=== PATIENT | female | born 1985 | race Caucasian/White ===

== ENCOUNTER → 2021-09-17 10:17 | Outpatient (REF) | payer MEDICAID, SELFPAY | LOC: HO.SL 10:17 | PROVIDERS: Absent Provider Internal Medicine; PCP Internal Medicine; Visit Provider Emergency Medicine | DX: G47.9 Sleep disorder, unspecified (principal) | CPT/HCPCS: 95806 ==

== ENCOUNTER 2021-10-12 13:31 | Outpatient (REF) | payer MEDICAID, SELFPAY ==
[2021-10-14 11:40] LABS: H Pylori Breath Test Negative (Negative)
== END 2021-10-12 13:32 | disposition home or self-care (01) ==
LOC: HO.LNP 13:31
PROVIDERS: PCP Internal Medicine; Referring Provider Internal Medicine; Visit Provider Physician Assistant
DX: Z01.818 Encounter for other preprocedural examination (principal); E66.01 Morbid (severe) obesity due to excess calories; I10 Essential (primary) hypertension; G47.33 Obstructive sleep apnea (adult) (pediatric); E11.9 Type 2 diabetes mellitus without complications; E78.00 Pure hypercholesterolemia, unspecified; M62.08 Separation of muscle (nontraumatic), other site; Z99.89 Dependence on other enabling machines and devices
CPT/HCPCS: 83013; 99202; 99211

== ENCOUNTER → 2021-10-23 10:00 | Outpatient (BNVA) | payer OTHER, SELFPAY | PROVIDERS: PCP Internal Medicine; Referring Provider Physician Assistant; Visit Provider Counselor Mental Health | DX: F33.1 Major depressive disorder, recurrent, moderate (principal); E66.01 Morbid (severe) obesity due to excess calories; G47.33 Obstructive sleep apnea (adult) (pediatric); Z99.89 Dependence on other enabling machines and devices | CPT/HCPCS: 90791 ==

== ENCOUNTER → 2021-10-28 22:00 | Outpatient (REF) | payer MEDICAID, SELFPAY | LOC: HO.SL 22:00 | PROVIDERS: Visit Provider Internal Medicine | DX: G47.33 Obstructive sleep apnea (adult) (pediatric) (principal) | CPT/HCPCS: 95811 ==

== ENCOUNTER → 2021-11-02 08:04 | Outpatient (BNVA) | payer MEDICAID, SELFPAY | PROVIDERS: PCP Internal Medicine; Referring Provider Physician Assistant; Visit Provider Dietitian, Registered | DX: E66.01 Morbid (severe) obesity due to excess calories (principal); E11.9 Type 2 diabetes mellitus without complications; Z68.43 Body mass index [BMI] 50.0-59.9, adult | CPT/HCPCS: 97802 ==

== ENCOUNTER 2021-11-08 08:09 | Outpatient (REF) | payer MEDICAID, SELFPAY ==
--- NOTE | ~2021-11-08 | XR_ITS ---
EXAMINATION: XR CHEST CLINICAL INFORMATION: G47.33 - Obstructive sleep apnea . Shortness of breath. COMPARISON: CT abdomen 04/13/2020 TECHNIQUE: 2 views of the chest were obtained. FINDINGS: The lungs are clear. There is no hyperinflation, airspace consolidation, or groundglass opacity. The costophrenic sulci are clear. The heart is normal in size. The vascularity is normal. The hilar and mediastinal contours and bony structures are unremarkable. XR/XR chest 2V IMPRESSION: Normal study.
--- NOTE | 2021-11-08 08:20 | ECG_ITS ---
Test Reason : 647.33 Blood Pressure : / mmHG Vent. Rate : 075 BPM Atrial Rate : 075 BPM P-R Int : 118 ms QRS Dur : 082 ms QT Int : 404 ms P-R-T Axes : -03 012 017 degrees QTc Int : 451 ms Normal sinus rhythm Normal ECG No previous ECGs available Referred By: Latosha Nair Electronically Signed By:JANEL JUAREZ MD
[2021-11-08 08:50] LABS: MANUAL DIFF FLAG NO
[2021-11-08 09:00] LABS: Basophils Percent Auto 0.2 % (0-2); Eosinophils Absolute Auto 0.2 X10*3/uL (0.0-0.4); Eosinophils Percent Auto 2.3 % (0-4); Hematocrit 40.6 % (37.0-47.0); Hemoglobin 12.9 g/dl (12.0-16.0); Imm Gran Abs Auto 0.03 X10*3/uL (0.00-0.03); Imm Gran Pct Auto 0.3 % (0.0-0.4); Lymphocytes Absolute Auto 2.4 X10*3/uL (1.2-4.9); Lymphocytes Percent Auto 27.4 % (20-40); Mean Corpuscular HGB Conc 31.8 g/dl (31.0-35.0); Mean Corpuscular Hemoglobin 27.1 pg (27.0-33.0); Mean Corpuscular Volume 85.3 fL (80.0-98.0); Mean Platelet Volume 9.2 fL (9.4-12.3); Monocytes Absolute Auto 0.6 X10*3/uL (0.1-1.2); Monocytes Percent Auto 6.5 % (2-11); Neutrophils Absolute Auto 5.6 x10*3/uL (2.0-8.3); Neutrophils Percent Auto 63.3 % (45-73); Platelet Count 418 X10*3/uL (160-400); Red Blood Count 4.76 X10*6/uL (4.20-5.50); Red Cell Distribution Width 13.4 % (11.0-16.0); White Blood Count 8.8 X10*3/uL (4.8-10.8)
[2021-11-08 09:27] LABS: Alanine Aminotransferase 25 U/L (0-31); Albumin Level 3.9 g/dL (3.5-5.0); Alkaline Phosphatase 78 U/L (39-117); Anion Gap 13 (12-20); Aspartate Amino Transferase 14 U/L (5-31); Bilirubin Total 0.3 mg/dL (0.0-1.0); Blood Urea Nitrogen 12 mg/dL (9-16); C Reactive Protein 2.29 mg/dL (< or = 0.50); Calcium 9.9 mg/dL (8.4-10.2); Carbon Dioxide 31 mmol/L (22-29); Chloride 97 mmol/L (96-108); Cholesterol 150 mg/dL; Estimated Glomerular Filt Rate > 60; Glucose Random 112 mg/dL (60-115); HDL Cholesterol 34 mg/dL; Iron 48 mcg/dL (30-160); LDL Cholesterol Calculated 101 mg/dl; Percent Iron Saturation 14 % (15-50); Potassium 3.9 mmol/L (3.3-5.1); Sodium 137 mmol/L (135-145); Total Iron Binding Capacity 340 mcg/dL (228-428); Total Protein 7.4 g/dL (6.5-8.0); Triglycerides 76 mg/dL; Unsaturated Iron Binding 292 ug/dL
[2021-11-08 09:30] LABS: Estimated Average Glucose 120 mg/dL; Hemoglobin A1c % 5.8 %
[2021-11-08 09:49] LABS: Ferritin 51 ng/mL (10-122); Insulin 31 uU/mL (2-29); TSH reflex Free T4 2.16 uIU/mL (0.32-4.0); Vitamin D 25-OH Total 14.6 ng/mL (>30)
[2021-11-08 10:09] LABS: Folate 6.4 ng/mL (> or = 4.0); Vitamin B12 267 pg/mL (200-900)
[2021-11-09 12:26] LABS: Calcium (PTHI) 9.4 mg/dL (8.6-10.2); PTHI 64 pg/mL (16-77)
[2021-11-13 17:01] LABS: Zinc 75 mcg/dL (60-130)
[2021-11-14 14:06] LABS: Vitamin B1 9 nmol/L (8-30)
[2021-11-14 23:36] LABS: Vitamin A 27 mcg/dL (38-98)
== END 2021-11-08 08:10 | disposition home or self-care (01) ==
LOC: HO.LAB 08:09
PROVIDERS: PCP Internal Medicine; Visit Provider Physician Assistant
DX: Z01.818 Encounter for other preprocedural examination (principal); M62.08 Separation of muscle (nontraumatic), other site; E78.00 Pure hypercholesterolemia, unspecified; Z99.89 Dependence on other enabling machines and devices; G47.33 Obstructive sleep apnea (adult) (pediatric)
CPT/HCPCS: 36415; 71046; 80053; 80061; 82306; 82607; 82728; 82746; 83036; 83525; 83540; 83970; 84425; 84443; 84590; 84630; 85025; 86140; 93005

== ENCOUNTER → 2021-11-09 08:07 | Outpatient (BNVA) | payer MEDICAID, SELFPAY | PROVIDERS: PCP Internal Medicine; Visit Provider Physician Assistant | DX: E66.01 Morbid (severe) obesity due to excess calories (principal); I10 Essential (primary) hypertension; G47.33 Obstructive sleep apnea (adult) (pediatric); E11.9 Type 2 diabetes mellitus without complications; Z99.89 Dependence on other enabling machines and devices; Z68.43 Body mass index [BMI] 50.0-59.9, adult; Z79.84 Long term (current) use of oral hypoglycemic drugs | CPT/HCPCS: 99212; Q3014 ==

== ENCOUNTER → 2021-11-13 09:45 | Outpatient (BNVA) | payer MEDICAID, SELFPAY | PROVIDERS: PCP Internal Medicine; Visit Provider Counselor Mental Health | DX: F33.1 Major depressive disorder, recurrent, moderate (principal); E66.01 Morbid (severe) obesity due to excess calories | CPT/HCPCS: 90834 ==

== ENCOUNTER → 2021-11-22 08:11 | Outpatient (BNVA) | payer MEDICAID, SELFPAY | PROVIDERS: PCP Internal Medicine; Referring Provider Physician Assistant; Visit Provider Dietitian, Registered | DX: E66.01 Morbid (severe) obesity due to excess calories (principal); Z68.43 Body mass index [BMI] 50.0-59.9, adult | CPT/HCPCS: 97803 ==

== ENCOUNTER → 2021-11-27 13:00 | Outpatient (BNVA) | payer OTHER, SELFPAY | PROVIDERS: PCP Internal Medicine; Visit Provider Counselor Mental Health | DX: F33.1 Major depressive disorder, recurrent, moderate (principal); E66.01 Morbid (severe) obesity due to excess calories | CPT/HCPCS: 90834 ==

== ENCOUNTER 2021-11-28 07:35 | Outpatient (REF) | payer MEDICAID, SELFPAY ==
--- NOTE | ~2021-11-28 | FL_ITS ---
PROCEDURE: XR GI SERIES CLINICAL INFORMATION: Morbid obesity. Obstructive sleep apnea. COMPARISON: None TECHNIQUE: Air-contrast upper GI examination. FINDINGS: Patient swallowed thin and thick barium and half-inch diameter barium tablet without difficulty. There is normal apposition of the vocal cords while saying E . There is normal elevation of the soft palate while saying candy . No nasopharyngeal reflux or tracheal aspiration was identified. There is normal esophageal motility without persistent stricture or mucosal abnormality. No hiatal hernia. There was some mild spontaneous gastroesophageal reflux within the distal third of the esophagus which cleared rapidly. Patient swallowed half-inch diameter barium tablet without difficulty. The stomach demonstrates normal distensibility without abnormal mass or ulceration. There was no delay in gastric emptying. The duodenal bulb and sweep appeared unremarkable. FLUOROSCOPY TIME: 2.1 minutes DOSE AREA PRODUCT: 25.690 Gy-cm2 (harrison-centimeter squared) FL/FL upper GI series IMPRESSION: Mild gastroesophageal reflux within the distal third of the esophagus which clears rapidly. Otherwise unremarkable air-contrast upper GI examination.
--- NOTE | ~2021-11-28 | US_ITS ---
EXAMINATION: US COMPLETE ABDOMEN WITH LIVER ELASTOGRAPHY CLINICAL INFORMATION: Morbid obesity. COMPARISON: None. TECHNIQUE: Real-time imaging of the abdominal viscera. Noninvasive ultrasound liver fibrosis assessment is performed using Lucho ElastPQ point quantification shear wave elastography (2D-SWE) with a C5-2 MHz transducer. Multiple elastography samples are obtained. FINDINGS: PANCREAS: Normal. The visualized pancreatic head and body are normal in appearance. The remainder of the pancreas is obscured from visualization by the overlying bowel gas. ABDOMINAL AORTA: The proximal, middle, and distal aortic segments are normal in caliber. INFERIOR VENA CAVA: Visualized portions are normal. LIVER: The liver demonstrates normal size, contour and increased echogenicity. No focal lesion or intrahepatic biliary duct dilatation. The right lobe measures 22.0 cm in length. The left lobe measures 14.6 cm in length. Portal flow is hepatopetal. Shear wave liver elastography median stiffness is 1.27 m/s (reference: normal median stiffness is 1.3 m/s or less). IQR/median stiffness to assess sampling precision is 0.22 (reference: good quality data set is IQR/median stiffness of 0.15 or less). GALLBLADDER: The gallbladder has been surgically removed. COMMON BILE DUCT: Normal in caliber measuring 0.7 cm in diameter. RIGHT KIDNEY: Normal. No hydronephrosis. No renal calculi or focal parenchymal lesions. The kidney measures 11.4 cm in maximum dimension. LEFT KIDNEY: Normal. No hydronephrosis. No renal calculi or focal parenchymal lesions. The kidney measures 11.6 cm in maximum dimension. SPLEEN: Normal. The spleen measures 10.3 cm in maximum dimension. FREE FLUID: None. US/US abdomen comp w elastography IMPRESSION: 1. Mild hepatic steatosis without focal lesion. 2. The rest of the abdominal ultrasound is unremarkable. 3. Liver elastography: Median liver stiffness 1.27 m/s suggestive of high probability normal. REFERENCE: Society of Radiologists in Ultrasound Liver Stiffness Thresholds (2020): LIVER STIFFNESS THRESHOLDS: *Liver Stiffness equal or less than 1.3 m/s: High probability of being normal. *Liver Stiffness less than 1.7 m/s: In the absence of other known clinical signs, rules out compensated advanced chronic liver disease. *Liver Stiffness 1.7-2.1 m/s: Suggestive of compensated advanced chronic liver disease but need further test for confirmation. *Liver Stiffness over 2.1 m/s: Rules in compensated advanced chronic liver disease. *Liver Stiffness over 2.4 m/s: Suggestive of clinically significant portal hypertension. QUALITY OF DATA SET: *IQR/Median value equal or less than 0.15 implies a quality data set. *IQR/Median value over 0.15 implies a poor quality data set. SIGNIFICANT CHANGE FROM PRIOR EXAM: Significant change if liver stiffness measurement is 10% or greater from prior exam. OTHER CONSIDERATIONS: The stage of liver fibrosis may be overestimated in the setting of acute hepatitis, liver inflammation, elevated liver function tests, hepatic vascular congestion, obstructive cholestasis, non-fasting state, and infiltrative diseases such as amyloidosis and lymphoma. In some patients with NAFLD, the liver stiffness thresholds for compensated advanced chronic liver disease may be lower. In causes other than viral hepatitis and NAFLD, liver stiffness thresholds are not well established.
== END 2021-11-28 07:36 | disposition home or self-care (01) ==
LOC: HO.US 07:35
PROVIDERS: PCP Internal Medicine; Visit Provider Physician Assistant
DX: Z01.818 Encounter for other preprocedural examination (principal); G47.33 Obstructive sleep apnea (adult) (pediatric); E78.00 Pure hypercholesterolemia, unspecified; M62.08 Separation of muscle (nontraumatic), other site; Z99.89 Dependence on other enabling machines and devices
CPT/HCPCS: 74240; 76705; 76981

== ENCOUNTER → 2021-11-29 08:10 | Outpatient (BNVA) | payer OTHER, MEDICAID, SELFPAY | PROVIDERS: PCP Internal Medicine; Visit Provider Physician Assistant | DX: E66.01 Morbid (severe) obesity due to excess calories (principal) ==

== ENCOUNTER → 2021-12-11 10:00 | Outpatient (BNVA) | payer OTHER, SELFPAY | PROVIDERS: PCP Internal Medicine; Visit Provider Counselor Mental Health | DX: F33.1 Major depressive disorder, recurrent, moderate (principal); E66.01 Morbid (severe) obesity due to excess calories | CPT/HCPCS: 90834 ==

== ENCOUNTER → 2021-12-19 10:28 | Outpatient (BNVA) | payer MEDICAID, SELFPAY | PROVIDERS: PCP Internal Medicine; Visit Provider Dietitian, Registered | DX: E66.9 Obesity, unspecified (principal) | CPT/HCPCS: 97803 ==

== ENCOUNTER → 2022-01-01 10:33 | Outpatient (BNVA) | payer OTHER, MEDICAID, SELFPAY | PROVIDERS: PCP Internal Medicine; Visit Provider Counselor Mental Health | DX: F33.1 Major depressive disorder, recurrent, moderate (principal); E66.01 Morbid (severe) obesity due to excess calories | CPT/HCPCS: 90834 ==

== ENCOUNTER → 2022-01-09 10:00 | Outpatient (BNVA) | payer OTHER, SELFPAY | PROVIDERS: PCP Internal Medicine; Visit Provider Counselor Mental Health | DX: F33.1 Major depressive disorder, recurrent, moderate (principal); E66.01 Morbid (severe) obesity due to excess calories | CPT/HCPCS: 90834 ==

== ENCOUNTER → 2022-01-30 09:40 | Outpatient (BNVA) | payer MEDICAID, SELFPAY | PROVIDERS: PCP Internal Medicine; Referring Provider Physician Assistant; Visit Provider Dietitian, Registered | DX: E66.01 Morbid (severe) obesity due to excess calories (principal); Z68.43 Body mass index [BMI] 50.0-59.9, adult | CPT/HCPCS: 97803 ==

== ENCOUNTER → 2022-02-08 13:30 | Outpatient (BNVA) | payer OTHER, SELFPAY | PROVIDERS: PCP Internal Medicine; Visit Provider Counselor Mental Health | DX: F33.1 Major depressive disorder, recurrent, moderate (principal); E66.01 Morbid (severe) obesity due to excess calories | CPT/HCPCS: 90834 ==

== ENCOUNTER 2022-11-13 13:09 | Outpatient (REF) | payer MEDICAID, SELFPAY ==
--- NOTE | 2022-11-13 10:15 | EMG_ITS ---
Please see scanned EMG / Nerve Conduction Report. MTDD
== END 2022-11-13 13:10 | disposition home or self-care (01) ==
LOC: HO.NEURO 13:09
PROVIDERS: PCP Registered Nurse; Visit Provider Registered Nurse
DX: R20.0 Anesthesia of skin (principal)
CPT/HCPCS: 95885; 95913

== ENCOUNTER 2023-02-18 15:44 | Outpatient (REF) | payer OTHER, SELFPAY ==
[2023-02-19 04:15] LABS: Syphilis Screen Nonreactive (Nonreactive)
[2023-02-19 04:30] LABS: HBS Num1 71.94 mIU/mL (0-7.99); HBc Num1 0.11 S/CO (0.00-0.79); HBsAGNum1 0.41 S/CO (0.00-0.99); HIV AB/AG Nonreactive (Nonreactive); HIV Num 1 0.07 S/CO (0.00-0.99); Hepatitis A Antibody IgM 0.19 Index (0-0.79); Hepatitis B Core Antibody Nonreactive (Nonreactive); Hepatitis B Surface Antigen Negative (Negative); ~HepC Num1 0.07 S/CO (0.00-0.79); ~Hepatitis A Antibody IgM Nonreactive (Nonreactive); ~Hepatitis B Surface Antibody REACTIVE (Nonreactive); ~Hepatitis C Antibody Nonreactive (Nonreactive)
== END 2023-02-18 15:45 | disposition home or self-care (01) ==
LOC: HO.HHCL 15:44
PROVIDERS: Visit Provider Registered Nurse
DX: Z00.00 Encounter for general adult medical examination without abnormal findings (principal); Z11.4 Encounter for screening for human immunodeficiency virus [HIV]
CPT/HCPCS: 36415; 86704; 86706; 86709; 86780; 86803; 87340; 87389

== ENCOUNTER 2023-04-30 12:17 | Outpatient (REF) | payer OTHER, SELFPAY | END 2023-04-30 12:18 | disposition home or self-care (01) | LOC: HO.HHCL 12:17 | PROVIDERS: Visit Provider Family Medicine | DX: D50.9 Iron deficiency anemia, unspecified (principal); I10 Essential (primary) hypertension | CPT/HCPCS: 36415; 80048; 83540; 85025 ==

== ENCOUNTER 2023-05-23 | Outpatient (REF) | payer OTHER, SELFPAY ==
[2023-05-29 05:48] LABS: HPV mRNA E6/E7 rflx Not Detected (Not Detected)
[2023-05-29 13:33] LABS: C. trachomatis RNA TMA NOT DETECTED (NOT DETECTED); N. gonorrhoeae RNA TMA NOT DETECTED (NOT DETECTED); Trichomonas (NAAT) DETECTED (NOT DETECTED)
== END 2023-05-23 00:01 | disposition home or self-care (01) ==
LOC: HO.LNP
PROVIDERS: Visit Provider Emergency Medicine
DX: Z12.4 Encounter for screening for malignant neoplasm of cervix (principal)
CPT/HCPCS: 87491; 87591; 87624; 87661; 88142

== ENCOUNTER 2023-10-08 10:57 | Outpatient (REF) | payer SELFPAY ==
[2023-10-08 14:09] LABS: TSH reflex Free T4 2.83 uIU/mL (0.32-4.0)
== END 2023-10-08 10:58 | disposition home or self-care (01) ==
LOC: HO.HHCL 10:57
PROVIDERS: Visit Provider Nurse Practitioner
DX: E66.01 Morbid (severe) obesity due to excess calories (principal)
CPT/HCPCS: 36415; 84443

== ENCOUNTER 2023-11-12 10:50 | Outpatient (REF) | payer SELFPAY ==
[2023-11-12 12:06] LABS: Estimated Average Glucose 120 mg/dL; Hemoglobin A1c % 5.8 % (<6.0)
[2023-11-12 12:17] LABS: Creatinine Urine 146.57 mg/dL; Microalbum/Creatinine Ratio Ur 9.5 ug/mg cr (<30)
[2023-11-12 12:25] LABS: Alanine Aminotransferase 16 U/L (0-31); Albumin Level 3.8 g/dL (3.5-5.0); Alkaline Phosphatase 78 U/L (39-117); Anion Gap 11 (12-20); Aspartate Amino Transferase 15 U/L (5-31); Bilirubin Total 0.4 mg/dL (0.0-1.0); Blood Urea Nitrogen 11 mg/dL (9-16); Calcium 9.2 mg/dL (8.4-10.2); Carbon Dioxide 28 mmol/L (22-29); Chloride 103 mmol/L (96-108); Estimated Glomerular Filt Rate > 60; Glucose Random 73 mg/dL (60-115); Potassium 4.3 mmol/L (3.3-5.1); Sodium 138 mmol/L (135-145); Total Protein 7.7 g/dL (6.5-8.0)
[2023-11-13 15:46] LABS: Cholesterol 157 mg/dL (<200); HDL Cholesterol 37 mg/dL (>40); LDL Cholesterol Calculated 100 mg/dL (<100); Triglycerides 104 mg/dL (<150)
== END 2023-11-12 10:51 | disposition home or self-care (01) ==
LOC: HO.HHCL 10:50
PROVIDERS: Visit Provider Nurse Practitioner
DX: I10 Essential (primary) hypertension (principal)
CPT/HCPCS: 36415; 80053; 80061; 82043; 82570; 83036

== ENCOUNTER 2024-05-16 20:27 | Emergency (ER) | payer OTHER, SELFPAY ==
--- NOTE | ~2024-05-16 | XR_ITS ---
EXAMINATION: XR CHEST CLINICAL INFORMATION: Cough and congestion. COMPARISON: Chest radiograph dated November 08, 2021. TECHNIQUE: 2 views of the chest were obtained. FINDINGS: The heart is normal in size. The right lung is clear. There are hazy opacities at the left lung base for which infection cannot be excluded. There is no pleural effusion. No pneumothorax. No acute osseous abnormality. XR/XR chest 2V IMPRESSION: Hazy opacities at the left lung base for which infection is not excluded. Electronically signed by: Ulices Burns DO 05/16/2024 10:26 PM EDT
--- NOTE | 2024-05-16 20:35 | ED_ITS ---
HPI - URI/Sore Throat General Chief Complaint: Upper Respiratory Symptoms Stated Complaint: fever/body hurts/body rash Time Seen by Provider: 05/16/24 20:57 Source: patient Mode of arrival: ambulatory Limitations: no limitations History of Present Illness ED Provider: CRISTIANO LOPEZ Narrative: 38 yo female with PMH of DM and HTN here with c/o 2 weeks of cough, congestion and chills. She notes her throat hurts, her ears hurt she has a rash now and her ears have become so bad she can't really hear out of them. She went to urgent care this week and they dx her with a virus. Her 13 yo son has a cold but otherwise no travel, sick contacts or new exposures. She has not felt sick like this before. MD elicited complaint: fever, cough, sore throat and rhinorrhea Onset (ago): week(s) (2) Consistency: progressively worsening Severity: moderate Description of mucous: yellow Able to tolerate fluids by mouth: Yes Exacerbating factors: swallowing and exertion Relieving factors: nothing Context: sick contacts Associated symptoms: fever, chills, headache, cough and rash Treatments prior to arrival: none Related Data Home Medications ?Medication ?Instructions ?Recorded ?Confirmed hydrochlorothiazide 25 mg tablet 25 mg PO DAILY 10/12/21 02/12/22 metformin 500 mg tablet,extended 500 mg PO QPM 10/12/21 02/12/22 release 24 hr sumatriptan succinate 50 mg tablet 0 mg PO 10/12/21 02/12/22 Previous Rx's ?Medication ?Instructions ?Recorded cholecalciferol (vitamin D3) 50 50 mcg PO DAILY #30 caps 11/08/21 mcg (2,000 unit) capsule cyanocobalamin (vitamin B-12) 500 500 mcg PO DAILY #30 tabs 11/08/21 mcg tablet vitamin A palmitate 3,000 mcg 20,000 unit PO DAILY 2 weeks #28 11/15/21 (10,000 unit) tablet tabs Magic Mouthwash 5 ml PO TID PRN mouth pain #240 mL 05/16/24 Diphen/Lido/Antacid 1:1:1 240 mL suspension azithromycin 250 mg tablet 250 mg PO DAILY 4 days #4 tabs 05/16/24 cefuroxime axetil 500 mg tablet 500 mg PO BID 7 days #14 tabs 05/16/24 Allergies Allergy/AdvReac Type Severity Reaction Status Date / Time furosemide [From Lasix] Allergy Rash Verified 05/16/24 20:39 Review of Systems Review of Systems: Constitutional : pos Fever, pos Chills ENT/Mouth : No Hoarseness, pos sore throat, No Rhinorrhea, pos ear pain Eyes: No Redness, No Discharge, No Vision Changes Cardiovascular : No Chest Pain, no SOB, noDyspnea on Exertion, No Edema Respiratory : positive Cough, pos Sputum, no Wheezing, Gastrointestinal : No Nausea, No Vomiting, No Diarrhea, No abdominal Pain Genitourinary : No Dysuria, No Hematuria Musculoskeletal : No joint pain, No Myalgias Skin : No rash Neuro : No Weakness, No Numbness, No Headache Psych : No anxiety, depression All other systems reviewed and are negative PMFSH Past Medical History Attestation statement: The following information was validated with the patient. Source: old records reviewed Medical History Hx of migraines Hx of Surgical History Hx of cholecystectomy Family History Family History (Updated 10/12/21 @ 13:38 by Jalyn Barclay CMA) Mother Diabetes Asthma COPD (chronic obstructive pulmonary disease) Arthritis Back problem Sleep apnea Father Hypertension Diabetes Brother No problems noted. Brother Sleep apnea Brother No problems noted. Sister No problems noted. Sister No problems noted. Son No problems noted. Social History Social History Alcohol intake: current Alcohol intake frequency: holidays/special occasions only Alcohol type: wine Patient Tobacco Use Status: Current everyday Tobacco user Tobacco use type: Cigarette Cigarettes Per Day: 3 Smoked in Last 30 Days: Yes Use of substances other than those prescribed or required for medical reasons: No Advance Directives: No Advance Directives Information Provided: No Patient : No Physical Exam Vital Signs: Vital Signs: Last Vital Signs Temp 98.2 F 05/16/24 22:19 Pulse 78 05/16/24 22:19 Resp 18 05/16/24 22:19 BP 117/58 L 05/16/24 22:19 Pulse Ox 95 05/16/24 22:19 O2 Del Method Room Air 05/16/24 22:19 BMI result Body Mass Index 58.9 Appearance: Alert. Oriented X3. No acute distress. Eyes: Pupils equal, round and reactive to light. bilateral TMs inflammed with erythema and bullous area on R and L TM ? small perf on R TM ENT: Pharynx vesicles on lower chin and lip, inflammed tongue and mucosa of mouth Neck: Normal inspection. Neck supple. CVS: Normal heart rate and rhythm. Pulses normal. Respiratory: No respiratory distress. Breath sounds diminished L lung Abdomen: Soft and nontender. Skin: Skin warm and dry. Normal skin color. mucositis inflammation and vesicular lesions on chin and lower lips, target like lesions on upper ext and abdomen Extremities: No lower extremity edema. No calf ttp Neuro: Oriented X 3. No motor deficit. No sensory deficit. Course Course Course Narrative: This is a rapid medical exam. Deferred additional HPI, ROS, PE to primary provider. 38 yo female with with history of depression, DM, HTN here with complaints fever, body aches, chest discomfort with coughing. Will send viral testing, strep testing, obtain CXR VSS -A. Wanda Gamez Medications Administered Discontinued Medications Generic Name Dose Route Start Last Admin Trade Name Freq PRN Reason Stop Dose Admin Azithromycin 500 mg 05/16/24 21:13 05/16/24 21:52 Azithromycin 500 Mg Tablet PO 05/16/24 21:14 500 mg ONCE ONE Administration Dexamethasone Sodium Phosphate 8 mg 05/16/24 21:13 05/16/24 21:54 Dexamethasone Sod Phosphate 4 Mg/Ml Vial PO 05/16/24 21:14 8 mg ONCE ONE Administration Ibuprofen 400 mg 05/16/24 21:13 05/16/24 21:52 Ibuprofen Oral Susp 200 Mg/10 Ml Oral.Susp PO 05/16/24 21:14 400 mg ONCE ONE Administration Medical Decision Making Medical Decision Making MDM Narrative: 38 yo female with PMH of DM and HTN here with c/o URI symptoms but her constellation of symptoms, ear complaints and lung findings concern for mycoplasma infection at this time will obtain viral panel, CXR start on steroids/motrin for throat symptoms and azithromycin. No signs of any other secondary involvement of mycoplasma Differential Diagnosis Differential Diagnoses: The differential diagnosis associated with the presentation includes suspect mycoplasma infection with AOM and derm manifestations no signs of [employer]NAGER involvement or encephalitis Admission/Observation Consideration of admission/observation: Escalation of care including admission/observation considered VS stable, tolerating PO stable for DC no hypoxia Lab Data [facility] Lab Attestation statement: I reviewed the patient's lab results. Labs: Lab Results 05/16/24 Range/Units 20:44 Influenza Type A (PCR) NEGATIVE (Negative) Influenza Type B (PCR) NEGATIVE (Negative) RSV RNA Qual (PCR) NEGATIVE (Negative) SARS-CoV-2 RNA (RT-PCR) NEGATIVE (Negative) S. pyogenes GrpA BEAR Negative (Negative) Independent Interpretation I performed an independent interpretation of an: Plain X-Ray (LL PNA) Radiology Impression Discussion of test interpretation with radiology: I have reviewed the radiologist's reading. External Record Review External record reviewed: Office record Prescription Management I considered prescription management with: Antibiotic and Other Discharge Plan Discharge Clinical Impression: Bullous myringitis of both ears, Acute mucositis Left lower lobe pneumonia Qualifiers: Pneumonia type: due to Mycoplasma pneumoniae Qualified Code(s): J15.7 - Pneumonia due to Mycoplasma pneumoniae Patient Disposition: Home, Self-Care Instructions: Oral Mucositis (ED), Pneumonia (ED) Additional Instructions: I suspect your symptoms are due to mycoplasma pneumonia. continue motrin and tylenol for pain, you were given first dose of antibiotics while in the ED. please follow up with your doctor by friday to make sure you are improving return for any worsening symptoms such as high fevers, confusion, difficulty breathing, chest pain, worsening rash or any other concerns no water in right ear for 1 week - cotton ball with vaseline or ear plug recheck with doctor in 1 week Prescriptions: New azithromycin 250 mg tablet 250 mg PO DAILY 4 Days Qty: 4 0RF Rx Instructions: start on day 2 of therapy cefuroxime axetil 500 mg tablet 500 mg PO BID 7 Days Qty: 14 0RF Magic Mouthwash Diphen/Lido/Antacid 1:1:1 240 mL suspension 5 ml PO TID PRN (Reason: mouth pain) Qty: 240 0RF Rx Instructions: Lidocaine Viscous 2 % 80mL; diphenhydramine 12.5 mg/5 mL 80mL; aluminum-mag hydrox-simeth [id number]/5mL 80mL swish and spit No Action cholecalciferol (vitamin D3) 50 mcg (2,000 unit) capsule 50 mcg PO DAILY Qty: 30 6RF cyanocobalamin (vitamin B-12) 500 mcg tablet 500 mcg PO DAILY Qty: 30 6RF vitamin A palmitate 10,000 unit tablet 20,000 unit PO DAILY 14 Days Qty: 28 0RF hydrochlorothiazide 25 mg tablet 25 mg PO DAILY metformin 500 mg tablet extended release 24 hr 500 mg PO QPM sumatriptan succinate 50 mg tablet 0 mg PO Stand Alone Forms: Work/School Release Interventions: ED Discharge Assessment Last Done: 05/16/24 22:19 Discharge Date/Time: 05/16/24 22:21 Print Language: German
[2024-05-16 20:36] VITALS: BP 114/84; PULSE 92; RESP 18; TEMP 36.9; O2SAT 99; BMI 58.9
[2024-05-16 20:58] LABS: IDNOW Serial# 08D9AD1C; Strep A Nucleic Acid Negative (Negative)
[2024-05-16 21:27] LABS: Influenza A PCR NEGATIVE (Negative); Influenza B PCR NEGATIVE (Negative); Resp Syncy Virus RNA Qual PCR NEGATIVE (Negative); SARS COV2 PCR INHOUSE NEGATIVE (Negative)
[2024-05-16] MEDS: Ibuprofen Oral Susp 200 MG/10 ML ORAL.SUSP 400 MG PO (21:52)
[2024-05-16] MEDS: Azithromycin 500 MG TABLET PO (21:52)
[2024-05-16] MEDS: dexAMETHasone sod phosphate 4 MG/ML VIAL 8 MG PO (21:54)
--- NOTE | 2024-05-16 22:04 | PC.NURSE ---
pt ambulated from waiting room with steady gait. pt a&ox4, respirations even and unlabored, vss. pt reports coughing x2 weeks, sore throat, body aches, ear ache and upper respiratory congestion. pt reports 10/10 pain for sore throat and body aches. pt medicated per mar, tolerated well with water.
[2024-05-16 22:19] VITALS: BP 117/58; PULSE 78; RESP 18; TEMP 36.8; O2SAT 95
== END 2024-05-16 22:21 | disposition home or self-care (01) ==
PROVIDERS: Nurse Practitioner Family; Emergency Provider Emergency Medicine; PCP Registered Nurse
DX: J15.7 Pneumonia due to Mycoplasma pneumoniae (principal); H73.013 Bullous myringitis, bilateral; K12.30 Oral mucositis (ulcerative), unspecified; R50.9 Fever, unspecified; M79.10 Myalgia, unspecified site; R21 Rash and other nonspecific skin eruption; R05.9 Cough, unspecified; I10 Essential (primary) hypertension; Z79.899 Other long term (current) drug therapy; Z03.818 Encounter for observation for suspected exposure to other biological agents ruled out
CPT/HCPCS: 0241U; 71046; 87651; 99284; J1100

== ENCOUNTER 2024-08-08 13:41 | Outpatient (REF) | payer OTHER, SELFPAY | END 2024-08-08 13:42 | disposition home or self-care (01) | LOC: HO.MRI 13:41 | PROVIDERS: Visit Provider Registered Nurse | DX: Z13.89 Encounter for screening for other disorder (principal) ==

== ENCOUNTER 2024-08-13 08:32 | Outpatient (REF) | payer OTHER, SELFPAY ==
[2024-08-13 11:45] LABS: MANUAL DIFF FLAG NO
[2024-08-13 12:03] LABS: Basophils Percent Auto 0.2 % (0-2); Eosinophils Absolute Auto 0.2 X10*3/uL (0.0-0.4); Eosinophils Percent Auto 1.5 % (0-4); Hematocrit 40.4 % (37.0-47.0); Imm Gran Abs Auto 0.03 X10*3/uL (0.00-0.03); Imm Gran Pct Auto 0.3 % (0.0-0.4); Lymphocytes Absolute Auto 2.4 X10*3/uL (1.2-4.9); Lymphocytes Percent Auto 22.4 % (20-40); Mean Corpuscular HGB Conc 32.2 g/dl (31.0-35.0); Mean Corpuscular Hemoglobin 28.1 pg (27.0-33.0); Mean Corpuscular Volume 87.3 fL (80.0-98.0); Mean Platelet Volume 9.2 fL (9.4-12.3); Monocytes Absolute Auto 0.6 X10*3/uL (0.1-1.2); Monocytes Percent Auto 5.7 % (2-11); Neutrophils Absolute Auto 7.3 x10*3/uL (2.0-8.3); Neutrophils Percent Auto 69.9 % (45-73); Platelet Count 454 X10*3/uL (160-400); Red Blood Count 4.63 X10*6/uL (4.20-5.50); White Blood Count 10.5 X10*3/uL (4.8-10.8)
[2024-08-13 12:34] LABS: Anion Gap 10 (12-20); Blood Urea Nitrogen 13 mg/dL (9-16); Carbon Dioxide 29 mmol/L (22-29); Chloride 102 mmol/L (96-108); Estimated Glomerular Filt Rate > 60; Glucose Random 105 mg/dL (60-115); Potassium 3.6 mmol/L (3.3-5.1); Sodium 137 mmol/L (135-145)
== END 2024-08-13 08:33 | disposition home or self-care (01) ==
LOC: HO.HHCL 08:32
PROVIDERS: Registered Nurse; Visit Provider Nurse Practitioner
DX: H91.23 Sudden idiopathic hearing loss, bilateral (principal); R42 Dizziness and giddiness
CPT/HCPCS: 36415; 80048; 85025

== ENCOUNTER 2024-08-30 11:02 | Outpatient (AMB) | payer OTHER, SELFPAY ==
[2024-08-30 11:04] VITALS: BP 118/70; PULSE 73; BMI 56.7
--- NOTE | 2024-08-30 11:04 | MHC.OFFVIS ---
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 Patient has multiple cardiovascular risk factors including morbid obesity, prediabetes, hypertension, dyslipidemia. On appropriate medications for the same. She does not have any known cardiovascular issues including coronary disease or myocardial infarction or cardiomyopathy. Chronic smoker as well. She states that attempts, she has had substernal chest discomfort that happens somewhat randomly. Can happen at rest but also with exertion. She has also gotten short of breath at different times. No specific patterns for that. She is here for further evaluation. [facility] Medical History Hx of migraines Hx of Surgical History Hx of cholecystectomy Family History Mother Diabetes Asthma COPD (chronic obstructive pulmonary disease) Arthritis Back problem Sleep apnea Father Hypertension Diabetes Brother No problems noted. Brother Sleep apnea Brother No problems noted. Sister No problems noted. Sister No problems noted. Son No problems noted. Social History Alcohol intake: current Alcohol intake frequency: holidays/special occasions only Alcohol type: wine Patient Tobacco Use Status: Current everyday Tobacco user Tobacco use type: Cigarette Cigarettes Per Day: 3 Review of Systems Const Denies chills, Denies daytime sleepiness, Denies fatigue, Denies fever(s), Denies poor appetite, Denies snoring, Denies stops breathing during sleep, Denies weakness, Denies weight gain and Denies weight loss Eyes Denies loss of vision ENT Denies dizziness and Denies hearing loss Card Reports chest pain, Denies irregular heart rhythm, Denies claudication, Reports leg edema, Denies lightheadedness, Denies palpitations, Denies dyspnea on exertion and Denies orthopnea Resp Denies cough, Denies excessive phlegm production, Denies dyspnea on exertion, Denies snoring and Denies wheezing GI Denies abdominal pain, Denies hematochezia, Denies change in bowel habits, Denies nausea and Denies vomiting Denies urinary frequency and Denies dysuria Musc Denies arthralgias, Denies muscle weakness, Denies numbness and Denies other Skin/Breast Denies nail changes and Denies rash Neuro Denies Abnormal speech present, Denies dizziness, Denies loss of vision, Denies memory loss, Denies numbness and Denies weakness Psych Denies depression and Denies memory loss Endo Denies fatigue and Denies palpitations Tavon/Lymph Denies easy bruising Aller/Immun Denies wheezing Physical Exam Vital Signs: Last Vital Signs Pulse 73 08/30/24 11:04 BP 118/70 08/30/24 11:04 BMI result Body Mass Index 56.7 Const General: comfortable and no acute distress Orientation/consciousness: patient oriented x3 HEENT Other: Unremarkable Head: Yes normal to inspection Neck Neck: Yes normal visual inspection Chest Chest palpation & inspection: normal inspection of the chest Resp Auscultation: clear to auscultation bilaterally Cardio Palpation: normal PMI Heart sounds: S1 normal heart sound present, S2 normal heart sound present, no gallops, no murmurs and no rubs GI Palpation (GI): Soft to palpation Back/Spine/Pelvis Other: unremarkable Skin General skin exam: no rashes or lesions noted Neuro General: patient oriented x3 Speech: No Abnormal speech present Extrem General: Yes normal to inspection Psych Mental Status: mental status grossly normal Assessment & Plan Assessment & Plan (1) Precordial chest pain: Code(s): R07.2 - Precordial pain Category: Medical (2) Morbid obesity: Code(s): E66.01 - Morbid (severe) obesity due to excess calories Category: Medical (3) HTN (hypertension), benign: Code(s): I10 - Essential (primary) hypertension Category: Medical (4) Elevated cholesterol: Code(s): E78.00 - Pure hypercholesterolemia, unspecified Category: Medical (5) Prediabetes: Code(s): R73.03 - Prediabetes Category: Medical Plan EKG with underlying sinus rhythm at 73/Min; no significant ST-T changes and otherwise unremarkable; normal CO and corrected QT. In prior EKG from October last year, again normal sinus rhythm without any ischemic findings. Due to her extensive risk factor profile including obesity, smoking, prediabetes, hypertension, dyslipidemia, we will proceed with further workup coronary CTA/echocardiogram. Based on findings, will plan further care. Otherwise, mainly risk factor modification. Follow-up after the testing is completed. Orders: Orders CT Cardiac Coronary Angio Today R07.2 - Precordial pain CA echo transthoracic complete Today R07.2 - Precordial pain Basic Metabolic Panel Today R07.2 - Precordial pain Coding Level of Care Code New Pt Level 4 (44899) Diagnoses Precordial chest pain R07.2 Morbid obesity E66.01 HTN (hypertension), benign I10 Elevated cholesterol E78.00 Prediabetes R73.03
== END 2024-08-30 11:32 | disposition home or self-care (01) ==
PROVIDERS: PCP Registered Nurse; Visit Provider Internal Medicine
DX: R07.2 Precordial pain (principal); E66.01 Morbid (severe) obesity due to excess calories; I10 Essential (primary) hypertension; E78.00 Pure hypercholesterolemia, unspecified; R73.03 Prediabetes
CPT/HCPCS: 99204

== ENCOUNTER → 2024-08-30 11:02 | Outpatient (BNVA) | payer OTHER, SELFPAY | PROVIDERS: PCP Registered Nurse; Visit Provider Internal Medicine | DX: R07.2 Precordial pain (principal); R73.03 Prediabetes; I10 Essential (primary) hypertension; E66.01 Morbid (severe) obesity due to excess calories; E78.00 Pure hypercholesterolemia, unspecified; Z68.43 Body mass index [BMI] 50.0-59.9, adult | CPT/HCPCS: 99202 ==

== ENCOUNTER → 2024-09-09 08:02 | Outpatient (REF) | payer OTHER, SELFPAY ==
--- NOTE | 2024-09-09 08:05 | CA_ITS ---
Transthoracic Echocardiogram Patient (Last, First, Middle): Beatrice Olivia, Gender: Female Date of : 1985 Age: 39 Procedure Date: 09/09/2024 Procedure Type: Transthoracic Echocardiogram Location: OP Height: 154.94 cm Weight: 136.08 kg BSA: 2.24 m2 Heart Rate: bpm BP: 118 / 70 mmHg Correctional Cook: NABILA Referring MD: Froylan Ivory MD Symptoms: R07.2 - Precordial pain Study Quality: Adequate ECG Rhythm: Sinus Conclusions: - The left ventricular systolic function is normal. The calculated ejection fraction is 64% by biplane method. - No obvious valvular pathology seen on this study. Findings Left Ventricle Normal left ventricular cavity size. There is normal left ventricular wall thickness. The left ventricular systolic function is normal. The calculated ejection fraction is 64% by biplane method. There is no evidence of regional wall motion abnormalities. Diastolic function is normal for age. Right Ventricle Normal right ventricular cavity size and systolic function. Atria Both atria are normal in size. Aortic Valve The aortic valve was not well visualized. There is no aortic valve stenosis. There is no aortic valve regurgitation. Mitral Valve The mitral valve appears normal. There is no mitral valve regurgitation. There is no mitral valve stenosis. Pulmonic Valve The pulmonic valve is likely normal. Tricuspid Valve There is no tricuspid valve regurgitation. There is no evidence of pulmonary hypertension. Great Vessels The asc aorta and aortic arch are normal in size. Venous The inferior vena cava is normal in size and collapses less than 50% with inspiration. Pericardium/Pleural There is no evidence of pericardial effusion. Prior Study Comparison No prior study available for comparison. Recommendations, Care & Conclusions No obvious valvular pathology seen on this study. Measurements 2D Linear Measurements IVSd: 0.72 0.6-0.9/0.6-1.0 cm LVIDd: 5.14 3.9-5.3/4.2-5.9 cm LVIDd Index: 2.29 2.4-3.2/2.2-3.1 cm/m2 LVIDs: 3.11 2.0-3.6 cm LVPWd: 0.82 0.7-1.1 cm LA Diam: 3.40 2.7-3.8/3.0-4.0 cm LAIDs Index: 1.52 1.5-2.3 cm/m2 LV Mass: 169.33 67-162/88-224 g LV Mass Index: 75.59 43-95/49-115 g/m2 LVOT Diam: 1.90 3.0+(-)1.3 cm 2D Systolic Function EF 4C: 61.30 >55% EF 2C: 64.20 >55% EF BiP: 63.60 >55% Mitral Valve MV Pk E: 1.12 MV PK A: 0.93 MV Decel Time: 178.00 E/A: 1.20 E'Lateral: 11.10 E'Medial: 8.70 E/E' Med: 12.90 E/E' Lat: 10.10 PHT: 52.00 MVA PHT: 4.23 Decel Hamilton: 6.31 Aortic Valve AoV Pk Alexis: 1.60 AoV Mn Alexis: 1.11 AoV VTI: 0.34 AoV Pk Grad: 10.00 Aov Mn Grad: 6.00 FLACA Cont.VTI: 2.29 LVOT LVOT Pk Alexis: 1.35 LVOT Mn Alexis: 0.86 LVOT VTI: 0.27 LVOT Pk Grad: 7.00 LVOT Mn Grad: 3.00 LVOT Diam: 1.90 LVOT Area: 2.84 Diastolic Function MV Pk E: 1.12 MV Pk A: 0.93 E/A: 1.20 E'Medial: 8.70 E/E' Med: 12.90 E' Laterial: 11.10 E/E' Lat: 10.10 Right Ventricle TAPSE (mm): 20.80 TVS' Alexis: 11.10 Tricuspid Valve RA Press: 8.00 Great Vessels Aorta Sinus of Valsalva: 2.91 2.0-3.[address] Ridge: 1.89 1.7-3.4 cm Ao Asc: 3.10 2.1-3.4 cm Ao Arch: 2.60 Updated in Other Vendor System with Status of Final Froylan Ivory MD electronically signed on 09/10/2024 5:13:07 PM with status of Final
--- OUTSIDE RECORDS SUMMARY | 2024-09-09 08:06 | XMS_ITS | Clinical Summary ---
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 100 g 3 01/09/20 23 Active ferrous gluconate (Fergon) 324 (38 Fe) MG tabletIndicatio ns:Low iron Take 1 tablet (324 mg) by mouth every other day. 45 tablet 1 02/06/20 23 Active semaglutide (Ozempic) 2 MG/1.5ML solution pen-injectorInd ications:Morbid obesity (CMS/HCC) Inject 1 mg under the skin 1 (one) time per week. 2 each 1 02/18/20 24 Active fluticasone (Flonase) 50 MCG/ACT nasal sprayIndication s:Viral URI Use 1 spray each nostril daily. Shake gently. Before first use, prime pump. After use, clean tip and replace cap. 16 g 03/18/20 24 Active metFORMIN XR (Glucophage-XR) 500 MG 24 hr tabletIndicatio ns:Prediabetes TAKE 1 TABLET BY MOUTH EVERY DAY EVENING MEAL 90 tablet 1 06/07/20 24 Active nicotine polacrilex (Commit) 2 MG lozengeIndicati ons:Tobacco dependence Dissolve 1 lozenge (2 mg) in the mouth every 2 (two) hours if needed for smoking cessation. 100 lozenge 2 06/07/20 24 Active chlorthalidone (Hygroton) 25 MG tabletIndicatio ns:Essential hypertension Take 1 tablet (25 mg) by mouth Once per day. 90 tablet 06/07/20 24 Active lisinopril 20 MG tabletIndicatio ns:Essential hypertension Take 1 tablet (20 mg) by mouth Once per day. 90 tablet 06/07/20 24 Active Nirmatrelvir&Ri tonavir 300/100 (Paxlovid, 300/100,) 20 x 150 MG & 10 x 100MG tablet therapy packIndications :COVID-19 Take 300 mg by mouth 2 times daily. Take 3 tablets 2x/day for 5 days 30 each 08/20/19 25 Active cetirizine (ZyrTEC) 10 MG tablet Take 1 tablet (10 mg) by mouth Once per day. Prn. 30 tablet 08/20/19 25 025 Active loratadine (Claritin) 10 MG tabletIndicatio ns:Viral URI Take 1 tablet (10 mg) by mouth Once per day for 10 days. 10 tablet 03/18/20 24 025 Discontinued(Me d list cleanup (will not trigger notification to Pharmacy)) SUMAtriptan (Imitrex) 25 MG tabletIndicatio ns:Nonintractab le headache, unspecified chronicity pattern, unspecified headache type TAKE 1 TABLET BY MOUTH ONCE IF NEEDED FOR MIGRAINE REPEAT IN 2 HOURS IF NO RELIEF. MAX 2 DOSES/24HRS 9 tablet 03/23/20 24 025 Discontinued(Me d list cleanup (will not trigger notification to Pharmacy)) predniSONE (Deltasone) 20 MG tabletIndicatio ns:Sudden hearing loss of both ears Take 3 tablets (60 mg) by mouth Once per day for 10 days. 30 tablet 07/28/19 25 025 Discontinued(Me d list cleanup (will not trigger notification to Pharmacy)) predniSONE (Deltasone) 20 MG tabletIndicatio ns:Sudden hearing loss of both ears Take 3 tablets (60 mg) by mouth Once per day for 10 days. 30 tablet 08/12/19 25 025 Active Problems Problem Noted Date Diagnosed Date Dizzinesses 08/12/2024 Assessment & Plan (08/12/2024 12:08 PM EST): -probable vertigo given complains of tinnitus & hearing loss, however orthostatic hypotension and is also likely -unable to complete [place] hallpike maneuver safely in clinic today. Exam was described to patient to complete at home and report findings which could aid confirmation of vertigo -ortho BP's in office suggest low BP readings but dose not meet criteria of >20 mmHg changes in SBP -She is advised to decrease chlorthalidone prescription to 12.5 mg daily and continue daily BP monitoring out of precaution for symptom progression. Scheduled for nurse visit in 2 weeks for BP recheck. -advised slowed position changes and increased fluid intake -strongly encouraged to keep upcoming cardiology appointment Sudden hearing loss of both ears 07/28/2024 Assessment & Plan (08/12/2024 11:50 AM EST): -repeat prednisone course given positive response -she is encouraged to complete ordered BMP and keep MRI appointment -Stat referral to ENT placed for further evaluation Assessment & Plan (07/28/2024 7:06 PM EST): DDX: conductive hearing loss vs sensorineural hearing loss vs med SE vs Meniere vs Lyme vs other PE benign except for tympanosclerosis with hx of ear tubes Tuning fork unavailable, unable to r/o SSNHL Plan: prednisone x 10 days, MRI Brain, f/up with PCP in 2 weeks. Consider referral to audiology vs ENT at f/up if needed. ED precautions Nonintractable headache 05/19/2024 Assessment & Plan (05/19/2024 10:32 AM EDT): -likely migraine headaches -will trial abortive management with sumatriptan -advised increased fluid intake and decrease stress -Discussed migraines triggers and sleep hygiene, recommended 8-9 h of sleep per night. headache red flags discussed: report to ED immediately if headache characteristics intensify within 5 mins of onset, if associated with intense nausea and vomiting or confusion -headache diary advised -follow-up in 1 mo or sooner if worsening, vomiting associated with headaches, not improving, problems or concerns Chest pain 11/13/2023 Assessment & Plan (11/13/2023 1:22 PM EDT): -patient denies symptoms today and does not require emergency evaluation -12 lead EKG completed today with SR -will refer to cardiology for further evaluation given patient's history of obstructive sleep apnea, hypertenstion, and body habitus -may be due to chronic disease progression towards heart failure, or pulmonary hypertension based on PE findings. -ED precautions advised Rash 11/12/2023 Assessment & Plan (11/13/2023 1:31 PM EDT): -advised to continue with current skin moisturizer -obtain photos when rash errupts to assist in achieving an accurate diagnosis Iron deficiency anemia 04/30/2023 Assessment & Plan (04/30/2023 12:49 PM EDT): Cont iron supplementation, will recheck levels and re-evaluate. F/u in 1 month Low iron 02/13/2023 Overview (02/13/2023): Iron saturation slightly low, 13, on 10/18/22 H/H WNL Tx Ferrous Gluconate 324 mg every other day Assessment & Plan (02/13/2023 11:25 PM EDT): Refill ferrous gluc Take every other day + OJ F/u 3 months or sooner PRN Primary central sleep apnea 02/12/2023 Overview (02/12/2023): Per sleep study results 10/28/21 recommend BiPAP machine / with f/u by sleep medicine. Assessment & Plan (02/13/2023 11:23 PM EDT): Tasked team to check on [facility] Educated pt to call clinic if no updates in 1 month Will f/u 3 months with new PCP Bilateral leg edema 01/21/2023 Overview (02/13/2023): Ddx: Lymphedema, PVD, PAD, Fluid overload d/t CHF Will order above labs to check kidneys, BNP, and lipids b/c cholesterol has not been checked. Leg swelling 2+ continues. Pain when bending legs/stretching the skin. Kidney function and BNP wnl. No compression stockings OTC Rx furosemide 20 mg daily PRN/discontinued d/t rash Assessment & Plan (04/30/2023 12:51 PM EDT): Pending vascular referral Will attempt resending compression stockings 20-30 mmHg, will send message to DME specialist Reports allergy with lasix, will benefit of wt loss but she is pre- contemplative, also benefit of compliance with her CPAP machine. F/u in 1 month Assessment & Plan (02/13/2023 11:23 PM EDT): Recommended importance of using compression stockings Pt agreed Discontinued furosemide due to rash Referred to vascular surgeon 12/04/22, appt pending F/u 3 month or sooner PRN with new PCP Assessment & Plan (01/21/2023 8:41 PM EDT): Recommended importance of using compression stockings Pt agreed Continue furosemide Referred to vascular surgeon 12/04/22, appt pending F/u 1 month or sooner PRN Chronic midline low back pain without sciatica 0 01/21/2023 Overview (01/21/2023): Describes as a numb, hot pain. Onset 6 months ago, worsening. Hx of back pain since of son but pain has changed in the last 6 months. Improved by relaxing the back/lying down. Denies saddle paresthesias, loss of bowel/bladder control No known inciting injury or strain. Treats w/ Motrin PRN, w/ some relief Assessment & Plan (01/21/2023 8:38 PM EDT): Will order xray lumbar, notify results Rx voltaren gel Refer PT F/u 1 month or sooner PRN Encounter for Papanicolaou s mear for cervical cancer screening 12/04/2022 Overview (02/13/2023): Routine Health Maintenance: STI labs ordered Immunizations: Discussed HPV vaccine today, Received dose #1 today HIV: ordered 02/05/23 Hep C: ordered 02/05/23 Hepatitis B: ordered 02/05/23 Pap Smear: Shared decision-making guidelines. ACS: age 25-65 HPV swab every 5 years. USPSTF: age 21-25 cytology only q 3 y; age 25-29 cytology w/ reflex HPV q 3 y; age 30-65 PAP w/ HPV cotest q 5 years.. Discuss at next visit Mammogram: Not due yet BMD: >age 65, not due yet Colonoscopy: Not due til 45 Lung cancer: Current smoker, recommended smoking cessation Assessment & Plan (05/23/2023 11:59 AM EDT): -last pap date cannot be determined -Co testing for HPV and STI/vaginal infection performed today -F/U to be determined by pap results Numbness and tingling in both hands 12/04/2022 Overview (01/21/2023): 10/18/22 started x 10 years, with recent worsening over the past 1.5 years. Triggered when holding coffee cup, phone, or driving steering wheel. Has not trialed alleviating factors. Prefers to avoid PO medications when possible. Describes as electricity feeling going down fingers EMG ordered 10/18/22. EMG performed 11/13/22 showed mild compression palsy of median nerve at the wrist bilaterally consistent with mild carpal tunnel syndrome. Slightly worse on the right. Normal EMG of the right C5-T1 innervated muscles Assessment & Plan (01/21/2023 8:34 PM EDT): Will refer to Hand surgeon F/u 1 month or sooner PRN Prediabetes 10/17/2022 Overview (10/18/2022): -Continues with metformin 500mg daily -Recheck A1c Assessment & Plan (05/19/2024 10:27 AM EDT): -stable at this time -continue current regimen of metformin 500 mg every day Assessment & Plan (11/19/2023 1:30 PM EDT): -POCT A1c from 10/08/23 6.6% -Serum A1c today 5.8 % -continue metformin 500 mg every day as prescribed -reviewed diet and exercise requirements along with medications for optimal weight loss -will increase ozempic dose to 0.5 mg today -discussed potentially adding phenermine and topamax -patient has engaged with bariatric team in the past. Expresses no desire to undergo surgery -is open to engaging with kettle room helper for assistance. Referral placed -follow-up 3 months Assessment & Plan (10/08/2023 5:02 PM EDT): -POCT A1C today 6.6 -will order blood draw A1c at next visit for official diagnosis -continue metformin Assessment & Plan (07/23/2023 11:42 AM EST): -continue metformin 500 mg every day -will trial ozempic injections -dietary teaching re-enforced -follow-up in 3 months: will re-check A1c then Essential hypertension 10/17/2022 Overview (11/13/2023): 11/11 hydrochlorothiazide 25 mg changed to chlorthalidone 25 mg - added lisinopril 04/30 -BP goal <130/80 Assessment & Plan (05/19/2024 10:34 AM EDT): -controlled at this time -BP at target goal of 130/80 mmHg -continue current regimen with lisinopril 20 mg, and chlorthalidone 25 mg -continue daily home monitoring -Reviewed diet, exercise and weight control -Recommended sodium restriction -Very strongly urged to quit smoking to reduce cardiovascular risk Assessment & Plan (11/13/2023 1:41 PM EDT): -BP above target goal of <130/80 -BP elevated in clinic today. Patient states she had not taken her medication yet today -continue lisinopril 20 mg every day -hydrochlorothiazide changed to chlorthalidone for optimal diuresis secondary to bilateral lower extremity -microalbumin: ordered today -ASCVD risk: 5% -continue daily BP monitoring -importance of medication compliance reviewed -low salt diet and 30 min moderate intensity daily exercise recommended -advised to elevate feet to help reduce edema. Previously ordered compression stockings but was not able to obtain. Will attempt sending order to a different DME supply pharm -Reviewed ED precautions to include chest pain, shortness of breath, severe headache, sudden vision changes or BP >=180/>=120 mmHg. -Call clinic if three or more BP readings >140/90. -follow-up 3 months Assessment & Plan (10/08/2023 5:29 PM EDT): -BP slightly above target goal of <130/80 -increase lisinopril to 20 mg daily. Recently refilled for 90 days, take 2 tables and call the clinic for next refill to increase dose. -microalbumin: will check at next visit -ASCVD risk: N/A due to age -continued daily BP monitoring advised -low salt diet and 30 min moderate intensity daily exercise recommended -headaches may be associated with elevated BP readings. No interventions at this time. Continue to monitor -follow-up 1 month Assessment & Plan (07/23/2023 11:53 AM EST): -BP reading 130/78 today at goal -home BP log not received today. -continue daily BP tracking -no sodium diet and daily exercise re-enforced -elevate legs daily to decrease swelling -follow-up in 3 months Assessment & Plan (05/30/2023 2:42 PM EST): -agreed to restart lisinopril 10 mg every day. Call the clinic with any adverse side effects -decrease sodium intake -elevate legs while sitting or lying -practice stress reduction activities -smoking cessation teaching provided -engage in physical activity daily -continue daily measurement of blood pressure Assessment & Plan (05/23/2023 11:55 AM EDT): -unstable at this this time. -prescribed hydrochlorothiazide 25 mg and lisinopril 10mg. Patient has d/c'ed lisinopril secondary to precieved side effect -importance of medication adherence reviewed -will f/u on compression stocking rx -patient scheduled HTN f/u visit in 2 weeks; patient advised to bring home HTN log Assessment & Plan (04/30/2023 1:21 PM EDT): -started lisinopril 5 mg every day in addition to current use of hydrochlorothiazide 25 mg. -maintain BP log at home. Check BP in a relaxed state -return for nurse visit in 1 week. BP goal of 130/80 mmHg. If not at goal 75% of the time, will increase lisinopril does to 10 mg every day. -patient encouraged to adopt healthy stress relief techniques such as deep breathing and meditation. -patient educated to self monitor persistent cough, and changes in urine characteristics. -follow up in 1 month Assessment & Plan (01/21/2023 8:35 PM EDT): Educated pt on importance of taking medication daily May improve leg swelling if HTN is controlled F/u 1 month or sooner PRN Assessment & Plan (10/18/2022 4:59 PM EDT): -History of HTN previously taking hydrochlorothiazide 25mg daily -However, pt has been without medication for >1 month and BP appears well controlled -Monitor BP at home x 2 weeks. Follow up for RN BP appt to see if restart of HTN med required -Continue with lifestyle interventions Morbid obesity 10/17/2022 Assessment & Plan (05/19/2024 10:30 AM EDT): -continues of semaglutide weekly injections for weight management. Will increase dose to 1 mg with next refill -continue life style modifications, consuming low fat foods -encouraged to keep her upcoming appointment with kettle room helper -follow-up 3 months Assessment & Plan (11/13/2023 12:30 PM EDT): -plan as noted above Assessment & Plan (10/08/2023 5:12 PM EDT): -6lb weight loss since 06/2023 -continue ozempic 0.25 mg dosing as patient just received refills -plan to increase ozempic to 0.5 mg weekly with next refill -continue dietary changes and daily exercise -TSH ordered to evaluate for metabolic causes -follow-up 1 month Assessment & Plan (07/23/2023 11:48 AM EST): -approximately 7 lb weight loss since 05/30/23 -Healthy diet and exercise teaching completed: Eat a variety of fruit and vegetables, whole grains such as whole-wheat flour, bulgur (cracked wheat), oatmeal, and brown rice. Intake protein from beans, nuts, fish, and lean meats. Eat low-fat or fat- free dairy products. Limit highly processed foods such as hot dogs, sandwich meat, etc. Engage in minimum of 150 min of moderate intensity exercise weekly -denies readiness to re-engage in weight management program -will trial ozempic for pre-diabetes Assessment & Plan (05/30/2023 2:41 PM EST): -5 lbs weight loss in the past month. This is not sufficient given her increased risk for CV disease in the setting of uncontrolled HTN and smoking hx. -still no interest in weight management program. Willing to try weekly injection of ozepmic. -dietary modifications discussed extensively. Recommendations to decrease sugary beverages & snack reiterated. Recommend increase protein consumption of at least 20 g/meal. -daily exercise encouraged -meal planning and nutrition tracking apps suggested. Assessment & Plan (04/30/2023 1:30 PM EDT): -not currently engaged in a weight management program. She expresses no interest in re-engaging at this time. -will continue to assess her readiness to engage in weight loss program. Discussed calorie deficit, recommended reduction of 20-30% of maintenance calories. Recommended to decrease soda and sugary beverage consumption. Recommended at least 20 g per meal of protein to assist with satiety. Recommended at least 150 min/week of moderate intensity exercise. Resolved Problems Problem Noted Date Diagnosed Date Resolved Date MASON (obstructive sleep apnea) 12/04/2022 02/12/2023 Assessment & Plan (01/21/2023 8:30 PM EDT): Received from [facility] Using nightly F/u PRN Migraine without aura, not refractory 10/17/2022 05/19/2024 Strep pharyngitis 07/29/2022 10/17/2022 Viral URI 07/25/2022 10/17/2022 Encounters Date Type Department Care Team Description 08/20/2024 Orders Only [facility] [address] [place] [id number] Denisse Evangelista NP COVID-19 (Primary Dx) 08/13/[address] [id number] Barbara Brunson RN 08/12/2024 Telephone [facility] [address] [place], [place] [id number] Sheri Hardin RN 08/11/2024 3:30 PM EST Office Visit [facility] [address] [place] [id number] Denisse Evangelista NP 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); Dizzinesses 08/11/2024 Travel 07/28/2024 5:40 PM EST Office Visit [facility] [address] [place] [phone] Leslie Barnett FNP 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) 07/28/2024 9:45 AM EST Telemedicine [address] [id number] Denisse Evangelista NP Decreased hearing of both ears (Primary Dx) 07/28/2024 Travel from Last 3 Months Immunizations Name Administration Dates Next Due Influenza Injectable Quadriv alant Preservative Free IIV4 MDCK 06/07/2021 Influenza injectable quadrivalent preservative f ree 04/30/2023 Tdap 08/22/2021 Family History Medical History Relation Name Comments Arthritis Father Hypertension Father Colon cancer Maternal Great-Grandmother Asthma Mother Diabetes Mother Glaucoma Mother Colon cancer Mother's Brother Breast cancer Other Relation Name Status Comments Father Maternal Great-Grandmother Alive Mother Mother's Brother Other Alive Social History Tobacco Use Types Packs/Day Years Used Date Smoking Tobacco: Every Day Cigarettes Smokeless Tobacco: Never Tobacco Cessation:Ready to Q uit: Not Asked; Counseling Given: Not Answered Alcohol Use Standard Drinks/Week Comments Never 0 (1 standard drink = 0.6 oz pur e alcohol) Alcohol Answer Date Recorded Frequency of Alcohol Consumption Not on file 02/18/2024 How many drinks containing a lcohol do you have on a typical day when you are drinking? 0 02/18/2024 How often do you have six or more drinks on one occasion? 0 02/18/2024 Depression Answer Date Recorded Patient Health Questionnaire-9 Score 8 02/18/2024 Patient Health Questionnaire-9 Score 8 02/18/2024 Last PHQ-9: Questionnaire Data Not on file 0 02/18/2024 Housing Stability Answer Date Recorded What is your housing situation today? I do not have housing (Staying with others, in a hotel, in a penitentiary, living outside on the street, on a beach, in a car, or in a park 06/09/[address] you li ve. Do you have problems with any of the following? None of the above 06/09/2024 Food Insecurity Answer Date Recorded Within the past 12 months, y ou worried that your food would run out before you got money to buy more: Never True 06/09/2024 Within the past 12 months,th e food you bought just didn't last and you didn't have enough money to get more: Never True Transportation Answer Date Recorded In the past 12 months, has l ack of transportation kept you from medical appts, meetings, work or from getting things needed for daily living? No 06/09/2024 Utilities Answer Date Recorded In the past 12 months, has t he electric, gas, oil or water company threatened to shut off services in your home? I am not sure 06/09/2024 Depression Answer Date Recorded Patient Health Questionnaire-2 Score 2 02/18/2024 Internet Access Answer Date Recorded Internet Access Q1 Yes 06/09/2024 Internet Access Q2 Not on file 06/09/2024 Comments Unknown Sex and Gender Information Value Date Recorded Sex Assigned at Female 05/20/2022 10:39 AM EDT Legal Sex Female 10:39 AM EDT Gender Identity Female 05/20/2022 10:39 AM EDT Sexual Orientation Choose not to disclose 2021 10:39 AM EDT Last Filed Vital Signs Vital Sign Reading Time Taken Comments Blood Pressure 93/56 08/11/2024 4:24 PM EST Pulse 100 08/11/2024 4:24 PM EST Temperature 35.4 ??C (95.8 ??F) 08/11/2024 3:38 PM ES T Respiratory Rate 23 08/11/2024 3:38 PM EST Oxygen Saturation 98% 08/11/2024 3:38 PM EST Inhaled Oxygen Concentration - - Weight 135 kg (298 lb 3.2 oz) 08/11/2024 3:38 PM EST Height 154.9 cm (5' 1 ) 08/11/2024 3:38 PM EST Body Mass Index 56.34 08/11/2024 3:38 PM EST Plan of Treatment Health Maintenance Due Date Last Done Comments Family Planning (PISQ) 2000 Hepatitis A Vaccines (1 of 2 - Risk 2-dose series) 2004 Hepatitis B Vaccines (1 of 3 - 19+ 3-dose series) 2004 Pneumococcal Vaccine: Pediatrics (0 to 5 Years) and At-Risk Patients (6 to 49) Years) (1 of 2 - PCV) 2004 COVID-19 Vaccine ( season) 2024 06/07/2021, 11/20/2020 Influenza Vaccine (#1) 2024 04/30/2023, 2020 Alcohol/Substance Use Screening 02/17/2025 02/18/2024 Depression Screening 02/17/2025 02/18/2024, 02/18/20 Diabetes: Hemoglobin A1C 02/17/2025 024, 11/12/2023, 10/08/2023, Additional history exists SDOH Screening 06/09/2025 06/09/2024 Tobacco Screening 08/12/2025 08/12/2024 Pap Smear 05/23/2026 05/23/2023, 05/23/2023 Cervical Cancer Screening 05/23/2028 HPV/Cotest 05/23/2028 05/23/2023 Lipid Panel 11/11/2028 11/12/2023, 05/2 08/2022, 08/22/2021 DTaP/Tdap/Td Vaccines (2 - Td or Tdap) 08/22/2031 08/22/2021 Zoster Vaccines (1 of 2) 2035 RSV Patients and Patients Aged 60 years or older (1 - 1-dose 75+ series) 2060 HIV Screening Completed 02/18/2023, 08/22/2021 Hepatitis C Screening Completed 02/18/2023, 022 HIB Vaccines Aged Out No longer eligi ble based on patient's age to complete this topic HPV Vaccines Aged Out No longer eligi ble based on patient's age to complete this topic IPV Vaccines Aged Out No longer eligi ble based on patient's age to complete this topic Meningococcal Vaccine Aged Out No juan r cindy eligible based on patient's age to complete this topic RSV under 20 months Aged Out No longe r eligible based on patient's age to complete this topic Rotavirus Vaccines Aged Out No longer eligible based on patient's age to complete this topic Procedures Procedure Name Priority Date/Time Associated Diagnosis Comments CBC WITH AUTO DIFFERENTIAL Routine 08/13/2024 8:34 AM EST Dizzinesses BASIC METABOLIC PANEL Routine 08/13/2024 8:34 AM EST Sudden hearing loss of both ears POCT GLYCATED HEMOGLOBIN, TOTAL Routine 02/18/2024 9:50 AM EDT Prediabetes LIPID PANEL, STANDARD Routine 11/12/2023 10:55 AM EDT Prediabetes HPV MRNA E6/E7 REFLEX TO HPV 16, 18/45 Routine 05/23/2023 11:22 AM EDT Bilateral leg edema IMAGE-GUIDED PAP W/AGE BASED SCR,W/CT/NG/TRICH Routine 05/23/2023 11:22 AM EDT Encounter for Papanicolaou smear for cervical cancer screening HEPATITIS PANEL, GENERAL Routine 02/18/2023 3:48 PM EDT Health care maintenance HIV ANTIBODY/ANTIGEN ([place] DPH) Routine 02/18/2023 3:48 PM EDT Bilateral leg edema from Last 3 Months or Most Recently Relevant to Health Maintenance Results * (ABNORMAL) CBC auto differential (08/13/2024 8:34 AM EST) White Blood Count 10.5 4.8 - 10.8 X10*3/uL [facility] Red Blood Count 4.63 4.20 - 5.50 X10*6/uL [facility] Hemoglobin 13.0 12.0 - 16.0 g/dl [facility] Hematocrit 40.4 37.0 - 47.0 % [facility] Mean Corpuscular Volume 87.3 80.0 - 98.0 fL [facility] Mean Corpuscular Hemoglobin 28.1 27.0 - 33.0 pg [facility] Mean Corpuscular HGB Conc 32.2 31.0 - 35.0 g/dl [facility] Red Cell Distribution Width 14.0 11.0 - 16.0 % [facility] Platelet Count 454(H) 160 - 400 X10*3/uL [facility] Mean Platelet Volume 9.2(L) 9.4 - 12.3 fL [facility] Neutrophils Percent Auto 69.9 45 - 73 % [facility] Imm Gran Pct Auto 0.3 0.0 - 0.4 % [facility] Lymphocytes Percent Auto 22.4 20 - 40 % [facility] Monocytes Percent Auto 5.7 2 - 11 % [facility] Eosinophils Percent Auto 1.5 0 - 4 % [facility] Basophils Percent Auto 0.2 0 - 2 % [facility] NRBC Pct Auto 0.0 0.0 - 0.2 /100WBC [facility] Neutrophils Absolute Auto 7.3 2.0 - 8.3 x10*3/uL [facility] Imm Gran Abs Auto 0.03 0.00 - 0.03 X10*3/uL [facility] Lymphocytes Absolute Auto 2.4 1.2 - 4.9 X10*3/uL [facility] Monocytes Absolute Auto 0.6 0.1 - 1.2 X10*3/uL [facility] Eosinophils Absolute Auto 0.2 0.0 - 0.4 X10*3/uL [facility] Basophils Absolute Auto 0.0 0.0 - 0.2 X10*3/uL [facility] NRBC Abs Auto 0.000 0.0 - 0.012 X10*3/uL [facility] Blood Venous blood specimen / Unknown 08/13/2024 8:34 AM EST 08/13/2024 11:38 AM EST us Denisse Evangelista CABLE TENDER LAB BLOOD ORDERABLES Final Resu lt Performing Organization Address [facility]/ZIP Co de Phone Number [facility] [address] [place] [address] [phone] * (ABNORMAL) Basic Metabolic Panel (08/13/2024 8:34 AM EST) Sodium 137 135 - 145 mmol/L [facility] Potassium 3.6 3.3 - 5.1 mmol/L [facility] Chloride 102 96 - 108 mmol/L [facility] Carbon Dioxide 29 22 - 29 mmol/L [facility] Anion Gap 10(L) 12 - 20 [facility] Urea Nitrogen (BUN) 13 9 - 16 mg/dL [facility] Creatinine, Serum 0.75 0.5 - 1.4 mg/dL [facility] Estimated Glomerular Filt Rate >60 [facility] Comment:Chronic Kidney Disea se: Estimated GFR < 60 mL/min/1.02i2Twcfmy Kidney Disease: Estimated GFR < 15 mL/min/1.73m2 Glucose 105 60 - 115 mg/dL [facility] Calcium 9.0 8.4 - 10.2 mg/dL [facility] Blood Venous blood specimen / Unknown 08/13/2024 8:34 AM EST 08/13/2024 11:38 AM EST us Leslie Barnett SUPERVISOR URANIUM PROCESSING LAB BLOOD ORDERABLES Final Res ult Performing Organization Address [facility]/ZIP Co de Phone Number [facility] [address] [place] [address] [phone] * POCT HGB A1C (02/18/2024 9:50 AM EDT) Hemoglobin A1C 5.8 4.0 - 6.0 % QC Media Lot # [id number] Lot# Expiration Date [id number] Blood 02/18/2024 9:50 AM EDT Denisse De Los Santos CABLE TENDER POINT OF CARE TEST ENTER/EDIT O RDERABLES Final Result * (ABNORMAL) Lipid Panel, Standard (11/12/2023 10:55 AM EDT) Triglycerides 104 <150 mg/dL [facility] Comment:Desirable Triglyceri de: less than 150 mg/dLBorderline High Triglyceride 150-199 mg/dLHigh Triglyceride: 200-499 mg/dLVery High Triglyceride: greater than or equal to 5OO mg/dL Cholesterol 157 <200 mg/dL [facility] Comment:Desirable Cholestero l: less than 200 mg/dLBorderline High Cholesterol: 200-239 mg/dLHigh Cholesterol: greater than 239 mg/dL LDL Cholesterol Calculated 100(H) <100 mg/dL [facility] Comment:Desirable LDL: less than 100 mg/dLNear Optimal/Above Optimal LDL: 110- 129 mg/dLBorderline High LDL: 130-159 mg/dLHigh LDL: 160-189 mg/dLVery High LDL: greater than or equal to 190 mg/dL HDL Cholesterol 37(L) >40 mg/dL [facility] Comment:Desirable HDL: great er than 40 mg/dL Note: This HDL assay may give artificially low results in patients with liver disease. Blood Venous blood specimen / Unknown 11/12/2023 10:55 AM EDT 11/13/2023 2:40 PM EDT [facility] Final Resu lt [facility] [address] [place] [phone] [phone] * (ABNORMAL) Image-Guided Pap with Age-Based Screening??with CT/NG,??Trichomonas (05/23/2023 11:22 AMEDT) Trichomonas (NAAT) DETECTED(A) NOT DETECTED [facility] Comment:The analytical perfo rmance characteristics of thisassay have been determined by [employer]. Themodifications have not been cleared or approved bythe FDA. This assay has been validated pursuant to theCLIA regulations and is used for clinical purposes.For additional information, please refer tohttp://education.[employer]/faq/Trichomonastma(This link is being provided for information/educational purposes only.)THIS TEST WAS PERFORMED AT:[employer] [address] [id number] SHEPHERD MD CTNG Ref Lab NOT DETECTED NOT DETECTED [facility] NG Ref Lab NOT DETECTED NOT DETECTED [facility] Pap Vial 05/23/2023 11:2 2 AM EDT 05/26/2023 11:00 AM EST Leslie Horan [facility] CYTOLOGY ORDERABLES Final Result [facility] [address] [place] [phone] * HPV mRNA E6/E7 w/Reflex to HPV Genotypes 16, 18/45 (05/23/2023 11:22 AM EDT) HPV nRNA E6/E7 Not Detected Not Detected [facility] Comment:Methodology: Transcr iption-Mediated AmplificationThis assay detects E6/E7 viral messenger RNA (mRNA) from 14high-risk HPV types (16,18,31,33,35,39,45,51,52,56,58,59,66,68).Cervical sources are required for HPV testing.If a vaginal source from a patient who has had atotal hysterectomy with removal of cervix wassubmitted, please contact the testing laboratoryfor alternative testing options.For additional information, please refer tohttp://education.[employer]/faq/HFG799g2(This link if provided for information/educational purposes only.)THIS TEST WAS PERFORMED AT:[facility] [address] [phone] SHEPHERD MD HPV mRNA E6/E7 TNP [facility] HPV 16 RNA TNP [facility] HPV 18/45 RNA [facility] 05/23/2023 11:2 2 AM EDT 05/26/2023 11:00 AM EST us Leslie Horan SUPERVISOR URANIUM PROCESSING LAB CYTOLOGY ORDERABLES Final Result Performing Organization Address City/[facility]/ZIP Co de Phone Number [facility] [address] [place] [phone] * HIV Ab/Ag ([facility]) (02/18/2023 3:48 PM EDT) Pathologist [facility] HIV AB/AG Nonreactive Nonreactive [facility] Comment:HIV-1 p24 Ag and/or HIV-1/HIV-2 Ab not detected.A test result that is nonreactive does not exclude thepossibility of exposure to or infection with HIV-1 and/orHIV-2. Nonreactive results in this assay for individualswith prior exposure to HIV-1 and/or HIV-2 may be due toantigen and antibody levels that are below the limit ofdetection of this assay.The [employer] HIV Ag/Ab Combo assay result andsupplemental assay results should be interpreted inconjunction with the patient's clinical presentation,history and other laboratory results. If the results areinconsistent with clinical evidence, additional testing issuggested to confirm the result. 02/18/2023 3:48 PM EDT 02/18/2023 5:50 PM EDT us Sherice Bryant SUPERVISOR URANIUM PROCESSING LAB BLOOD ORDERABLES Final Result Performing Organization Address [facility]/[employer] Co de Phone Number [facility] [address] [place] [phone] * Hepatitis Panel, General (02/18/2023 3:48 PM EDT) Pathologist [facility] Hepatitis A IgM Nonreactive Nonreactive [facility] Comment:IgM antibodies to SINGER V not detected; does not exclude earlyacute or recovered HAV infection. ~Hepatitis B Surface Antibody REACTIVE Nonreactive [facility] Comment:REACTIVE: > 11.99 mI U/mL Hepatitis B Core Antibody Nonreactive Nonreactive [facility] Hepatitis C Antibody Nonreactive Nonreactive [facility] Comment:Antibodies to HCV no t detected; does not exclude early acuteHCV infection. Hepatitis B Surface Ag Negative Negative [facility] Blood 02/18/2023 3:48 PM EDT 02/18/2023 5:50 PM EDT us Sherice rByant SUPERVISOR URANIUM PROCESSING LAB BLOOD ORDERABLES Final Result [facility] [address] [place] [phone] from Last 3 Months or Most Recently Relevant to Health Maintenance [place] [address] [address] [address] Care Teams Outboard Motors Experimental Mechanic Relationship Specialty Start Date End Date Denisse Evangelista NP [address] [place] [phone] PCP - General Family Medicine 07/10/23
--- OUTSIDE RECORDS SUMMARY | 2024-09-09 08:06 | XMS_ITS | Encounter Summary ---
Author Organization [employer] Address [address] [place] [address] [place] [address] Care Team Providers Care Simulation Engineer Name Role Phone Sherice Bryant Primary Care Provider [phone] Denisse Evangelista NP Primary Care Provider [phone] Elisabeth Richardson MD Primary Care Provider [phone] Denisse Evangelista NP Primary Care Provider [phone] Reason for Visit * Reason Onset Date Comments Results 01/02/2023 Encounter Details Date Type Department Care Team (Late st Contact Info) Description 01/02/2023 Telephone [facility] [address] [place] [phone] Sherice Bryant FNP [address] [place] [address] [place] [address] Results Social History Tobacco Use Types Packs/Day Years Used Date Smoking Tobacco: Every Day Cigarettes Smokeless Tobacco: Never Alcohol Use Standard Drinks/Week Comments Never 0 (1 standard drink = 0.6 oz pur e alcohol) Comments Unknown Sex and Gender Information Value Date Recorded Sex Assigned at Female 05/20/2022 10:39 AM EDT Legal Sex Female 10:39 AM EDT Gender Identity Female 05/20/2022 10:39 AM EDT Sexual Orientation Choose not to disclose 2021 10:39 AM EDT COVID-19 Exposure Response Date Recorded In the last 10 days, have yo u been in contact with someone who was confirmed or suspected to have Coronavirus/COVID-19? No / Unsure 12/04/2022 3:51 PM EDT documented as of this encounter Miscellaneous Notes * Telephone Encounter - Yue Eng RN - 01/02/2023 3:24 PM EDT Please review message and advise. Pt has upcoming appt with PCP and unsure if you would like to wait until said appt to discuss labs and need for medication. * Telephone Encounter - Dory Suarez - 01/02/2023 1:11 PM EDT Tc from patient requesting lab test results. States PCP let her know they need to check her kidneysto then be able to prescribe a water pill due to the swelling on her legs which are causing her pain. documented in this encounter Plan of Treatment Not on file documented as of this encounter Visit Diagnoses Not on filedocumented in this encounter Care Teams Simulation Engineer Relationship Specialty Start Date End Date Sherice Bryant FNP PCP - General Family Medicine 06/11/22 04/23/23 Denisse Evangelista NP [address] [place] [address] PCP - General Family Medicine 04/24/23 06/22/23 Elisabeth Richardson MD [address] [place] [phone] PCP - General Internal Medicine 06/23/23 07/09/23 Denisse Evangelista NP [address] [place] [address] PCP - General Family Medicine 07/10/23 documented as of this encounter
--- OUTSIDE RECORDS SUMMARY | 2024-09-09 08:06 | XMS_ITS | Clinical Summary ---
Author Organization [facility] Address [address] [place] [address] Phone Care Team Providers Care Commercial Real Estate Appraiser Name Role Phone Unavailable Primary Care Provider Unavailabl e Encounters Date Type Department Care Team Description 08/13/2024 10:49 AM EST - 08/13/2024 11:59 PM EST Hospital Encounter [facility] MRI [address] [place] [address] Sudden idiopathic hearing loss, bilateral Discharge Disposition: Home or Self Care from Last 3 Months Social History Tobacco Use Types Packs/Day Years Used Date Smoking Tobacco: Never Assessed Comments Unknown Sex and Gender Information Value Date Recorded Sex Assigned at Not on file Legal Sex Female 10:44 AM EST Gender Identity Not on file Sexual Orientation Not on file Last Filed Vital Signs Vital Sign Reading Time Taken Comments Blood Pressure - - Pulse - - Temperature - - Respiratory Rate - - Oxygen Saturation - - Inhaled Oxygen Concentration - - Weight 135 kg (298 lb) 08/13/2024 11:38 AM EST Height - - Body Mass Index - - Plan of Treatment Health Maintenance Due Date Last Done Comments Hepatitis A Vaccines (1 of 2 - Risk 2-dose series) 2004 Hepatitis B Vaccines (1 of 3 - 19+ 3-dose series) 2004 Cervical Cancer Screening: P ap Smear 2006 COVID-19 Vaccine (2023-2 5 season) 2024 Influenza Vaccine (#1) 2024 , 06/07/2021 HIV Screening 08/14/2024 Hepatitis C Screening 08/14/2024 Social Influencers of Health Screening 08/14/2024 Depression Screening 02/17/2025 02/18/2024 Hypertension/CHF/CAD Annual BMP Blood Test 08/13/2025 08/13/2024 Cholesterol Screening (Lipid Panel) 11/11/2028 11/12/2023 DTaP,Tdap,and Td Vaccines (2 - Td or Tdap) 08/22/2031 08/22/2021 HIB Vaccines Aged Out No longer eligi ble based on patient's age to complete this topic HPV Vaccines Aged Out No longer eligi ble based on patient's age to complete this topic IPV Vaccines Aged Out No longer eligi ble based on patient's age to complete this topic MMR Vaccines Aged Out No longer eligi ble based on patient's age to complete this topic Meningococcal ACWY Vaccine Aged Out N o longer eligible based on patient's age to complete this topic Meningococcal B Vacine Aged Out No lo nger eligible based on patient's age to complete this topic Pneumococcal Vaccine: Pediatrics (0 to 5 Years) and At-Risk Patients (6 to 64 Years) Aged Out No longer eligible b ased on patient's age to complete this topic RSV Immunization Patients Under 20 months Aged Out No longer eligible b ased on patient's age to complete this topic Varicella Vaccines Aged Out No longer eligible based on patient's age to complete this topic Procedures Procedure Name Priority Date/Time Associated Diagnosis Comments MR BRAIN WO AND W CONTRAST Routine 08/13/2024 11:57 AM EST Sudden idiopathic hearing loss, bilateral from Last 3 Months Results * MR Brain wo and w Contrast (08/13/2024 11:57 AM EST) Anatomical Region Laterality Modality Head and Neck Magnetic Resonan ce 08/13/2024 12:2 4 PM EST Impressions 08/13/2024 2:05 PM EST Faint areas of contrast enhancement affecting the 8th nerves and the cochlea raising suspicion for vestibular neuritis. -------- FINAL REPORT -------- Dictated By: Reinaldo Gomes Dictated Date: 08/13/2024 12:24 ET Assigned Physician: Reinaldo Gomes Reviewed and Electronically Signed By: Reinaldo Gomes Signed Date: 08/13/2024 14:05 ET Workstation ID: [id number] Transcribed By: Self Edit Transcribed Date: 08/13/2024 12:25 ET Narrative 08/13/2024 2:05 PM EST PROCEDURE: Contrast-enhanced MRI of the brain and IACs. HISTORY: HEARING LOSS BOTH EARS. TECHNIQUE: Multiplanar multisequence MRI of the brain with and without intravenous contrast. ??Dedicated thin section pre and postcontrast imaging of the IACs was also performed. IV CONTRAST DOSE: 20 mL intravenous Dotarem from a 20 mL vial with 0 mL discarded. COMPARISON: FINDINGS: BRAIN: No diffusion abnormality. ??No mass or extra-axial fluid collection. ??No hydrocephalus. ??The major intracranial flow voids are preserved. Age commensurate ventricles and sulci. ??No abnormal enhancement. Thin section imaging of the internal auditory canals was performed. ??There is a faint focus of contrast enhancement at the posterior apex of the left IAC in the region of the distal 8th cranial nerve, as well as suggestion of faint enhancement of the cochlea. ??There is also suggestion of faint linear enhancement of the right 8 nerve and faint enhancement of the right cochlea . ORBITS: Normal. SINUSES/MASTOIDS: Large mucous retention cyst in the left maxillary antrum and a small mucous retention cyst in the right maxillary antrum. ??Minimal mucosal thickening in the ethmoid air cells and left posterior sphenoid sinus. ??Extensive bilateral mastoid fluid. CALVARIUM: Normal. OTHER: The visualized skull base soft tissues are normal. Procedure Note Reinaldo Gomes MD - 08/13/2024 PROCEDURE: Contrast-enhanced MRI of the brain and IACs. HISTORY: HEARING LOSS BOTH EARS. TECHNIQUE: Multiplanar multisequence MRI of the brain with and withoutintravenous contrast. Dedicated thin section pre and postcontrast imagingof the IACs was also performed. IV CONTRAST DOSE: 20 mL intravenous Dotarem from a 20 mL vial with 0 mLdiscarded. COMPARISON: FINDINGS: BRAIN: No diffusion abnormality. No mass or extra-axial fluid collection.No hydrocephalus. The major intracranial flow voids are preserved. Agecommensurate ventricles and sulci. No abnormal enhancement. Thin section imaging of the internal auditory canals was performed. Thereis a faint focus of contrast enhancement at the posterior apex of the leftIAC in the region of the distal 8th cranial nerve, as well as suggestionof faint enhancement of the cochlea. There is also suggestion of faintlinear enhancement of the right 8 nerve and faint enhancement of the rightcochlea . ORBITS: Normal. SINUSES/MASTOIDS: Large mucous retention cyst in the left maxillary antrumand a small mucous retention cyst in the right maxillary antrum. Minimalmucosal thickening in the ethmoid air cells and left posterior sphenoidsinus. Extensive bilateral mastoid fluid. CALVARIUM: Normal. OTHER: The visualized skull base soft tissues are normal. IMPRESSION: Faint areas of contrast enhancement affecting the 8th nerves and thecochlea raising suspicion for vestibular neuritis. -------- FINAL REPORT -------- Dictated By: Reinaldo Gomes Dictated Date: 08/13/2024 12:24 ET Assigned Physician: Reinaldo Gomes Reviewed and Electronically Signed By: Reinaldo Gomes Signed Date: 08/13/2024 14:05 ET Workstation ID: [id number] Transcribed By: Self Edit Transcribed Date: 08/13/2024 12:25 ET us Leslie Barnett RN IMG MRI PROCEDURES Fin al Result from Last 3 Months
--- OUTSIDE RECORDS SUMMARY | 2024-09-09 08:06 | XMS_ITS | Encounter Summary ---
Author Organization [employer] Address [address] [facility] [address] [place] [address] Care Team Providers Care Biology Internship Name Role Phone Denisse Evangelista NP Primary Care Provider [phone] Encounter Details Date Type Department Care Team ([facility] st Contact Info) Description 08/12/2024 Telephone [facility] [address] [place] [address] Sheri Hardin, RN Social History Tobacco Use Types Packs/Day Years [...] with others, in a hotel, in a half-way, living outside on the street, on a [...] not to disclose 2021 10:39 AM EDT documented as of this encounter Miscellaneous Notes * Telephone Encounter - Sheri Hardin RN - 08/12/2024 1:03 PM EST Tc to pt to let them know per PCP Please call and inform patient that I have sent repeat course of prednisone to the pharmacy and placed a [facility] referral. Remind her to keep her MRI appointment for tomorrow and complete the lab in the am. Thanks . Pt verbalized understanding and agrees with plan. * Telephone Encounter - Sheri Hardin RN - 08/12/2024 1:03 PM EST ----- Message from Denisse Evangelista sent at 08/12/2024 12:44 PM EST ----- Please call and inform patient that I have sent repeat course of prednisone to the pharmacy and placed a [facility] referral. Remind her to keep her MRI appointment for tomorrow and complete the lab inthe am. Thanks documented in this encounter Plan of Treatment Not on file documented as of this encounter Visit Diagnoses Not on filedocumented in this encounter Additional Health Concerns Assessment Noted Time PHQ-9 Depression Total Score: 8 02/18/20 24 10:12 AM EDT documented as of this encounter Care Teams Biology Internship Relationship Specialty Start Date End Date Denisse Evangelista NP [address] [place] [address] PCP - General Family Medicine 07/10/23 documented as of this encounter
--- OUTSIDE RECORDS SUMMARY | 2024-09-09 08:06 | XMS_ITS | Encounter Summary ---
Author Organization [employer] Address [address] [place] [address] [facility] [place] [address] Care Team Providers Care Refractive Surgeon Name Role Phone Denisse Evangelista NP Primary Care Provider [phone] Reason for Referral * Consultation (STAT) - Closed Specialty Diagnoses / Procedures Referred By Carmen galvan Referred To Contact Otolaryngology Diagnoses Sudden hearing loss of both ears Denisse Evangelista NP [address] [place] [address] Phone: tel: fax: [facility] [address] Phone: tel: fax: Referral ID Status Reason Start Date Expiration Date V isits Requested Visits Authorized [id number] Closed Specialty Services Required 08/12/2024 08/12/2025 1 1 Reason for Visit * Reason Comments sick onsite Encounter Details Date Type Department Care Team (Late st Contact Info) Description 08/11/2024 3:30 PM EST Office Visit [facility] MED[facility]INE [address] [place], [place] [phone] Denisse Evangelista NP [address] [place], [place] [phone] 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); Dizzinesses Social History Tobacco Use Types Packs/Day Years [...] with others, in a hotel, in a assisted, living outside on the street, on a [...] AM EDT documented as of this encounter Last Filed Vital Signs Vital Sign Reading [...] Mass Index 56.34 08/11/2024 3:38 PM EST documented in this encounter Progress Notes * Denisse Evangelista, [place] - 08/11/2024 3:30 PM EST Subjective: Beatrice Olivia 38 y.o. female presents for sudden hearing loss. Denies recent illness, injury, or hospitalization. HPI Patient was seen in the walk-in center 2 weeks ago with sudden onset of bilateral hearing loss and tinnitus greater on the right. She reports completion of the 10 day course of prednisone prescribes from which she noted improvement during the treatment course. She states 1 day after completing the steroids, her hearing declined again. She has also noticed a reoccurrence of headaches with the tinnitus. States she was unable to complete the MRI at [facility] due to claustrophobia, however, she is scheduled to have it completed at [facility] this Friday08/13/24 at 11 am. Notes continued intermittent episodes of dizziness, lightheadedness, and feeling drunk . Reports feeling like her body is swaying and she is unable to maintain her balance. States she often notices these incidents when she stands and is moving. Denies falling, but has had near incidents. Denies shortness of breath, chest pain, or palpitations with these incidents. States she was scheduled to seecardiology in May was but sick with COVID and was rescheduled for an upcoming appointment. Review of Systems Constitutional: Negative. Negative for chills and fever. HENT: Positive for tinnitus. Respiratory: Negative for chest tightness and shortness of breath. Cardiovascular: Negative for chest pain and palpitations. Gastrointestinal: Negative for abdominal pain, constipation, diarrhea and nausea. Genitourinary: Negative for dysuria. Musculoskeletal: Negative for arthralgias, back pain, myalgias and neck pain. Skin: Negative. Negative for rash and wound. Neurological: Positive for dizziness, light-headedness and headaches. Negative for syncope and weakness. Psychiatric/Behavioral: Negative for behavioral problems, confusion, decreased concentration and suicidal ideas. Objective: Vitals: 08/11/24 1538 08/11/24 1619 08/11/24 1622 08/11/24 1624 BP: 126/71 102/63 88/53 93/56 BP Location: Left arm Right arm Right arm Right arm Patient Position: Sitting Lying Sitting Standing BP Cuff Size: Large adult Adult long Large adult Large adult Pulse: 92 87 91 100 Resp: 23 Temp: 95.8 ??F (35.4 ??C) TempSrc: Temporal SpO2: 98% Weight: 298 lb 3.2 oz (135 kg) Height: 5' 1 (1.549 m) Patient Active Problem List Diagnosis Prediabetes Essential hypertension Morbid obesity ([facility]) Encounter for Papanicolaou smear for cervical cancer screening Numbness and tingling in both hands Bilateral leg edema Chronic midline low back pain without sciatica Primary central sleep apnea Low iron Iron deficiency anemia Rash Chest pain Nonintractable headache Sudden hearing loss of both ears Dizzinesses Current Outpatient Medications on File Prior to Visit Medication Sig Dispense Refill chlorthalidone (Hygroton) 25 MG tablet Take 1 tablet (25 mg) by mouth Once per day. 90 tablet 0 Diclofenac Sodium (Voltaren) 1 % gel Apply 2 g topically if needed in the morning and at bedtime (muscle pain). 100 g 3 ferrous gluconate (Fergon) 324 (38 Fe) MG tablet Take 1 tablet (324 mg) by mouth every other day. 45 tablet 1 fluticasone (Flonase) 50 MCG/ACT nasal spray Use 1 spray each nostril daily. Shake gently. Before first use, prime pump. After use, clean tip and replace cap. 16 g 0 lisinopril 20 MG tablet Take 1 tablet (20 mg) by mouth Once per day. 90 tablet 0 loratadine (Claritin) 10 MG tablet Take 1 tablet (10 mg) by mouth Once per day for 10 days. 10 tablet 0 metFORMIN XR (Glucophage-XR) 500 MG 24 hr tablet TAKE 1 TABLET BY MOUTH EVERY DAY EVENING MEAL 90 tablet 1 nicotine polacrilex (Commit) 2 MG lozenge Dissolve 1 lozenge (2 mg) in the mouth every 2 (two) hours if needed for smoking cessation. 100 lozenge 2 semaglutide (Ozempic) 2 MG/1.5ML solution pen-injector Inject 1 mg under the skin 1 (one) time per week. 2 each 1 [DISCONTINUED] predniSONE (Deltasone) 20 MG tablet Take 3 tablets (60 mg) by mouth Once per day for10 days. 30 tablet 0 [DISCONTINUED] SUMAtriptan (Imitrex) 25 MG tablet TAKE 1 TABLET BY MOUTH ONCE IF NEEDED FOR MIGRAINE REPEAT IN 2 HOURS IF NO RELIEF. MAX 2 DOSES/24HRS 9 tablet 0 No current facility-administered medications on file prior to visit. Physical Exam Vitals reviewed. Constitutional: General: She is not in acute distress. Appearance: Normal appearance. She is not ill-appearing. HENT: Head: Normocephalic and atraumatic. Right Ear: External ear normal. Tympanic membrane is scarred. Left Ear: External ear normal. Tympanic membrane is scarred. Nose: Nose normal. Eyes: General: No scleral icterus. Extraocular Movements: Extraocular movements intact. Cardiovascular: Rate and Rhythm: Normal rate and regular rhythm. Pulses: Normal pulses. Heart sounds: Normal heart sounds. Pulmonary: Effort: Pulmonary effort is normal. No respiratory distress. Breath sounds: Normal breath sounds. Musculoskeletal: General: Normal range of motion. Cervical back: Normal range of motion. Neurological: General: No focal deficit present. Mental Status: She is alert and oriented to person, place, and time. Gait: Gait normal. Psychiatric: Mood and Affect: Mood normal. Behavior: Behavior normal. Problem List Items Addressed This Visit Sudden hearing loss of both ears - Primary -repeat prednisone course given positive response -she is encouraged to complete ordered BMP and keep MRI appointment -Stat referral to ENT placed for further evaluation Relevant Medications predniSONE (Deltasone) 20 MG tablet Other Relevant Orders Referral to ENT Dizzinesses -probable vertigo given complains of tinnitus & hearing loss, however orthostatic hypotension and is also likely -unable to complete Hammond hallpike maneuver safely in clinic today. Exam [...] -strongly encouraged to keep upcoming cardiology appointment Relevant Orders CBC auto differential documented in this encounter Miscellaneous Notes * Assessment & Plan Note - Denisse Evangelista NP - 08/12/2024 11:25 AM ESTAssociated Problem(s): Sudden hearing loss of both ears -repeat prednisone course given positive response -she is encouraged to complete ordered BMP and keep MRI appointment -Stat referral to ENT placed for further evaluation * Assessment & Plan Note - Denisse Evangelista NP - 08/12/2024 11:25 AM ESTAssociated Problem(s): Dizzinesses -probable vertigo given complains of tinnitus & hearing loss, however orthostatic hypotension and is also likely -unable to complete Catie hallpike maneuver safely in clinic today. Exam [...] -strongly encouraged to keep upcoming cardiology appointment documented in this encounter Plan of Treatment Scheduled Referrals Name Type Priority Associated Diagnoses Orde r Schedule Referral to ENT Outpatient Referral STAT Sudden hearing loss of both ears Expected: 08/12/2024 (Approximate), Expires: 08/12/2025 documented as of this encounter Procedures Procedure Name Priority Date/Time Associated Diagnosis Comments CBC WITH AUTO DIFFERENTIAL Routine 08/13/2024 8:34 AM EST Dizzinesses documented in this encounter Results * (ABNORMAL) CBC auto differential (08/13/2024 8:34 AM EST) White Blood Count 10.5 4.8 - 10.8 X10*3/uL [facility] Red Blood Count 4.63 4.20 - 5.50 X10*6/uL [facility] Hemoglobin 13.0 12.0 - 16.0 g/dl [facility] Hematocrit 40.4 37.0 - 47.0 % [facility] Mean Corpuscular Volume 87.3 80.0 - 98.0 fL [facility] Mean Corpuscular Hemoglobin 28.1 27.0 - 33.0 pg [facility] Mean Corpuscular HGB Conc 32.2 31.0 - 35.0 g/dl [facility] Red Cell Distribution Width 14.0 11.0 - 16.0 % [facility] Platelet Count 454(H) 160 - 400 X10*3/uL [facility] Mean Platelet Volume 9.2(L) 9.4 - 12.3 fL [facility] Neutrophils Percent Auto 69.9 45 - 73 % [facility] Imm Gran Pct Auto 0.3 0.0 - 0.4 % [facility] Lymphocytes Percent Auto 22.4 20 - 40 % [facility] Monocytes Percent Auto 5.7 2 - 11 % [facility] Eosinophils Percent Auto 1.5 0 - 4 % [facility] Basophils Percent Auto 0.2 0 - 2 % [facility] NRBC Pct Auto 0.0 0.0 - 0.2 /100WBC [facility] Neutrophils Absolute Auto 7.3 2.0 - 8.3 x10*3/uL [facility] Imm Gran Abs Auto 0.03 0.00 - 0.03 X10*3/uL [facility] Lymphocytes Absolute Auto 2.4 1.2 - 4.9 X10*3/uL [facility] Monocytes Absolute Auto 0.6 0.1 - 1.2 X10*3/uL [facility] Eosinophils Absolute Auto 0.2 0.0 - 0.4 X10*3/uL [facility] Basophils Absolute Auto 0.0 0.0 - 0.2 X10*3/uL [facility] NRBC Abs Auto 0.000 0.0 - 0.012 X10*3/uL [facility] Blood Venous blood specimen / Unknown 08/13/2024 8:34 AM EST 08/13/2024 11:38 AM EST us Denisse Evangelista DESK MONITOR LAB BLOOD ORDERABLES Final Resu lt [facility] [address] [place] [phone] documented in this encounter Visit Diagnoses Diagnosis Sudden hearing loss of both ears- Primary Dizzinesses documented in this encounter Additional Health Concerns Assessment Noted Time PHQ-9 Depression Total Score: 8 02/18/20 24 10:12 AM EDT documented as of this encounter Care Teams Refractive Surgeon Relationship Specialty Start Date End Date Denisse Evangelista NP [address] [place] [address] PCP - General Family Medicine 07/10/23 documented as of this encounter
--- OUTSIDE RECORDS SUMMARY | 2024-09-09 08:06 | XMS_ITS | Encounter Summary ---
Author Organization [employer] Address [address] [place] [address] Care Team Providers Care Keypunch Operator Name Role Phone Unavailable Primary Care Provider Unavailabl e Reason for Referral * Imaging (Routine) - Pending Review Specialty Diagnoses / Procedures Referred By Carmen galvan Referred To Contact Radiology Diagnoses Sudden idiopathic hearing loss, bilateral Procedures MR Brain wo and w Contrast Leslie Barnett RN [address] [address] Phone: tel: fax: [facility] Referral ID Status Reason Start Date Expiration Date V isits Requested Visits Authorized [id number] Pending Review 08/13/2024 08/13/2025 1 1 Reason for Visit * Imaging (Routine) - Pending Review Specialty Diagnoses / Procedures Referred By Carmen galvan Referred To Contact Radiology Diagnoses Sudden idiopathic hearing loss, bilateral Procedures MR Brain wo and w Contrast Leslie Barnett RN [address] [address] Phone: tel: fax: [facility] Referral ID Status Reason Start Date Expiration Date V isits Requested Visits Authorized [id number] Pending Review 08/13/2024 08/13/2025 1 1 Encounter Details Date Type Department Care Team (Latest Contact Info) Description 08/13/2024 10:49 AM EST - 08/13/2024 11:59 PM EST Hospital Encounter [facility] MRI [address] [place] [address] Sudden idiopathic hearing loss, bilateral Discharge Disposition: Home or Self Care Social History Tobacco Use Types Packs/Day Years Used Date Smoking Tobacco: Never Assessed Comments Unknown Sex and Gender Information Value Date Recorded Sex Assigned at Not on file Legal Sex Female 10:44 AM EST Gender Identity Not on file Sexual Orientation Not on file documented as of this encounter Last Filed Vital Signs Vital Sign Reading Time Taken Comments Blood Pressure - - Pulse - - Temperature - - Respiratory Rate - - Oxygen Saturation - - Inhaled Oxygen Concentration - - Weight 135 kg (298 lb) 08/13/2024 11:38 AM EST Height - - Body Mass Index - - documented in this encounter Discharge Disposition Disposition Code Departure Means Destination Home or Self Care documented in this encounter Plan of Treatment Not on file documented as of this encounter Procedures Procedure Name Priority Date/Time Associated Diagnosis Comments MR BRAIN WO AND W CONTRAST Routine 08/13/2024 11:57 AM EST Sudden idiopathic hearing loss, bilateral documented in this encounter Results * MR Brain wo and w [...] Signed Date: 08/13/2024 14:05 ET Workstation ID: [id number] Transcribed By: Self Edit Transcribed Date: 08/13/2024 [...] Signed Date: 08/13/2024 14:05 ET Workstation ID: [id number] Transcribed By: Self Edit Transcribed Date: 08/13/2024 12:25 ET Leslie Barnett RN IMG MRI PROCEDURES Fin al Result documented in this encounter Visit Diagnoses Diagnosis Sudden idiopathic hearing loss, bilateral documented in this encounter Administered Medications Inactive Administered Medications - up to 3 most recent administrations Medication Order MAR Action Action Date Dose Rate Site gadoterate meglumine (CLARISCAN, DOTAREM) injection 20 mL 20 mL, intravenous, Once in imaging, Starting on Fri08/13/24 at 1139, For 1 dose Given 08/13/2024 11:57 AM EST 20 mL documented in this encounter Orders Medications Ordered That Get ht Not Have Been Administered Count Last Ordered Date First Ordered Date gadoterate meglumine (ARTEMIO CAN, DOTAREM) injection 20 mL 1 08/13/2024 documented in this encounter
--- OUTSIDE RECORDS SUMMARY | 2024-09-09 08:06 | XMS_ITS | Encounter Summary ---
Author Organization [employer] Address [address] [facility] 7t [place] [address] Care Team Providers Care Alumni Relations Coordinator Name Role Phone Denisse Evangelista NP Primary Care Provider [phone] Encounter Details Date Type Department Care Team ([facility] st Contact Info) Description 08/13/2024 Telephone [facility]INE [address] [place] [address] Barbara Brunson, MARICARMEN Social History Tobacco Use Types Packs/Day Years [...] with others, in a hotel, in a fdc, living outside on the street, on a [...] encounter Miscellaneous Notes * Telephone Encounter - Barbara Brunson RN - 08/13/2024 3:00 PM EST Fax sent per PCP message, Clementina gutierrez, this request may be too soon but I don't want to forget. Please look for/request head MRI results for this patient. She was to have the imaging this morning at 11. When I saw her, she told me she was scheduled to have it done at [facility] in [facility]. Outgoing fax sent to [facility] MRI Department fax number: [phone]. Confirmation received and placed in the medical records bin. documented in this encounter Plan of Treatment Not on file documented as of this encounter Visit Diagnoses Not on filedocumented in this encounter Additional Health Concerns Assessment Noted Time PHQ-9 Depression Total Score: 8 07/31/20 24 10:12 AM EDT documented as of this encounter Care Teams Alumni Relations Coordinator Relationship Specialty Start Date End Date Denisse Evangelista NP [address] [place] [address] PCP - General Family Medicine 07/10/23 documented as of this encounter
--- OUTSIDE RECORDS SUMMARY | 2024-09-09 08:06 | XMS_ITS | Encounter Summary ---
Author Organization [employer] Address [address] [facility] 7t [place] [address] Care Team Providers Care Senior Management Consultant Name Role Phone Denisse Evangelista NP Primary Care Provider [phone] Encounter Details Date Type Department Care Team ([facility] st Contact Info) Description 08/20/2024 Orders Only [facility] MEDICINE [address] [place] [address] Denisse Evangelista NP [address] [place] [address] COVID-19 (Primary Dx) Social History Tobacco Use Types Packs/Day Years [...] with others, in a hotel, in a chcf, living outside on the street, on a [...] t he electric, gas, oil or water [employer] threatened to shut off services in your [...] AM EDT documented as of this encounter Progress Notes * Denisse Evangelista NP - 08/20/2024 6:23 PM EST Placed call to patient do review MRI results and assess if any improvement in hearing with prednisone. States she continues to have hearing loss; has received a letter with information regarding ENT referral. MRI reveal vestibular neuritis. She denies nausea, however she continues to have dizziness and hearing loss. Discussed symptomatic treatment and she is willing to trial antihistamine. Prescription sent to pharmacy States she tested positive for COVID 1 day ago and is interested in paxlovid. Prescription sent to pharmacy documented in this encounter Plan of Treatment Not on file documented as of this encounter Visit Diagnoses Diagnosis COVID-19- Primary documented in this encounter Additional Health Concerns Assessment Noted Time PHQ-9 Depression Total Score: 8 02/18/20 24 10:12 AM EDT documented as of this encounter Care Teams Senior Management Consultant Relationship Specialty Start Date End Date Denisse Evangelista NP [address] [place] [address] PCP - General Family Medicine 07/10/23 documented as of this encounter
--- OUTSIDE RECORDS SUMMARY | 2024-09-09 08:06 | XMS_ITS | Encounter Summary ---
Author Organization [employer] Address [address] [facility] 7 [place] [address] Care Team Providers Care Digester Capper Name Role Phone Denisse Evangelista NP Primary Care Provider [phone] Elisabeth Richardson MD Primary Care Provider [phone] Denisse Evangelista NP Primary Care Provider [phone] Reason for Visit * Reason Comments Med Refill Encounter Details Date Type Department Care Team ([facility] st Contact Info) Description 06/10/2023 Refill [facility] MEDICINE [address] [place] [address] Elisabeth Richardson MD [address] [place] [address] STI (sexually transmitted infection) Social History Tobacco Use Types Packs/Day Years Used Date Smoking Tobacco: Every Day Cigarettes Smokeless Tobacco: Never Alcohol Use Standard Drinks/Week Comments Never 0 (1 standard drink = 0.6 oz pur e alcohol) Depression Answer Date Recorded Patient Health Questionnaire-9 Score 0 04/30/2023 Housing Stability Answer Date Recorded What is your housing situation today? I have mavisjadon white 05/05/[address] you li ve. Do you have problems with any of the following? None of the above 05/05/2023 Food Insecurity Answer Date Recorded Within the past 12 months, y ou worried that your food would run out before you got money to buy more: Never True 05/05/2023 Within the past 12 months,th e food you bought just didn't last and you didn't have enough money to get more: Never True Transportation Answer Date Recorded In the past 12 months, has l ack of transportation kept you from medical appts, meetings, work or from getting things needed for daily living? No 05/05/2023 Utilities Answer Date Recorded In the past 12 months, has t he electric, gas, oil or water company threatened to shut off services in your home? No 05/05/2023 Depression Answer Date Recorded Patient Health Questionnaire-2 Score 0 04/30/2023 Comments Unknown Sex and Gender Information Value Date Recorded Sex Assigned at Female 05/20/2022 10:39 AM EDT Legal Sex Female 10:39 AM EDT Gender Identity Female 05/20/2022 10:39 AM EDT Sexual Orientation Choose not to disclose 2021 10:39 AM EDT documented as of this encounter Plan of Treatment Not on file documented as of this encounter Visit Diagnoses Diagnosis STI (sexually transmitted infection) Unspecified venereal disease documented in this encounter Additional Health Concerns Assessment Noted Time PHQ-9 Depression Total Score: 0 04/30/20 10:11 AM EDT documented as of this encounter Care Teams Digester Capper Relationship Specialty Start Date End Date Denisse Evangelista NP [address] [place] [address] PCP - General Family Medicine 04/24/23 06/22/23 Elisabeth Richardson MD [address] [place] [address] PCP - General Internal Medicine 06/23/23 07/09/23 Denisse Evangelista NP [address] [place] [address] PCP - General Family Medicine 07/10/23 documented as of this encounter
--- OUTSIDE RECORDS SUMMARY | 2024-09-09 08:06 | XMS_ITS | Encounter Summary ---
Author Organization [employer] Address [address] [facility] 7t [place] [address] Care Team Providers Care Guest Experience Manager Name Role Phone Tonja Denisse COULTER Primary Care Provider [phone] Encounter Details Date Type Department Care Team (Latest Contact Info) Description 08/11/2024 Travel Social History Tobacco Use Types Packs/Day Years [...] with others, in a hotel, in a correction, living outside on the street, on a [...] documented as of this encounter Care Teams Guest Experience Manager Relationship Specialty Start Date End Date Denisse Evangelista NP [address] [place] [id number] PCP - General Family Medicine 07/10/23 documented as of this encounter
== END ==
LOC: HO.CARD 08:02
PROVIDERS: PCP Registered Nurse; Visit Provider Internal Medicine
DX: R07.2 Precordial pain (principal)
CPT/HCPCS: 93306

== ENCOUNTER → 2024-09-09 08:05 | Outpatient (BNV) | payer OTHER, SELFPAY | PROVIDERS: PCP Registered Nurse; Visit Provider Internal Medicine | DX: R07.2 Precordial pain (principal) | CPT/HCPCS: 93306 ==

== ENCOUNTER 2024-09-29 11:50 | Outpatient (REF) | payer SELFPAY ==
[2024-09-29 13:55] LABS: MANUAL DIFF FLAG NO
--- OUTSIDE RECORDS SUMMARY | 2024-09-29 13:55 | XMS_ITS | Encounter Summary ---
Author Organization [employer] Address [address] 7[address] [place] [address] Care Team Providers Care Accounts Collector Name Role Phone Denisse Evangelista NP Primary Care Provider [phone] Reason for Visit * Reason Comments bumps Bumps on the body fr om pelvic area up. It has been gradually getting worse the past 3 weeks and is itchy. At night feels like the throat is closing and is hard to breathe when laying down. Encounter Details Date Type Department Care Team ([facility] Contact Info) Description 09/29/2024 10:20 AM EDT Office Visit [facility] [address] [place] [phone] Rash (Primary Dx); Tobacco dependence Social History Tobacco Use Types Packs/Day Years [...] with others, in a hotel, in a prison, living outside on the street, on a [...] Sign Reading Time Taken Comments Blood Pressure 141/82 09/29/2024 10:52 AM EDT Pulse 67 09/29/2024 10:52 AM EDT Temperature 36.1 ??C (97 ??F) 09/29/2024 10:52 AM EDT Respiratory Rate 22 09/29/2024 10:52 AM EDT Oxygen Saturation 98% 09/29/2024 10:52 AM EDT Inhaled Oxygen Concentration - - Weight 132 kg (291 lb 12.8 oz) 09/29/2024 10:52 AM EDT Height - - Body Mass Index 55.14 08/11/2024 3:38 PM EST documented in this encounter Plan of Treatment Scheduled Orders Name Type Priority Associated Diagnoses Orde r Schedule Basic Metabolic Panel Lab Routine Rash Expected: 09/29/2024 (Approximate), Expires: 09/29/2025 CBC auto differential Lab Routine Rash Expected: 09/29/2024 (Approximate), Expires: 09/29/2025 Lyme Disease Ab with Reflex to Blot (IgG, IgM) Lab Routine Rash Expected: 09/29/2024, Expires: 09/29/2025 RPR (Monitor) with Reflex to??Titer Lab Routine Rash Expected: 09/29/2024 (Approximate), Expires: 09/29/2025 Parvovirus B19 DNA, Qualitative, Real-Time PCR Lab Routine Rash Expected: 09/29/2024 (Approximate), Expires: 09/29/2025 BRIE Screen,IFA, with Reflex to Titer and Pattern Lab Routine Rash Expected: 09/29/2024 (Approximate), Expires: 09/29/2025 Rheumatoid Factor Lab Routine Rash Expected: 09/29/2024 (Approximate), Expires: 09/29/2025 documented as of this encounter Visit Diagnoses Diagnosis Rash- Primary Rash and other nonspecific skin eruption Tobacco dependence Tobacco use disorder documented in this encounter Additional Health Concerns Assessment Noted Time PHQ-9 Depression Total Score: 8 02/18/20 24 10:12 AM EDT documented as of this encounter Care Teams Accounts Collector Relationship Specialty Start Date End Date Denisse Evangelista NP [address] [place] [phone] PCP - General Family Medicine 07/10/23 documented as of this encounter
--- OUTSIDE RECORDS SUMMARY | 2024-09-29 13:55 | XMS_ITS | Clinical Summary ---
Author Organization [facility] Address [address] [place] [address] Phone Care Team Providers Care Chemical Sales Representative Name Role Phone Unavailable Primary Care Provider Unavailabl e Encounters Date Type Department Care Team Description 08/13/2024 10:49 AM EST - 08/13/2024 11:59 PM EST Hospital Encounter [facility] MRI [address] [place] [address] Sudden idiopathic hearing loss, bilateral [...] Signed Date: 08/13/2024 14:05 ET Workstation ID: [id number] Transcribed By: Self Edit Transcribed Date: 08/13/2024 [...] Signed Date: 08/13/2024 14:05 ET Workstation ID: [id number] Transcribed By: Self Edit Transcribed Date: 08/13/2024 12:25 ET us Leslie Barnett RN IMG MRI PROCEDURES Fin al Result from Last 3 Months
--- OUTSIDE RECORDS SUMMARY | 2024-09-29 13:55 | XMS_ITS | Clinical Summary ---
Author Organization [employer] Address [address] [facility] 7t [place] [address] Care Team Providers Care Director Of Mechanical Engineering Name Role Phone Denisse Evangelista NP Primary Care Provider [phone] Allergies Active Allergy Reactions Criticality Noted Date [...] MEAL 90 tablet 1 06/07/20 24 Active chlorthalidone (Hygroton) 25 MG [...] 5 days 30 each 08/20/19 25 Active nicotine polacrilex (Commit) 2 MG lozengeIndicati ons:Tobacco dependence Dissolve 1 lozenge (2 mg) in the mouth every 2 (two) hours if needed for smoking cessation. 100 lozenge 2 09/30/19 25 025 Active cetirizine (ZyrTEC) 10 MG tablet Take 1 tablet (10 mg) by mouth if needed each day (itching). 30 tablet 1 09/30/19 25 Active diphenhydrAMINE (BENADryl) 25 MG capsule Take 2 capsules (50 mg) by mouth every 6 (six) hours if needed for itching. May take 1-2 capsules prn rashor itching 40 capsule 09/30/19 25 026 Active predniSONE (Deltasone) 20 MG tablet Take 2 tablets (40 mg) by mouth Once per day for 5 days. 10 tablet 09/30/19 25 025 Active EPINEPHrine (Epipen) 0.3 MG/0.3ML injection syringe Inject 0.3 mL (0.3 mg) as directed 1 (one) time if needed for anaphylaxis. Inject into upper leg. Call 911 after use. 2 each 09/30/19 25 026 Active nicotine polacrilex (Commit) 2 MG lozengeIndicati ons:Tobacco dependence Dissolve 1 lozenge (2 mg) in the mouth every 2 (two) hours if needed for smoking cessation. 100 lozenge 2 06/07/20 24 025 Discontinued(Re order (will not trigger notification to Pharmacy)) cetirizine (ZyrTEC) 10 MG tablet Take 1 tablet (10 mg) by mouth Once per day. Prn. 30 tablet 08/20/19 25 025 Discontinued cetirizine (ZyrTEC) 10 MG tablet TAKE 1 TABLET (10 MG) BY MOUTH ONCE PER DAY. NEEDED 90 tablet 09/13/19 25 025 Discontinued(Re order (will not trigger notification to Pharmacy)) Active Problems Problem Noted Date Diagnosed Date Dizzinesses 08/12/2024 Assessment & Plan (09/11/2024 10:48 AM EST): -suspect its relation to potential URI/audiology complaint -orthostatic hypotension is also likely and will plan to complete testing at her next in-person visit -she is advised to hold ozempic for an additional week given her suspicion although her symptoms are likely not r/t -advised increased fluid intake, slowed position changes, and careful ambulation Assessment & Plan (08/12/2024 12:08 PM EST): -probable vertigo given complains of tinnitus & hearing loss, however orthostatic hypotension and is also likely -unable to complete Narberth hallpike maneuver safely in clinic today. Exam [...] sleep study results 10/28/21 recommend BiPAP machine with f/u by sleep medicine. Assessment & [...] undergo surgery -is open to engaging with commissions specialist for assistance. Referral placed -follow-up 3 months [...] 04/30 -BP goal <130/80 Assessment & Plan (09/11/2024 10:45 AM EST): -stable based on patient report of home BP readings -continue current regimen, home monitoring, and lifestyle modifications Assessment & Plan (05/19/2024 10:34 AM EDT): [...] -encouraged to keep her upcoming appointment with commissions specialist -follow-up 3 months Assessment & Plan (11/13/2023 [...] Plan (01/21/2023 8:30 PM EDT): Received from [facility] [place] Using nightly F/u PRN Migraine without aura, not refractory 10/17/2022 05/19/2024 Strep pharyngitis 07/29/2022 10/17/2022 Viral URI 07/25/2022 10/17/2022 Encounters Date Type Department Care Team Description 09/29/2024 10:20 AM EDT Office Visit [facility] [address] [place] [phone] Rash (Primary Dx); Tobacco dependence 09/12/2024 Refill [facility] [address] [place] [phone] Denisse Evangelista NP 08/20/2024 Orders Only [facility] [address] [place] [address] Denisse Evangelista NP COVID-19 (Primary Dx) 08/13/2024 Telephone [facility] [address] [place] [address] Barbara Brunson, MARICARMEN 08/12/2024 Telephone [facility] [address] [place], [place] [phone] Sheri Hardin, MARICARMEN 08/11/2024 3:30 PM EST Office Visit [address] [address] Denisse Evangelista NP 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); Dizzinesses 08/11/2024 Travel 07/28/2024 5:40 PM EST Office Visit [facility] [address] [address] Leslie Barnett, UMESH 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) 07/28/2024 9:45 AM EST Telemedicine [facility] [address] [place] [address] Denisse Evangelista NP Decreased hearing of both ears (Primary Dx); Dizzinesses; Essential hypertension 07/28/2024 Travel from Last 3 Months Immunizations [...] with others, in a hotel, in a senior care, living outside on the street, on a [...] 12.8 oz) 09/29/2024 10:52 AM EDT Height 154.9 cm (5' 1 ) 08/11/2024 3:38 PM EST Body Mass Index 55.14 08/11/2024 3:38 PM EST Plan of Treatment Health Maintenance Due Date Last Done Comments Family Planning (PISQ) 2000 Hepatitis B Vaccines (1 of 3 - [...] exists SDOH Screening 06/09/2025 06/09/2024 Tobacco Screening 09/29/2025 09/29/2024 Pap Smear 05/23/2026 05/23/2023, 05/23/2023 Cervical Cancer Screening 05/23/2028 HPV/Cotest 05/23/2028 05/23/2023 Lipid Panel 11/11/2028 11/12/2023, 11/19, 08/22/2021 DTaP/Tdap/Td Vaccines (2 - Td or [...] on patient's age to complete this topic Hepatitis A Vaccines Aged Out No long er eligible based on patient's age to complete [...] Blood Count 10.5 4.8 - 10.8 X10*3/uL [facility] Red Blood Count 4.63 4.20 - 5.50 X10*6/uL [facility] Hemoglobin 13.0 12.0 - 16.0 g/dl [facility] Hematocrit 40.4 37.0 - 47.0 % [facility] Mean Corpuscular Volume 87.3 80.0 - 98.0 fL [facility] Mean Corpuscular Hemoglobin 28.1 27.0 - 33.0 pg [facility] Mean Corpuscular HGB Conc 32.2 31.0 - 35.0 g/dl [facility] Red Cell Distribution Width 14.0 11.0 - 16.0 % [facility] Platelet Count 454(H) 160 - 400 X10*3/uL [facility] Mean Platelet Volume 9.2(L) 9.4 - 12.3 fL [facility] Neutrophils Percent Auto 69.9 45 - 73 % [facility] Imm Gran Pct Auto 0.3 0.0 - 0.4 % [facility] Lymphocytes Percent Auto 22.4 20 - 40 % [facility] Monocytes Percent Auto 5.7 2 - 11 % [facility] Eosinophils Percent Auto 1.5 0 - 4 % [facility] Basophils Percent Auto 0.2 0 - 2 % [facility] NRBC Pct Auto 0.0 0.0 - 0.2 /100WBC [facility] Neutrophils Absolute Auto 7.3 2.0 - 8.3 x10*3/uL [facility] Imm Gran Abs Auto 0.03 0.00 - 0.03 X10*3/uL [facility] Lymphocytes Absolute Auto 2.4 1.2 - 4.9 X10*3/uL [facility] Monocytes Absolute Auto 0.6 0.1 - 1.2 X10*3/uL [facility] Eosinophils Absolute Auto 0.2 0.0 - 0.4 X10*3/uL [facility] Basophils Absolute Auto 0.0 0.0 - 0.2 X10*3/uL [facility] NRBC Abs Auto 0.000 0.0 - 0.012 X10*3/uL [facility] Blood Venous blood specimen / Unknown 08/13/2024 8:34 AM EST 08/13/2024 11:38 AM EST us Denisse Evangelista SENIOR IT ENGINEER LAB BLOOD ORDERABLES Final Resu lt [facility] [address] [place] [phone] * (ABNORMAL) Basic Metabolic Panel (08/13/2024 8:34 AM EST) Sodium 137 135 - 145 mmol/L [facility] Potassium 3.6 3.3 - 5.1 mmol/L [facility] Chloride 102 96 - 108 mmol/L [facility] Carbon Dioxide 29 22 - 29 mmol/L [facility] Anion Gap 10(L) 12 - 20 [facility] Urea Nitrogen (BUN) 13 9 - 16 mg/dL [facility] Creatinine, Serum 0.75 0.5 - 1.4 mg/dL [facility] Estimated Glomerular Filt Rate >60 [facility] Comment:Chronic Kidney Disea se: Estimated GFR < 60 mL/min/1.24a1Wcsppa Kidney Disease: Estimated GFR < 15 mL/min/1.73m2 Glucose 105 60 - 115 mg/dL [facility] Calcium 9.0 8.4 - 10.2 mg/dL [facility] Blood Venous blood specimen / Unknown 08/13/2024 8:34 AM EST 08/13/2024 11:38 AM EST Leslie Barnett [employer] LAB BLOOD ORDERABLES Final Res ult Performing Organization Address City/State/[facility] Co de Phone Number [facility] [address] [place] [phone] * POCT HGB A1C (02/18/2024 9:50 AM EDT) Hemoglobin A1C 5.8 4.0 - 6.0 % QC Media Lot # [id number] Lot# Expiration Date [id number] Blood 02/18/2024 9:50 AM EDT Denisse Evangelista SENIOR IT ENGINEER POINT OF CARE TEST ENTER/EDIT O RDERABLES Final Result * (ABNORMAL) Lipid Panel, Standard (11/12/2023 10:55 AM EDT) Triglycerides 104 <150 mg/dL [facility] Comment:Desirable Triglyceri de: less than 150 mg/dLBorderline High Triglyceride 150-199 mg/dLHigh Triglyceride: 200-499 mg/dLVery High Triglyceride: greater than or equal to 5OO mg/dL Cholesterol 157 <200 mg/dL [facility] Comment:Desirable Cholestero l: less than 200 mg/dLBorderline High Cholesterol: 200-239 mg/dLHigh Cholesterol: greater than 239 mg/dL LDL Cholesterol Calculated 100(H) <100 mg/dL [facility] Comment:Desirable LDL: less than 100 mg/dLNear Optimal/Above Optimal LDL: 110- 129 mg/dLBorderline High LDL: 130-159 mg/dLHigh LDL: 160-189 mg/dLVery High LDL: greater than or equal to 190 mg/dL HDL Cholesterol 37(L) >40 mg/dL [facility] Comment:Desirable HDL: great er than 40 mg/dL Note: This HDL assay may give artificially low results in patients with liver disease. Blood Venous blood specimen / Unknown 11/12/2023 10:55 AM EDT 11/13/2023 2:40 PM EDT us Denisse Evangelista SENIOR IT ENGINEER LAB BLOOD ORDERABLES Final Resu lt [facility] [address] [place] [phone] * (ABNORMAL) Image-Guided Pap with Age-Based Screening??with CT/NG,??Trichomonas (05/23/2023 11:22 AMEDT) Trichomonas (NAAT) DETECTED(A) NOT DETECTED [facility] Comment:The analytical perfo rmance characteristics of thisassay have been determined by [employer]. Themodifications have not been cleared or approved bythe FDA. This assay has been validated pursuant to theIA regulations and is used for clinical purposes.For additional information, please refer tohttp://education.[employer]/faq/Trichomonastma(This link is being provided for information/educational purposes only.)THIS TEST WAS PERFORMED AT:[facility] [place] [phone] SHEPHERD MD CTNG Ref Lab NOT DETECTED NOT DETECTED [facility] NG Ref Lab NOT DETECTED NOT DETECTED [facility] Pap Vial 05/23/2023 11:2 2 AM EDT 05/26/2023 11:00 AM EST Leslie Horan [facility] CYTOLOGY ORDERABLES Final Result Performing Organization Address [facility] Co de Phone Number [facility] [address] [place] [phone] * HPV mRNA E6/E7 w/Reflex to HPV Genotypes 16, 18/45 (05/23/2023 11:22 AM EDT) HPV nRNA E6/E7 Not Detected Not Detected [facility] Comment:Methodology: Transcr iption-Mediated AmplificationThis assay detects E6/E7 viral messenger RNA (mRNA) from 14high-risk HPV types (16,18,31,33,35,39,45,51,52,56,58,59,66,68).Cervical sources are required for HPV testing.If a vaginal source from a patient who has had atotal hysterectomy with removal of cervix wassubmitted, please contact the testing laboratoryfor alternative testing options.For additional information, please refer tohttp://education.[employer]/faq/YZH988a0(This link if provided for information/educational purposes only.)THIS TEST WAS PERFORMED AT:[facility] [place] [phone] SHEPHERD MD HPV mRNA E6/E7 [facility] HPV 16 RNA [facility] HPV 18/45 RNA [facility] 05/23/2023 11:2 2 AM EDT 05/26/2023 11:00 AM EST Leslie Horan [facility] CYTOLOGY ORDERABLES Final Result Performing Organization Address [facility] Co de Phone Number [facility] [address] [place] [phone] * HIV Ab/Ag (RAYA HYMAN) (02/18/2023 3:48 PM EDT) HIV AB/AG Nonreactive Nonreactive [facility] Comment:HIV-1 p24 Ag and/or HIV-1/HIV-2 Ab not detected.A test result that is nonreactive does not exclude thepossibility of exposure to or infection with HIV-1 and/orHIV-2. Nonreactive results in this assay for individualswith prior exposure to HIV-1 and/or HIV-2 may be due toantigen and antibody levels that are below the limit ofdetection of this assay.The [employer] HIV Ag/Ab Combo assay result andsupplemental assay results should be interpreted inconjunction with the patient's clinical presentation,history and other laboratory results. If the results areinconsistent with clinical evidence, additional testing issuggested to confirm the result. 02/18/2023 3:48 PM EDT 02/18/2023 5:50 PM EDT [employer] [facility] BLOOD ORDERABLES Final Result Performing Organization Address [facility] de Phone Number [facility] [address] [place] [phone] * Hepatitis Panel, General (02/18/2023 3:48 PM EDT) Hepatitis A IgM Nonreactive Nonreactive [facility] Comment:IgM antibodies to SINGER V not detected; does not exclude earlyacute or recovered HAV infection. ~Hepatitis B Surface Antibody REACTIVE Nonreactive [facility] Comment:REACTIVE: > 11.99 mI U/mL Hepatitis B Core Antibody Nonreactive Nonreactive [facility] Hepatitis C Antibody Nonreactive Nonreactive [facility] Comment:Antibodies to HCV no t detected; does not exclude early acuteHCV infection. Hepatitis B Surface Ag Negative Negative [facility] Blood 02/18/2023 3:48 PM EDT 02/18/2023 5:50 PM EDT [employer] [facility] BLOOD ORDERABLES Final Result Performing Organization Address [facility] Co de Phone Number [facility] [address] [place] [phone] from Last 3 Months or Most Recently Relevant to Health Maintenance Insurance [facility] Care Teams Director Of Mechanical Engineering Relationship Specialty Start Date End Date Denisse Evangelista NP [address] [place] [phone] PCP - General Family Medicine 07/10/23
--- OUTSIDE RECORDS SUMMARY | 2024-09-29 13:55 | XMS_ITS | Encounter Summary ---
Author Organization [employer] Address [address] [facility] 7t [place] [address] Care Team Providers Care Gis Professor Name Role Phone Denisse Evangelista NP Primary Care Provider [phone] Elisabeth Richardson MD Primary Care Provider [phone] Denisse Evangelista NP Primary Care Provider [phone] Reason for Visit * Reason Comments Med Refill Encounter Details Date Type Department Care Team ([facility] st Contact Info) Description 06/10/2023 Refill [facility] [address] [place] [address] Elisabeth Richardson MD [address] [place] [address] STI (sexually transmitted infection) Social History Tobacco Use Types Packs/Day Years Used Date Smoking Tobacco: Every Day Cigarettes Smokeless Tobacco: Never Alcohol Use Standard Drinks/Week Comments Never 0 (1 standard drink = 0.6 oz pur e alcohol) Depression Answer Date Recorded Patient Health Questionnaire-9 Score 0 04/30/2023 Housing Stability Answer Date Recorded What is your housing situation today? I have mavis white 05/05/[address] you [...] documented as of this encounter Care Teams Gis Professor Relationship Specialty Start Date End Date Denisse Evangelista NP [address] [place] [address] PCP - General Family Medicine 04/24/23 06/22/23 Elisabeth Richardson MD [address] [place] [address] PCP - General Internal Medicine 06/23/23 07/09/23 Denisse Evangelista NP [address] [place] [address] PCP - General Family Medicine 07/10/23 documented as of this encounter
--- OUTSIDE RECORDS SUMMARY | 2024-09-29 13:55 | XMS_ITS | Encounter Summary ---
Author Organization [employer] Address [address] [place] [address] [place] [address] Care Team Providers Care Engagement Quality Consultant Name Role Phone Sherice Bryant Primary Care Provider [phone] Denisse Evangelista NP Primary Care Provider [phone] Elisabeth Richardson MD Primary Care Provider [phone] Denisse Evangelista NP Primary Care Provider [phone] Reason for Visit * Reason Onset Date Comments Results 01/02/2023 Encounter Details Date Type Department Care Team (Late st Contact Info) Description 01/02/2023 Telephone [facility] [address] [place] [phone] Sherice Bryant FNP [address] [place] [address] Dept [place] [address] Results Social History Tobacco Use Types Packs/Day [...] on filedocumented in this encounter Care Teams Engagement Quality Consultant Relationship Specialty Start Date End Date Sherice Bryant FNP PCP - General Family Medicine 06/11/22 04/23/23 Denisse Evangelista NP [address] [place] [address] PCP - General Family Medicine 04/24/23 06/22/23 Elisabeth Richardson MD [address] [place] [address] PCP - General Internal Medicine 06/23/23 07/09/23 Denisse Evangelista NP [address] [place] [address] PCP - General Family Medicine 07/10/23 documented as of this encounter
--- OUTSIDE RECORDS SUMMARY | 2024-09-29 13:55 | XMS_ITS | Encounter Summary ---
Author Organization [employer] Address [address] [facility] 7 [place] [address] Care Team Providers Care English Tutor Name Role Phone Denisse Evangelista NP Primary Care Provider [phone] Reason for Visit * Reason Comments Med Change Request Encounter Details Date Type Department Care Team ([facility] Contact Info) Description 09/12/[address] [facility] [address] [place] [address] Denisse Evangelista NP [address] [place] [address] Social History Tobacco Use Types Packs/Day Years [...] with others, in a hotel, in a [facility], living outside on the street, on a [...] documented as of this encounter Care Teams English Tutor Relationship Specialty Start Date End Date Denisse Evangelista NP [address] [place] [address] PCP - General Family Medicine 07/10/23 documented as of this encounter
[2024-09-29 14:02] LABS: Basophils Percent Auto 0.3 % (0-2); Eosinophils Absolute Auto 0.1 X10*3/uL (0.0-0.4); Eosinophils Percent Auto 0.8 % (0-4); Hematocrit 41.1 % (37.0-47.0); Hemoglobin 13.8 g/dl (12.0-16.0); Imm Gran Abs Auto 0.03 X10*3/uL (0.00-0.03); Imm Gran Pct Auto 0.3 % (0.0-0.4); Lymphocytes Absolute Auto 2.8 X10*3/uL (1.2-4.9); Lymphocytes Percent Auto 28.6 % (20-40); Mean Corpuscular HGB Conc 33.6 g/dl (31.0-35.0); Mean Corpuscular Hemoglobin 28.7 pg (27.0-33.0); Mean Corpuscular Volume 85.4 fL (80.0-98.0); Mean Platelet Volume 9.6 fL (9.4-12.3); Monocytes Absolute Auto 0.6 X10*3/uL (0.1-1.2); Monocytes Percent Auto 6.1 % (2-11); Neutrophils Absolute Auto 6.2 x10*3/uL (2.0-8.3); Neutrophils Percent Auto 63.9 % (45-73); Platelet Count 462 X10*3/uL (160-400); Red Blood Count 4.81 X10*6/uL (4.20-5.50); Red Cell Distribution Width 13.3 % (11.0-16.0); White Blood Count 9.6 X10*3/uL (4.8-10.8)
[2024-09-29 14:30] LABS: Anion Gap 11 (12-20); Blood Urea Nitrogen 11 mg/dL (9-16); Calcium 9.6 mg/dL (8.4-10.2); Carbon Dioxide 30 mmol/L (22-29); Chloride 99 mmol/L (96-108); Estimated Glomerular Filt Rate > 60; Glucose Random 85 mg/dL (60-115); Potassium 3.6 mmol/L (3.3-5.1); Sodium 136 mmol/L (135-145)
[2024-09-29 14:48] LABS: Rheumatoid Factor < 13.0 IU/mL (<15.0)
[2024-09-30 09:07] LABS: Lyme Abs Screen <0.90 index
[2024-09-30 12:48] LABS: RPR Rapid Plasma Reagin REACTIVE (NON-REACTIVE)
[2024-10-01 14:42] LABS: Parvovirus B19 IgG 2.22; Parvovirus B19 IgM <0.9
[2024-10-06 15:13] LABS: Anti Nuclear Antibody Screen POSITIVE (NEGATIVE)
== END 2024-09-29 11:51 | disposition home or self-care (01) ==
LOC: HO.HHCL 11:50
PROVIDERS: Visit Provider Emergency Medicine
DX: R21 Rash and other nonspecific skin eruption (principal)
CPT/HCPCS: 36415; 80048; 85025; 86038; 86039; 86431; 86592; 86593; 86617; 86618; 86747

== ENCOUNTER 2024-10-01 16:35 | Emergency (ER) | payer MEDICAID, SELFPAY ==
[2024-10-01 16:49] VITALS: BP 115/76; PULSE 78; RESP 18; TEMP 36.8; O2SAT 99; BMI 55.6
--- NOTE | 2024-10-01 16:49 | ED_ITS ---
HPI - General Adult General Chief complaint: General Medical Stated complaint: dr called ahead for treatment Time Seen by Provider: 10/01/24 22:26 History of Present Illness ED Provider: Jake LOPEZ narrative: The patient is a 39-year-old woman who has had a rash that has been slowly spreading over her body for about 3 weeks. It is somewhat itchy. Recently seen at the [facility] and 2 days ago had labs drawn including an RPR test that has come back positive. Her doctor at the [facility] called her today and told her to come to the emergency room for treatment of presumed syphilis. The patient says that she has had the same sexual partner for some time recently. She is unaware of any symptoms that her partner might have. She has no vaginal symptoms. She has not had any fevers, sweats, chills. No significant headache. Related Data Home Medications ?Medication ?Instructions ?Recorded ?Confirmed metformin 500 mg tablet,extended 500 mg PO QPM 10/12/21 08/30/24 release 24 hr sumatriptan succinate 50 mg tablet 0 mg PO 10/12/21 08/30/24 atorvastatin 20 mg tablet (Lipitor) 20 mg PO DAILY 08/30/24 08/30/24 chlorthalidone 25 mg tablet 25 mg PO DAILY 08/30/24 08/30/24 semaglutide 1 mg/dose (4 mg/3 mL) 1 mg subcut QWEEK 08/30/24 08/30/24 subcutaneous pen injector (Ozempic) Previous Rx's ?Medication ?Instructions ?Recorded cholecalciferol (vitamin D3) 50 50 mcg PO DAILY #30 caps 11/08/21 mcg (2,000 unit) capsule cyanocobalamin (vitamin B-12) 500 500 mcg PO DAILY #30 tabs 11/08/21 mcg tablet vitamin A palmitate 3,000 mcg 20,000 unit PO DAILY 2 weeks #28 11/15/21 (10,000 unit) tablet tabs Allergies Allergy/AdvReac Type Severity Reaction Status Date / Time furosemide [From Lasix] Allergy Rash Verified 10/01/24 16:52 Review of Systems 2 Review of Systems: Yes all other systems are reviewed and are negative PMFSH Past Medical History Medical History Hx of migraines Hx of Surgical History Hx of cholecystectomy Family History Family History Mother Diabetes Asthma COPD (chronic obstructive pulmonary disease) Arthritis Back problem Sleep apnea Father Hypertension Diabetes Brother No problems noted. Brother Sleep apnea Brother No problems noted. Sister No problems noted. Sister No problems noted. Son No problems noted. Social History Social History Alcohol intake: current Alcohol intake frequency: does not drink Alcohol type: wine Patient Tobacco Use Status: Current everyday Tobacco user Tobacco use type: Cigarette Cigarettes Per Day: 3 Smoked in Last 30 Days: Yes Use of substances other than those prescribed or required for medical reasons: No Advance Directives: No Advance Directives Information Provided: No Do you have a plan to hurt others: No Plan Patient : No Physical Exam ED Vital Signs: Vital Signs - 24 hr 10/01/24 16:49 10/01/24 20:32 10/01/24 21:57 Temperature 98.3 F 97.2 F 97.5 F Pulse Rate 78 75 65 Respiratory Rate 18 16 16 Blood Pressure 115/76 124/75 112/57 L Pulse Oximetry 99 98 97 Oxygen Delivery Method Room Air Room Air Room Air 10/02/24 00:17 Temperature 97.5 F Pulse Rate 65 Respiratory Rate 16 Blood Pressure 112/57 L Pulse Oximetry 97 Oxygen Delivery Method Room Air BMI result Body Mass Index 55.6 Const Other: The patient is awake, alert, pleasant, cooperative. She has a rash on much of her body but does not seem obviously acutely ill otherwise. HENMT Other: Posterior pharynx is unremarkable. No enanthem. Mucous membranes are moist. Eyes General: appearance normal, both eyes and all related structures Neck Neck: Yes normal visual inspection and Yes full ROM Resp Effort & Inspection: normal respiratory effort Auscultation: clear to auscultation bilaterally Cardio Rate: regular rate Rhythm: regular rhythm Heart sounds: S1 normal heart sound present and S2 normal heart sound present GI Other: The abdomen is soft and nontender. Skin Other: The patient has a rash on much of her body. The rashes characterized by multiple erythematous slightly raised lesions of proximally 6 or 7 cm across but the size is are fairly variable. The rash is on her trunk, her extremities, and her face. The density of the lesions is sparse. Neuro Other: The patient is awake, alert, oriented, appropriate. Her mental status is normal. Cranial nerves 2-12 are intact. She moves her extremities normally and appropriately. She is neurologically intact. Extrem Other: No peripheral edema Course Course Course Narrative: This is a rapid medical exam performed by Nehemias Mackey NP: Additional HPI, ROS, PE not included below will be deferred to primary provider. Patient is a 39-year-old female with history of HTN, DM, MASON on CPAP, obesity, MDD presenting to the ED stating that she was referred by her doctor for treatment for syphillis. Was tested at walk-in on Friday. Was told all other testing was negative. Medications Administered Discontinued Medications Generic Name Dose Route Start Last Admin Trade Name Freq PRN Reason Stop Dose Admin Penicillin G Benzathine 2,400,000 unit 10/01/24 23:03 10/01/24 23:26 Penicillin G Benzathine 2,400,000 Unit/4 Ml Syringe IM 10/01/24 23:04 2,400,000 unit ONCE ONE Administration Medical Decision Making Medical Decision Making [facility] Narrative: the patient is a 39-year-old female who was referred to the emergency room from her primary care doctor's office after having outpatient testing 2 days ago suggesting the possibility of syphilis. She has had a that could be the rash of secondary syphilis. Does not have any other symptoms of a sexually transmitted infection. . According to up to date a treponemal titer should be sent on the same day as initiation of treatment. Therefore testing. She submitted a urine for GC and chlamydia. She does not appear significantly ill. I think she can be managed as an outpatient. She was given 2.4 million units of IM penicillin. She is asked to encourage her partner to get tested. She is given the contact information for Dr. Jade of Infectious Disease for follow up. Otherwise she should follow up with the [facility]. Lab Data 10/01/24 19:27 10/01/24 19:27 Labs: Lab Results 10/01/24 Range/Units 19:27 WBC 12.6 H (4.8-10.8) X10*3/uL RBC 4.61 (4.20-5.50) X10*6/uL Hgb 13.0 (12.0-16.0) g/dl Hct 39.6 (37.0-47.0) % MCV 85.9 (80.0-98.0) fL MCH 28.2 (27.0-33.0) pg MCHC 32.8 (31.0-35.0) g/dl RDW 13.4 (11.0-16.0) % Plt Count 464 H (160-400) X10*3/uL MPV 9.1 L (9.4-12.3) fL Immature Gran % (Auto) 0.2 (0.0-0.4) % Neut % (Auto) 56.0 (45-73) % Lymph % (Auto) 35.4 (20-40) % Hernando % (Auto) 6.9 (2-11) % Eos % (Auto) 1.2 (0-4) % Baso % (Auto) 0.3 (0-2) % Lymph # (Auto) 4.5 (1.2-4.9) X10*3/uL Hernando # (Auto) 0.9 (0.1-1.2) X10*3/uL Eos # (Auto) 0.2 (0.0-0.4) X10*3/uL Baso # (Auto) 0.0 (0.0-0.2) X10*3/uL Abs Immat Gran (auto) 0.03 (0.00-0.03) X10*3/uL Absolute Neuts (auto) 7.0 (2.0-8.3) x10*3/uL Absolute Nucleated RBC 0.000 (0.0-0.012) X10*3/uL Nucleated RBC % (auto) 0.0 (0.0-0.2) /100WBC Sodium 134 L (135-145) mmol/L Potassium 3.5 (3.3-5.1) mmol/L Chloride 98 (96-108) mmol/L Carbon Dioxide 27 (22-29) mmol/L Anion Gap 13 (12-20) BUN 15 (9-16) mg/dL Creatinine 0.67 (0.5-1.4) mg/dL Estim Creat Clear Calc 146.0 Estimated GFR > 60 Random Glucose 104 (60-115) mg/dL Calcium 8.8 D (8.4-10.2) mg/dL Magnesium 1.9 (1.6-2.6) mg/dL Total Bilirubin 0.3 (0.0-1.0) mg/dL AST 20 (5-31) U/L ALT 19 (0-31) U/L Alkaline Phosphatase 68 (39-117) U/L Total Protein 7.7 (6.5-8.0) g/dL Albumin 3.7 (3.5-5.0) g/dL Beta HCG, Quant < 2 mIU/mL Discharge Plan Discharge Clinical Impression: Positive RPR test, Rash Patient Disposition: Home, Self-Care Instructions: Syphilis (ED) Additional Instructions: The screening test has come back positive for possible syphilis. Confirmatory testing is yet to be done as well. You received an intramuscular injection of 2.4 million units of penicillin. This is considered the usual treatment for syphilis. Testing for other possible infections has been sent. This includes testing for gonorrhea, chlamydia, HIV, and hepatitis. You has been given the contact information for Dr. Jade, the [place] infectious disease specialist. Please call the office on Friday to see if you can get a follow up appointment to discuss your test results further. If you have any trouble in following up with Dr. Jade follow up with your regular provider. Please also encourage your partner to get testing as well. Return to the emergency room if worse Prescriptions: No Action cholecalciferol (vitamin D3) 50 mcg (2,000 unit) capsule 50 mcg PO DAILY Qty: 30 6RF cyanocobalamin (vitamin B-12) 500 mcg tablet 500 mcg PO DAILY Qty: 30 6RF vitamin A palmitate 10,000 unit tablet 20,000 unit PO DAILY 14 Days Qty: 28 0RF metformin 500 mg tablet extended release 24 hr 500 mg PO QPM sumatriptan succinate 50 mg tablet 0 mg PO atorvastatin [Lipitor] 20 mg tablet 20 mg PO DAILY Ozempic 1 mg/dose (4 mg/3 mL) pen injector 1 mg subcut QWEEK chlorthalidone 25 mg tablet 25 mg PO DAILY Referrals: Marcia Jade MD [Physician] - (Positive syphillis screen in patient with possible syphillis rash) Denisse Evangelista [Nurse Practitioner] - (Positive syphillis testing) Interventions: ED Discharge Assessment Last Done: 10/02/24 00:17 Discharge Date/Time: 10/02/24 00:18 Print Language: [place]
[2024-10-01 19:39] LABS: MANUAL DIFF FLAG NO
[2024-10-01 19:41] LABS: Basophils Percent Auto 0.3 % (0-2); Eosinophils Absolute Auto 0.2 X10*3/uL (0.0-0.4); Eosinophils Percent Auto 1.2 % (0-4); Hematocrit 39.6 % (37.0-47.0); Imm Gran Abs Auto 0.03 X10*3/uL (0.00-0.03); Imm Gran Pct Auto 0.2 % (0.0-0.4); Lymphocytes Absolute Auto 4.5 X10*3/uL (1.2-4.9); Lymphocytes Percent Auto 35.4 % (20-40); Mean Corpuscular HGB Conc 32.8 g/dl (31.0-35.0); Mean Corpuscular Hemoglobin 28.2 pg (27.0-33.0); Mean Corpuscular Volume 85.9 fL (80.0-98.0); Mean Platelet Volume 9.1 fL (9.4-12.3); Monocytes Absolute Auto 0.9 X10*3/uL (0.1-1.2); Monocytes Percent Auto 6.9 % (2-11); Platelet Count 464 X10*3/uL (160-400); Red Blood Count 4.61 X10*6/uL (4.20-5.50); Red Cell Distribution Width 13.4 % (11.0-16.0); White Blood Count 12.6 X10*3/uL (4.8-10.8)
[2024-10-01 19:56] LABS: Alanine Aminotransferase 19 U/L (0-31); Albumin Level 3.7 g/dL (3.5-5.0); Alkaline Phosphatase 68 U/L (39-117); Anion Gap 13 (12-20); Aspartate Amino Transferase 20 U/L (5-31); Bilirubin Total 0.3 mg/dL (0.0-1.0); Blood Urea Nitrogen 15 mg/dL (9-16); Calcium 8.8 mg/dL (8.4-10.2); Carbon Dioxide 27 mmol/L (22-29); Chloride 98 mmol/L (96-108); Estimated Glomerular Filt Rate > 60; Glucose Random 104 mg/dL (60-115); Magnesium 1.9 mg/dL (1.6-2.6); Potassium 3.5 mmol/L (3.3-5.1); Sodium 134 mmol/L (135-145); Total Protein 7.7 g/dL (6.5-8.0)
[2024-10-01 20:32] VITALS: BP 124/75; PULSE 75; RESP 16; TEMP 36.2; O2SAT 98
--- NOTE | 2024-10-01 20:38 | PC.NURSE ---
Pt a&ox4, no signs of distress Pt denies pain at this time Vitals stable Plan of care ongoing.
[2024-10-01 21:57] VITALS: BP 112/57; PULSE 65; RESP 16; TEMP 36.4; O2SAT 97
[2024-10-01] MEDS: Penicillin G Benzathine 2,400,000 UNIT/4 ML SYRINGE 2400000 UNIT IM (23:26)
[2024-10-01 23:29] LABS: HCG Quantitative < 2 mIU/mL
--- NOTE | 2024-10-01 23:45 | PC.NURSE ---
Pt medicated per [facility] Plan of care ongoing.
[2024-10-02 00:17] VITALS: BP 112/57; PULSE 65; RESP 16; TEMP 36.4; O2SAT 97
[2024-10-02 04:08] LABS: Syphilis Screen Reactive (Nonreactive)
[2024-10-02 04:12] LABS: HBS Num1 73.51 mIU/mL (0-7.99); HIV AB/AG Nonreactive (Nonreactive); HIV Num 1 0.07 S/CO (0.00-0.99); Hepatitis A Antibody IgM 0.17 Index (0-0.79); Hepatitis B Core Antibody Nonreactive (Nonreactive); Hepatitis B Surface Antigen Negative (Negative); ~HepC Num1 0.18 S/CO (0.00-0.79); ~Hepatitis A Antibody IgM Nonreactive (Nonreactive); ~Hepatitis B Surface Antibody REACTIVE (Nonreactive); ~Hepatitis C Antibody Nonreactive (Nonreactive)
[2024-10-02 06:03] LABS: CT PCR NOT DETECTED (Not Detect.); NG PCR NOT DETECTED (Not Detect.)
[2024-10-08 13:14] LABS: T.Pallidum Particle Agg Test Reactive (Nonreactive)
== END 2024-10-02 00:18 | disposition home or self-care (01) ==
PROVIDERS: Physician Assistant Medical; Emergency Provider Emergency Medicine; PCP Registered Nurse
DX: R76.8 Other specified abnormal immunological findings in serum (principal); L29.9 Pruritus, unspecified; R21 Rash and other nonspecific skin eruption; Z79.899 Other long term (current) drug therapy; F17.210 Nicotine dependence, cigarettes, uncomplicated
CPT/HCPCS: 36415; 80053; 83735; 84702; 85025; 86592; 86704; 86706; 86709; 86780; 86803; 87340; 87389; 87491; 87591; 96372; 99284; J0561

== ENCOUNTER 2024-10-06 07:14 | Inpatient (IN) | payer MEDICAID, SELFPAY ==
--- NOTE | ~2024-10-06 | FL_ITS ---
EXAMINATION: XR LUMBAR PUNCTURE CLINICAL INFORMATION: LP TO R/O NEUROSYPHILIS COMPARISON: None available. TECHNIQUE: Following explaining fluoroscopy-guided lumbar puncture procedure, benefits and risk, a written consent was obtained. Patient was placed prone on fluoroscopy table and low back area was cleaned and draped in usual sterile manner. A marker was placed on the skin for the needle to be inserted. The marked area was cleaned and draped in usual sterile manner. 1% lidocaine was injected at the skin. A 20-gauge long spinal needle was inserted from the skin intrathecally at L3-4 disc level. Study was withdrawn and fluid was collected in 4 test tubes. After CSF collection stylet was introduced and needle withdrawn. Patient tolerated procedure extremely well. Simple bandage applied post procedure. FINDINGS: Visualized lumbar spine is grossly unremarkable. The disc spaces are maintained normal. Approximately 8.75 mL of clear CSF fluid collected in 4 test tubes. The CSF fluid was sent to lab for further evaluation as requested by ER physician. FLUOROSCOPY TIME: 32 seconds DOSE AREA PRODUCT: 1105 uGy-m2 (microgray-meter squared) FL/FL guided lumbar puncture LP IMPRESSION: Successful fluoroscopy-guided lumbar puncture performed as described above. Electronically signed by: Aristeo Pierre MD 10/06/2024 01:28 PM EDT
[2024-10-06 07:16] VITALS: BP 151/92; PULSE 83; RESP 20; TEMP 37.3; O2SAT 99; BMI 56.1
--- NOTE | 2024-10-06 08:23 | ED.GENADULT ---
HPI - General Adult General Chief complaint: General Medical Stated complaint: Seen recently, told by Dr to return Time Seen by Provider: 10/06/24 07:30 Source: patient, RN notes reviewed and old records reviewed Mode of arrival: ambulatory History of Present Illness ED Provider: Libia Amaya PA-C HPI narrative: 39-year-old female with a past medical history of RPR positive presenting to the ED sent in by PCP and ID for suspected neuro syphilis. Patient states she developed pruritic diffuse rash, was seen at PCP who raz initial labs, RPR test came back positive, was seen and treated in our ED on 10/01 received IM PNC G, however patient reports diffuse myalgias & hearing loss over the past year. States hearing loss did resolve/improve after antibiotics initially however recurred at the beginning of this year. Has taken course of prednisone without relief. Denies new sexual partners, reports 1 partner x4 years. Reports some headaches. Denies fever, chills, vision change or loss, nausea, vomiting, abdominal pain Related Data Home Medications ?Medication ?Instructions ?Recorded ?Confirmed metformin 500 mg tablet,extended 500 mg PO QPM 10/12/21 08/30/24 release 24 hr sumatriptan succinate 50 mg tablet 0 mg PO 10/12/21 08/30/24 atorvastatin 20 mg tablet (Lipitor) 20 mg PO DAILY 08/30/24 08/30/24 chlorthalidone 25 mg tablet 25 mg PO DAILY 08/30/24 08/30/24 semaglutide 1 mg/dose (4 mg/3 mL) 1 mg subcut QWEEK 08/30/24 08/30/24 subcutaneous pen injector (Ozempic) Previous Rx's ?Medication ?Instructions ?Recorded cholecalciferol (vitamin D3) 50 50 mcg PO DAILY #30 caps 11/08/21 mcg (2,000 unit) capsule cyanocobalamin (vitamin B-12) 500 500 mcg PO DAILY #30 tabs 11/08/21 mcg tablet vitamin A palmitate 3,000 mcg 20,000 unit PO DAILY 2 weeks #28 11/15/21 (10,000 unit) tablet tabs Allergies Allergy/AdvReac Type Severity Reaction Status Date / Time furosemide [From Lasix] Allergy Rash Verified 10/06/24 07:19 Review of Systems Review of Systems: Yes all other systems are reviewed and are negative Constitutional: Constitutional: Reports as per [facility] Past Medical History Attestation statement: The following information was validated with the patient. Source: old records reviewed Medical History Hx of migraines Hx of Surgical History Hx of cholecystectomy Family History Family History Mother Diabetes Asthma COPD (chronic obstructive pulmonary disease) Arthritis Back problem Sleep apnea Father Hypertension Diabetes Brother No problems noted. Brother Sleep apnea Brother No problems noted. Sister No problems noted. Sister No problems noted. Son No problems noted. Social History Social History Alcohol intake: current Alcohol intake frequency: does not drink Alcohol type: wine Patient Tobacco Use Status: Current everyday Tobacco user Tobacco use type: Cigarette Cigarettes Per Day: 3 Advance Directives: No Advance Directives Information Provided: Yes Physical Exam ED Vital Signs: Vital Signs - 24 hr 10/06/24 07:16 10/06/24 08:50 Temperature 99.2 F 98.7 F Pulse Rate 83 72 Respiratory Rate 20 18 Blood Pressure 151/92 H 135/72 Pulse Oximetry 99 99 Oxygen Delivery Method Room Air Room Air BMI result Body Mass Index 56.1 Const General: cooperative, healthy appearing and no acute distress Orientation/consciousness: patient oriented x3 Limitations: no limitations HENMT Head: Yes normal to inspection and Yes atraumatic Ears: hearing grossly normal bilaterally, external ears normal, TM's normal bilaterally and mastoids normal General nose exam: Normal external nose present Face and sinus: Yes normal facial exam Mouth: Normal oral and palatal mucosa present and no drooling Throat: Yes posterior oropharynx normal Eyes General: appearance normal, both eyes and all related structures EOM: EOMs intact bilaterally Neck Neck: Yes normal visual inspection and Yes no meningeal signs Resp Effort & Inspection: normal respiratory effort and no respiratory distress Cardio Rate: regular rate GI Inspection: Yes normal to inspection Skin Other: + diffuse erythematous rash noted over trunk and extremities. Wounds: no wounds Neuro General: patient oriented x3, tone normal and no meningeal signs Cranial nerves: Yes CN's II-XII intact bilaterally Gait exam (Neuro): Normal gait present Extrem General: Yes normal to inspection Course Course Course Narrative: -case discussed with Dr. Jade who recommended admission for LP and IV penicillin. > patient obese, unable to feel landmarks. will contact IR for LP >> LP will be performed by IR. Holding IV penicillin until LP completed -case discussed with hospitalist team who accepted admission Medical Decision Making Medical Decision Making MDM Narrative: 39-year-old female with a past medical history of RPR positive presenting to the ED sent in by PCP and ID for suspected neuro syphilis. On exam vital signs stable, NAD, nontoxic appearing, no focal neuro deficits. Diffuse rashes depicted above. Concern for neurosyphilis. No evidence of acute otitis media/externa. Plan: Labs, id consult, suspect LP & anticipated admission Please refer to course for remaining clinical decision making, interpretation of labs/imaging results, and discussions with consultants and/or family members. 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 10/06/24 08:49 10/06/24 08:49 Labs: Lab Results 10/06/24 Range/Units 08:49 WBC 10.9 H (4.8-10.8) X10*3/uL RBC 4.34 (4.20-5.50) X10*6/uL Hgb 12.6 (12.0-16.0) g/dl Hct 36.7 L (37.0-47.0) % MCV 84.6 (80.0-98.0) fL MCH 29.0 (27.0-33.0) pg MCHC 34.3 (31.0-35.0) g/dl RDW 13.3 (11.0-16.0) % Plt Count 435 H (160-400) X10*3/uL MPV 8.8 L (9.4-12.3) fL Immature Gran % (Auto) 0.4 (0.0-0.4) % Neut % (Auto) 65.3 (45-73) % Lymph % (Auto) 28.2 (20-40) % [place] % (Auto) 4.0 (2-11) % Eos % (Auto) 1.8 (0-4) % Baso % (Auto) 0.3 (0-2) % Lymph # (Auto) 3.1 (1.2-4.9) X10*3/uL [place] # (Auto) 0.4 (0.1-1.2) X10*3/uL Eos # (Auto) 0.2 (0.0-0.4) X10*3/uL Baso # (Auto) 0.0 (0.0-0.2) X10*3/uL Abs Immat Gran (auto) 0.04 H (0.00-0.03) X10*3/uL Absolute Neuts (auto) 7.1 (2.0-8.3) x10*3/uL Absolute Nucleated RBC 0.000 (0.0-0.012) X10*3/uL Nucleated RBC % (auto) 0.0 (0.0-0.2) /100WBC Sodium 137 (135-145) mmol/L Potassium 3.7 (3.3-5.1) mmol/L Chloride 104 (96-108) mmol/L Carbon Dioxide 28 (22-29) mmol/L Anion Gap 9 L (12-20) BUN 10 (9-16) mg/dL Creatinine 0.72 (0.5-1.4) mg/dL Estim Creat Clear Calc 136.7 Estimated GFR > 60 Random Glucose 124 H (60-115) mg/dL Calcium 9.1 (8.4-10.2) mg/dL Total Bilirubin 0.4 (0.0-1.0) mg/dL AST 14 (5-31) U/L ALT 17 (0-31) U/L Alkaline Phosphatase 66 (39-117) U/L Total Protein 7.4 (6.5-8.0) g/dL Albumin 3.5 (3.5-5.0) g/dL Radiology Impression Discussion of test interpretation with radiology: I have reviewed the radiologist's reading. 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
[2024-10-06 08:50] VITALS: BP 135/72; PULSE 72; RESP 18; TEMP 37.1; O2SAT 99
[2024-10-06 08:55] LABS: MANUAL DIFF FLAG NO
[2024-10-06 09:00] LABS: Basophils Percent Auto 0.3 % (0-2); Eosinophils Absolute Auto 0.2 X10*3/uL (0.0-0.4); Eosinophils Percent Auto 1.8 % (0-4); Hematocrit 36.7 % (37.0-47.0); Hemoglobin 12.6 g/dl (12.0-16.0); Imm Gran Abs Auto 0.04 X10*3/uL (0.00-0.03); Imm Gran Pct Auto 0.4 % (0.0-0.4); Lymphocytes Absolute Auto 3.1 X10*3/uL (1.2-4.9); Lymphocytes Percent Auto 28.2 % (20-40); Mean Corpuscular HGB Conc 34.3 g/dl (31.0-35.0); Mean Corpuscular Volume 84.6 fL (80.0-98.0); Mean Platelet Volume 8.8 fL (9.4-12.3); Monocytes Absolute Auto 0.4 X10*3/uL (0.1-1.2); Neutrophils Absolute Auto 7.1 x10*3/uL (2.0-8.3); Neutrophils Percent Auto 65.3 % (45-73); Platelet Count 435 X10*3/uL (160-400); Red Blood Count 4.34 X10*6/uL (4.20-5.50); Red Cell Distribution Width 13.3 % (11.0-16.0); White Blood Count 10.9 X10*3/uL (4.8-10.8)
[2024-10-06 09:14] LABS: Alanine Aminotransferase 17 U/L (0-31); Albumin Level 3.5 g/dL (3.5-5.0); Alkaline Phosphatase 66 U/L (39-117); Anion Gap 9 (12-20); Aspartate Amino Transferase 14 U/L (5-31); Bilirubin Total 0.4 mg/dL (0.0-1.0); Blood Urea Nitrogen 10 mg/dL (9-16); Calcium 9.1 mg/dL (8.4-10.2); Carbon Dioxide 28 mmol/L (22-29); Chloride 104 mmol/L (96-108); Creatinine Clr Calc Pharmacy 136.7; Estimated Glomerular Filt Rate > 60; Glucose Random 124 mg/dL (60-115); Potassium 3.7 mmol/L (3.3-5.1); Sodium 137 mmol/L (135-145); Total Protein 7.4 g/dL (6.5-8.0)
[2024-10-06 09:22] LABS: HCG Quantitative < 2 mIU/mL
[2024-10-06 09:30] LABS: INTERNATIONAL NORM RATIO 1.1 (0.9-1.1); Prothrombin Time 12.8 SEC (10.9-12.4)
--- NOTE | 2024-10-06 10:25 | PHA.MEDREC ---
Addendum entered by Marya Marshall [facility] 10/06/24 10:49: reviewed Original Note: Pharmacy Consult ? Medication Reconciliation Pharmacy has completed the medication reconciliation. Spoke with patient and she was able to confirm her medications. Patient confirmed she is taking the Metformin 500mg extended release tablet once a day and stated she is getting it filled at [facility] on [address] I asked her about the Atorvastatin 20mg tab since we had no claims but it looks like it was added into the Med Rec 08/30/24 but patient knew nothing about that medication. The patient confirmed her Ozempic 1 mg/dose (4 mg/3 mL) subcutaneous pen injector once a week and confirmed she injects 1mg once a week on Tuesdays and stated she cant remember if she took it yesterday or not but confirmed she took it last Thursday 09/28. The patient confirmed she took all her medications this morning. I called [facility] and they confirmed the patient has not picked up Metformin 500mg Er tabs since 08/2023 but stated they have a written script from June 2024 that was filled but returned to stock since the patient never got it. [facility] confirmed they have nothing written from any Dr's in the patients profile for Atorvastatin. [facility] also confirmed the patient has not gotten Ozempic from them since January for a 1 month supply.
--- NOTE | 2024-10-06 11:12 | PM.IMHP ---
History of Present Illness Date of Service: 10/06/24 Chief Complaint: rash, hearing loss 39yo F with DM2, HTN, and obesity who developed bilateral hearing loss in April 2024. She was seen in our ED and also noted to have target-like rashes on her upper extremities and abdomen as well as vesicles on her chin and lower lips. She was diagnosed with bullous myringitis and treated with cefuroxime and azithromycin plus dexamethasone. Rash improved but hearing persistently impaired. She took a course of prednisone in July that temporarily helped. MRI on 08/13/23 showed faint areas of contrast enhancement affecting the 8th nerves in the cochlea. She was seen by ENT [Dr Reddy] 08/30/24. Audiological evaluation showed moderate to severe sensorineural hearing loss bilaterally. She had bilateral serous effusion and plan was for trial of tube placement. Meanwhile, the rash came back but was worse, involving her cheeks, armpits, neck, chest, and abdomen. It is mildly itchy. She saw her PCP at [facility] on 09/29/24 and RPR returned positive at 1:256 titer. She was sent to [place] [facility] [place] and on 10/01/24 and was treated with 2.4 million units of IM benzathine penicillin. HIV negative. She was seen at the [facility] walk-in center 10/05/[address] Tirso Caceres, who spoke to our Infectious Disease php consultant Dr Angie Jade. Dr Jade recommended the patient come in for evaluation for suspected neurosyphilis/otosyphilis. She denies fever, chills, vaginal discharge, or loss of sensation. She has had the same male sexual partner for the past 4 years and he has no symptoms; he is undergoing testing. [facility] Medical History Hx of migraines Hx of Family History Mother Diabetes Asthma COPD (chronic obstructive pulmonary disease) Arthritis Back problem Sleep apnea Father Hypertension Diabetes Brother No problems noted. Brother Sleep apnea Brother No problems noted. Sister No problems noted. Sister No problems noted. Son No problems noted. Surgical History Hx of cholecystectomy Social History Alcohol intake: current Alcohol intake frequency: does not drink Alcohol type: wine Patient Tobacco Use Status: Current everyday Tobacco user Tobacco use type: Cigarette Cigarettes Per Day: 3 Advance Directives: No Advance Directives Information Provided: Yes Meds Allergies Allergy/AdvReac Type Severity Reaction Status Date / Time furosemide [From Lasix] Allergy Rash Verified 10/06/24 07:19 Active Medications: Current Medications Acetaminophen (Acetaminophen 325 Mg Tablet) 650 mg PO Q6H PRN PRN Reason: Pain, Mild 1-3,fever,headache Calcium Carbonate (Calcium Carbonate 750 Mg Tab.Chew) 750 mg PO Q4H PRN PRN Reason: Heartburn Dextrose (Dextrose 50 % 25 Gm/50 Ml Syringe) 25 gm IVPUSH Q15M PRN; Protocol PRN Reason: per Hypoglycemia Standing Ord. Glucose (Glucose Gel 15 Gm Gel..Gram.) 15 gm PO Q15M PRN; Protocol PRN Reason: per Hypoglycemia Standing Ord. Insulin Human Lispro (Insulin Lispro 100 Unit/Ml 3 Ml Vial) 0 unit SUBCUT [facility]; Protocol Magnesium Hydroxide (Milk Of Magnesia 30 Ml Oral.Susp) 30 ml PO DAILY PRN PRN Reason: Constipation Melatonin (Melatonin 3 Mg Tablet) 6 mg PO BEDTIME PRN PRN Reason: Insomnia Ondansetron HCl (Ondansetron Hcl 4 Mg/2 Ml Vial) 4 mg IVPUSH Q4H PRN PRN Reason: Nausea and Vomiting Sodium Chloride (0.9 % Sodium Chloride Flush 3 Ml Syringe) 3 ml IVFSH [facility] Home Medications ?Medication ?Instructions ?Recorded ?Confirmed ?Last Taken ?Type metformin 500 mg tablet,extended 500 mg PO DAILY 10/12/21 10/06/24 10/06/24 History release 24 hr chlorthalidone 25 mg tablet 25 mg PO DAILY 08/30/24 10/06/24 10/06/24 History semaglutide 1 mg/dose (4 mg/3 mL) 1 mg subcut TU 08/30/24 10/06/24 09/28/24 History subcutaneous pen injector (Ozempic) lisinopril 20 mg tablet 20 mg PO DAILY 10/06/24 10/06/24 10/06/24 History Physical Exam Vital Signs and Narrative: Vital Signs: Last Vital Signs Temp 98.7 F 10/06/24 08:50 Pulse 72 10/06/24 08:50 Resp 18 10/06/24 08:50 BP 135/72 10/06/24 08:50 Pulse Ox 99 10/06/24 08:50 O2 Del Method Room Air 10/06/24 08:50 BMI result Body Mass Index 56.1 Gen: in no acute distress HEENT: sclera anicteric, moist mucus membranes, serous fluid in R>L TM Neck: supple Lungs: clear to auscultation bilaterally Heart: regular rate and rhythm, no murmurs Abd: soft, non-tender, non-distended, obese Ext: no edema Skin: warm/well-perfused, symmetric erythematous macular rash involving armpits, neck, chest, abdomen, and cheeks; no vesicles Neuro: alert and oriented x3, Mock does not lateralize, Rinne AC>BC bilaterally Psych: appropriate affect Results Labs 10/06/24 08:49 10/06/24 08:49 Labs: Laboratory Results - last 24 hr 10/06/24 10/06/24 08:49 09:14 MCV 84.6 MCH 29.0 MCHC 34.3 RDW 13.3 Plt Count 435 H MPV 8.8 L Immature Gran % (Auto) 0.4 Neut % (Auto) 65.3 Lymph % (Auto) 28.2 [place] % (Auto) 4.0 Eos % (Auto) 1.8 Baso % (Auto) 0.3 Lymph # (Auto) 3.1 [place] # (Auto) 0.4 Eos # (Auto) 0.2 Baso # (Auto) 0.0 Abs Immat Gran (auto) 0.04 H Absolute Neuts (auto) 7.1 Absolute Nucleated RBC 0.000 Nucleated RBC % (auto) 0.0 PT 12.8 H INR 1.1 Anion Gap 9 L Estim Creat Clear Calc 136.7 Estimated GFR > 60 Random Glucose 124 H Calcium 9.1 Total Bilirubin 0.4 AST 14 ALT 17 Alkaline Phosphatase 66 Total Protein 7.4 Albumin 3.5 Beta HCG, Quant < 2 Assessment and Plan (1) Hearing loss: Status: Acute (2) Syphilis: Status: Acute Plan 39yo F with HTN, DM2, and morbid obesity with 4 months of sensorineural hearing loss and progressive rash, just diagnosed with syphilis with RPR 1:256 and sent in for evaluation for otosyphilis/neurosyphilis secondary syphilis with concern for early neurosyphilis/otosyphilis - Admit to M/S. Treated with 1 dose of IM benzathine penicillin; will obtain fluoro-gided LP for CSF studies including CSF VDRL and start IV PCN G 4 million units q4h. Consult ID. If positive for neurosyphilis, will need midline catheter and total 14 days of therapy. DM2 - correction-dose lispro, hold MTF HTN - chlorthalidone, lisinopril VTE ppx - SCDs dispo - eventual home possibly with VNA if home infusion required code - full I anticipate that the patient will stay at least 2 midnights as an inpatient in the hospital due to the above reasons. It is neither reasonable nor safe to care for them in a less acute setting. Quality Stroke Does the patient have a stroke diagnosis?: No VTE Prior VTE?: No VTE Risk Level:: Medical - moderate - high VTE Device Contraindication: N/A - Device Ordered VTE Drug Contraindication: Treatment Not Indicated
[2024-10-06] MEDS: Penicillin G Potassium 4,000,000 UNIT in 0.9 % Sodium Chloride 100 ML 200 UNIT IV ×3 (13:14→21:52)
[2024-10-06 13:26] LABS: CSF Appearance Clear, Colorless; CSF Tube # 2
[2024-10-06 13:36] LABS: Glucose CSF 55 mg/dL; Total Protein CSF 27.6 mg/dL (15-45)
[2024-10-06 13:54] LABS: Appearance CSF CLEAR; CSF Tube # 1; Color CSF COLORLESS; Lymphocytes CSF 95 %; Red Blood Cell CSF 2 MM*3; White Blood Cell CSF 75 MM*3
[2024-10-06 13:55] LABS: Appearance CSF CLEAR; CSF Monos 5 %; CSF Tube # 4; Color CSF COLORLESS
[2024-10-06 13:56] LABS: CSF Monos 3 %; Lymphocytes CSF 97 %; Red Blood Cell CSF 0 MM*3; White Blood Cell CSF 89 MM*3
[2024-10-06 14:12] LABS: Glucose, Whole Blood 66 mg/dL (60-115)
[2024-10-06 14:40] VITALS: BP 127/57; PULSE 70; RESP 20; TEMP 36.6; O2SAT 100
[2024-10-06 15:04] LABS: Cryptococcus neoformans/gattii Not Detected (Not Detect.); Enterovirus Not Detected (Not Detect.); Escherichia coli K1 Not Detected (Not Detect.); Haemophilus influenzae Not Detected (Not Detect.); Herpes simplex virus 1 Not Detected (Not Detect.); Herpes simplex virus 2 Not Detected (Not Detect.); Human herpesvirus 6 Not Detected (Not Detect.); Human parechovirus Not Detected (Not Detect.); Listeria monocytogenes Not Detected (Not Detect.); Neisseria meningitidis Not Detected (Not Detect.); Streptococcus agalactiae Not Detected (Not Detect.); Streptococcus pneumoniae Not Detected (Not Detect.); Varicella zoster virus Not Detected (Not Detect.)
[2024-10-06 15:12] LABS: Glucose, Whole Blood 105 mg/dL (60-115)
--- NOTE | 2024-10-06 17:29 | W.PM.IDCN ---
History of Present Illness Data of Consult Service Date: 10/06/24 Requesting physician: Hector Degroot Primary Care Provider: Denisse LOPEZ Reason for consult: neurosyphilis She presents after found to have syphilis titer of 1:256. She reports never having had positive titer before. She starts with hearing loss end April/beginning May. She says she was told she had double ear infection and pnemonia and treated with antibiotics and felt better. Also she reports maculopapular rash on abdomen then resolved. She has mid July worse ear pain and hearing loss and Prednisone 60 mg daily for 2 days. She has ENT appt on 10/18 for tubes Her only male partner for four years is getting tested. She is HIV and Hepatitis C negative. 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 Review of Systems Review of Systems: Yes all other systems are reviewed and are negative PMFSH Past Medical History Medical History Hx of migraines Hx of Family History Family History Mother Diabetes Asthma COPD (chronic obstructive pulmonary disease) Arthritis Back problem Sleep apnea Father Hypertension Diabetes Brother No problems noted. Brother Sleep apnea Brother No problems noted. Sister No problems noted. Sister No problems noted. Son No problems noted. Family history: reviewed and not pertinent Surgical History Surgical History Hx of cholecystectomy Social History Social History Household Members: Family Housing: Apartment Do you presently have visiting nurse or other home services: No Alcohol intake: current Alcohol intake frequency: does not drink Alcohol type: wine Patient Tobacco Use Status: Current everyday Tobacco user Tobacco use type: Cigarette Cigarettes Per Day: 3 Second Hand Smoke Exposure: No service: No Meds Allergies Allergy/AdvReac Type Severity Reaction Status Date / Time furosemide [From Lasix] Allergy Rash Verified 10/06/24 07:19 lactose Allergy Gastrointestinal Verified 10/06/24 16:54 Upset Active Medications: Current Medications Acetaminophen (Acetaminophen 325 Mg Tablet) 650 mg PO Q6H PRN PRN Reason: Pain, Mild 1-3,fever,headache Calcium Carbonate (Calcium Carbonate 750 Mg Tab.Chew) 750 mg PO Q4H PRN PRN Reason: Heartburn Dextrose (Dextrose 50 % 25 Gm/50 Ml Syringe) 25 gm IVPUSH Q15M PRN; Protocol PRN Reason: per Hypoglycemia Standing Ord. Glucose (Glucose Gel 15 Gm Gel..Gram.) 15 gm PO Q15M PRN; Protocol PRN Reason: per Hypoglycemia Standing Ord. Hydrochlorothiazide (Hydrochlorothiazide 25 Mg Tablet) 25 mg PO DAILY [facility] Penicillin G Potassium 4,000, (000 unit/ Sodium Chloride) 100 mls @ 200 mls/hr IV Q4H [facility] Last Infusion: 10/06/24 13:44 Dose: Infused Insulin Human Lispro (Insulin Lispro 100 Unit/Ml 3 Ml Vial) 0 unit SUBCUT QIDACHS [facility]; Protocol Last Admin: 10/06/24 14:39 Dose: Not Given Lisinopril (Lisinopril 20 Mg Tablet) 20 mg PO DAILY [facility]; Protocol Magnesium Hydroxide (Milk Of Magnesia 30 Ml Oral.Susp) 30 ml PO DAILY PRN PRN Reason: Constipation Melatonin (Melatonin 3 Mg Tablet) 6 mg PO BEDTIME PRN PRN Reason: Insomnia Ondansetron HCl (Ondansetron Hcl 4 Mg/2 Ml Vial) 4 mg IVPUSH Q4H PRN PRN Reason: Nausea and Vomiting Sodium Chloride (0.9 % Sodium Chloride Flush 3 Ml Syringe) 3 ml IVFLUSH QSHIFT [facility] Home Medications ?Medication ?Instructions ?Recorded ?Confirmed ?Last Taken ?Type metformin 500 mg tablet,extended 500 mg PO DAILY 10/12/21 10/06/24 10/06/24 History release 24 hr chlorthalidone 25 mg tablet 25 mg PO DAILY 08/30/24 10/06/24 10/06/24 History semaglutide 1 mg/dose (4 mg/3 mL) 1 mg subcut TU 08/30/24 10/06/24 09/28/24 History subcutaneous pen injector (Ozempic) lisinopril 20 mg tablet 20 mg PO DAILY 10/06/24 10/06/24 10/06/24 History Physical Exam Vital Signs: Vital Signs: Last Vital Signs Temp 97.9 F 10/06/24 14:40 Pulse 70 10/06/24 14:40 Resp 20 10/06/24 14:40 BP 127/57 L 10/06/24 14:40 Pulse Ox 100 10/06/24 14:40 O2 Del Method Room Air 10/06/24 14:40 BMI result Body Mass Index 56.1 Const: General: cooperative HEENT: Other: frontal alopecia Head: Yes normal to inspection Face and sinus: Yes normal facial exam Mouth: Normal oral and palatal mucosa present and other (slt slow pupil reactivity,left ear slight red haze upper drum,no fluid ) Teeth and gingiva: dentition normal Eyes: General: appearance normal, both eyes and all related structures Pupils: Equal, round and reactive pupils present Resp: Effort & Inspection: normal respiratory effort Cardio: Rate: regular rate Rhythm: regular rhythm GI: Palpation (GI): Soft to palpation and nontender : General: Yes no CVA tenderness Back/Spine/Pelvis: Back: no CVA tenderness Skin: General skin exam: no rashes or lesions noted Neuro: General: moves all extremities Cranial nerves: Yes Equal, round and reactive pupils present Extrem: Other: mild neuropathy and vestibular changes General: Yes normal to inspection Psych: Appearance: grossly normal Results Labs 10/09/24 05:51 10/09/24 05:51 Labs: Short CBC 10/06/24 Range/Units 08:49 WBC 10.9 H (4.8-10.8) X10*3/uL Hgb 12.6 (12.0-16.0) g/dl Hct 36.7 L (37.0-47.0) % Plt Count 435 H (160-400) X10*3/uL BMP 10/06/24 08:49 Sodium 137 Potassium 3.7 Chloride 104 Carbon Dioxide 28 BUN 10 Creatinine 0.72 Calcium 9.1 Liver Function 10/06/24 Range/Units 08:49 Total Bilirubin 0.4 (0.0-1.0) mg/dL AST 14 (5-31) U/L ALT 17 (0-31) U/L Alkaline Phosphatase 66 (39-117) U/L Albumin 3.5 (3.5-5.0) g/dL Microbiology Microbiology Results: Microbiology 10/06/24 12:28 Cerebrospinal Fluid Gram Stain - Final 10/06/24 12:28 Cerebrospinal Fluid CSF Examination - Final 10/06/24 12:28 Cerebrospinal Fluid Fluid Description - Final Assessment and Plan (1) Neurosyphilis in adult: Status: Acute Plan Acute bilateral ,more left than right hearing loss Meningitis with 19 WBC in CSF syphilis titers in CSF pending PCN 4mU every 4h for 14 days. Check titer in 3 months. Check partner and other contacts who may have had rash and use condoms.
[2024-10-06 18:25] VITALS: BP 124/67; PULSE 66; RESP 16; TEMP 36.9; O2SAT 99
[2024-10-06 18:31] LABS: Glucose, Whole Blood 114 mg/dL (60-115)
[2024-10-06] MEDS: 0.9 % Sodium Chloride Flush 3 ML SYRINGE IVFLUSH (18:47)
[2024-10-06 20:35] VITALS: BP 130/63; PULSE 68; RESP 20; TEMP 36.1; O2SAT 99
[2024-10-06 21:02] LABS: Glucose, Whole Blood 122 mg/dL (60-115)
[2024-10-06 21:08] VITALS: BMI 56.1
--- NOTE | 2024-10-07 | ECG_ITS ---
Test Reason : chest pain Blood Pressure : */* mmHG Vent. Rate : 63 BPM Atrial Rate : 63 BPM P-R Int : 124 ms QRS Dur : 82 ms QT Int : 414 ms P-R-T Axes : -17 34 42 degrees QTcB Int : 423 ms Normal sinus rhythm Normal ECG When compared to the previous EKG of No significant changes seen Referred By: Victor Hugo Frazier Electronically Signed By: Flaco Wellington
[2024-10-07] MEDS: Penicillin G Potassium 4,000,000 UNIT in 0.9 % Sodium Chloride 100 ML 200 UNIT IV ×2 (01:20→05:20)
[2024-10-07] MEDS: Acetaminophen 325 MG TABLET 650 MG PO (01:49)
[2024-10-07 02:38] VITALS: BP 134/70; PULSE 67; RESP 16; TEMP 36.5; O2SAT 97
--- NOTE | 2024-10-07 02:58 | PC.NURSE ---
Pt A&Ox4, anxious, complaining of 10/10 R sided chest pain. Vitals were taken: BP 134/70, Pulse 67, RR 16, 02 97%. MD Frazier notified of the situation. Prior to event, pt was given PRN Tylenol at 01:49 w/ no effect. Troponin lab, EKG, and one time dose of PO Ativan was ordered per MD. Will continue to monitor pt's pain.
[2024-10-07 03:01] VITALS: BP 117/58; PULSE 61; RESP 18; TEMP 36; O2SAT 95
[2024-10-07] MEDS: LORazepam 1 MG TABLET PO (03:05)
[2024-10-07 04:21] LABS: Troponin-I High Sensitivity < 2.7 ng/L (<3.5-17.0)
[2024-10-07 07:06] VITALS: BP 113/61; PULSE 52; RESP 18; TEMP 36.1; O2SAT 95
[2024-10-07 07:13] LABS: Glucose, Whole Blood 98 mg/dL (60-115)
[2024-10-07] MEDS: lisinopriL 20 MG TABLET PO (08:22)
[2024-10-07] MEDS: hydroCHLOROthiazide 25 MG TABLET PO (08:22)
[2024-10-07] MEDS: 0.9 % Sodium Chloride Flush 3 ML SYRINGE IVFLUSH ×2 (08:22→16:42)
[2024-10-07] MEDS: Penicillin G Potassium 4,000,000 UNIT in 0.9 % Sodium Chloride 100 ML 100 UNIT IV ×3 (08:23→21:32)
--- NOTE | 2024-10-07 09:45 | MHC.CM.PN ---
Addendum entered by Brianna Monge 10/07/24 13:43: FINANCIAL COUNSELOR WORKING TO RE-INSTATE INSURANCE. PT WILL NEED 14 DAYS PENICILLIN IV VIA MIDLINE. PT AGREEABLE TO LEARN IV. UNABLE TO PLACE REFERRALS UNTIL INSURANCE IS RECTIFIED. PT HAS NO PREFERENCE TO VNA. Original Note: CM MET WITH PT AT BEDSIDE. PT LIVES WITH FAMILY, FUNCTIONALLY INDEPENDENT, EMPLOYED F/T. USES C-PAP FOR SLEEP, VENDOR IS [facility]+ HCP PCP CAIO DUBOIS DP: HOME NO SERVICES IS THE GOAL. [facility] FINANCIAL COUNSELOR PATRICK IS WORKING ON INSURANCE WITH PT PER PT. PT HAS OWN RIDE HOME. CM WILL CONTINUE TO FOLLOW FOR ANY CHANGE TO DC PLAN/NEEDS.
[2024-10-07 11:21] LABS: Glucose, Whole Blood 93 mg/dL (60-115)
--- NOTE | 2024-10-07 11:28 | HO.PM.IMPN ---
Subjective Subjective Date of Service: 10/07/24 Interval History: tolerating PCN infusion had some R-sided chest pain last night; worse with palpation no fever hearing loss rash improving Review of Systems Review of Systems: Yes all other systems are reviewed and are negative Physical Exam Vital Signs: Vital Signs: Last Vital Signs Temp 96.9 F 10/07/24 07:06 Pulse 52 10/07/24 07:06 Resp 18 10/07/24 07:06 BP 113/61 10/07/24 07:06 Pulse Ox 95 10/07/24 07:06 O2 Del Method Room Air 10/07/24 07:06 BMI result Body Mass Index 56.1 Gen: in no acute distress HEENT: sclera anicteric, moist mucus membranes, no oral lesions Neck: supple Lungs: clear to auscultation bilaterally Heart: regular rate and rhythm, no murmurs, R sternal border tender to palpation Abd: soft, non-tender, non-distended, obese Ext: no edema Skin: warm/well-perfused, symmetric erythematous macular rash involving armpits, neck, chest, abdomen, and cheeks Neuro: alert and oriented x3, mild hearing loss bilaterally Psych: appropriate affect Objective Data Active Medications Acetaminophen (Acetaminophen 325 Mg Tablet) 650 mg PO Q6H PRN PRN Reason: Pain, Mild 1-3,fever,headache Last Admin: 10/07/24 01:49 Dose: 650 mg Documented By: MENDEL Comments: per pt request Calcium Carbonate (Calcium Carbonate 750 Mg Tab.Chew) 750 mg PO Q4H PRN PRN Reason: Heartburn Dextrose (Dextrose 50 % 25 Gm/50 Ml Syringe) 25 gm IVPUSH Q15M PRN; Protocol PRN Reason: per Hypoglycemia Standing Ord. Glucose (Glucose Gel 15 Gm Gel..Gram.) 15 gm PO Q15M PRN; Protocol PRN Reason: per Hypoglycemia Standing Ord. Hydrochlorothiazide (Hydrochlorothiazide 25 Mg Tablet) 25 mg PO DAILY [facility] Last Admin: 10/07/24 08:22 Dose: 25 mg Documented By: JON Penicillin G Potassium 4,000, (000 unit/ Sodium Chloride) 100 mls @ 200 mls/hr IV Q4H [facility] Last Infusion: 10/07/24 09:23 Dose: Infused Documented By: JON Insulin Human Lispro (Insulin Lispro 100 Unit/Ml 3 Ml Vial) 0 unit SUBCUT QIDACHS [facility]; Protocol Last Admin: 10/07/24 11:23 Dose: Not Given Documented By: JON Non-Admin Reason: No Insulin Coverage Lisinopril (Lisinopril 20 Mg Tablet) 20 mg PO DAILY [facility]; Protocol Last Admin: 10/07/24 08:22 Dose: 20 mg Documented By: JON Magnesium Hydroxide (Milk Of Magnesia 30 Ml Oral.Susp) 30 ml PO DAILY PRN PRN Reason: Constipation Melatonin (Melatonin 3 Mg Tablet) 6 mg PO BEDTIME PRN PRN Reason: Insomnia Ondansetron HCl (Ondansetron Hcl 4 Mg/2 Ml Vial) 4 mg IVPUSH Q4H PRN PRN Reason: Nausea and Vomiting Sodium Chloride (0.9 % Sodium Chloride Flush 3 Ml Syringe) 3 ml IVFLUSH QSHIFT [facility] Last Admin: 10/07/24 08:22 Dose: 3 ml Documented By: JON Labs 10/06/24 08:49 10/06/24 08:49 Labs: Laboratory Results - last 24 hr 10/06/24 10/06/24 10/06/24 12:28 12:28 12:28 POC Glucose CSF Tube Number 2 1 4 CSF Volume 2.0 CSF Appearance CSF Color CSF WBC CSF RBC CSF Lymphocytes CSF Monocytes % CSF Appearance (b) CSF Glucose CSF Total Protein CSF C.neoform/gat PCR CSF CMV DNA (PCR) CSF Enterovirus (PCR) CSF E. coli K1 (PCR) CSF H. influenzae (PCR) CSF HSV I (PCR) CSF HSV II (PCR) CSF HHV 6 (PCR) CSF L.monocytogenes PCR CSF N. meningitidis PCR CSF Parechovirus (PCR) CSF S. agalactiae (PCR) CSF S. pneumoniae (PCR) CSF VZV (PCR) 10/06/24 10/06/24 10/06/24 12:28 12:28 12:28 POC Glucose CSF Tube Number CSF Volume 3.0 CSF Appearance CLEAR CLEAR CSF Color COLORLESS COLORLESS CSF WBC 75 H* CSF RBC CSF Lymphocytes CSF Monocytes % CSF Appearance (b) CSF Glucose CSF Total Protein CSF C.neoform/gat PCR CSF CMV DNA (PCR) CSF Enterovirus (PCR) CSF E. coli K1 (PCR) CSF H. influenzae (PCR) CSF HSV I (PCR) CSF HSV II (PCR) CSF HHV 6 (PCR) CSF L.monocytogenes PCR CSF N. meningitidis PCR CSF Parechovirus (PCR) CSF S. agalactiae (PCR) CSF S. pneumoniae (PCR) CSF VZV (PCR) 10/06/24 10/06/24 10/06/24 12:28 12:28 12:28 POC Glucose CSF Tube Number CSF Volume CSF Appearance CSF Color CSF WBC 89 H* CSF RBC 2 0 CSF Lymphocytes 95 97 CSF Monocytes % 5 CSF Appearance (b) CSF Glucose CSF Total Protein CSF C.neoform/gat PCR CSF CMV DNA (PCR) CSF Enterovirus (PCR) CSF E. coli K1 (PCR) CSF H. influenzae (PCR) CSF HSV I (PCR) CSF HSV II (PCR) CSF HHV 6 (PCR) CSF L.monocytogenes PCR CSF N. meningitidis PCR CSF Parechovirus (PCR) CSF S. agalactiae (PCR) CSF S. pneumoniae (PCR) CSF VZV (PCR) 10/06/24 10/06/24 10/06/24 12:28 14:02 15:08 POC Glucose 66 105 CSF Tube Number CSF Volume CSF Appearance CSF Color CSF WBC CSF RBC CSF Lymphocytes CSF Monocytes % 3 CSF Appearance (b) Clear, Colorless CSF Glucose 55 CSF Total Protein 27.6 CSF C.neoform/gat PCR Not Detected CSF CMV DNA (PCR) Not Detected CSF Enterovirus (PCR) Not Detected CSF E. coli K1 (PCR) Not Detected CSF H. influenzae (PCR) Not Detected CSF HSV I (PCR) Not Detected CSF HSV II (PCR) Not Detected CSF HHV 6 (PCR) Not Detected CSF L.monocytogenes PCR Not Detected CSF N. meningitidis PCR Not Detected CSF Parechovirus (PCR) Not Detected CSF S. agalactiae (PCR) Not Detected CSF S. pneumoniae (PCR) Not Detected CSF VZV (PCR) Not Detected 10/06/24 10/06/24 10/07/24 18:24 20:39 07:04 POC Glucose 114 122 H 98 CSF Tube Number CSF Volume CSF Appearance CSF Color CSF WBC CSF RBC CSF Lymphocytes CSF Monocytes % CSF Appearance (b) CSF Glucose CSF Total Protein CSF C.neoform/gat PCR CSF CMV DNA (PCR) CSF Enterovirus (PCR) CSF E. coli K1 (PCR) CSF H. influenzae (PCR) CSF HSV I (PCR) CSF HSV II (PCR) CSF HHV 6 (PCR) CSF L.monocytogenes PCR CSF N. meningitidis PCR CSF Parechovirus (PCR) CSF S. agalactiae (PCR) CSF S. pneumoniae (PCR) CSF VZV (PCR) 10/07/24 11:14 POC Glucose 93 CSF Tube Number CSF Volume CSF Appearance CSF Color CSF WBC CSF RBC CSF Lymphocytes CSF Monocytes % CSF Appearance (b) CSF Glucose CSF Total Protein CSF C.neoform/gat PCR CSF CMV DNA (PCR) CSF Enterovirus (PCR) CSF E. coli K1 (PCR) CSF H. influenzae (PCR) CSF HSV I (PCR) CSF HSV II (PCR) CSF HHV 6 (PCR) CSF L.monocytogenes PCR CSF N. meningitidis PCR CSF Parechovirus (PCR) CSF S. agalactiae (PCR) CSF S. pneumoniae (PCR) CSF VZV (PCR) Microbiology Microbiology Results: Microbiology 10/06/24 12:28 Gram Stain - Final Cerebrospinal Fluid CSF Examination - Final Fluid Description - Final CSF Culture - Preliminary No growth after 1 day Assessment and Plan (1) Neurosyphilis: Status: Acute (2) Otosyphilis: Status: Acute Plan d2 39yo F with HTN, DM2, and morbid obesity with 4 months of sensorineural hearing loss and progressive rash, just diagnosed with syphilis with RPR 1:256 and sent in for evaluation for otosyphilis/neurosyphilis otosyphilis/neurosyphilis - LP done by IR 10/06; CSF with lymphocytic pleocytosis [75-89 WBCs/hpf, of which 95-97% are lymphocytes]; CSF VDRL pending - started IV PCN G 4 million units q4h 10/06, end date 10/20; will place midline catheter - male partner undergoing testing through [facility] atypical chest pain - troponin negative, EKG without ischemic changes, pain with palpation of R sternal border; will apply lidocaine patch for likely costochondritis DM2 - correction-dose lispro, hold MTF HTN - chlorthalidone, lisinopril VTE ppx - SCDs dispo - eventual home possibly with VNA if home infusion required In my clinical judgment, the patient requires continued inpatient hospitalization for the following reasons: IV ABX Total time managing care of this patient today: 45 minutes. Quality Stroke Does the patient have a stroke diagnosis?: No VTE Prior VTE?: No VTE Risk Level:: Medical - moderate - high VTE Device Contraindication: N/A - Device Ordered VTE Drug Contraindication: Treatment Not Indicated
[2024-10-07] MEDS: Lidocaine 4 % Patch ADH..PATCH 1 PATCH TRANSDERMA (12:14)
[2024-10-07 15:20] VITALS: BP 119/63; PULSE 60; RESP 18; TEMP 36.2; O2SAT 97
--- NOTE | 2024-10-07 15:25 | P.CDIM_ITS ---
PROVIDER RESPONSE TEXT: To clarify, the appropriate diagnosis supported by the clinical indicators: Severe or Morbid Obesity Without alveolar hypoventilation QUERY TEXT: PHYSICIAN'S DOCUMENTATION REQUEST Date of Query: 10/07/2024 10:20 AM EDT Patient Name: Beatrice Olivia Admit Date: 10/06/2024 Dear Hector Degroot MD, A review of the medical record indicates additional documentation may be needed. Please review below and update the documentation accordingly. Clinical Indicators: Height: ( ) 5'1 Weight: ( ) 134.7 kg BMI: ( ) 56.1 Other Clinical Notes Supporting Significance of the BMI: If possible, please provide an associated diagnosis related to the abnormal BMI, such as: Overweight Obesity Due to excess calories Obesity Drug induced Obesity Due to other cause Specify the other cause Severe or Morbid Obesity With alveolar hypoventilation Severe or Morbid Obesity Without alveolar hypoventilation BMI is not significant Other (explain) Clinically unable to determine (explain) Thank you, Georgiana Gipson RN Use of terms such as suspected, likely, concern for, or probable (associated with a specific diagnosi s that is being evaluated, monitored, or treated as if it exists) are acceptable and can be coded in the inpatient se tting, when documented at the time of discharge. Please use your independent medical judgment in providing your response. THIS QUERY IS PART OF THE PERMANENT MEDICAL RECORD
[2024-10-07 16:36] LABS: Glucose, Whole Blood 93 mg/dL (60-115)
[2024-10-07 19:21] VITALS: BP 111/67; PULSE 63; RESP 18; TEMP 36.3; O2SAT 97
[2024-10-07 21:14] LABS: Glucose, Whole Blood 104 mg/dL (60-115)
[2024-10-08] MEDS: Penicillin G Potassium 4,000,000 UNIT in 0.9 % Sodium Chloride 100 ML 200 UNIT IV ×6 (00:20→20:04)
[2024-10-08 03:46] VITALS: BP 124/65; PULSE 66; RESP 16; TEMP 36.6; O2SAT 95
[2024-10-08 07:33] LABS: Glucose, Whole Blood 104 mg/dL (60-115)
[2024-10-08 08:00] VITALS: BP 116/59; PULSE 70; RESP 16; TEMP 37.4; O2SAT 98
[2024-10-08 08:57] VITALS: BP 116/59
[2024-10-08] MEDS: Acetaminophen 325 MG TABLET 650 MG PO (08:57)
[2024-10-08] MEDS: lisinopriL 20 MG TABLET PO (08:57)
[2024-10-08] MEDS: hydroCHLOROthiazide 25 MG TABLET PO (08:57)
[2024-10-08] MEDS: 0.9 % Sodium Chloride Flush 3 ML SYRINGE IVFLUSH ×2 (08:57→16:35)
[2024-10-08] MEDS: Lidocaine 4 % Patch ADH..PATCH 1 PATCH TRANSDERMA (08:58)
--- NOTE | 2024-10-08 11:16 | HO.PICC ---
[facility]: Neurosyph[facility] Indication: frequent antibiotics needed Pertinent Labs: reviewed Technique: Following informed consent including risks, benefits and alternatives and using sterile technique including cap and mask, sterile gown, glove and drape, the right arm was prepped and draped in the usual sterile fashion of full barrier technique with G. Following completion of [place] Protocol the skin and soft tissues were anesthetized with 1% Lidocaine plain. Using ultrasound guidance, right Basilic vein access was obtained twice by Matilda Rodarte RN, but unable to advance guidewire. Right basilic vein access was obtained on first attempt by Lui Jamison RN. Over an 0.018 wire through peel-away sheath, a 4FR single lumen PASV PICC line was positioned. Catheter length is 48 CM internal length, 0 CM external length, for a total trimmed length of 48 CM. The procedure was performed in S272. Tip verification was performed by Vamsi Wilkes with Sherlock 3CG. Tip located in SVC. Ultrasound was used to document vein patency and for needle entry. A formal ultrasound picture and cardiac rhythm strip was recorded. [employer] has released the line for use and it is currently dressed with a StatLock, Tegaderm, and CHG disc. Verification has been performed for blood return and line patency. Arm Circumference: 42 CM Equipment: [employer] PowerPICC SOLO Catheter Type: 4FR single lumen PASV PICC Lot #: [id number]
[2024-10-08 12:07] LABS: Glucose, Whole Blood 85 mg/dL (60-115)
--- NOTE | 2024-10-08 15:01 | MHC.CM.PN ---
EMR REVIEWED. CM SPOKE WITH FINANCIAL COUNSELOR WHO HAD PT PICK AN INSURANCE PLAN. PT WILL BE ACTIVE WITH [facility] ON 10/12. AWARE. [facility]IA[facility] IN AND DID A TEACH WITH PT. NA UPDATED.TARGET DC DATE 10/12 WHEN INSURANCE BECOMES ACTIVE.
--- NOTE | 2024-10-08 15:13 | HO.PM.IMPN ---
Subjective Subjective Date of Service: 10/08/24 Interval History: No acute issues overnight. Underwent PICC line without issue today. VDRL pending Review of Systems Denies chest pain Denies shortness of breath Denies nausea vomiting diarrhea Denies fever chills Physical Exam Vital Signs: Vital Signs: Last Vital Signs Temp 99.4 F 10/08/24 08:00 Pulse 70 10/08/24 08:00 Resp 16 10/08/24 08:00 BP 116/59 L 10/08/24 08:57 Pulse Ox 98 10/08/24 08:00 O2 Del Method Room Air 10/08/24 08:00 BMI result Body Mass Index 56.1 Const: Other: Awake alert no acute distress Resp: Other: Clear to auscultation bilaterally no rales rhonchi or wheezes Cardio: Other: No S4; positive S1/S2; no S3 murmurs rubs or gallops GI: Other: Soft nontender nondistended normoactive bowel sounds Extrem: Other: No edema bilateral Objective Data Active Medications Acetaminophen (Acetaminophen 325 Mg Tablet) 650 mg PO Q6H PRN PRN Reason: Pain, Mild 1-3,fever,headache Last Admin: 10/08/24 08:57 Dose: 650 mg Documented By: JON Calcium Carbonate (Calcium Carbonate 750 Mg Tab.Chew) 750 mg PO Q4H PRN PRN Reason: Heartburn Dextrose (Dextrose 50 % 25 Gm/50 Ml Syringe) 25 gm IVPUSH Q15M PRN; Protocol PRN Reason: per Hypoglycemia Standing Ord. Glucose (Glucose Gel 15 Gm Gel..Gram.) 15 gm PO Q15M PRN; Protocol PRN Reason: per Hypoglycemia Standing Ord. Hydrochlorothiazide (Hydrochlorothiazide 25 Mg Tablet) 25 mg PO DAILY [facility] Last Admin: 10/08/24 08:57 Dose: 25 mg Documented By: JON Penicillin G Potassium 4,000, (000 unit/ Sodium Chloride) 100 mls @ 200 mls/hr IV Q4H [facility] Last Infusion: 10/08/24 12:44 Dose: Infused Documented By: JON Insulin Human Lispro (Insulin Lispro 100 Unit/Ml 3 Ml Vial) 0 unit SUBCUT QIDACHS [facility]; Protocol Last Admin: 10/08/24 12:08 Dose: Not Given Documented By: JON Non-Admin Reason: No Insulin Coverage Lidocaine (Lidocaine 4 % Patch Adh..Patch) 1 patch TRANSDERMA DAILY [facility]; Protocol Last Admin: 10/08/24 08:58 Dose: 1 patch Documented By: JON Lisinopril (Lisinopril 20 Mg Tablet) 20 mg PO DAILY [facility]; Protocol Last Admin: 10/08/24 08:57 Dose: 20 mg Documented By: JON Magnesium Hydroxide (Milk Of Magnesia 30 Ml Oral.Susp) 30 ml PO DAILY PRN PRN Reason: Constipation Melatonin (Melatonin 3 Mg Tablet) 6 mg PO BEDTIME PRN PRN Reason: Insomnia Ondansetron HCl (Ondansetron Hcl 4 Mg/2 Ml Vial) 4 mg IVPUSH Q4H PRN PRN Reason: Nausea and Vomiting Sodium Chloride (0.9 % Sodium Chloride Flush 3 Ml Syringe) 3 ml IVFLUSH QSHIFT [facility] Last Admin: 10/08/24 08:57 Dose: 3 ml Documented By: JON Labs 10/06/24 08:49 10/06/24 08:49 Labs: Laboratory Results - last 24 hr 10/07/24 10/07/24 10/08/24 16:29 21:08 07:18 POC Glucose 93 104 104 10/08/24 12:02 POC Glucose 85 Microbiology Microbiology Results: Microbiology 10/06/24 12:28 Gram Stain - Final Cerebrospinal Fluid CSF Examination - Final Fluid Description - Final CSF Culture - Preliminary No growth after 2 days Assessment and Plan (1) Otosyphilis: Status: Acute (2) Neurosyphilis: Status: Acute (3) Diabetes mellitus: Status: Acute Plan d2 39yo F with HTN, DM2, and morbid obesity with 4 months of sensorineural hearing loss and progressive rash, just diagnosed with syphilis with RPR 1:256 and sent in for evaluation for otosyphilis/neurosyphilis 1.Otosyphilis/neurosyphilis - LP done by IR 10/06; CSF with lymphocytic pleocytosis [75-89 WBCs/hpf, of which 95-97% are lymphocytes]; CSF VDRL pending - IV PCN G 4 million units q4h 10/06, end date 10/20; -PICC line today without issue 2.DM2 - acceptable control on current therapies -lispro correctional scale -adjust as indicated 3.HTN -acceptable control on current therapies -adjust as indicated SCDs Full code Requires ongoing hospitalization for IMV and acyclovir pending VDRL Quality Stroke Does the patient have a stroke diagnosis?: No VTE Prior VTE?: No VTE Risk Level:: Medical - moderate - high VTE Device Contraindication: N/A - Device Ordered VTE Drug Contraindication: Treatment Not Indicated
[2024-10-08 15:29] VITALS: BP 117/58; PULSE 65; RESP 14; TEMP 36.4; O2SAT 95
[2024-10-08 16:40] LABS: Glucose, Whole Blood 103 mg/dL (60-115)
[2024-10-08 19:14] VITALS: BP 114/56; PULSE 71; RESP 18; TEMP 36.1; O2SAT 96
[2024-10-08 20:34] LABS: Glucose, Whole Blood 123 mg/dL (60-115)
[2024-10-09] MEDS: Penicillin G Potassium 4,000,000 UNIT in 0.9 % Sodium Chloride 100 ML 200 UNIT IV ×6 (00:21→20:41)
[2024-10-09 03:56] VITALS: BP 127/57; PULSE 70; RESP 18; TEMP 36.3; O2SAT 94
[2024-10-09 07:00] LABS: MANUAL DIFF FLAG NO
[2024-10-09 07:08] LABS: Basophils Percent Auto 0.4 % (0-2); Eosinophils Absolute Auto 0.2 X10*3/uL (0.0-0.4); Eosinophils Percent Auto 2.2 % (0-4); Hematocrit 39.9 % (37.0-47.0); Hemoglobin 13.1 g/dl (12.0-16.0); Imm Gran Abs Auto 0.05 X10*3/uL (0.00-0.03); Imm Gran Pct Auto 0.5 % (0.0-0.4); Lymphocytes Absolute Auto 2.7 X10*3/uL (1.2-4.9); Lymphocytes Percent Auto 24.4 % (20-40); Mean Corpuscular HGB Conc 32.8 g/dl (31.0-35.0); Mean Corpuscular Hemoglobin 28.5 pg (27.0-33.0); Mean Corpuscular Volume 86.7 fL (80.0-98.0); Mean Platelet Volume 9.3 fL (9.4-12.3); Monocytes Absolute Auto 0.5 X10*3/uL (0.1-1.2); Monocytes Percent Auto 4.7 % (2-11); Neutrophils Absolute Auto 7.5 x10*3/uL (2.0-8.3); Neutrophils Percent Auto 67.8 % (45-73); Platelet Count 460 X10*3/uL (160-400); Red Cell Distribution Width 13.5 % (11.0-16.0); White Blood Count 11.1 X10*3/uL (4.8-10.8)
[2024-10-09 07:25] LABS: Glucose, Whole Blood 108 mg/dL (60-115)
[2024-10-09 07:34] LABS: Alanine Aminotransferase 13 U/L (0-31); Albumin Level 3.5 g/dL (3.5-5.0); Alkaline Phosphatase 71 U/L (39-117); Anion Gap 13 (12-20); Aspartate Amino Transferase 15 U/L (5-31); Bilirubin Total 0.4 mg/dL (0.0-1.0); Blood Urea Nitrogen 9 mg/dL (9-16); Calcium 9.2 mg/dL (8.4-10.2); Carbon Dioxide 26 mmol/L (22-29); Chloride 103 mmol/L (96-108); Creatinine Clr Calc Pharmacy 142.6; Estimated Glomerular Filt Rate > 60; Glucose Fasting 95 mg/dL (60-99); Potassium 4.2 mmol/L (3.3-5.1); Sodium 138 mmol/L (135-145); Total Protein 7.9 g/dL (6.5-8.0)
[2024-10-09 07:50] VITALS: BP 112/58; PULSE 68; RESP 18; TEMP 36.1; O2SAT 96
[2024-10-09] MEDS: Lidocaine 4 % Patch ADH..PATCH 1 PATCH TRANSDERMA (08:15)
[2024-10-09] MEDS: lisinopriL 20 MG TABLET PO (08:15)
[2024-10-09] MEDS: hydroCHLOROthiazide 25 MG TABLET PO (08:15)
[2024-10-09] MEDS: 0.9 % Sodium Chloride Flush 3 ML SYRINGE IVFLUSH ×2 (08:27→15:24)
[2024-10-09] MEDS: Acetaminophen 325 MG TABLET 650 MG PO ×2 (08:46→20:47)
[2024-10-09 11:19] LABS: VDRL Qualitative CSF Reactive 1:4 (Nonreactive)
[2024-10-09 11:27] LABS: Glucose, Whole Blood 94 mg/dL (60-115)
--- NOTE | 2024-10-09 14:41 | P.PNIM_ITS ---
Subjective Subjective Date of Service: 10/09/24 Interval History: Voices no complaints. No changes in hearing. Review of Systems Denies chest pain Denies shortness of breath Denies nausea vomiting diarrhea Denies fever chills Physical Exam 2 Vital Signs: Vital Signs: Last Vital Signs Temp 97.0 F 10/09/24 07:50 Pulse 68 10/09/24 07:50 Resp 18 10/09/24 07:50 BP 112/58 L 10/09/24 07:50 Pulse Ox 96 10/09/24 07:50 O2 Del Method Room Air 10/09/24 07:50 BMI result Body Mass Index 56.1 Const: Other: Awake alert no acute distress Resp: Other: Clear to auscultation bilaterally no rales rhonchi or wheezes Cardio: Other: No S4; positive S1/S2; no S3 murmurs rubs or gallops GI: Other: Soft nontender nondistended normoactive bowel sounds Extrem: Other: No edema bilateral Objective Data Active Medications Acetaminophen (Acetaminophen 325 Mg Tablet) 650 mg PO Q6H PRN PRN Reason: Pain, Mild 1-3,fever,headache Last Admin: 10/09/24 08:46 Dose: 650 mg Documented By: CALVIN Calcium Carbonate (Calcium Carbonate 750 Mg Tab.Chew) 750 mg PO Q4H PRN PRN Reason: Heartburn Dextrose (Dextrose 50 % 25 Gm/50 Ml Syringe) 25 gm IVPUSH Q15M PRN; Protocol PRN Reason: per Hypoglycemia Standing Ord. Glucose (Glucose Gel 15 Gm Gel..Gram.) 15 gm PO Q15M PRN; Protocol PRN Reason: per Hypoglycemia Standing Ord. Hydrochlorothiazide (Hydrochlorothiazide 25 Mg Tablet) 25 mg PO DAILY [facility] Last Admin: 10/09/24 08:15 Dose: 25 mg Documented By: CALVIN Penicillin G Potassium 4,000, (000 unit/ Sodium Chloride) 100 mls @ 200 mls/hr IV Q4H [facility] Last Infusion: 10/09/24 13:48 Dose: Infused Documented By: CALVIN Insulin Human Lispro (Insulin Lispro 100 Unit/Ml 3 Ml Vial) 0 unit SUBCUT QIDACHS [facility]; Protocol Last Admin: 10/09/24 11:33 Dose: Not Given Documented By: CALVIN Non-Admin Reason: No Insulin Coverage Lidocaine (Lidocaine 4 % Patch Adh..Patch) 1 patch TRANSDERMA DAILY [facility]; Protocol Last Admin: 10/09/24 08:15 Dose: 1 patch Documented By: CALVIN Lisinopril (Lisinopril 20 Mg Tablet) 20 mg PO DAILY [facility]; Protocol Last Admin: 10/09/24 08:15 Dose: 20 mg Documented By: CALVIN Magnesium Hydroxide (Milk Of Magnesia 30 Ml Oral.Susp) 30 ml PO DAILY PRN PRN Reason: Constipation Melatonin (Melatonin 3 Mg Tablet) 6 mg PO BEDTIME PRN PRN Reason: Insomnia Ondansetron HCl (Ondansetron Hcl 4 Mg/2 Ml Vial) 4 mg IVPUSH Q4H PRN PRN Reason: Nausea and Vomiting Sodium Chloride (0.9 % Sodium Chloride Flush 3 Ml Syringe) 3 ml IVFLUSH QSHIFT [facility] Last Admin: 10/09/24 08:27 Dose: 3 ml Documented By: CALVIN Labs 10/09/24 05:51 10/09/24 05:51 Labs: Laboratory Results - last 24 hr 10/06/24 10/08/24 10/08/24 12:28 16:17 20:28 MCV MCH MCHC RDW Plt Count MPV Immature Gran % (Auto) Neut % (Auto) Lymph % (Auto) [place] % (Auto) Eos % (Auto) Baso % (Auto) Lymph # (Auto) [place] # (Auto) Eos # (Auto) Baso # (Auto) Abs Immat Gran (auto) Absolute Neuts (auto) Absolute Nucleated RBC Nucleated RBC % (auto) Anion Gap Estim Creat Clear Calc Estimated GFR POC Glucose 103 123 H Fasting Glucose Calcium Total Bilirubin AST ALT Alkaline Phosphatase Total Protein Albumin CSF VDRL Reactive 1:4 A 10/09/24 10/09/24 10/09/24 05:51 07:17 11:23 MCV 86.7 MCH 28.5 MCHC 32.8 RDW 13.5 Plt Count 460 H MPV 9.3 L Immature Gran % (Auto) 0.5 H Neut % (Auto) 67.8 Lymph % (Auto) 24.4 [place] % (Auto) 4.7 Eos % (Auto) 2.2 Baso % (Auto) 0.4 Lymph # (Auto) 2.7 [place] # (Auto) 0.5 Eos # (Auto) 0.2 Baso # (Auto) 0.0 Abs Immat Gran (auto) 0.05 H Absolute Neuts (auto) 7.5 Absolute Nucleated RBC 0.000 Nucleated RBC % (auto) 0.0 Anion Gap 13 Estim Creat Clear Calc 142.6 Estimated GFR > 60 POC Glucose 108 94 Fasting Glucose 95 Calcium 9.2 Total Bilirubin 0.4 AST 15 ALT 13 Alkaline Phosphatase 71 Total Protein 7.9 Albumin 3.5 CSF VDRL Microbiology Microbiology Results: Microbiology 10/06/24 12:28 Gram Stain - Final Cerebrospinal Fluid CSF Examination - Final Fluid Description - Final CSF Culture - Final No growth after 3 days. Assessment and Plan (1) Otosyphilis: Status: Acute (2) Neurosyphilis: Status: Acute Plan d2 39yo F with HTN, DM2, and morbid obesity with 4 months of sensorineural hearing loss and progressive rash, just diagnosed with syphilis with RPR 1:256 and sent in for evaluation for otosyphilis/neurosyphilis 1.Otosyphilis/neurosyphilis - LP done by IR 10/06; CSF with lymphocytic pleocytosis [75-89 WBCs/hpf, of which 95-97% are lymphocytes]; CSF VDRL reactive 1:4 - IV PCN G 4 million units q4h 10/06, end date 10/20; -PICC line today without issue 2.DM2 - acceptable control on current therapies -lispro correctional scale -adjust as indicated 3.HTN -acceptable control on current therapies -adjust as indicated SCDs Full code Requires ongoing hospitalization for IMV and acyclovir pending VDRL Quality Stroke Does the patient have a stroke diagnosis?: No VTE Prior VTE?: No VTE Risk Level:: Medical - moderate - high VTE Device Contraindication: N/A - Device Ordered VTE Drug Contraindication: Treatment Not Indicated
--- NOTE | 2024-10-09 15:25 | P.PNID_ITS ---
Subjective Subjective Date of Service: 10/09/24 Critical Care Time (minutes): 15 Comment: She has no change in hearing loss She is wondering about ENT appointment. Objective Data Labs 10/09/24 05:51 10/09/24 05:51 Labs: Laboratory Results - last 24 hr 10/06/24 10/08/24 10/08/24 12:28 16:17 20:28 WBC RBC Hgb Hct MCV MCH MCHC RDW Plt Count MPV Immature Gran % (Auto) Neut % (Auto) Lymph % (Auto) [place] % (Auto) Eos % (Auto) Baso % (Auto) Lymph # (Auto) [place] # (Auto) Eos # (Auto) Baso # (Auto) Abs Immat Gran (auto) Absolute Neuts (auto) Absolute Nucleated RBC Nucleated RBC % (auto) Sodium Potassium Chloride Carbon Dioxide Anion Gap BUN Creatinine Estim Creat Clear Calc Estimated GFR POC Glucose 103 123 H Fasting Glucose Calcium Total Bilirubin AST ALT Alkaline Phosphatase Total Protein Albumin CSF VDRL Reactive 1:4 A 10/09/24 10/09/24 10/09/24 05:51 07:17 11:23 WBC 11.1 H RBC 4.60 Hgb 13.1 Hct 39.9 MCV 86.7 MCH 28.5 MCHC 32.8 RDW 13.5 Plt Count 460 H MPV 9.3 L Immature Gran % (Auto) 0.5 H Neut % (Auto) 67.8 Lymph % (Auto) 24.4 [place] % (Auto) 4.7 Eos % (Auto) 2.2 Baso % (Auto) 0.4 Lymph # (Auto) 2.7 [place] # (Auto) 0.5 Eos # (Auto) 0.2 Baso # (Auto) 0.0 Abs Immat Gran (auto) 0.05 H Absolute Neuts (auto) 7.5 Absolute Nucleated RBC 0.000 Nucleated RBC % (auto) 0.0 Sodium 138 Potassium 4.2 Chloride 103 Carbon Dioxide 26 Anion Gap 13 BUN 9 Creatinine 0.69 Estim Creat Clear Calc 142.6 Estimated GFR > 60 POC Glucose 108 94 Fasting Glucose 95 Calcium 9.2 Total Bilirubin 0.4 AST 15 ALT 13 Alkaline Phosphatase 71 Total Protein 7.9 Albumin 3.5 CSF VDRL Microbiology Microbiology Results: Microbiology 10/06/24 12:28 Cerebrospinal Fluid Gram Stain - Final 10/06/24 12:28 Cerebrospinal Fluid CSF Examination - Final 10/06/24 12:28 Cerebrospinal Fluid Fluid Description - Final 10/06/24 12:28 Cerebrospinal Fluid CSF Culture - Final No growth after 3 days. Physical Exam 2 Vital Signs: Vital Signs: Last Vital Signs Temp 97.0 F 10/09/24 07:50 Pulse 68 10/09/24 07:50 Resp 18 10/09/24 07:50 BP 112/58 L 10/09/24 07:50 Pulse Ox 96 10/09/24 07:50 O2 Del Method Room Air 10/09/24 07:50 BMI result Body Mass Index 56.1 Const: General: cooperative HEENT: Head: Yes normal to inspection Face and sinus: Yes normal facial exam Mouth: Normal oral and palatal mucosa present Teeth and gingiva: d entition normal Eyes: General: appearance normal, both eyes and all related structures P upils: Equal, round and reactive pupils present Resp: Effort & Inspection: normal respiratory effort Cardio: Rate: regular rate Rhythm: regular rhythm GI: Palpation (GI): Soft to palpation and nontender : General: Yes no CVA tenderness Back/Spine/Pelvis: Back: no CVA tenderness Skin: General skin exam: no rashes or lesions noted Neuro: General: moves all extremities Cranial nerves: Yes Equal, round and reactive pupils present Extrem: General: Yes normal to inspection Psych: Appearance: grossly normal Assessment and Plan Assessment and plan (1) Otosyphilis: Status: Acute (2) Neurosyphilis: Status: Acute Plan She has no changes in hearing and this is probably going to take weeks or months but will defer to ENT. She has an appointment with ENT for surgery for tubes but should hold off on surgery appt and follow with ENT for regular appointment first as hearing loss my be due to syphilis. FInish 14 days (now day 4 IV PCN)and at end give 2.4 mU dose depo PCN IM. Check on partners status. 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 Time Spent With Patient Time: Total time managing care of this patient today ____ minutes.
[2024-10-09 15:54] VITALS: BP 117/58; PULSE 78; RESP 12; TEMP 37; O2SAT 98
[2024-10-09 16:33] LABS: Glucose, Whole Blood 93 mg/dL (60-115)
[2024-10-09 19:44] VITALS: BP 121/61; PULSE 68; RESP 18; TEMP 36.1; O2SAT 96
[2024-10-09 21:06] LABS: Glucose, Whole Blood 104 mg/dL (60-115)
[2024-10-09 21:37] VITALS: BP 119/55; PULSE 72; RESP 18; TEMP 36.6; O2SAT 97
[2024-10-10] MEDS: 0.9 % Sodium Chloride Flush 3 ML SYRINGE IVFLUSH ×3 (00:20→17:29)
[2024-10-10] MEDS: Penicillin G Potassium 4,000,000 UNIT in 0.9 % Sodium Chloride 100 ML 200 UNIT IV ×4 (00:20→21:26)
[2024-10-10 02:43] VITALS: RESP 14
[2024-10-10 03:31] VITALS: BP 138/83; PULSE 58; RESP 16; TEMP 36; O2SAT 100
[2024-10-10 07:40] LABS: Glucose, Whole Blood 105 mg/dL (60-115)
[2024-10-10 08:29] VITALS: BP 122/67; PULSE 65; RESP 12; TEMP 36.1; O2SAT 97
[2024-10-10] MEDS: hydroCHLOROthiazide 25 MG TABLET PO (09:24)
[2024-10-10] MEDS: lisinopriL 20 MG TABLET PO (09:24)
[2024-10-10] MEDS: Penicillin G Potassium 4,000,000 UNIT in 0.9 % Sodium Chloride 100 ML 100 UNIT IV ×2 (09:25→12:13)
--- NOTE | 2024-10-10 11:34 | HO.PM.IMPN ---
Subjective Subjective Date of Service: 10/10/24 Interval History: No acute issues overnight. Remains tolerant of therapies Review of Systems Denies chest pain Denies shortness of breath Denies nausea vomiting diarrhea Denies fever chills Physical Exam Vital Signs: Vital Signs: Last Vital Signs Temp 97.0 F 10/10/24 08:29 Pulse 65 10/10/24 08:29 Resp 12 10/10/24 08:29 BP 122/67 10/10/24 08:29 Pulse Ox 97 10/10/24 08:29 O2 Del Method Room Air 10/10/24 08:29 BMI result Body Mass Index 56.1 Const: Other: Awake alert no acute distress Resp: Other: Clear to auscultation bilaterally no rales rhonchi or wheezes Cardio: Other: No S4; positive S1/S2; no S3 murmurs rubs or gallops GI: Other: Soft nontender nondistended normoactive bowel sounds Extrem: Other: No edema bilateral Objective Data Active Medications Acetaminophen (Acetaminophen 325 Mg Tablet) 650 mg PO Q6H PRN PRN Reason: Pain, Mild 1-3,fever,headache Last Admin: 10/09/24 20:47 Dose: 650 mg Documented By: NEIDA Calcium Carbonate (Calcium Carbonate 750 Mg Tab.Chew) 750 mg PO Q4H PRN PRN Reason: Heartburn Dextrose (Dextrose 50 % 25 Gm/50 Ml Syringe) 25 gm IVPUSH Q15M PRN; Protocol PRN Reason: per Hypoglycemia Standing Ord. Glucose (Glucose Gel 15 Gm Gel..Gram.) 15 gm PO Q15M PRN; Protocol PRN Reason: per Hypoglycemia Standing Ord. Hydrochlorothiazide (Hydrochlorothiazide 25 Mg Tablet) 25 mg PO DAILY [facility] Last Admin: 10/10/24 09:24 Dose: 25 mg Documented By: CALVIN Penicillin G Potassium 4,000, (000 unit/ Sodium Chloride) 100 mls @ 200 mls/hr IV Q4H [facility] Last Infusion: 10/10/24 11:05 Dose: Infused Documented By: CALVIN Insulin Human Lispro (Insulin Lispro 100 Unit/Ml 3 Ml Vial) 0 unit SUBCUT QIDACHS [facility]; Protocol Last Admin: 10/10/24 08:02 Dose: Not Given Documented By: CALVIN Non-Admin Reason: No Insulin Coverage Lidocaine (Lidocaine 4 % Patch Adh..Patch) 1 patch TRANSDERMA DAILY [facility]; Protocol Last Admin: 10/10/24 09:25 Dose: Not Given Documented By: CALVIN Non-Admin Reason: Patient Refused Lisinopril (Lisinopril 20 Mg Tablet) 20 mg PO DAILY [facility]; Protocol Last Admin: 10/10/24 09:24 Dose: 20 mg Documented By: CALVIN Magnesium Hydroxide (Milk Of Magnesia 30 Ml Oral.Susp) 30 ml PO DAILY PRN PRN Reason: Constipation Melatonin (Melatonin 3 Mg Tablet) 6 mg PO BEDTIME PRN PRN Reason: Insomnia Ondansetron HCl (Ondansetron Hcl 4 Mg/2 Ml Vial) 4 mg IVPUSH Q4H PRN PRN Reason: Nausea and Vomiting Sodium Chloride (0.9 % Sodium Chloride Flush 3 Ml Syringe) 3 ml IVFLUSH QSHIFT [facility] Last Admin: 10/10/24 09:32 Dose: 3 ml Documented By: CALVIN Labs 10/09/24 05:51 10/09/24 05:51 Labs: Laboratory Results - last 24 hr 10/09/24 10/09/24 10/10/24 16:09 21:01 07:36 POC Glucose 93 104 105 Microbiology Microbiology Results: Microbiology 10/06/24 12:28 Gram Stain - Final Cerebrospinal Fluid CSF Examination - Final Fluid Description - Final CSF Culture - Final No growth after 3 days. Assessment and Plan (1) Otosyphilis: Status: Acute (2) Neurosyphilis: Status: Acute Plan d2 39yo F with HTN, DM2, and morbid obesity with 4 months of sensorineural hearing loss and progressive rash, just diagnosed with syphilis with RPR 1:256 and sent in for evaluation for otosyphilis/neurosyphilis 1.Otosyphilis/neurosyphilis - LP done by IR 10/06; CSF with lymphocytic pleocytosis [75-89 WBCs/hpf, of which 95-97% are lymphocytes]; CSF VDRL reactive 1:4 - IV PCN G 4 million units q4h 10/06, end date 10/20; -DC home in a.m. to complete therapies 2.DM2 - acceptable control on current therapies -lispro correctional scale -adjust as indicated 3.HTN -acceptable control on current therapies -adjust as indicated SCDs Full code Requires ongoing hospitalization for IMV and acyclovir pending [facility] Quality Stroke Does the patient have a stroke diagnosis?: No VTE Prior VTE?: No VTE Risk Level:: Medical - moderate - high VTE Device Contraindication: N/A - Device Ordered VTE Drug Contraindication: Treatment Not Indicated
[2024-10-10 11:55] LABS: Glucose, Whole Blood 95 mg/dL (60-115)
[2024-10-10 15:11] VITALS: BP 115/67; PULSE 65; RESP 17; TEMP 36.3; O2SAT 98
[2024-10-10] MEDS: Acetaminophen 325 MG TABLET 650 MG PO (15:45)
[2024-10-10 16:42] LABS: Glucose, Whole Blood 124 mg/dL (60-115)
[2024-10-10] MEDS: Butalb/Acetamin/Caff 50/325/40 TABLET 1 TAB PO ×2 (17:15→21:30)
[2024-10-10 19:14] VITALS: BP 111/68; PULSE 69; RESP 17; TEMP 36.3; O2SAT 97
[2024-10-10 19:43] LABS: Glucose, Whole Blood 120 mg/dL (60-115)
[2024-10-11] MEDS: Penicillin G Potassium 4,000,000 UNIT in 0.9 % Sodium Chloride 100 ML 200 UNIT IV ×6 (00:35→20:53)
[2024-10-11] MEDS: 0.9 % Sodium Chloride Flush 3 ML SYRINGE IVFLUSH ×2 (00:36→09:22)
[2024-10-11 03:38] VITALS: BP 120/68; PULSE 66; RESP 18; TEMP 36.3; O2SAT 96
[2024-10-11 07:33] VITALS: BP 125/60; PULSE 65; RESP 16; TEMP 36.8; O2SAT 97
[2024-10-11 07:41] LABS: Glucose, Whole Blood 95 mg/dL (60-115)
[2024-10-11] MEDS: lisinopriL 20 MG TABLET PO (09:22)
[2024-10-11] MEDS: hydroCHLOROthiazide 25 MG TABLET PO (09:23)
[2024-10-11 11:28] LABS: Glucose, Whole Blood 97 mg/dL (60-115)
--- NOTE | 2024-10-11 13:40 | HO.PM.IMPN ---
Subjective Subjective Date of Service: 10/11/24 Interval History: No acute issues. Tolerating therapies well. Awaiting insurance Review of Systems Denies chest pain Denies shortness of breath Denies nausea vomiting diarrhea Denies fever chills Physical Exam Vital Signs: Vital Signs: Last Vital Signs Temp 98.3 F 10/11/24 07:33 Pulse 65 10/11/24 07:33 Resp 16 10/11/24 07:33 BP 125/60 10/11/24 07:33 Pulse Ox 97 10/11/24 07:33 O2 Del Method Room Air 10/11/24 07:33 BMI result Body Mass Index 56.1 Const: Other: Awake alert no acute distress Resp: Other: Clear to auscultation bilaterally no rales rhonchi or wheezes Cardio: Other: No S4; positive S1/S2; no S3 murmurs rubs or gallops GI: Other: Soft nontender nondistended normoactive bowel sounds Extrem: Other: No edema bilateral Objective Data Active Medications Acetaminophen (Acetaminophen 325 Mg Tablet) 650 mg PO Q6H PRN PRN Reason: Pain, Mild 1-3,fever,headache Last Admin: 10/10/24 15:45 Dose: 650 mg Documented By: CALVIN Acetaminophen/Butalbital/Caffeine (Butalb/Acetamin/Caff 50/325/40 Tablet) 1 tab PO Q4H PRN PRN Reason: Headache Last Admin: 10/10/24 21:30 Dose: 1 tab Documented By: ED Calcium Carbonate (Calcium Carbonate 750 Mg Tab.Chew) 750 mg PO Q4H PRN PRN Reason: Heartburn Dextrose (Dextrose 50 % 25 Gm/50 Ml Syringe) 25 gm IVPUSH Q15M PRN; Protocol PRN Reason: per Hypoglycemia Standing Ord. Glucose (Glucose Gel 15 Gm Gel..Gram.) 15 gm PO Q15M PRN; Protocol PRN Reason: per Hypoglycemia Standing Ord. Hydrochlorothiazide (Hydrochlorothiazide 25 Mg Tablet) 25 mg PO DAILY [facility] Last Admin: 10/11/24 09:23 Dose: 25 mg Documented By: CHAVEZ Penicillin G Potassium 4,000, (000 unit/ Sodium Chloride) 100 mls @ 200 mls/hr IV Q4H [facility] Last Admin: 10/11/24 13:29 Dose: 200 mls/hr Documented By: CHAVEZ Insulin Human Lispro (Insulin Lispro 100 Unit/Ml 3 Ml Vial) 0 unit SUBCUT QIDACHS [facility]; Protocol Last Admin: 10/11/24 12:29 Dose: Not Given Documented By: CHAVEZ Non-Admin Reason: No Insulin Coverage Lidocaine (Lidocaine 4 % Patch Adh..Patch) 1 patch TRANSDERMA DAILY [facility]; Protocol Last Admin: 10/11/24 09:23 Dose: Not Given Documented By: CHAVEZ Non-Admin Reason: Patient Refused Lisinopril (Lisinopril 20 Mg Tablet) 20 mg PO DAILY [facility]; Protocol Last Admin: 10/11/24 09:22 Dose: 20 mg Documented By: CHAVEZ Magnesium Hydroxide (Milk Of Magnesia 30 Ml Oral.Susp) 30 ml PO DAILY PRN PRN Reason: Constipation Melatonin (Melatonin 3 Mg Tablet) 6 mg PO BEDTIME PRN PRN Reason: Insomnia Ondansetron HCl (Ondansetron Hcl 4 Mg/2 Ml Vial) 4 mg IVPUSH Q4H PRN PRN Reason: Nausea and Vomiting Sodium Chloride (0.9 % Sodium Chloride Flush 3 Ml Syringe) [facility] Last Admin: 10/11/24 09:22 Dose: 3 ml Documented By: CHAVEZ Labs 10/09/24 05:51 10/09/24 05:51 Labs: Laboratory Results - last 24 hr 10/10/24 10/10/24 10/11/24 16:35 19:16 07:03 POC Glucose 124 H 120 H 95 10/11/24 11:24 POC Glucose 97 Assessment and Plan (1) Otosyphilis: Status: Acute Plan d2 39yo F with HTN, DM2, and morbid obesity with 4 months of sensorineural hearing loss and progressive rash, just diagnosed with syphilis with RPR 1:256 and sent in for evaluation for otosyphilis/neurosyphilis 1.Otosyphilis/neurosyphilis - LP done by IR 10/06; CSF with lymphocytic pleocytosis [75-89 WBCs/hpf, of which 95-97% are lymphocytes]; CSF VDRL reactive 1:4 - IV PCN G 4 million units q4h 10/06, end date 10/20; -DC home when insurance active 2.DM2 - acceptable control on current therapies -lispro correctional scale -adjust as indicated 3.HTN -acceptable control on current therapies -adjust as indicated SCDs Full code Requires ongoing hospitalization for IMV and acyclovir pending VDRL Quality Stroke Does the patient have a stroke diagnosis?: No VTE Prior VTE?: No VTE Risk Level:: Medical - moderate - high VTE Device Contraindication: N/A - Device Ordered VTE Drug Contraindication: Treatment Not Indicated
--- NOTE | 2024-10-11 15:04 | MHC.CM.PN ---
Patient's new insurance is [facility] # [id number]. Update sent to [facility] and [facility].
[2024-10-11 15:10] VITALS: BP 120/69; PULSE 68; RESP 18; TEMP 36.2; O2SAT 97
[2024-10-11 16:07] LABS: Glucose, Whole Blood 94 mg/dL (60-115)
[2024-10-11] MEDS: Butalb/Acetamin/Caff 50/325/40 TABLET 1 TAB PO ×2 (16:33→21:21)
[2024-10-11 19:41] VITALS: BP 123/60; PULSE 68; RESP 18; TEMP 36.7; O2SAT 98
[2024-10-11 20:35] LABS: Glucose, Whole Blood 118 mg/dL (60-115)
[2024-10-12] MEDS: Penicillin G Potassium 4,000,000 UNIT in 0.9 % Sodium Chloride 100 ML 200 UNIT IV ×5 (00:03→16:18)
[2024-10-12] MEDS: 0.9 % Sodium Chloride Flush 3 ML SYRINGE IVFLUSH (00:06)
[2024-10-12 03:12] VITALS: BP 133/78; PULSE 60; RESP 18; TEMP 36.6; O2SAT 100
[2024-10-12 07:07] VITALS: BP 111/58; PULSE 68; RESP 16; TEMP 36.8
[2024-10-12 07:34] LABS: Glucose, Whole Blood 103 mg/dL (60-115)
[2024-10-12 08:31] VITALS: BP 122/70
[2024-10-12] MEDS: hydroCHLOROthiazide 25 MG TABLET PO (08:31)
[2024-10-12] MEDS: lisinopriL 20 MG TABLET PO (08:32)
[2024-10-12 13:18] LABS: Glucose, Whole Blood 82 mg/dL (60-115)
--- NOTE | 2024-10-12 13:35 | MHC.CM.PN ---
Per MD patient medically cleared for dc home w/ [facility] and [facility] for [facility]x. Per [facility] liaison, med will be delivered tonight by 8pm. Patient will dc after 4pm dose. Brother will provide transport. [facility] aware.
--- NOTE | 2024-10-12 14:03 | W.MHC.F2F ---
Service Date Service Date: 10/12/24 Encounter Date of encounter: 10/12/24 Reasons for Services Signs and symptoms assessed: administration of IV and IM medications Reason for custodial: administration of IV, SQ, or IM injection, central line care, medication management, medication treatment and teach disease management MD Overseeing Care: Denisse Evangelista Homebound: Leaving the home is medically contraindicated at this time without the asist of a device and/or another person due th the listed conditions above and below. Reason homebound: immunosuppression / infection risk Certification: Based on the above findings, I certify that this patient is confined to the home and needs intermittent custodial care, physical therapy and/or speech therapy, or continues to need occupational therapy. The patient is under my care, and I have initiated the establishment of the plan of care. The patient will be followed by a physician who will periodically review the plan of care. Time Spent With Patient Time: Total time managing care of this patient today ____ minutes.
--- NOTE | 2024-10-12 14:04 | PM.DS ---
DS: Providers Provider Date of Service: 10/12/24 Date of admission: 10/06/24 09:46 Date of discharge: 10/12/24 Primary care physician: Denisse Evangelista Consults: 10/06/24 09:19 Consult to Infectious Diseases Routine Consulting Provider: [facility] Reason for consultation: neurosyphilis DS: Diagnosis Discharge Diagnosis (1) Otosyphilis: Status: Acute (2) Neurosyphilis in adult: Status: Acute (3) Morbid obesity: Status: Acute DS: Summary Hospital Course Hospital Course: From my admission H+P, 10/06/24: 39yo F with DM2, HTN, and obesity who developed bilateral hearing loss in April 2024. She was seen in our ED and also noted to have target-like rashes on her upper extremities and abdomen as well as vesicles on her chin and lower lips. She was diagnosed with bullous myringitis and treated with cefuroxime and azithromycin plus dexamethasone. Rash improved but hearing persistently impaired. She took a course of prednisone in July that temporarily helped. MRI on 08/13/23 showed faint areas of contrast enhancement affecting the 8th nerves in the cochlea. She was seen by ENT [Dr Reddy] 08/30/24. Audiological evaluation showed moderate to severe sensorineural hearing loss bilaterally. She had bilateral serous effusion and plan was for trial of tube placement. Meanwhile, the rash came back but was worse, involving her cheeks, armpits, neck, chest, and abdomen. It is mildly itchy. She saw her PCP at [facility] on 09/29/24 and RPR returned positive at 1:256 titer. She was sent to the [facility] ED and on 10/01/24 and was treated with 2.4 million units of IM benzathine penicillin. HIV negative. She was seen at the [facility] walk-in center 10/05/[address] Tirso Caceres, who spoke to our Infectious Disease dynamics ax consultant Dr Angie Jade. Dr Jade recommended the patient come in for evaluation for suspected neurosyphilis/otosyphilis. She denies fever, chills, vaginal discharge, or loss of sensation. She has had the same male sexual partner for the past 4 years and he has no symptoms; he is undergoing testing. 39yo F with HTN, DM2, and morbid obesity with 4 months of sensorineural hearing loss and progressive rash, just diagnosed with syphilis with RPR 1:256 and sent in for evaluation for otosyphilis/neurosyphilis. Infectious Diseases consulted. LP done by IR 10/06; CSF with lymphocytic pleocytosis [75-89 WBCs/hpf, of which 95-97% are lymphocytes]; CSF VDRL reactive 1:4. Midline catheter placed and she was treated with IV PCN G 4 million units q4h 10/06; planned end date of 10/20. Home infusion was arranged. She will need 1 dose of IM benzathine penicillin [Bicillin LA] 2.4 million units at the end of the course of treatment. Hearing loss may take months to recover. Time Attestation Discharge Coordination Time (in mins): 35 Quality: Safe Use of Opioids Does Pt have an Active Cancer Diagnosis on the Problem List?: No Quality: Stroke Does the patient have a stroke diagnosis?: No Physical Exam Vital Signs: Vital Signs: Last Vital Signs Temp 98.2 F 10/12/24 07:07 Pulse 68 10/12/24 07:07 Resp 16 10/12/24 07:07 BP 122/70 10/12/24 08:31 Pulse Ox 100 10/12/24 03:12 O2 Del Method Room Air 10/12/24 07:07 BMI result Body Mass Index 56.1 Gen: in no acute distress HEENT: sclera anicteric, moist mucus membranes, no oral lesions Neck: supple Lungs: clear to auscultation bilaterally Heart: regular rate and rhythm, no murmurs Abd: soft, non-tender, non-distended, obese Ext: no edema Skin: warm/well-perfused Neuro: alert and oriented x3, mild hearing loss bilaterally Psych: appropriate affect DS: Data Data Completed and Pending Completed studies during hospitalization [Text1]: Laboratory Results WBC 11.1 X10*3/uL (4.8-10.8) H 10/09/24 05:51 RBC 4.60 X10*6/uL (4.20-5.50) 10/09/24 05:51 Hgb 13.1 g/dl (12.0-16.0) 10/09/24 05:51 Hct 39.9 % (37.0-47.0) 10/09/24 05:51 MCV 86.7 fL (80.0-98.0) 10/09/24 05:51 MCH 28.5 pg (27.0-33.0) 10/09/24 05:51 MCHC 32.8 g/dl (31.0-35.0) 10/09/24 05:51 RDW 13.5 % (11.0-16.0) 10/09/24 05:51 Plt Count 460 X10*3/uL (160-400) H 10/09/24 05:51 MPV 9.3 fL (9.4-12.3) L 10/09/24 05:51 Immature Gran % (Auto) 0.5 % (0.0-0.4) H 10/09/24 05:51 Neut % (Auto) 67.8 % (45-73) 10/09/24 05:51 Lymph % (Auto) 24.4 % (20-40) 10/09/24 05:51 [place] % (Auto) 4.7 % (2-11) 10/09/24 05:51 Eos % (Auto) 2.2 % (0-4) 10/09/24 05:51 Baso % (Auto) 0.4 % (0-2) 10/09/24 05:51 Lymph # (Auto) 2.7 X10*3/uL (1.2-4.9) 10/09/24 05:51 [place] # (Auto) 0.5 X10*3/uL (0.1-1.2) 10/09/24 05:51 Eos # (Auto) 0.2 X10*3/uL (0.0-0.4) 10/09/24 05:51 Baso # (Auto) 0.0 X10*3/uL (0.0-0.2) 10/09/24 05:51 Abs Immat Gran (auto) 0.05 X10*3/uL (0.00-0.03) H 10/09/24 05:51 Absolute Neuts (auto) 7.5 x10*3/uL (2.0-8.3) 10/09/24 05:51 Absolute Nucleated RBC 0.000 X10*3/uL (0.0-0.012) 10/09/24 05:51 Nucleated RBC % (auto) 0.0 /100WBC (0.0-0.2) 10/09/24 05:51 PT 12.8 SEC (10.9-12.4) H 10/06/24 09:14 INR 1.1 (0.9-1.1) 10/06/24 09:14 Sodium 138 mmol/L (135-145) 10/09/24 05:51 Potassium 4.2 mmol/L (3.3-5.1) 10/09/24 05:51 Chloride 103 mmol/L (96-108) 10/09/24 05:51 Carbon Dioxide 26 mmol/L (22-29) 10/09/24 05:51 Anion Gap 13 (12-20) 10/09/24 05:51 BUN 9 mg/dL (9-16) 10/09/24 05:51 Creatinine 0.69 mg/dL (0.5-1.4) 10/09/24 05:51 Estim Creat Clear Calc 142.6 10/09/24 05:51 Estimated GFR > 60 10/09/24 05:51 POC Glucose 82 mg/dL (60-115) 10/12/24 11:19 Random Glucose 124 mg/dL (60-115) H 10/06/24 08:49 Fasting Glucose 95 mg/dL (60-99) 10/09/24 05:51 Calcium 9.2 mg/dL (8.4-10.2) 10/09/24 05:51 Total Bilirubin 0.4 mg/dL (0.0-1.0) 10/09/24 05:51 AST 15 U/L (5-31) 10/09/24 05:51 ALT 13 U/L (0-31) 10/09/24 05:51 Alkaline Phosphatase 71 U/L (39-117) 10/09/24 05:51 Troponin I High Sens < 2.7 ng/L (<3.5-17.0) 10/07/24 03:52 Total Protein 7.9 g/dL (6.5-8.0) 10/09/24 05:51 Albumin 3.5 g/dL (3.5-5.0) 10/09/24 05:51 Beta HCG, Quant < 2 mIU/mL 10/06/24 08:49 CSF Tube Number 1 10/06/24 12:28 CSF Tube Number 2 10/06/24 12: CSF Tube Number 4 10/06/24 12:28 CSF Volume 2.0 ML 10/06/24 12: CSF Volume 3.0 ML 10/06/24 12: CSF Appearance CLEAR 10/06/24 12:28 CSF Appearance CLEAR 10/06/24 12: CSF Color COLORLESS 10/06/24 12: CSF Color COLORLESS 10/06/24 12: CSF WBC 75 MM*3 H* 10/06/24 12: CSF WBC 89 MM*3 H* 10/06/24 12: CSF RBC 0 MM*3 10/06/24 12: CSF RBC 2 MM*3 10/06/24 12: CSF Lymphocytes 95 % 10/06/24 12: CSF Lymphocytes 97 % 10/06/24 12: CSF Monocytes % 3 % 10/06/24 12: CSF Monocytes % 5 % 10/06/24 12: CSF Appearance (b) Clear, Colorless 10/06/24 12: CSF Glucose 55 mg/dL 10/06/24 12: CSF Total Protein 27.6 mg/dL (15-45) 10/06/24 12: CSF VDRL Reactive 1:4 (Nonreactive) A 10/06/24 12: CSF C.neoform/gat PCR Not Detected (Not Detect.) 10/06/24 12: CSF CMV DNA (PCR) Not Detected (Not Detect.) 10/06/24 12: CSF Enterovirus (PCR) Not Detected (Not Detect.) 10/06/24 12: CSF E. coli K1 (PCR) Not Detected (Not Detect.) 10/06/24 12: CSF H. influenzae (PCR) Not Detected (Not Detect.) 10/06/24 12: CSF HSV I (PCR) Not Detected (Not Detect.) 10/06/24 12: CSF HSV II (PCR) Not Detected (Not Detect.) 10/06/24 12: CSF HHV 6 (PCR) Not Detected (Not Detect.) 10/06/24 12: CSF L.monocytogenes PCR Not Detected (Not Detect.) 10/06/24 12: CSF N. meningitidis PCR Not Detected (Not Detect.) 10/06/24 12: CSF Parechovirus (PCR) Not Detected (Not Detect.) 03/19/25 12:28 CSF S. agalactiae (PCR) Not Detected (Not Detect.) 10/06/24 12:28 CSF S. pneumoniae (PCR) Not Detected (Not Detect.) 10/06/24 12:28 CSF VZV (PCR) Not Detected (Not Detect.) 10/06/24 12:28 Impressions Lumbar Puncture Fluoroscopy 10/06/24 12:04 IMPRESSION: Successful fluoroscopy-guided lumbar puncture performed as described above. Electronically signed by: Aristeo Pierre MD 10/06/2024 01:28 PM EDT Discharge Plan Discharge Anticipated Discharge Date/Time: 10/12/24 17:55 Patient Disposition: Home Health Service Discharge Diagnosis: neurosyphilis/otosyphilis Referrals: [facility] [Other] - 1 Week ([facility] will deliver [facility]) [facility] [Outside] - 1 Day ([facility] will call you to schedule nursing visits) Marcia Jade MD [Physician] - 1 Week Denisse Evangelista [Primary Care Provider] - 1 Week Discharge Medications: New penicillin G potassium 20 million unit recon soln 4 mmu IV Q4H Qty: 1 0RF penicillin G benzathine 2.4 million unit suspension for reconstitution 2.4 mmu IM ONCE Qty: 1 0RF Rx Instructions: Give 1 dose at end of course of IV penicillin, which ends 10/20/24 Continued lisinopril 20 mg tablet 20 mg PO DAILY metformin 500 mg tablet extended release 24 hr 500 mg PO DAILY Ozempic 1 mg/dose (4 mg/3 mL) pen injector 1 mg subcut TU chlorthalidone 25 mg tablet 25 mg PO DAILY Discharge Orders: Discharge Order (Routine); Ordered 10/12/24 Ordered By: Hector Degroot Diet: Diabetic diet Activity on Discharge: As tolerated Stand Alone Forms: Patient Portal Discharge page Print Language: Belarusian Care Plan Goals: cure of infection Health Concerns: neurosyphilis/otosyphilis Plan of Treatment: IV penicillin 4 million units every 4 hours via midline catheter, end date 10/20/24; afterwards, give 2.4 million units of IM benzathine penicillin [Bicillin LA] once follow up with [facility] [Dr Jade] in 1 week use condoms for sexual activity Please follow up with your primary care doctor within 1 week. Return to the hospital if you experience recurrent or worsening symptoms. Assessment: See Discharge Summary.
[2024-10-12 14:55] VITALS: BP 106/55; PULSE 69; RESP 16; TEMP 36.4; O2SAT 98
[2024-10-12 17:00] VITALS: BP 139/80; PULSE 74; RESP 18; TEMP 36.8; O2SAT 100
[2024-10-12 17:20] LABS: Glucose, Whole Blood 76 mg/dL (60-115)
== END 2024-10-12 17:14 | disposition home health service (06) | DRG 42 ==
LOC: HO.ED 08:31 → HO.EDOVER 09:50 → HO.S3 19:05
PROVIDERS: Hospitalist; Physician Assistant; Student in an Organized Health Care Education/Training Program; Admitting Provider Family Medicine; Emergency Provider Emergency Medicine; PCP Nurse Practitioner; Visit Provider Family Medicine
DX: A52.3 Neurosyphilis, unspecified (principal); Z68.43 Body mass index [BMI] 50.0-59.9, adult; F17.210 Nicotine dependence, cigarettes, uncomplicated; E11.9 Type 2 diabetes mellitus without complications; M94.0 Chondrocostal junction syndrome [Tietze]; I10 Essential (primary) hypertension; E66.01 Morbid (severe) obesity due to excess calories; Z71.6 Tobacco abuse counseling; Z71.3 Dietary counseling and surveillance; Z79.84 Long term (current) use of oral hypoglycemic drugs; Z79.85 Long-term (current) use of injectable non-insulin antidiabetic drugs; Z79.899 Other long term (current) drug therapy
CPT/HCPCS: 36415; 36573; 62328; 80053; 82945; 82947; 84157; 84484; 84702; 85025; 85610; 86592; 87015; 87070; 87205; 87483; 89051; 93005; 99285; C1751; J2540

== ENCOUNTER 2024-10-06 09:46 | Outpatient (BNV) | payer SELFPAY | END 2024-10-06 12:04 | PROVIDERS: Admitting Provider Family Medicine; Emergency Provider Emergency Medicine; PCP Nurse Practitioner; Visit Provider Radiology Diagnostic Radiology | DX: A52.3 Neurosyphilis, unspecified (principal) | CPT/HCPCS: 62328 ==

== ENCOUNTER 2024-10-06 09:46 | Outpatient (BNV) | payer MEDICAID, SELFPAY | END 2024-10-07 02:41 | PROVIDERS: Admitting Provider Family Medicine; Emergency Provider Emergency Medicine; PCP Nurse Practitioner; Visit Provider Internal Medicine Cardiovascular Disease | DX: R07.9 Chest pain, unspecified (principal) | CPT/HCPCS: 93010 ==

== ENCOUNTER → 2024-10-06 09:46 | Outpatient (BNV) | payer MEDICAID, SELFPAY | PROVIDERS: Admitting Provider Family Medicine; Emergency Provider Emergency Medicine; PCP Nurse Practitioner; Visit Provider Internal Medicine | DX: A52.15 Late syphilitic neuropathy (principal); H94 Other disorders of ear in diseases classified elsewhere; A52.3 Neurosyphilis, unspecified | CPT/HCPCS: 99222; 99232 ==

== ENCOUNTER → 2024-10-06 09:46 | Outpatient (BNV) | payer MEDICAID, SELFPAY | PROVIDERS: Admitting Provider Family Medicine; Emergency Provider Emergency Medicine; PCP Nurse Practitioner; Visit Provider Family Medicine | DX: A52.15 Late syphilitic neuropathy (principal); H94 Other disorders of ear in diseases classified elsewhere; A52.3 Neurosyphilis, unspecified | CPT/HCPCS: 99222; 99232 ==

== ENCOUNTER 2024-10-28 09:49 | Outpatient (REF) | payer OTHER, SELFPAY ==
[2024-10-28 11:14] LABS: Anion Gap 10 (12-20); Blood Urea Nitrogen 12 mg/dL (9-16); Calcium 9.2 mg/dL (8.4-10.2); Carbon Dioxide 28 mmol/L (22-29); Chloride 104 mmol/L (96-108); Estimated Glomerular Filt Rate > 60; Glucose Random 81 mg/dL (60-115); Potassium 4.1 mmol/L (3.3-5.1); Sodium 138 mmol/L (135-145)
--- OUTSIDE RECORDS SUMMARY | 2024-10-28 11:18 | XMS_ITS | Encounter Summary ---
Author Organization [employer] Address [address] [place] [address] [place] [address] Care Team Providers Care Mounting Machine Operator Name Role Phone Sherice Bryant Primary Care Provider [phone] Denisse Evangelista NP Primary Care Provider [phone] Elisabeth Richardson MD Primary Care Provider [phone] Denisse Evangelista NP Primary Care Provider [phone] Reason for Visit * Reason Onset Date Comments Results 01/02/2023 Encounter Details Date Type Department Care Team (Late st Contact Info) Description 01/02/2023 Telephone [facility] [address] [place] [id number] Sherice Bryant FNP [address] [place] [address] Dept of Internal [place] [address] Results Social History Tobacco Use Types Packs/Day [...] on filedocumented in this encounter Care Teams Mounting Machine Operator Relationship Specialty Start Date End Date Sherice Bryant FNP PCP - General Family Medicine 06/11/22 04/23/23 Denisse Evangelista NP [address] [place] [id number] PCP - General Family Medicine 04/24/23 06/22/23 Elisabeth Richardson MD [address] [place] [id number] PCP - General Internal Medicine 06/23/23 07/09/23 Denisse Evangelista NP [address] [place] [id number] PCP - General Family Medicine 07/10/23 [facility] 10/13/24 documented as of this encounter
--- OUTSIDE RECORDS SUMMARY | 2024-10-28 11:18 | XMS_ITS | Encounter Summary ---
Author Organization [employer] Address [address] [facility] [address] [place] [address] Care Team Providers Care Perfect Bind Machine Operator Name Role Phone Denisse Evangelista NP Primary Care Provider [phone] Encounter Details Date Type Department Care Team (Late st Contact Info) Description 10/28/2024 Orders Only GENERIC EXTERNAL DATA DEPARTMENT Provider, Generic External Data Social History Tobacco Use Types Packs/Day Years [...] with others, in a hotel, in a residential, living outside on the street, on a [...] Procedure Name Priority Date/Time Associated Diagnosis Comments BASIC METABOLIC PANEL Routine 10/28/2024 10:02 AM EDT documented in this encounter Results * (ABNORMAL) Basic Metabolic Panel (10/28/2024 10:02 AM EDT) Sodium 138 135 - 145 mmol/L [facility] Potassium 4.1 3.3 - 5.1 mmol/L [facility] Chloride 104 96 - 108 mmol/L [facility] Carbon Dioxide 28 22 - 29 mmol/L [facility] Anion Gap 10(L) 12 - 20 [facility] Urea Nitrogen (BUN) 12 9 - 16 mg/dL [facility] Creatinine, Serum 0.72 0.5 - 1.4 mg/dL [facility] Estimated Glomerular Filt Rate >60 [facility] Comment:Chronic Kidney Disea se: Estimated GFR < 60 mL/min/[id number] Kidney Disease: Estimated GFR < 15 mL/min/1.73m2 Glucose 81 60 - 115 mg/dL [facility] Calcium 9.2 8.4 - 10.2 mg/dL [facility] 10/28/2024 10:0 2 AM EDT 10/28/2024 10:10 AM EDT us Generic External Data Provider LAB BLOOD ORDERAB LES Final Result [facility] [address] [place] [address] [phone] documented in this encounter Visit Diagnoses Not on filedocumented in this encounter Additional Health Concerns Assessment Noted Time PHQ-9 Depression Total Score: 8 02/18/20 24 10:12 AM EDT documented as of this encounter Care Teams Perfect Bind Machine Operator Relationship Specialty Start Date End Date Denisse Evangelista NP [address] [place] [address] PCP - General Family Medicine 07/10/23 [facility] 10/13/24 documented as of this encounter
--- OUTSIDE RECORDS SUMMARY | 2024-10-28 11:18 | XMS_ITS | Clinical Summary ---
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 NEEDED 90 tablet 09/13/19 25 025 Discontinued(Re order (will not trigger notification to Pharmacy)) predniSONE (Deltasone) 20 MG tablet Take 2 tablets (40 mg) by mouth Once per day for 5 days. 10 tablet 09/30/19 25 025 Active Problems Problem Noted Date Diagnosed Date Syphilis 10/01/2024 Dizzinesses 08/12/2024 Assessment & Plan (09/11/2024 10:48 [...] undergo surgery -is open to engaging with councilman for assistance. Referral placed -follow-up 3 months [...] -encouraged to keep her upcoming appointment with councilman -follow-up 3 months Assessment & Plan (11/13/2023 [...] Plan (01/21/2023 8:30 PM EDT): Received from [facility] [place] Using nightly F/u PRN Migraine without aura, not refractory 10/17/2022 05/19/2024 Strep pharyngitis 07/29/2022 10/17/2022 Viral URI 07/25/2022 10/17/2022 Encounters Date Type Department Care Team Description 10/28/2024 Orders Only GENERIC EXTERNAL DATA DEPARTMENT Provider, Generic External Data 10/06/2024 Orders Only GENERIC EXTERNAL DATA DEPARTMENT Provider, Generic External Data 10/05/2024 Telephone [facility] [address] [place] [address] [phone] Tirso Caceres MD 10/01/2024 Orders Only [facility] [address] [place] [address] [phone] Tirso Caceres MD Syphilis (Primary Dx) 10/01/2024 Telephone [facility] [address] [place] [address] [phone] Tirso Caceres MD 09/29/2024 10:20 AM EDT Office Visit [facility] [address] [place] [phone] Tirso Caceres MD Rash (Primary Dx); Tobacco dependence 09/29/2024 Orders Only [facility] [address] [place] [address] [phone] Tirso Caceres MD 09/12/2024 Refill [facility] MEDICINE [address] [place] [address] [phone] Denisse Evangelista NP 08/20/2024 Orders Only [facility] [address] [place] [address] [phone] Appram, Denisse, SENIOR MECHANICAL 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 COVID-19 (Primary Dx) 08/13/2024 Telephone [facility] MEDICINE [address] [place] [address] Barbara Brunson, MARICARMEN 08/12/2024 Telephone [facility] MED & PEDS [address] [place] [address] Sheri Hardin RN 08/11/2024 3:30 PM EST Office Visit [facility] MEDIC[facility] [address] [place] [address] Denisse Evangelista NP 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); Dizzinesses 08/11/2024 Travel from Last 3 Months Immunizations Name [...] with others, in a hotel, in a jail, living outside on the street, on a [...] of 2 - PCV) 2004 COVID-19 Vaccine (3 - season) 2024 06/07/2021, 11/20/2020 Influenza Vaccine (#1) [...] 1-dose 75+ series) 2060 HIV Screening Completed 10/01/2024, 08/0 07/2022, 08/22/2021 Hepatitis C Screening Completed 10/01/2024 , 02/18/2023, 08/22/2021 HIB Vaccines Aged Out No longer [...] METABOLIC PANEL Routine 10/28/2024 10:02 AM EDT FL GUIDED LUMBAR PUNCTURE LP Routine 10/06/2024 12:04 PM EDT PROTHROMBIN TIME-INR Routine 10/06/2024 9:14 AM EDT HCG, TOTAL, QN Routine 10/06/2024 8:49 AM EDT COMPREHENSIVE METABOLIC PANEL Routine 10/06/2024 8:49 AM EDT CBC WITH AUTO DIFFERENTIAL Routine 10/06/2024 8:49 AM EDT CONFIRMATORY SYPHILIS PROFILE Routine 10/01/2024 11:15 PM EDT Syphilis HIV 1/2 ANTIGEN/ANTIBODY, FOURTH GENERATION W/RFL Routine 10/01/2024 11:15 PM EDT Syphilis HEPATITIS PANEL, GENERAL Routine 10/01/2024 11:15 PM EDT Syphilis SYPHILIS SCREEN Routine 10/01/2024 11:15 PM EDT Syphilis CHLAMYDIA/N. GONORRHOEAE RNA, TMA, UROGENITAL Routine 10/01/2024 11:15 PM EDT Syphilis HCG, TOTAL, QN Routine 10/01/2024 7:27 PM EDT Syphilis MAGNESIUM Routine 10/01/2024 7:27 PM EDT Syphilis COMPREHENSIVE METABOLIC PANEL Routine 10/01/2024 7:27 PM EDT Syphilis CBC WITH AUTO DIFFERENTIAL Routine 10/01/2024 7:27 PM EDT Syphilis PARVOVIRUS B-19 ANTIBODIES (IGG, IGM) Routine 09/29/2024 11:54 AM EDT RHEUMATOID FACTOR Routine 09/29/2024 11: 54 AM EDT Rash BRIE SCREEN, IFA, W/REFL TITER AND PATTERN Routine 09/29/2024 11:54 AM EDT Rash RPR (MONITOR) W/REFL TITER Routine 09/29/2024 11:54 AM EDT Rash LYME DISEASE AB W/REFL TO BLOT (IGG, IGM) Routine 09/29/2024 11:54 AM EDT Rash CBC WITH AUTO DIFFERENTIAL Routine 09/29/2024 11:54 AM EDT Rash BASIC METABOLIC PANEL Routine 09/29/2024 11:54 AM EDT Rash CBC WITH AUTO DIFFERENTIAL Routine 08/13/2024 8:34 [...] for Papanicolaou smear for cervical cancer screening from Last 3 Months or Most Recently Relevant to Health Maintenance Results * (ABNORMAL) Basic Metabolic Panel (10/28/2024 10:02 AM EDT) Only the most recent of3 resultswithin the time period is included. Sodium 138 135 - 145 mmol/L NEW [...] Kidney Disea se: Estimated GFR < 60 mL/min/1.73p4Ryaxwi Kidney Disease: Estimated GFR < 15 mL/min/1.73m2 Glucose 81 60 - 115 mg/dL [facility] Calcium 9.2 8.4 - 10.2 mg/dL [facility] 10/28/2024 10:0 2 AM EDT 10/28/2024 10:10 AM EDT us Generic External Data Provider LAB BLOOD ORDERAB LES Final Result [facility] [address] [place] [address] [phone] * FL guided lumbar puncture LP (10/06/2024 12:04 PM EDT) Anatomical Region Laterality Modality Abdomen Radiographic Meredith ging 10/06/2024 12:0 4 PM EDT Narrative 10/06/2024 1:31 PM EDT ? [facility] ?[address] ?[place] [address] ? Fluoroscopy Report ? Signed ? Patient: Corwin,Beatrice ?MR#: [id number] ?? [id number] ? : 1985 ?Acct:[id number] ? Age/Sex: 39 / F ?ADM Date: 03/19/25 ? Loc: [facility] ?MEDSURG-1 ? Attending Dr: Hector Degroot MD ? Ordering Physician: Shannon Pelaez DO ?? Date of Service: 10/06/24 ?? Procedure(s): FL guided lumbar puncture LP ?? Accession Number(s): [id number] ? cc: MagalicarlosDenisse; Shannon Pelaez DO ? EXAMINATION: ?? XR LUMBAR PUNCTURE ? CLINICAL INFORMATION: ?? LP TO R/O NEUROSYPHILIS ? COMPARISON: ?? None available. ? TECHNIQUE: ?? Following explaining fluoroscopy-guided lumbar puncture procedure, ?? benefits and risk, a written consent was obtained. ??Patient was placed ?? prone on fluoroscopy table and low back area was cleaned and draped in ?? usual sterile manner. A marker was placed on the skin for the needle to ?? be inserted. The marked area was cleaned and draped in usual sterile ?? manner. 1% lidocaine was injected at the skin. A 20-gauge long spinal ?? needle was inserted from the skin intrathecally at L3-4 disc level. ?? Study was withdrawn and fluid was collected in 4 test tubes. After CSF ?? collection stylet was introduced and needle withdrawn. Patient ?? tolerated procedure extremely well. Simple bandage applied post ?? procedure. ? FINDINGS: ?? Visualized lumbar spine is grossly unremarkable. The disc spaces are ?? maintained normal. ? Approximately 8.75 mL of clear CSF fluid collected in 4 test tubes. ? The CSF fluid was sent to lab for further evaluation as requested by ER ?? physician. ? FLUOROSCOPY TIME: ?? 32 seconds ? DOSE AREA PRODUCT: ?? 1105 uGy-m2 (microgray-meter squared) ? FL/FL guided lumbar puncture LP ?? IMPRESSION: ?? Successful fluoroscopy-guided lumbar puncture performed as described ?? above. ? Electronically signed by: ??Aristeo Pierre MD ??10/06/2024 01:28 PM EDT RP ?? Workstation: [employer] ? Dictated By: ?Gabby,Aristeo S MD ? Signed By: ?<Electronically signed by Aristeo S MD Gabby in OV> ?10/06/24 1328 ? DD/ 1204 ? TD/TT: 10/06/24 1245 ? Helicopter Utility Aircrewman: MSM ? Procedure Note Raquel Stuart - 10/06/[address] [address] Fluoroscopy Report Signed Patient: Dinora Olivia#: [id number] : 1985Acct:[id number] Age/Sex: 39 / FADM Date: 10/06/24 Loc: [facility] Attending Dr: Hector Degroot MD Ordering Physician: Shannon Pelaez DO Date of Service: 10/06/24 Procedure(s): FL guided lumbar puncture LP Accession Number(s): [id number] cc: Denisse Evangelista; Shannon Pelaez DO EXAMINATION: XR LUMBAR PUNCTURE CLINICAL INFORMATION: LP TO R/O NEUROSYPHILIS COMPARISON: None available. TECHNIQUE: Following explaining fluoroscopy-guided lumbar puncture procedure, benefits and risk, a written consent was obtained. Patient was placed prone on fluoroscopy table and low back area was cleaned and draped in usual sterile manner. A marker was placed on the skin for the needle to be inserted. The marked area was cleaned and draped in usual sterile manner. 1% lidocaine was injected at the skin. A 20-gauge long spinal needle was inserted from the skin intrathecally at L3-4 disc level. Study was withdrawn and fluid was collected in 4 test tubes. After CSF collection stylet was introduced and needle withdrawn. Patient tolerated procedure extremely well. Simple bandage applied post procedure. FINDINGS: Visualized lumbar spine is grossly unremarkable. The disc spaces are maintained normal. Approximately 8.75 mL of clear CSF fluid collected in 4 test tubes. The CSF fluid was sent to lab for further evaluation as requested by ER physician. FLUOROSCOPY TIME: 32 seconds DOSE AREA PRODUCT: 1105 uGy-m2 (microgray-meter squared) FL/FL guided lumbar puncture LP IMPRESSION: Successful fluoroscopy-guided lumbar puncture performed as described above. Electronically signed by: Aristeo Pierre MD 10/06/2024 01:28 PM EDT Dictated By: Aristeo Pierre MD Signed By: <Electronically signed by Aristeo Pierre MD in OV> 10/06/24 1328 DD/ 1204 TD/TT: 10/06/24 1245 Helicopter Utility Aircrewman: ANDI [facility] External Provider IMG FLU OROSCOPY PROCEDURES Final Result * (ABNORMAL) Prothrombin Time-INR (10/06/2024 9:14 AM EDT) Prothrombin Time 12.8(H) 10.9 - 12.4 SEC [facility] INTERNATIONAL NORM RATIO 1.1 0.9 - 1.1 [facility] Comment:INTERNATIONAL NORMAL IZED RATIO (INR) REFERENCE RANGES Reference RangeFor patients not on anticoagulant therapy: 0.9 - 1.1INR ranges for oral anticoagulanttherapy:For prevention and treatment of venous thrombosis and pulmonary embolism: 2.0 - 3.0For acute myocardial infarction with aspirin therapy: 2.0 - 3.0For acute myocardial infarction without aspirin therapy: 3.0 - 4.0For patients with mechanical prosthetic heart valves: 2.5 - 3.5 10/06/2024 9:14 AM EDT 10/06/2024 9:15 AM EDT us Generic External Data Provider LAB BLOOD ORDERAB LES Final Result [facility] [address] [place] [phone] * (ABNORMAL) CBC auto differential (10/06/2024 8:49 AM EDT) Only the most recent of4 resultswithin the time period is included. Pathologist [facility] White Blood Count 10.9(H) 4.8 - 10.8 X10*3/uL [facility] Red Blood Count 4.34 4.20 - 5.50 X10*6/uL [facility] Hemoglobin 12.6 12.0 - 16.0 g/dl [facility] Hematocrit 36.7(L) 37.0 - 47.0 % [facility] Mean Corpuscular Volume 84.6 80.0 - 98.0 fL [facility] Mean Corpuscular Hemoglobin 29.0 27.0 - 33.0 pg [facility] Mean Corpuscular HGB Conc 34.3 31.0 - 35.0 g/dl [facility] Red Cell Distribution Width 13.3 11.0 - 16.0 % [facility] Platelet Count 435(H) 160 - 400 X10*3/uL [facility] Mean Platelet Volume 8.8(L) 9.4 - 12.3 fL [facility] Neutrophils Percent Auto 65.3 45 - 73 % [facility] Imm Gran Pct Auto 0.4 0.0 - 0.4 % [facility] Lymphocytes Percent Auto 28.2 20 - 40 % [facility] Monocytes Percent Auto 4.0 2 - 11 % [facility] Eosinophils Percent Auto 1.8 0 - 4 % [facility] Basophils Percent Auto 0.3 0 - 2 % [facility] NRBC Pct Auto 0.0 0.0 - 0.2 /100WBC [facility] Neutrophils Absolute Auto 7.1 2.0 - 8.3 x10*3/uL [facility] Imm Gran Abs Auto 0.04(H) 0.00 - 0.03 X10*3/uL [facility] Lymphocytes Absolute Auto 3.1 1.2 - 4.9 X10*3/uL [facility] Monocytes Absolute Auto 0.4 0.1 - 1.2 X10*3/uL [facility] Eosinophils Absolute Auto 0.2 0.0 - 0.4 X10*3/uL [facility] Basophils Absolute Auto 0.0 0.0 - 0.2 X10*3/uL [facility] NRBC Abs Auto 0.000 0.0 - 0.012 X10*3/uL [facility] 10/06/2024 8:49 AM EDT 10/06/2024 8:52 AM EDT us Generic External Data Provider LAB BLOOD ORDERAB LES Final Result [facility] [address] [place] [address] [phone] * hCG, Total, Quantitative (10/06/2024 8:49 AM EDT) Only the most recent of2 resultswithin the time period is included. HCG Quantitative <2 mIU/mL [facility] Comment:Weeks post LMP Appro ximate hCG(Last Menstrual Period) Range (mIU/ml)3 - 4 weeks 9 - 1304 - 5 weeks 75 - 2,6005 - 6 weeks 850 - 20,8006 - 7 weeks 4000 - 100,2007 - 12 weeks 11,500 - 289,52984 - 16 weeks 18,300 - 137,62570 - 29 weeks (2nd trimester) 1,400 - 53,87389 - 41 weeks (3rd trimester) 940 - 60,000The Higuera B- hCG assay is used for the early detection ofpregnancy; it cannot be used to diagnose any conditionunrelated to . If a B-hCG level is not supportedby the clinical evidence, results should be confirmed by analternative method (qualitative urine hCG, for example). 10/06/2024 8:49 AM EDT 10/06/2024 8:52 AM EDT us Generic External Data Provider LAB BLOOD ORDERAB LES Final Result [facility] [address] [place] [phone] * (ABNORMAL) Comprehensive Metabolic Panel (10/06/2024 8:49 AM EDT) Only the most recent of2 resultswithin the time period is included. Sodium 137 135 - 145 mmol/L [facility] Potassium 3.7 3.3 - 5.1 mmol/L [facility] Chloride 104 96 - 108 mmol/L [facility] Carbon Dioxide 28 22 - 29 mmol/L [facility] Anion Gap 9(L) 12 - 20 [facility] Urea Nitrogen (BUN) 10 9 - 16 mg/dL [facility] Creatinine, Serum 0.72 0.5 - 1.4 mg/dL [facility] Creatinine Clr Calc Pharmacy 136.7 [facility] Comment:Provided height and weight: 154.94 cm,134.7 kg.eGFR (calculated from the MDRD study equation) and eCrCl(calculated from the Cockcroft-Gault equation) are based ondifferent parameters and may not yield comparable results.If eCrCl result is absurd, please check patient'sheight/weight. Estimated Glomerular Filt Rate >60 [facility] Comment:Chronic Kidney Disea se: Estimated GFR < 60 mL/min/1.09t4Fcyyff Kidney Disease: Estimated GFR < 15 mL/min/1.73m2 Glucose 124(H) 60 - 115 mg/dL [facility] Calcium 9.1 8.4 - 10.2 mg/dL [facility] Bilirubin, Total 0.4 0.0 - 1.0 mg/dL [facility] Aspartate Amino Transferase 14 5 - 31 U/L [facility] Alanine Aminotransferase 17 0 - 31 U/L [facility] Total Protein 7.4 6.5 - 8.0 g/dL [facility] Albumin Level 3.5 3.5 - 5.0 g/dL [facility] Alkaline Phosphatase 66 39 - 117 U/L [facility] 10/06/2024 8:49 AM EDT 10/06/2024 8:52 AM EDT us Generic External Data Provider LAB BLOOD ORDERAB LES Final Result Performing Organization Address City/[facility]/ZIP Co de Phone Number [facility] [address] [place] [phone] * (ABNORMAL) Confirmatory Syphilis Profile (10/01/2024 11:15 PM EDT) Rapid Plasma Reagin, Quant Reactive 1:2047 Nonreactive [facility] Treponema pallidum Antibody, Particle Agglutination Reactive(A) Nonreactive [facility] Comment:These results must b e reported by the ordering clinician orclinical facility to the [facility]as required by state law.Testing performed at: [address] [address] 10/01/2024 11:1 5 PM EDT 10/02/2024 4:06 AM EDT us Generic External Data Provider LAB BLOOD ORDERAB LES Final Result [facility] [address] [place] [phone] * (ABNORMAL) Syphilis Screen (10/01/2024 11:15 PM EDT) [facility] Syphilis Screen Reactive( A) Nonreactive [facility] Comment:Reactive specimens a re sent to the [facility] Labfor confirmatory tests. 10/01/2024 11:1 5 PM EDT 10/01/2024 11:22 PM EDT Generic External Data Provider LAB BLOOD ORDERAB LES Final Result Performing Organization Address [facility]/ZIP Co de Phone Number [facility] [address] [place] [phone] * Hepatitis Panel, General (10/01/2024 11:15 PM EDT) [facility] Hepatitis A IgM Nonreactive Nonreactive [facility] Comment:IgM antibodies to SINGER V not detected; does not exclude earlyacute or recovered HAV infection. ~Hepatitis B Surface Antibody REACTIVE Nonreactive [facility] Comment:REACTIVE: > 11.99 mI U/mL Hepatitis B Core Antibody Nonreactive Nonreactive [facility] Hepatitis C Antibody Nonreactive Nonreactive [facility] Comment:Antibodies to HCV no t detected; does not exclude early acuteHCV infection. Hepatitis B Surface Ag Negative Negative [facility] 10/01/2024 11:1 5 PM EDT 10/01/2024 11:22 PM EDT Generic External Data Provider LAB BLOOD ORDERAB LES Final Result Performing Organization Address City/[facility]/ZIP Co de Phone Number [facility] [address] [place] [phone] * Chlamydia/N. Gonorrhoeae RNA, TMA, Urogenitial (10/01/2024 11:15 PM EDT) [facility] CT PCR NOT DETECTED Not Detect. [facility] Comment:A not detected test result does not exclude the possibilityof infection because test results can be affected byimproper specimen collection, concurrent antibiotic therapy,or the number of organisms in the specimen which may bebelow the sensitivity of the test. As with many diagnostictests, results from the Xpert CT/NG assay should beinterpreted in conjunction with other laboratory andclinical data available to the clinician.Xpert CT/NG performance has not been evaluated in patientsless than 14 years of age. The assay should not be used forthe evaluationof suspected sexual abuse or for other medico-legalindications. Additional testing is recommended in anycircumstance when false positive or false negative resultscould lead to adverse medical, social or psychologicalconsequences. NG PCR NOT DETECTED Not Detect. [facility] Comment:A not detected test result does not exclude the possibilityof infection because test results can be affected byimproper specimen collection, concurrent antibiotic therapy,or the number of organisms in the specimen which may bebelow the sensitivity of the test. As with many diagnostictests, results from the Xpert CT/NG assay should beinterpreted in conjunction with other laboratory andclinical data available to the clinician.Xpert CT/NG performance has not been evaluated in patientsless than 14 years of age. The assay should not be used forthe evaluationof suspected sexual abuse or for other medico-legalindications. Additional testing is recommended in anycircumstance when false positive or false negative resultscould lead to adverse medical, social or psychologicalconsequences. 10/01/2024 11:1 5 PM EDT 10/01/2024 11:22 PM EDT Narrative [facility] - 10/02/2024 6:03 AM EDT Urine us Generic External Data Provider LAB MICROBIOLOGY - GENERAL ORDERABLES Final Result [facility] [address] [place] [phone] [phone] * HIV-1/2 Antigen and Antibodies, Fourth Generation, with Reflexes (10/01/2024 11:15 PM EDT) HIV AB/AG Nonreactive Nonreactive [facility] Comment:HIV-1 p24 Ag and/or HIV-1/HIV-2 Ab not detected.A test result that is nonreactive does not exclude thepossibility of exposure to or infection with HIV-1 and/orHIV-2. Nonreactive results in this assay for individualswith prior exposure to HIV-1 and/or HIV-2 may be due toantigen and antibody levels that are below the limit ofdetection of this assay.The [employer]Us HIV Ag/Ab Combo assay result andsupplemental assay results should be interpreted inconjunction with the patient's clinical presentation,history and other laboratory results. If the results areinconsistent with clinical evidence, additional testing issuggested to confirm the result. 10/01/2024 11:1 5 PM EDT 10/01/2024 11:22 PM EDT Generic External Data Provider LAB BLOOD ORDERAB LES Final Result Performing Organization Address [facility] Co de Phone Number [facility] [address] [place] [phone] * Magnesium (10/01/2024 7:27 PM EDT) [facility] Magnesium 1.9 1.6 - 2.6 mg/dL [facility] 10/01/2024 7:27 PM EDT 10/01/2024 7:37 PM EDT Narrative [facility] - 10/01/2024 11:29 PM EDT dehydrated, no good flow Generic External Data Provider LAB BLOOD ORDERAB LES Final Result Performing Organization Address [facility] Co de Phone Number [facility] [address] [place] [address] [phone] * Lyme Disease Ab with Reflex to Blot (IgG, IgM) (09/29/2024 11:54 AM EDT) [facility] Lyme Antibody Screen <0.90 index [facility] Comment:Index Interpretation ----- < 0.90 Negative 0.90-1.09 Equivocal > 1.09 PositiveAs recommended by the Food and Drug Administration(FDA), all samples with positive or equivocalresults in a Borrelia burgdorferi antibody screenwill be tested using a blot method. Positive orequivocal screening test results should not beinterpreted as truly positive until verified as suchusing a supplemental assay (e.g., B. burgdorferi blot).The screening test and/or blot for B. burgdorferiantibodies may be falsely negative in early stagesof Lyme disease, including the period when erythemamigrans is apparent.THIS TEST WAS PERFORMED AT:[facility] [place] [id number] SHEPHERD MD Lyme Blot TNP [facility] 09/29/2024 11:5 4 AM EDT 09/29/2024 1:50 PM EDT Tirso Caceres MD LAB BLOOD ORDERABLES Final Resul t [facility] [address] [place] [phone] * (ABNORMAL) Parvovirus B19 Antibodies (IgG,IgM) (09/29/2024 11:54 AM EDT) Parvovirus B19 Antibody (IgG) 2.22(A) [facility] Comment:Reference Range<0.9 Negative0.9-1.1 Equivocal>1.1 PositiveIgG persists for years and provides life-long immunity.To diagnose current infection, consider BvuuwlniduX70 DNA, PCR. Parvovirus B19 Antibody (IgM) <0.9 [facility] Comment:Reference Range<0.9 Negative0.9-1.1 Equivocal>1.1 PositiveResults from any one IgM assay should not be used as asole determinant of a current or recent infection.Because IgM tests can yield false positive results andlow levels of IgM antibody may persist for months postinfection, reliance on a single test result could bemisleading. If an acute infection is suspected, considerobtaining a new specimen and submit for both IgG and IgMtesting in two or more weeks. To diagnose currentinfection, consider parvovirus B19 DNA,PCR.THIS TEST WAS PERFORMED AT:[facility] [address] [id number] SHEPHERD MD 09/29/2024 11:5 4 AM EDT 09/29/2024 1:50 PM EDT us Tirso Caceres MD LAB BLOOD ORDERABLES Final Resul t Performing Organization Address [facility]/ZIP Co de Phone Number [facility] [address] [place] [phone] * (ABNORMAL) RPR (Monitor) with Reflex to??Titer (09/29/2024 11:54 AM EDT) RPR (Monitor) w/Refl Titer REACTIVE( A) NON-REACT SANDRA [facility] Comment:The RPR is a non-chapo ponemal-specific test; therefore,a treponemal- specific confirmatory test should beperformed unless prior syphilis infection has beendocumented for this patient.THIS TEST WAS PERFORMED AT:[facility] [address] [phone] SHEPHERD MD Rapid Plasma Reagin Ab Titer 1:256(A) [facility] Comment:THIS TEST WAS PERFOR MED AT:[facility] [address] [phone] SHEPHERD MD Blood Venous blood specimen / Unknown 09/29/2024 11:54 AM EDT 09/29/2024 1:50 PM EDT us Tirso Caceres MD LAB BLOOD ORDERABLES Final Resul t Performing Organization Address [facility]/ZIP Co de Phone Number [facility] [address] [place] [phone] * Rheumatoid Factor (09/29/2024 11:54 AM EDT) Rheumatoid Factor <13.0 <15.0 IU/mL [facility] Blood Venous blood specimen / Unknown 09/29/2024 11:54 AM EDT 09/29/2024 1:50 PM EDT us Tirso Caceres MD LAB BLOOD ORDERABLES Final Resul t [facility] [address] [place] [address] [phone] * (ABNORMAL) BRIE Screen,IFA, with Reflex to Titer and Pattern (09/29/2024 11:54 AM EDT) Anti Nuclear Antibody Screen POSITIVE (A) NEGATIVE [facility] Comment:BRIE IFA is a first l ine screen for detecting thepresence of up to approximately 150 autoantibodies invarious autoimmune diseases. A positive BRIE IFA resultis suggestive of autoimmune disease and reflexes totiter and pattern. Further laboratory testing may beconsidered if clinically indicated.For additional information, please refer tohttp://education.Trigger.io/faq/VYF783(This link is being provided for informational/educational purposes only.) BRIE Titer 1:80(A) titer [facility] Comment:A low level BRIE tite r may be present in pre-clinicalautoimmune diseases and normal individuals. Reference Range <1:40 Negative 1:40-1:80 Low Antibody Level >1:80 Elevated Antibody Level BRIE Pattern (A) [facility] Comment:Mitotic, Spindle Fib ers Abnormal Flag: AThe spindle fibers between the poles are stained inmitotic cells, associated with cone-shaped decorationof the mitotic poles. The pattern is rare in Sjogren'ssyndrome, systemic lupus erythematosus (SLE), andother connective tissue diseases.AC-25: Spindle FibersInternational Consensus on BRIE Patterns(https://doi.org/10.1515/wikl-5931-6972)THIS TEST WAS PERFORMED AT:[facility] [place] [phone] SHEPHERD MD BRIE TITER 2 (REF LAB) [facility] BRIE Pattern 2 [facility] BRIE TITER 3 [facility] BRIE PATTERN 3 [facility] Blood Venous blood specimen / Unknown 09/29/2024 11:54 AM EDT 09/29/2024 1:50 PM EDT Tirso Caceres MD LAB BLOOD ORDERABLES Final Resul t [facility] [address] [place] [phone] [phone] * POCT HGB A1C (02/18/2024 9:50 AM EDT) Hemoglobin A1C 5.8 4.0 - 6.0 % QC Media Lot # [id number] Lot# Expiration Date 026 Blood 02/18/2024 9:50 AM EDT Denisse Evangelista NP POINT OF CARE TEST ENTER/EDIT O RDERABLES Final Result * (ABNORMAL) Lipid Panel, Standard (11/12/2023 10:55 AM EDT) Triglycerides 104 <150 mg/dL [facility] Comment:Desirable Triglyceri de: less than 150 mg/dLBorderline High Triglyceride 150-199 mg/dLHigh Triglyceride: 200-499 mg/dLVery High Triglyceride: greater than or equal to 5OO mg/dL Cholesterol 157 <200 mg/dL [facility] Comment:Desirable Cholestero l: less than 200 mg/dLBorderline High Cholesterol: 200-239 mg/dLHigh Cholesterol: greater than 239 mg/dL LDL Cholesterol Calculated 100(H) <100 mg/dL [facility] Comment:Desirable LDL: less than 100 mg/dLNear Optimal/Above Optimal LDL: 110- 129 mg/dLBorderline High LDL: 130-159 mg/dLHigh LDL: 160-189 mg/dLVery High LDL: greater than or equal to 190 mg/dL HDL Cholesterol 37(L) >40 mg/dL [facility] Comment:Desirable HDL: great er than 40 mg/dL Note: This HDL assay may give artificially low results in patients with liver disease. Blood Venous blood specimen / Unknown 11/12/2023 10:55 AM EDT 11/13/2023 2:40 PM EDT Denisse Tonja SENIOR MECHANICAL TECHNICIAN LAB BLOOD ORDERABLES Final Resu lt Performing Organization Address [facility] Co de Phone Number [facility] [address] [place] [address] [phone] * (ABNORMAL) Image-Guided Pap with Age-Based Screening??with CT/NG,??Trichomonas (05/23/2023 11:22 AMEDT) Trichomonas (NAAT) DETECTED(A) NOT DETECTED [facility] Comment:The analytical perfo rmance characteristics of thisassay have been determined by [facility]. Themodifications have not been cleared or approved bythe FDA. This assay has been validated pursuant to theCLIA regulations and is used for clinical purposes.For additional information, please refer tohttp://education.YongChe/faq/Trichomonastma(This link is being provided for information/educational purposes only.)THIS TEST WAS PERFORMED AT:[facility] [place] [phone] SHEPHERD MD CTNG Ref Lab NOT DETECTED NOT DETECTED [facility] NG Ref Lab NOT DETECTED NOT DETECTED [facility] Pap Vial 05/23/2023 11:2 2 AM EDT 05/26/2023 11:00 AM EST Leslie Horan REVOLVING FIELD ASSEMBLER LAB CYTOLOGY ORDERABLES Final Result Performing Organization Address [facility]/ZIP Co de Phone Number [facility] [address] [place] [phone] [phone] * HPV mRNA E6/E7 w/Reflex to HPV Genotypes 16, 18/45 (05/23/2023 11:22 AM EDT) HPV nRNA E6/E7 Not Detected Not Detected [facility] Comment:Methodology: Transcr iption-Mediated AmplificationThis assay detects E6/E7 viral messenger RNA (mRNA) from 14high-risk HPV types (16,18,31,33,35,39,45,51,52,56,58,59,66,68).Cervical sources are required for HPV testing.If a vaginal source from a patient who has had atotal hysterectomy with removal of cervix wassubmitted, please contact the testing laboratoryfor alternative testing options.For additional information, please refer tohttp://education.YongChe/faq/UAY784c9(This link if provided for information/educational purposes only.)THIS TEST WAS PERFORMED AT:[facility] [place] [phone] SHEPHERD MD HPV mRNA E6/E7 [facility] HPV 16 RNA [facility] HPV 18/45 RNA [facility] 05/23/2023 11:2 2 AM EDT 05/26/2023 11:00 AM EST Leslie Horan [facility] CYTOLOGY ORDERABLES Final Result [facility] [address] [place], [place] [phone] from Last 3 Months or Most Recently Relevant to Health Maintenance Insurance [facility] Care Teams Forestry Professor Relationship Specialty Start Date End Date Denisse Evangelista NP [address] [place] [address] PCP - General Family Medicine 07/10/23 [facility] [facility] 10/13/24
--- OUTSIDE RECORDS SUMMARY | 2024-10-28 11:18 | XMS_ITS | Encounter Summary ---
Author Organization [employer] Address [address] [facility] 7t [place] [address] Care Team Providers Care Industrial Technician Name Role Phone Denisse Evangelista NP Primary Care Provider [phone] Elisabeth Richardson MD Primary Care Provider [phone] Denisse Evangelista NP Primary Care Provider [phone] Reason for Visit * Reason Comments Med Refill Encounter Details Date Type Department Care Team (Late st Contact Info) Description 06/10/2023 Refill [facility] [address] [place] [address] Elisabeth Richardson MD [address] [place] [address] STI (sexually transmitted infection) Social History Tobacco [...] documented as of this encounter Care Teams Industrial Technician Relationship Specialty Start Date End Date Denisse Evangelista NP [address] [place] [address] PCP - General Family Medicine 04/24/23 06/22/23 Elisabeth Richardson MD [address] [place] [address] PCP - General Internal Medicine 06/23/23 07/09/23 Denisse Evangelista NP [address] [place] [address] PCP - General Family Medicine 07/10/23 [facility] 10/13/[facility] documented as of this encounter
--- OUTSIDE RECORDS SUMMARY | 2024-10-28 11:18 | XMS_ITS | Clinical Summary ---
Author Organization [facility] Address [address] [place] [address] Phone Care Team Providers Care Drill Doctor Name Role Phone Unavailable Primary Care Provider Unavailabl e Encounters Date Type Department Care Team Description 08/13/2024 10:49 AM EST - 08/13/2024 11:59 PM EST Hospital Encounter [facility] MRI [address] [place] [address] Sudden idiopathic hearing loss, bilateral [...] Maintenance Due Date Last Done Comments Hepatitis B Vaccines (1 of 3 - 19+ 3-dose series) 2004 Cervical Cancer Screening: P ap Smear 2006 COVID-19 Vaccine ( - 2023-2 5 season) 2024 Influenza Vaccine (#1) 2024 [...] age to complete this topic Meningococcal B Vaccine Aged Out No l onger eligible based on patient's age to complete [...] Signed Date: 08/13/2024 14:05 ET Workstation ID: [id number] Transcribed By: Self Edit Transcribed Date: 08/13/2024 [...] Signed Date: 08/13/2024 14:05 ET Workstation ID: [id number] Transcribed By: Self Edit Transcribed Date: 08/13/2024 12:25 ET us Leslie Barnett RN IMG MRI PROCEDURES Fin al Result from Last 3 Months
[2024-10-28 11:36] LABS: HBS Num1 78.61 mIU/mL (0-7.99); HBc Num1 0.07 S/CO (0.00-0.79); HBsAGNum1 0.29 S/CO (0.00-0.99); HIV AB/AG Nonreactive (Nonreactive); HIV Num 1 0.09 S/CO (0.00-0.99); Hepatitis B Core Antibody Nonreactive (Nonreactive); Hepatitis B Surface Antigen Negative (Negative); ~HepC Num1 0.19 S/CO (0.00-0.79); ~Hepatitis B Surface Antibody REACTIVE (Nonreactive); ~Hepatitis C Antibody Nonreactive (Nonreactive)
== END 2024-10-28 09:50 | disposition home or self-care (01) ==
LOC: HO.LAB 09:49
PROVIDERS: Internal Medicine; PCP Nurse Practitioner; Visit Provider Emergency Medicine
DX: R07.2 Precordial pain (principal); A53.9 Syphilis, unspecified
CPT/HCPCS: 36415; 80048; 86704; 86706; 86803; 87340; 87389

== ENCOUNTER 2024-11-03 14:27 | Outpatient (AMB) | payer OTHER, SELFPAY ==
--- NOTE | 2024-11-03 14:31 | MHC.OFFVIS ---
Vital Signs 11/03/24 14:35 Height 5 ft 1 in Weight 309 lb BMI 58.4 Pulse 68 Pulse Source Pulse Oximeter Pulse Oximetry (%) 98 Oxygen Delivery Method Room Air Intake Visit Reasons: [facility] reff/RPR/picc line Allergies latex Allergy (Unknown, Verified 11/03/24 14:36) Unknown furosemide [From Lasix] Allergy (Verified 11/03/24 14:36) Rash lactose Allergy (Verified 11/03/24 14:36) Gastrointestinal Upset HPI HPI [facility] reff/RPR/picc line: Details: She has had neurosyphilis. She is doing better and rash is resolving over arms. She has improved hearing. She finished IV PCN last week. PFS Medical History Hx of migraines Hx of Surgical History Hx of cholecystectomy Family History Mother Diabetes Asthma COPD (chronic obstructive pulmonary disease) Arthritis Back problem Sleep apnea Father Hypertension Diabetes Brother No problems noted. Brother Sleep apnea Brother No problems noted. Sister No problems noted. Sister No problems noted. Son No problems noted. Social History Household Members: Family Housing: Apartment Do you presently have visiting nurse or other home services: No Alcohol intake: current Alcohol intake frequency: does not drink Alcohol type: wine Patient Tobacco Use Status: Current everyday Tobacco user Tobacco use type: Cigarette Cigarettes Per Day: 3 Second Hand Smoke Exposure: No service: No Review of Systems Const All systems reviewed & are unremarkable except as noted in HPI and below Physical Exam Vital Signs: Last Vital Signs Pulse 68 11/03/24 14:35 Pulse Ox 98 11/03/24 14:35 Oxygen Delivery Method Room Air 11/03/24 14:35 BMI result Body Mass Index 58.4 Const General: cooperative Orientation/consciousness: patient oriented x3 HEENT Head: Yes normal to inspection Mouth: Normal oral and palatal mucosa present Eyes General: appearance normal, both eyes and all related structures Pupils: Equal, round and reactive pupils present Resp Effort & Inspection: normal respiratory effort Cardio Rate: regular rate Rhythm: regular rhythm GI Palpation (GI): Soft to palpation and nontender General: Yes no CVA tenderness Back/Spine/Pelvis Back: no CVA tenderness Skin Other: resolving chest and wrist papules Neuro General: patient oriented x3 Cranial nerves: Yes CN's II-XII intact bilaterally and Yes Equal, round and reactive pupils present Extrem General: Yes normal to inspection Psych Appearance: grossly normal Assessment & Plan Assessment & Plan (1) Neurosyphilis: Comment: She is improving Code(s): A52.3 - Neurosyphilis, unspecified Category: Medical Plan: Would give IM Penicillin 2.4 MU once . Check RPR titer in two months and call us for televisit after labs. Partner received treatment and she is to let us know if he was positive. Orders: Orders RPR Monitor reflex titer 2 Months A52.3 - Neurosyphilis, unspecified Medications: New penicillin G benzathine 2.4 mmu IM ONCE 1 day 1 ea 0RF penicillin G benzathine 2.4 mmu IM ONCE 1 ea 0RF 1 day Coding Level of Care Code Est Pt Level 3 (89539) Diagnoses Neurosyphilis A52.3
[2024-11-03 14:35] VITALS: PULSE 68; O2SAT 98; BMI 58.4
--- OUTSIDE RECORDS SUMMARY | 2024-11-03 17:11 | XMS_ITS | Encounter Summary ---
Author Organization [employer] Address [address] [facility] 7 [place] [address] Care Team Providers Care Senior Windows Engineer Name Role Phone Denisse Evangelista NP Primary Care Provider [phone] Reason for Visit * Reason Onset Date Comments Call Back Request 10/28/2024 Encounter Details Date Type Department Care Team ([facility] Contact Info) Description 10/28/2024 Telephone [facility] [address] [place] [address] Denisse Evangelista NP [address] [place] [address] Call Back Request Social History Tobacco Use Types Packs/Day Years [...] with others, in a hotel, in a group home, living outside on the street, on a [...] encounter Miscellaneous Notes * Telephone Encounter - Lina Nascimento RN - 11/01/2024 11:19 AM EDT Pt discharged from [facility] 10/12/24 Dx: neurosyphilis/otosyphilis. Call returned to pt who declines HDF with pcp d/t conflicting appointment. Pt agrees to HDF with team provider 11/10/24. States she was completed IV antibiotics and was advises she will need one more injection. States she is scheduled with ID 11/03/24. States that she does not feel ready to go back to work and her employer gave her FMLA paperwork. Recommended that pt submit FMLA paperwork to medical records. Pt reports agreement with plan. * Telephone Encounter - Junaid Singh - 10/28/2024 1:23 PM EDT Tc from pt requesting a call back to talk about the symptoms that she has been having. She states that PCP already know her situation and just wants to keep him updated. Contact pt at [phone] documented in this encounter Plan of Treatment Upcoming Encounters Date Type Department Care Team (Late st Contact Info) Description 11/10/2024 9:00 AM EDT Office Visit [facility] [address] [place] [phone] Julianna Chase FNP [address] [place] [address] 11/12/2024 1:45 PM EDT Office Visit [address] [address] Martha Low MD [address] [place] [address] documented as of this encounter Visit Diagnoses Not on filedocumented in this encounter Additional Health Concerns Assessment Noted Time PHQ-9 Depression Total Score: 8 02/18/20 24 10:12 AM EDT documented as of this encounter Care Teams Senior Windows Engineer Relationship Specialty Start Date End Date Denisse Evangelista NP [address] [place] [address] PCP - General Family Medicine [facility] documented as of this encounter
--- OUTSIDE RECORDS SUMMARY | 2024-11-03 17:11 | XMS_ITS | Encounter Summary ---
Author Organization [employer] Address [address] [place] [address] [place] [address] Care Team Providers Care Cloth Shader Name Role Phone Sherice Bryant Primary Care Provider [phone] Denisse Evangelista NP Primary Care Provider [phone] Elisabeth Richardson MD Primary Care Provider [phone] Denisse Evangelista NP Primary Care Provider [phone] Reason for Visit * Reason Onset Date Comments Results 01/02/2023 Encounter Details Date Type Department Care Team (Late st Contact Info) Description 01/02/2023 Telephone [facility] [address] [place] [address] Sherice Bryant FNP [address] [place] [address] [place] [address] Results Social History Tobacco Use Types Packs/Day [...] Description 11/10/2024 9:00 AM EDT Office Visit [facility] [address] [place] [address] Julianna Chase FNP [address] [place] [address] 11/12/2024 1:45 PM EDT Office Visit [address] [address] Martha Low MD [address] [place] [address] documented as of this encounter Visit Diagnoses Not on filedocumented in this encounter Care Teams Cloth Shader Relationship Specialty Start Date End Date Sherice Bryant FNP PCP - General Family Medicine 06/11/22 04/23/23 Denisse Evangelista NP [address] [place] [address] PCP - General Family Medicine 04/24/23 06/22/23 Elisabeth Richardson MD [address] [place] [address] PCP - General Internal Medicine 06/23/23 07/09/23 Denisse Evangelista NP [address] [place] [address] PCP - General Family Medicine 07/10/23 [facility] 10/13/24 documented as of this encounter
--- OUTSIDE RECORDS SUMMARY | 2024-11-03 17:11 | XMS_ITS | Encounter Summary ---
Author Organization [employer] Address [address] [facility] 7t [place] [address] Care Team Providers Care Pre Wave Assembler Name Role Phone Denisse Evangelista NP Primary Care Provider [phone] Elisabeth Richardson MD Primary Care Provider [phone] Denisse Evangelista NP Primary Care Provider [phone] Reason for Visit * Reason Comments Med Refill Encounter Details Date Type Department Care Team (Late st Contact Info) Description 06/10/[address] [facility] [address] [place] [address] Elisabeth Richardson MD [address] [place] [address] STI (sexually transmitted infection) Social History Tobacco [...] as of this encounter Plan of Treatment Upcoming Encounters Date Type Department Care Team (Late st Contact Info) Description 11/10/2024 9:[address]T [address] [facility] [address] [place] [address] Julianna Chase FNP [address] [place] [address] 11/12/2024 1:45 PM EDT Office Visit [address] [address] Martha Low MD [address] [place] [address] documented as of this encounter Visit Diagnoses Diagnosis STI (sexually transmitted infection) Unspecified venereal disease documented in this encounter Additional Health Concerns Assessment Noted Time PHQ-9 Depression Total Score: 0 04/30/20 10:11 AM EDT documented as of this encounter Care Teams Pre Wave Assembler Relationship Specialty Start Date End Date Denisse Evangelista NP [address] [place] [address] PCP - General Family Medicine 04/24/23 06/22/23 Elisabeth Richardson MD [address] [place] [address] PCP - General Internal Medicine 06/23/23 07/09/23 Denisse Evangelista NP [address] [place] [address] [place] [address] PCP - General Family Medicine 07/10/23 [facility] 10/13/24 documented as of this encounter
--- OUTSIDE RECORDS SUMMARY | 2024-11-03 17:11 | XMS_ITS | Clinical Summary ---
Author Organization [facility] Address [address] [place] [address] Phone Care Team Providers Care Aircraft Sales Representative Name Role Phone Unavailable Primary Care Provider Unavailabl e Encounters Date Type Department Care Team Description 08/13/2024 10:49 AM EST - 08/13/2024 11:59 PM EST Hospital Encounter [facility] MRI [address] [place] [address] Sudden idiopathic hearing loss, bilateral [...] 2006 COVID-19 Vaccine (2023-2 5 season) 2024 HIV Screening 08/14/2024 Hepatitis C Screening 08/14/2024 Social Influencers of Health Screening 08/14/2024 Depression Screening 02/17/2025 02/18/2024 Influenza Vaccine (Season Ended) 2025 04/30/2023, 06/07/2021 Hypertension/CHF/CAD Annual BMP Blood Test 08/13/2025 08/13/2024 [...] Signed Date: 08/13/2024 14:05 ET Workstation ID: [id number] Transcribed By: Self Edit Transcribed Date: 08/13/2024 [...] Signed Date: 08/13/2024 14:05 ET Workstation ID: [id number] Transcribed By: Self Edit Transcribed Date: 08/13/2024 12:25 ET us Leslie Barnett RN IMG MRI PROCEDURES Fin al Result from Last 3 Months
--- OUTSIDE RECORDS SUMMARY | 2024-11-03 17:11 | XMS_ITS | Clinical Summary ---
Author Organization [employer] Address [address] [place] [address] [address] [place] [address] Care Team Providers Care Meat Lugger Name Role Phone Denisse Evangelista NP Primary Care Provider [phone] [phone] Active Allergy Reactions Criticality Noted Date Comments Furosemide Rash Low 02/05/2023 Latex 10/18/2022 Itching/skin irritation Medications semaglutide (Ozempic) 2 MG/1.5ML solution pen-injectorInd ications:Morbid [...] per day. 90 tablet 06/07/20 24 Active nicotine polacrilex (Commit) 2 MG lozengeIndicati ons:Tobacco dependence Dissolve 1 lozenge (2 mg) in the mouth every 2 (two) hours if needed for smoking cessation. 100 lozenge 2 09/30/19 25 Active cetirizine (ZyrTEC) 10 MG tablet Take 1 tablet (10 mg) by mouth if needed each day (itching). 30 tablet 1 09/30/19 25 Active EPINEPHrine (Epipen) 0.3 MG/0.3ML injection syringe Inject 0.3 mL (0.3 mg) as directed 1 (one) time if needed for anaphylaxis. Inject into upper leg. Call 911 after use. 2 each 09/30/19 25 026 Active Diclofenac Sodium (Voltaren) 1 % gelIndications: Chronic midline low back pain without sciatica Apply 2 g topically if needed in the morning and at bedtime (muscle pain). 100 g 3 01/09/20 025 Discontinued(Me d list cleanup (will not trigger notification to Pharmacy)) ferrous gluconate (Fergon) 324 (38 Fe) MG tabletIndicatio ns:Low iron Take 1 tablet (324 mg) by mouth every other day. 45 tablet 1 02/06/20 025 Discontinued(Me d list cleanup (will not trigger notification to Pharmacy)) Nirmatrelvir&Ri tonavir 300/100 (Paxlovid, 300/100,) 20 x 150 MG & 10 x 100MG tablet therapy packIndications :COVID-19 Take 300 mg by mouth 2 times daily. Take 3 tablets 2x/day for 5 days 30 each 08/20/19 25 025 Discontinued(Me d list cleanup (will not trigger notification to Pharmacy)) diphenhydrAMINE (BENADryl) 25 MG capsule Take 2 capsules (50 mg) by mouth every 6 (six) hours if needed for itching. May take 1-2 capsules prn rashor itching 40 capsule 09/30/19 25 025 Discontinued(Me d list cleanup (will [...] and is also likely -unable to complete Chaffee hallpike maneuver safely in clinic today. Exam [...] sleep study results 10/28/21 recommend BiPAP machine 18/14 with f/u by sleep medicine. Assessment & [...] undergo surgery -is open to engaging with senior applications architect for assistance. Referral placed -follow-up 3 months [...] -encouraged to keep her upcoming appointment with senior applications architect -follow-up 3 months Assessment & Plan (11/13/2023 [...] (01/21/2023 8:30 PM EDT): Received from [facility] Using nightly F/u PRN Migraine without aura, not refractory 10/17/2022 05/19/2024 Strep pharyngitis 07/29/2022 10/17/2022 Viral URI 07/25/2022 10/17/2022 Encounters Date Type Department Care Team Description 10/28/2024 Telephone [facility] [address] [place] [phone] Denisse Evangelista NP Call Back Request 10/28/2024 Orders Only GENERIC EXTERNAL DATA DEPARTMENT Provider, Generic External Data 10/06/2024 Orders Only GENERIC EXTERNAL DATA DEPARTMENT Provider, Generic External Data 10/05/2024 Telephone [facility] [address] [place] [phone] Tirso Caceres MD 10/01/2024 Orders Only [facility] [address] [place] [phone] Tirso Caceres MD Syphilis (Primary Dx) 10/01/2024 Telephone [facility] [address] [place] [phone] Tirso Caceres MD 09/29/2024 10:20 AM EDT Office Visit [facility] [address] [address] Tirso Caceres MD Rash (Primary Dx); Tobacco dependence 09/29/2024 Orders Only [facility] [address] [place] [phone] Tirso Caceres MD 09/12/2024 Refill [facility] [address] [place] [phone] Denisse Evangelista NP 08/20/2024 Orders Only [address] [address] Denisse Evangelista NP COVID-19 (Primary Dx) 08/13/[address] [address] Barbara Brunson RN 08/12/2024 Telephone [facility] [address] [place] [address] Sheri Hardin RN 08/11/2024 3:30 PM EST Office Visit [facility] [address] [place] [address] Denisse Evangelista NP Sudden hearing loss of [...] the past 12 months, has t he [employer], gas, oil or water company threatened to [...] 08/11/2024 3:38 PM EST Plan of Treatment Upcoming Encounters Date Type Department Care Team (Late st Contact Info) Description 11/10/2024 9:00 AM EDT Office Visit [facility] [address] [place] [address] Julianna Chase FNP [address] [place] [address] 11/12/2024 1:45 PM EDT Office Visit [facility] [address] [place], [place] [phone] Martha Low MD [address] [place], [place] [phone] Health Maintenance Due Date Last Done Comments Family Planning (PISQ) 2000 Hepatitis B Vaccines (1 of 3 - 19+ 3-dose series) 2004 Pneumococcal Vaccine: Pediatrics (0 to 5 Years) and At-Risk Patients (6 to 49) Years) (1 of 2 - PCV) 2004 COVID-19 Vaccine (2023- season) 2024 06/07/2021, 11/20/2020 Influenza Vaccine (#1) 2024 04/30/2023, 2020 Alcohol/Substance Use Screening 02/17/2025 02/18/2024 Depression Screening 02/17/2025 02/18/2024, 02/18/20 Diabetes: Hemoglobin A1C 02/17/2025 024, 11/12/2023, 10/08/2023, Additional history exists SDOH Screening 06/09/2025 06/09/2024 Tobacco Screening 09/29/2025 09/29/2024 Cervical Cancer Screening 05/23/2028 HPV/Cotest 05/23/2028 05/23/2023 Pap Smear 05/23/2028 05/23/2023, 05/23/2023 Lipid Panel 11/11/2028 11/12/2023, 11/19, 08/22/2021 DTaP/Tdap/Td Vaccines (2 - Td or Tdap) 08/22/2031 08/22/2021 Zoster Vaccines (1 of 2) 2035 RSV Patients and Patients Aged 60 years or older (1 - 1-dose 75+ series) 2060 HIV Screening Completed 10/28/2024, 09/18, 02/18/2023, Additional history exists Hepatitis C Screening Completed 10/28/2024 , 10/01/2024, 02/18/2023, Additional history exists HIB Vaccines Aged Out No longer eligi [...] Procedure Name Priority Date/Time Associated Diagnosis Comments CANCELLED SEROLOGY Routine 10/28/2024 10 :02 AM EDT BASIC METABOLIC PANEL Routine 10/28/2024 10:02 AM EDT HIV 1/2 ANTIGEN/ANTIBODY, FOURTH GENERATION W/RFL Routine 10/28/2024 10:02 AM EDT Syphilis HEPATITIS C AB W/REFL TO HCV RNA, QN, PCR Routine 10/28/2024 10:02 AM EDT Syphilis HEPATITIS B SURFACE ANTIGEN, EIA Routine 10/28/2024 10:02 AM EDT Syphilis HEPATITIS B SURFACE ANTIBODY, QUALITATIVE Routine 10/28/2024 10:02 AM EDT Syphilis HEPATITIS B CORE AB TOTAL Routine 10/28/2024 10:02 AM EDT Syphilis FL GUIDED LUMBAR PUNCTURE LP Routine 10/06/2024 [...] Recently Relevant to Health Maintenance Results * Cancelled Serology (10/28/2024 10:02 AM EDT) [facility] Cancelled Serology SEE NOTE [facility] Comment:THE FOLLOWING TESTS WERE CANCELLED: CTNG BY PCRREASON: SPECIMAN NOT LABELED 10/28/2024 10:0 2 AM EDT 10/28/2024 11:27 AM EDT us Tirso Caceres MD HISTORICAL/NON ORDERABLE LABS Fi nal Result [facility] [address] [place] [phone] * Hepatitis C Antibody with Reflex to HCV, RNA, Quantitative, Real-Time PCR (10/28/2024 10:02 AM EDT) Pathologist [facility] Hepatitis C Antibody Nonreactive Nonreactive [facility] Comment:Antibodies to HCV no t detected; does not exclude early acuteHCV infection. Blood Venous blood specimen / Unknown 10/28/2024 10:02 AM EDT 10/28/2024 10:10 AM EDT us Tirso Caceres MD LAB BLOOD ORDERABLES Final Resul t Performing Organization Address [facility] Co de Phone Number [facility] [address] [place] [phone] * Hepatitis B surface antigen, EIA (10/28/2024 10:02 AM EDT) Hepatitis B Surface Ag Negative Negative [facility] Blood Venous blood specimen / Unknown 10/28/2024 10:02 AM EDT 10/28/2024 10:10 AM EDT us Tirso Caceres MD LAB BLOOD ORDERABLES Final Resul t Performing Organization Address [facility] Co de Phone Number [facility] [address] [place] [phone] * Hepatitis B Core Antibody, Total (10/28/2024 10:02 AM EDT) Hepatitis B Core Antibody Nonreactive Nonreactive [facility] Blood Venous blood specimen / Unknown 10/28/2024 10:02 AM EDT 10/28/2024 10:10 AM EDT us Tirso Caceres MD LAB BLOOD ORDERABLES Final Resul t Performing Organization Address [facility] de Phone Number [facility] [address] [place] [phone] * HIV-1/2 Antigen and Antibodies, Fourth Generation, with Reflexes (10/28/2024 10:02 AM EDT) Only the most recent of2 resultswithin the time period is included. HIV AB/AG Nonreactive Nonreactive [facility] Comment:HIV-1 p24 Ag and/or HIV-1/HIV-2 Ab not detected.A test result that is nonreactive does not exclude thepossibility of exposure to or infection with HIV-1 and/orHIV-2. Nonreactive results in this assay for individualswith prior exposure to HIV-1 and/or HIV-2 may be due toantigen and antibody levels that are below the limit ofdetection of this assay.The [email or web address] HIV Ag/Ab Combo assay result andsupplemental assay results should be interpreted inconjunction with the patient's clinical presentation,history and other laboratory results. If the results areinconsistent with clinical evidence, additional testing issuggested to confirm the result. Blood Venous blood specimen / Unknown 10/28/2024 10:02 AM EDT 10/28/2024 10:10 AM EDT us Tirso Caceres MD LAB BLOOD ORDERABLES Final Resul t Performing Organization Address City/[facility]/ZIP Co de Phone Number [facility] [address] [place] [phone] * Hepatitis B Surface Antibody, Qualitative (10/28/2024 10:02 AM EDT) Pathologist [facility] ~Hepatitis B Surface Antibody REACTIVE Nonreactive [facility] Comment:REACTIVE: > 11.99 mI U/mL Blood Venous blood specimen / Unknown 10/28/2024 10:02 AM EDT 10/28/2024 10:10 AM EDT us Tirso Caceres MD LAB BLOOD ORDERABLES Final Resul t Performing Organization Address [facility] Co de Phone Number [facility] [address] [place] [phone] * (ABNORMAL) Basic Metabolic Panel (10/28/2024 10:02 AM EDT) Only the most recent of3 resultswithin the time period is included. Pathologist [facility] Sodium 138 135 - 145 mmol/L [facility] Potassium 4.1 3.3 - 5.1 mmol/L [facility] Chloride 104 96 - 108 mmol/L [facility] Carbon Dioxide 28 22 - 29 mmol/L [facility] Anion Gap 10(L) 12 - 20 [facility] Urea Nitrogen (BUN) 12 9 - 16 mg/dL [facility] Creatinine, Serum 0.72 0.5 - 1.4 mg/dL [facility] Estimated Glomerular Filt Rate >60 [facility] Comment:Chronic Kidney Disea se: Estimated GFR < 60 mL/min/1.48y5Utykwv Kidney Disease: Estimated GFR < 15 mL/min/1.73m2 Glucose 81 60 - 115 mg/dL [facility] Calcium 9.2 8.4 - 10.2 mg/dL [facility] 10/28/2024 10:0 2 AM EDT 10/28/2024 10:10 AM EDT us Generic External Data Provider LAB BLOOD ORDERAB LES Final Result Performing Organization Address [facility]/State/ZIP Co de Phone Number [facility] [address] [place] [phone] * FL guided lumbar puncture LP (10/06/2024 12:04 PM EDT) Anatomical Region Laterality Modality Abdomen Radiographic Meredith ging 10/06/2024 12:0 4 PM EDT Narrative 10/06/2024 1:31 PM EDT ? [facility] ?[address] ?[place] [address] ? Fluoroscopy Report ? Signed ? Patient: Corwin,Beatrice ?MR#: [id number] ?? [id number] ? : 1985 ?Acct:[id number] ? Age/Sex: 39 / F ?ADM Date: 03/19/25 ? Loc: [facility] ?MEDSURG-1 ? Attending Dr: Hector Degroot MD ? Ordering Physician: Shannon Pelaez DO ?? Date of Service: 10/06/24 ?? Procedure(s): FL guided lumbar puncture LP ?? Accession Number(s): [id number] ? cc: Denisse Evangelista; Shannon Pelaez DO ? EXAMINATION: ?? XR [...] ??10/06/2024 01:28 PM EDT RP ?? Workstation: iwi ? Dictated By: ?Aristeo Pierre MD ? Signed By: ?<Electronically signed by Aristeo Pierre MD in OV> ?10/06/24 1328 ? DD/ 1204 ? TD/TT: 10/06/24 1245 ? Warp Tester: MSM ? Procedure Note Raquel Stuart - 10/06/[address] [address] Fluoroscopy Report Signed Patient: Dinora Olivia#: [id number] : 1985Acct:[id number] Age/Sex: 39 / FADM Date: 10/06/24 Loc: [place] [address]: Hector Degroot MD Ordering Physician: Shannon Pelaez DO Date of Service: 10/06/24 Procedure(s): FL guided lumbar puncture LP Accession Number(s): [id number] cc: Denisse Evangelista; Shannon Pelaez DO EXAMINATION: [...] 10/06/24 1328 DD/ 1204 TD/TT: 10/06/24 1245 Warp Tester: ANDI [facility] External Provider IMG FLU OROSCOPY PROCEDURES Final Result * (ABNORMAL) Prothrombin Time-INR (10/06/2024 9:14 AM EDT) Prothrombin Time 12.8(H) 10.9 - 12.4 SEC [facility] INTERNATIONAL NORM RATIO 1.1 0.9 - 1.1 [facility] Comment:INTERNATIONAL NORMAL IZED RATIO (INR) REFERENCE [...] Provider LAB BLOOD ORDERAB LES Final Result [facility] [address] [place] [address] [phone] * (ABNORMAL) CBC auto differential (10/06/2024 8:49 AM EDT) Only the most recent of4 resultswithin the time period is included. White Blood Count 10.9(H) 4.8 - 10.8 X10*3/uL [facility] Red Blood Count 4.34 4.20 - 5.50 X10*6/uL [facility] Hemoglobin 12.6 12.0 - 16.0 g/dl [facility] Hematocrit 36.7(L) 37.0 - 47.0 % [facility] Mean Corpuscular Volume 84.6 80.0 - 98.0 fL [facility] Mean Corpuscular Hemoglobin 29.0 27.0 - 33.0 pg [facility] Mean Corpuscular HGB Conc 34.3 31.0 - 35.0 g/dl [facility] Red Cell Distribution Width 13.3 11.0 - 16.0 % [facility] Platelet Count 435(H) 160 - 400 X10*3/uL [facility] Mean Platelet Volume 8.8(L) 9.4 - 12.3 fL [facility] Neutrophils Percent Auto 65.3 45 - 73 % [facility] Imm Gran Pct Auto 0.4 0.0 - 0.4 % [facility] Lymphocytes Percent Auto 28.2 20 - 40 % [facility] Monocytes Percent Auto 4.0 2 - 11 % [facility] Eosinophils Percent Auto 1.8 0 - 4 % [facility] Basophils Percent Auto 0.3 0 - 2 % [facility] NRBC Pct Auto 0.0 0.0 - 0.2 /100WBC [facility] Neutrophils Absolute Auto 7.1 2.0 - 8.3 x10*3/uL [facility] Imm Gran Abs Auto 0.04(H) 0.00 - 0.03 X10*3/uL [facility] Lymphocytes Absolute Auto 3.1 1.2 - 4.9 X10*3/uL [facility] Monocytes Absolute Auto 0.4 0.1 - 1.2 X10*3/uL [facility] Eosinophils Absolute Auto 0.2 0.0 - 0.4 X10*3/uL [facility] Basophils Absolute Auto 0.0 0.0 - 0.2 X10*3/uL [facility] NRBC Abs Auto 0.000 0.0 - 0.012 X10*3/uL [facility] 10/06/2024 8:49 AM EDT 10/06/2024 8:52 AM EDT us Generic External Data Provider LAB BLOOD ORDERAB LES Final Result [facility] [address] [place] [phone] * hCG, Total, Quantitative (10/06/2024 8:49 AM EDT) Only the most recent of2 resultswithin the time period is included. HCG Quantitative <2 mIU/mL [facility] Comment:Weeks post LMP Appro ximate hCG(Last Menstrual Period) Range (mIU/ml)3 - 4 weeks 9 - 1304 - 5 weeks 75 - 2,6005 - 6 weeks 850 - 20,8006 - 7 weeks 4000 - 100,2007 - 12 weeks 11,500 - 289,43711 - 16 weeks 18,300 - 137,78794 - 29 weeks (2nd trimester) 1,400 - 53,29942 - 41 weeks (3rd trimester) 940 - [...] Provider LAB BLOOD ORDERAB LES Final Result [facility] [address] [place] [phone] * (ABNORMAL) Comprehensive Metabolic Panel (10/06/2024 8:49 AM EDT) Only the most recent of2 resultswithin the time period is included. Sodium 137 135 - 145 mmol/L [facility] Potassium 3.7 3.3 - 5.1 mmol/L [facility] Chloride 104 96 - 108 mmol/L [facility] Carbon Dioxide 28 22 - 29 mmol/L [facility] Anion Gap 9(L) 12 - 20 [facility] Urea Nitrogen (BUN) 10 9 - 16 mg/dL [facility] Creatinine, Serum 0.72 0.5 - 1.4 mg/dL [facility] Creatinine Clr Calc Pharmacy 136.7 [facility] Comment:Provided height and weight: 154.94 cm,134.7 kg.eGFR (calculated from the MDRD study equation) and eCrCl(calculated from the Cockcroft-Gault equation) are based ondifferent parameters and may not yield comparable results.If eCrCl result is absurd, please check patient'sheight/weight. Estimated Glomerular Filt Rate >60 [facility] Comment:Chronic Kidney Disea se: Estimated GFR < 60 mL/min/1.68h2Yhkkij Kidney Disease: Estimated GFR < 15 mL/min/1.73m2 Glucose 124(H) 60 - 115 mg/dL [facility] Calcium 9.1 8.4 - 10.2 mg/dL [facility] Bilirubin, Total 0.4 0.0 - 1.0 mg/dL [facility] Aspartate Amino Transferase 14 5 - 31 U/L [facility] Alanine Aminotransferase 17 0 - 31 U/L [facility] Total Protein 7.4 6.5 - 8.0 g/dL [facility] Albumin Level 3.5 3.5 - 5.0 g/dL [facility] Alkaline Phosphatase 66 39 - 117 U/L [facility] 10/06/2024 8:49 AM EDT 10/06/2024 8:52 AM EDT us Generic External Data Provider LAB BLOOD ORDERAB LES Final Result Performing Organization Address [facility]/ZIP Co de Phone Number [facility] [address] [place] [phone] * (ABNORMAL) Confirmatory Syphilis Profile (10/01/2024 11:15 PM EDT) Rapid Plasma Reagin, Quant Reactive :2047 Nonreactive [facility] Treponema pallidum Antibody, Particle Agglutination Reactive(A) Nonreactive [facility] Comment:These results must b e reported by the ordering clinician orclinical facility to the [facility] required by state law.Testing performed at: [address] [address] 10/01/2024 11:1 5 PM EDT 10/02/2024 4:06 AM EDT us Generic External Data Provider LAB BLOOD ORDERAB LES Final Result Performing Organization Address [facility]/ZIP Co de Phone Number [facility] [address] [place] [phone] * (ABNORMAL) Syphilis Screen (10/01/2024 11:15 PM EDT) [facility] Syphilis Screen Reactive( A) Nonreactive [facility] Comment:Reactive specimens a re [facility]irmat[facility] tests. 10/01/2024 11:1 5 PM EDT 10/01/2024 11:22 PM EDT Generic External Data Provider LAB BLOOD ORDERAB LES Final Result Performing Organization Address [facility] Co de Phone Number [facility] [address] [place] [phone] * Hepatitis Panel, General (10/01/2024 11:15 PM EDT) [facility] Hepatitis A IgM Nonreactive Nonreactive [facility] Comment:IgM antibodies to SINGER V not detected; does not exclude earlyacute or recovered HAV infection. ~Hepatitis B Surface Antibody REACTIVE Nonreactive [facility] Comment:REACTIVE: > 11.99 mI U/mL Hepatitis B Core Antibody Nonreactive Nonreactive [facility] Hepatitis C Antibody Nonreactive Nonreactive [facility] Comment:Antibodies to HCV no t detected; does not exclude early acuteHCV infection. Hepatitis B Surface Ag Negative Negative [facility] 10/01/2024 11:1 5 PM EDT 10/01/2024 11:22 PM EDT Generic External Data Provider LAB BLOOD ORDERAB LES Final Result Performing Organization Address [facility]/ZIP Co de Phone Number [facility] [address] [place] [phone] * Chlamydia/N. Gonorrhoeae RNA, TMA, Urogenitial (10/01/2024 11:15 PM EDT) [facility] CT PCR NOT DETECTED Not Detect. [facility] Comment:A not detected test result does [...] psychologicalconsequences. NG PCR NOT DETECTED Not Detect. [facility] Comment:A not detected test result does [...] PM EDT 10/01/2024 11:22 PM EDT Narrative [facility] - 10/02/2024 6:03 AM EDT Urine us Generic External Data Provider LAB MICROBIOLOGY - GENERAL ORDERABLES Final Result [facility] [address] [place] [phone] * Magnesium (10/01/2024 7:27 PM EDT) Magnesium 1.9 1.6 - 2.6 mg/dL [facility] 10/01/2024 7:27 PM EDT 10/01/2024 7:37 PM EDT Narrative [facility] - 10/01/2024 11:29 PM EDT dehydrated, no good flow us Generic External Data Provider LAB BLOOD ORDERAB LES Final Result Performing Organization Address [facility]/ZIP Co de Phone Number [facility] [address] [place] [phone] * Lyme Disease Ab with Reflex to Blot (IgG, IgM) (09/29/2024 11:54 AM EDT) Lyme Antibody Screen <0.90 index [facility] Comment:Index Interpretation ----- < 0.90 Negative [...] when erythemamigrans is apparent.THIS TEST WAS PERFORMED AT:[facility] [place] [phone] SHEPHERD MD Lyme Blot [facility] 09/29/2024 11:5 4 AM EDT 09/29/2024 1:50 PM EDT Tirso Caceres MD LAB BLOOD ORDERABLES Final Resul t Performing Organization Address City/[facility]/ZIP Co de Phone Number [facility] [address] [place] [phone] * (ABNORMAL) Parvovirus B19 Antibodies (IgG,IgM) (09/29/2024 11:54 AM EDT) Parvovirus B19 Antibody (IgG) 2.22(A) [facility] Comment:Reference Range<0.9 Negative0.9-1.1 Equivocal>1.1 PositiveIgG persists for years and provides life-long immunity.To diagnose current infection, consider [id number] DNA, PCR. Parvovirus B19 Antibody (IgM) <0.9 [facility] Comment:Reference Range<0.9 Negative0.9-1.1 Equivocal>1.1 PositiveResults from [...] consider parvovirus B19 DNA,PCR.THIS TEST WAS PERFORMED AT:[facility] [address] [phone] SHEPHERD MD 09/29/2024 11:5 4 AM EDT 09/29/2024 1:50 PM EDT us Tirso Caceres MD LAB BLOOD ORDERABLES Final Resul t [facility] [address] [place] [phone] * (ABNORMAL) RPR (Monitor) with Reflex to??Titer (09/29/2024 11:54 AM EDT) RPR (Monitor) w/Refl Titer REACTIVE( A) NON-REACT [facility] Comment:The RPR is a non-chapo ponemal-specific test; therefore,a treponemal- specific confirmatory test should beperformed unless prior syphilis infection has beendocumented for this patient.THIS TEST WAS PERFORMED AT:[facility] [address] [phone] SHEPHERD MD Rapid Plasma Reagin Ab Titer 1:256(A) [facility] Comment:THIS TEST WAS PERFOR MED AT:[facility] [address] [phone] SHEPHERD MD Blood Venous blood specimen / Unknown 09/29/2024 11:54 AM EDT 09/29/2024 1:50 PM EDT us Tirso Caceres MD LAB BLOOD ORDERABLES Final Resul t Performing Organization Address [facility] Co de Phone Number [facility] [address] [place] [phone] * Rheumatoid Factor (09/29/2024 11:54 AM EDT) Rheumatoid Factor <13.0 <15.0 IU/mL [facility] Blood Venous blood specimen / Unknown 09/29/2024 11:54 AM EDT 09/29/2024 1:50 PM EDT us Tirso Caceres MD LAB BLOOD ORDERABLES Final Resul t Performing Organization Address [facility] [facility] de Phone Number [facility] [address] [place] [phone] * (ABNORMAL) BRIE Screen,IFA, with Reflex to Titer and Pattern (09/29/2024 11:54 AM EDT) Anti Nuclear Antibody Screen POSITIVE (A) NEGATIVE [facility] Comment:BRIE IFA is a first l ine screen for detecting thepresence of up to approximately 150 autoantibodies invarious autoimmune diseases. A positive BRIE IFA resultis suggestive of autoimmune disease and reflexes totiter and pattern. Further laboratory testing may beconsidered if clinically indicated.For additional information, please refer tohttp://education.[employer]/faq/IQV278(This link is being provided for informational/educational purposes only.) BRIE Titer 1:80(A) titer [facility] Comment:A low level BRIE tite r may be present in pre-clinicalautoimmune diseases and normal individuals. Reference Range <1:40 Negative 1:40-1:80 Low Antibody Level >1:80 Elevated Antibody Level BRIE Pattern (A) [facility] Comment:Mitotic, Spindle Fib ers Abnormal Flag: AThe spindle fibers between the poles are stained inmitotic cells, associated with cone-shaped decorationof the mitotic poles. The pattern is rare in Sjogren'ssyndrome, systemic lupus erythematosus (SLE), andother connective tissue diseases.AC-25: Spindle FibersInternational Consensus on BRIE Patterns(https://doi.org/10.1515/bcex-5696-8844)THIS TEST WAS PERFORMED AT:[facility] [place] [phone] SHEPHERD MD BRIE TITER 2 (REF LAB) [facility] BRIE Pattern 2 [facility] BRIE TITER 3 [facility] BRIE PATTERN 3 [facility] Blood Venous blood specimen / Unknown 09/29/2024 11:54 AM EDT 09/29/2024 1:50 PM EDT Tirso Caceres MD LAB BLOOD ORDERABLES Final Resul t [facility] [address] [place] [phone] * POCT HGB A1C (02/18/2024 9:50 AM EDT) Hemoglobin A1C 5.8 4.0 - 6.0 % QC Media Lot # [id number] Lot# Expiration Date [id number] Blood 02/18/2024 9:50 AM EDT Denisse Evangelista NP POINT OF CARE TEST ENTER/EDIT O RDERABLES Final Result * (ABNORMAL) Lipid Panel, Standard (11/12/2023 10:55 AM EDT) Triglycerides 104 <150 mg/dL [facility] Comment:Desirable Triglyceri de: less than 150 mg/dLBorderline High Triglyceride 150-199 mg/dLHigh Triglyceride: 200-499 mg/dLVery High Triglyceride: greater than or equal to 5OO mg/dL Cholesterol 157 <200 mg/dL [facility] Comment:Desirable Cholestero l: less than 200 mg/dLBorderline High Cholesterol: 200-239 mg/dLHigh Cholesterol: greater than 239 mg/dL LDL Cholesterol Calculated 100(H) <100 mg/dL [facility] Comment:Desirable LDL: less than 100 mg/dLNear Optimal/Above Optimal LDL: 110- 129 mg/dLBorderline High LDL: 130-159 mg/dLHigh LDL: 160-189 mg/dLVery High LDL: greater than or equal to 190 mg/dL HDL Cholesterol 37(L) >40 mg/dL [facility] Comment:Desirable HDL: great er than 40 mg/dL Note: This HDL assay may give artificially low results in patients with liver disease. Blood Venous blood specimen / Unknown 11/12/2023 10:55 AM EDT 11/13/2023 2:40 PM EDT Denisse Evangelista CEMENT CONTRACTOR LAB BLOOD ORDERABLES Final Resu lt [facility] [address] [place] [phone] * (ABNORMAL) Image-Guided Pap with Age-Based Screening??with CT/NG,??Trichomonas (05/23/2023 11:22 AMEDT) Trichomonas (NAAT) DETECTED(A) NOT DETECTED [facility] Comment:The analytical perfo rmance characteristics of thisassay have been determined by [employer]. Themodifications have not been cleared or approved bythe FDA. This assay has been validated pursuant to theCLIA regulations and is used for clinical purposes.For additional information, please refer tohttp://education.[employer]/faq/Trichomonastma(This link is being provided for information/educational purposes only.)THIS TEST WAS PERFORMED AT:[facility] [place] [phone] SHEPHERD MD CTNG Ref Lab NOT DETECTED NOT DETECTED [facility] NG Ref Lab NOT DETECTED NOT DETECTED [facility] Pap Vial 05/23/2023 11:2 2 AM EDT 05/26/2023 11:00 AM EST Leslie Horan [facility] CYTOLOGY ORDERABLES Final Result Performing Organization Address [facility] de Phone Number [facility] [address] [place] [phone] * HPV mRNA E6/E7 w/Reflex to HPV Genotypes 16, 18/45 (05/23/2023 11:22 AM EDT) HPV nRNA E6/E7 Not Detected Not Detected [facility] Comment:Methodology: Transcr iption-Mediated AmplificationThis assay detects E6/E7 viral messenger RNA (mRNA) from 14high-risk HPV types (16,18,31,33,35,39,45,51,52,56,58,59,66,68).Cervical sources are required for HPV testing.If a vaginal source from a patient who has had atotal hysterectomy with removal of cervix wassubmitted, please contact the testing laboratoryfor alternative testing options.For additional information, please refer tohttp://education.[employer]/faq/IUB688j8(This link if provided for information/educational purposes only.)THIS TEST WAS PERFORMED AT:[facility] [place] [phone] SHEPHERD MD HPV mRNA E6/E7 [facility] HPV 16 RNA [facility] HPV 18/45 RNA [facility] 05/23/2023 11:2 2 AM EDT 05/26/2023 11:00 AM EST Leslie Makmartha [facility] CYTOLOGY ORDERABLES Final Result Performing Organization Address [facility] Co de Phone Number [facility] [address] [place] [phone] from Last 3 Months or Most Recently Relevant to Health Maintenance [place] [address] [place] [address] Care Teams Meat Lugger Relationship Specialty Start Date End Date Denisse Evangelista NP [address] [place] [phone] PCP - General Family Medicine 07/10/23 [facility]
== END 2024-11-03 15:15 | disposition home or self-care (01) ==
LOC: HO.HID 14:27
PROVIDERS: PCP Nurse Practitioner; Visit Provider Internal Medicine
DX: A52.3 Neurosyphilis, unspecified (principal)
CPT/HCPCS: 99213

== ENCOUNTER → 2024-11-03 14:27 | Outpatient (BNVA) | payer OTHER, SELFPAY | PROVIDERS: PCP Nurse Practitioner; Visit Provider Internal Medicine | DX: A52.3 Neurosyphilis, unspecified (principal) | CPT/HCPCS: 99212 ==

== ENCOUNTER 2024-11-17 08:51 | Outpatient (AMB) | payer OTHER, SELFPAY ==
--- OUTSIDE RECORDS SUMMARY | 2024-11-17 09:14 | XMS_ITS | Encounter Summary ---
Author Organization [employer] Address [address] [facility] 7t [place] [address] Care Team Providers Care Tool Crib Supervisor Name Role Phone Denisse Evangelista NP Primary Care Provider [phone] Reason for Visit * Reason Comments Med Refill Encounter Details Date Type Department Care Team (Late st Contact Info) Description 11/15/2024 Refill [facility] [address] [place] [address] Denisse Evangelista NP [address] [place] [address] Essential hypertension Social History Tobacco Use Types Packs/Day Years [...] others, in a hotel, in a senior living, living outside on the street, on a [...] Care Team (Late st Contact Info) Description 11/29/2024 9:30 AM EDT Office Visit [address] [address] Denisse Evangelista NP [address] [place] [address] 01/26/2025 10:45 AM EDT Office Visit [address] [address] Denisse Evangelista NP [address] [place] [address] documented as of this encounter Visit Diagnoses Diagnosis Essential hypertension Unspecified essential hypertension documented in this encounter Additional Health Concerns Assessment Noted Time PHQ-9 Depression Total Score: 8 02/18/20 24 10:12 AM EDT documented as of this encounter Care Teams Tool Crib Supervisor Relationship Specialty Start Date End Date Denisse Evangelista NP [address] [place] [address] PCP - General Family Medicine 07/10/23 [facility]ta [facility] 10/13/24 documented as of this encounter
--- OUTSIDE RECORDS SUMMARY | 2024-11-17 09:14 | XMS_ITS | Encounter Summary ---
Author Organization [employer] Address [address] [facility] 7t [place] [address] Care Team Providers Care Forensic Psychologist Name Role Phone Denisse Evangelista NP Primary Care Provider [phone] Reason for Visit * Reason Onset Date Comments Call Back Request 10/28/2024 Encounter Details Date Type Department Care Team ([facility] Contact Info) Description 10/28/2024 Telephone [facility] [address] [place] [address] Denisse Evangelista NP [address] [place] [address] Call Back Request Social History Tobacco Use [...] 11/01/2024 11:19 AM EDT Pt discharged from [facility] 10/12/24 Dx: neurosyphilis/otosyphilis. Call returned to pt [...] to keep him updated. Contact pt at [phone] documented in this encounter Plan of Treatment Upcoming Encounters Date Type Department Care Team (Late st Contact Info) Description 11/29/2024 9:30 AM EDT Office Visit [facility] [address] [place] [address] Denisse Evangelista NP [address] [place] [address] 01/26/2025 10:45 AM EDT Office Visit [facility] [address] [place] [address] Denisse Evangelista NP [address] [place] [address] documented as of this encounter Visit Diagnoses Not on filedocumented in this encounter Additional Health Concerns Assessment Noted Time PHQ-9 Depression Total Score: 8 02/18/20 24 10:12 AM EDT documented as of this encounter Care Teams Forensic Psychologist Relationship Specialty Start Date End Date Denisse Evangelista NP [address] [place] [address] PCP - General Family Medicine 07[facility]23 [facility] documented as of this encounter
--- OUTSIDE RECORDS SUMMARY | 2024-11-17 09:14 | XMS_ITS | Encounter Summary ---
Author Organization [email or web address] Address [address] [facility] [address] 7t [place] [address] Care Team Providers Care Shuttler Car Name Role Phone Denisse Evangelista NP Primary Care Provider [phone] Encounter Details Date Type Department Care Team ([facility] st Contact Info) Description 11/10/2024 Orders Only [facility] [address] [place] [address] Denisse Evangelista NP [address] [place] [address] Social History Tobacco Use Types Packs/Day Years [...] with others, in a hotel, in a skilled nursing, living outside on the street, on a [...] Description 11/29/2024 9:30 AM EDT Office Visit [facility] [address] [place] [address] Denisse Evangelista NP [address] [place] [address] 01/26/2025 10:45 AM EDT Office Visit [facility] [address] [place] [address] Denisse Evangelista NP [address] [place] [address] documented as of this encounter Visit Diagnoses Not on filedocumented in this encounter Additional Health Concerns Assessment Noted Time PHQ-9 Depression Total Score: 8 02/18/20 24 10:12 AM EDT documented as of this encounter Care Teams Shuttler Car Relationship Specialty Start Date End Date Denisse Evangelista NP [address] [place] [address] PCP - General Family Medicine 07/10/23 [facility] 10/13/24 documented as of this encounter
--- OUTSIDE RECORDS SUMMARY | 2024-11-17 09:14 | XMS_ITS | Clinical Summary ---
Author Organization [facility] Address [address] [place] [address] Phone Care Team Providers Care Cardiovascular Invasive Specialist Name Role Phone Unavailable Primary Care Provider Unavailabl e Social History Tobacco Use Types Packs/Day Years [...]
--- OUTSIDE RECORDS SUMMARY | 2024-11-17 09:14 | XMS_ITS | Encounter Summary ---
Author Organization [employer] Address [address] [facility] 7t [place] [address] Care Team Providers Care Rn Neonatal Name Role Phone Denisse Evangelista NP Primary Care Provider [phone] Encounter Details Date Type Department Care Team ([facility] st Contact Info) Description 11/12/2024 Orders Only [facility] [address] [place], [place] [phone] Denisse Evangelista NP [address] [place] [address] Neurosyphilis in adult (Primary Dx) Social History Tobacco Use Types [...] with others, in a hotel, in a fci, living outside on the street, on a [...] Description 11/29/2024 9:30 AM EDT Office Visit [facility] [address] [place] [address] Denisse Evangelista NP [address] [place] [address] 01/26/2025 10:45 AM EDT Office Visit [facility] [address] [place] [address] Denisse Evangelista NP [address] [place] [address] documented as of this encounter Visit Diagnoses Diagnosis Neurosyphilis in adult- Primary documented in this encounter Additional Health Concerns Assessment Noted Time PHQ-9 Depression Total Score: 8 02/18/20 24 10:12 AM EDT documented as of this encounter Care Teams Rn Neonatal Relationship Specialty Start Date End Date Denisse Evangelista NP [address] [place] [address] PCP - General Family Medicine 07/10/23 [facility] 10/13/24 documented as of this encounter
--- OUTSIDE RECORDS SUMMARY | 2024-11-17 09:15 | XMS_ITS | Encounter Summary ---
Author Organization [employer] Address [address] [facility] 7t [place] [address] Care Team Providers Care Lunchroom Supervisor Name Role Phone Denisse Evangelista NP Primary Care Provider [phone] Elisabeth Richardson MD Primary Care Provider [phone] Denisse Evangelista NP Primary Care Provider [phone] Reason for Visit * Reason Comments Med Refill Encounter Details Date Type Department Care Team (Late st Contact Info) Description 06/10/2023 Refill [facility] [address] [place] [address] Elisabteh Richardson MD [address] [place] [address] STI (sexually transmitted infection) Social History Tobacco [...] Description 11/29/2024 9:30 AM EDT Office Visit [facility] [address] [place] [address] Denisse Evangelista NP [address] [place] [address] 01/26/2025 10:45 AM EDT Office Visit [address] [address] Denisse Evangelista NP [address] [place] [address] documented as of this encounter Visit Diagnoses Diagnosis STI (sexually transmitted infection) Unspecified venereal disease documented in this encounter Additional Health Concerns Assessment Noted Time PHQ-9 Depression Total Score: 0 04/30/20 10:11 AM EDT documented as of this encounter Care Teams Lunchroom Supervisor Relationship Specialty Start Date End Date Denisse Evangelista NP [address] [place] [address] PCP - General Family Medicine 04/24/23 06/22/23 Elisabeth Richardson MD [address] [place] [address] PCP - General Internal Medicine 06/23/23 07/09/23 Denisse Evangelista NP [address] [place] [address] PCP - General Family Medicine 07/10/23 A[facility] 10/13/24 documented as of this encounter
--- OUTSIDE RECORDS SUMMARY | 2024-11-17 09:15 | XMS_ITS | Encounter Summary ---
Author Organization [employer] Address [address] [place] [address] [place] [address] Care Team Providers Care Microwave Technician Name Role Phone Sherice Bryant Primary Care Provider [phone] Denisse Evangelista NP Primary Care Provider [phone] Elisabeth Richardson MD Primary Care Provider [phone] Denisse Evangelista NP Primary Care Provider [phone] Reason for Visit * Reason Onset Date Comments Results 01/02/2023 Encounter Details Date Type Department Care Team (Late st Contact Info) Description 01/02/2023 Telephone [facility] [address] [place] [address] Sherice Bryant FNP [address] [place] [address] Dept [place] [address] Results Social History Tobacco Use Types Packs/Day [...] Description 11/29/2024 9:30 AM EDT Office Visit [facility] [address] [place] [address] Denisse Evangelista NP [address] [place] [address] 01/26/2025 10:45 AM EDT Office Visit [address] [address] Denisse Evangelista NP [address] [place] [address] documented as of this encounter Visit Diagnoses Not on filedocumented in this encounter Care Teams Microwave Technician Relationship Specialty Start Date End Date Sherice Bryant FNP PCP - General Family Medicine 06/11/22 04/23/23 Denisse Evangelista NP [address] [place] [address] PCP - General Family Medicine 04/24/23 06/22/23 Elisabeth Richardson MD [address] [place] [address] PCP - General Internal Medicine 06/23/23 07/09/23 Denisse Evangelista NP [address] [place] [address] PCP - General Family Medicine 07/10/23 [facility] 10/13/24 documented as of this encounter
--- OUTSIDE RECORDS SUMMARY | 2024-11-17 09:15 | XMS_ITS | Clinical Summary ---
Author Organization [employer] Address [address] [place] [address] [address] [place] [address] Care Team Providers Care Hook Puller Name Role Phone Denisse Evangelista NP Primary Care Provider [phone] Allergies Active Allergy Reactions Criticality Noted Date [...] use. 2 each 09/30/19 25 026 Active lisinopril 20 MG tabletIndicatio ns:Essential hypertension TAKE 1 TABLET BY MOUTH EVERY DAY 90 tablet 1 11/16/19 25 Active chlorthalidone (Hygroton) 25 MG tabletIndicatio ns:Essential hypertension TAKE 1 TABLET BY MOUTH EVERY DAY 90 tablet 1 11/16/19 25 Active Diclofenac Sodium (Voltaren) 1 % gelIndications: [...] cleanup (will not trigger notification to Pharmacy)) chlorthalidone (Hygroton) 25 MG tabletIndicatio ns:Essential hypertension Take 1 tablet (25 mg) by mouth Once per day. 90 tablet 06/07/20 24 025 Discontinued lisinopril 20 MG tabletIndicatio ns:Essential hypertension Take 1 tablet (20 mg) by mouth Once per day. 90 tablet 06/07/20 24 025 Discontinued Nirmatrelvir&Ri tonavir 300/100 (Paxlovid, 300/100,) 20 x 150 MG & 10 x 100MG tablet therapy packIndications :COVID-19 Take 300 mg by mouth 2 times daily. Take 3 tablets 2x/day for 5 days 30 each 08/20/19 025 Discontinued(Me d list cleanup (will not trigger notification to Pharmacy)) diphenhydrAMINE (BENADryl) 25 MG capsule Take 2 capsules (50 mg) by mouth every 6 (six) hours if needed for itching. May take 1-2 capsules prn rashor itching 40 capsule 09/30/19 25 025 Discontinued(Me d list cleanup (will not trigger notification to Pharmacy)) Hospital, Clinic, or Other Facility Administered Medication Ordered Dose Route Frequency Start Date End Date Status Penicillin G Benzathine suspension prefilled syringe 2.4 Million UnitsIndications:Neurosy philis in adult 2.4 Million Units IM Once 11/12/2024 Ac tive Active Problems Problem Noted Date Diagnosed Date [...] undergo surgery -is open to engaging with spiral tube winder for assistance. Referral placed -follow-up 3 months [...] -encouraged to keep her upcoming appointment with spiral tube winder -follow-up 3 months Assessment & Plan (11/13/2023 [...] Encounters Date Type Department Care Team Description 11/15/2024 Refill [facility] [address] [place] [phone] Denisse Evangelista NP Essential hypertension 11/12/2024 Orders Only [facility] [address] [place] [phone] Denisse Evangelista NP Neurosyphilis in adult (Primary Dx) 11/10/2024 Orders Only [facility] [address] [place] [phone] Denisse Evangelista NP 11/10/[address] [address] Denisse Evangelista NP Call Back Request 11/09/2024 Telephone [facility] [address] [place] [phone] Sheri Hardin, MARICARMEN 11/09/[address] [address] Julianna Chase FNP CHART PREP 11/05/[address] [address] Denisse Evangelista NP Call Back Request; INSURANCE (Called pt regarding insurance. Suggested pt to come to insurance enrollment today . Pt stated she doesn't have a ride today wont be able to come. Pt was okay to r/s appointment nurses will give pt a call to r/s appt . ) 10/28/2024 Telephone [facility] [address] [place] [phone] Denisse Evangelista NP Call Back Request 10/28/2024 Orders Only GENERIC EXTERNAL DATA DEPARTMENT Provider, Generic External Data 10/06/2024 Orders Only GENERIC EXTERNAL DATA DEPARTMENT Provider, Generic External Data 10/05/2024 Telephone [facility] [address] [place] [phone] Tirso Caceres MD 10/01/2024 Orders Only [facility] [address] [address] Tirso Caceres MD Syphilis (Primary Dx) 10/01/[address] [facility] [address] [address] Tirso Caceres MD 09/29/2024 10:20 AM EDT [facility] [address] [address] Tirso Caceres MD Rash (Primary Dx); Tobacco dependence 09/29/2024 Orders Only [facility] [address] [address] Tirso Caceres MD 09/12/2024 Refill [facility] [address] [place] [phone] Denisse Evangelista NP 08/20/2024 Orders Only [address] [address] Denisse Evangelisat NP COVID-19 (Primary Dx) from Last 3 Months Immunizations Name Administration [...] with others, in a hotel, in a longterm, living outside on the street, on a [...] 11/29/2024 9:30 AM EDT Office Visit [facility] [address] [place] [phone] Denisse Evangelista NP [address] [place] [address] 01/26/2025 10:45 AM EDT Office Visit [address] [address] Denisse Evangelista NP [address] [place] [address] Health Maintenance Due Date Last Done Comments [...] PANEL Routine 09/29/2024 11:54 AM EDT Rash POCT GLYCATED HEMOGLOBIN, TOTAL Routine 02/18/2024 9:50 [...] * Cancelled Serology (10/28/2024 10:02 AM EDT) Cancelled Serology SEE NOTE [facility] Comment:THE FOLLOWING TESTS WERE CANCELLED: CTNG BY PCRREASON: SPECIMAN NOT LABELED 10/28/2024 10:0 2 AM EDT 10/28/2024 11:27 AM EDT us Tirso Caceres MD HISTORICAL/NON ORDERABLE LABS Fi nal Result Performing Organization Address [facility] de Phone Number [facility] [address] [place] [phone] * Hepatitis C Antibody with Reflex to HCV, RNA, Quantitative, Real-Time PCR (10/28/2024 10:02 AM EDT) Hepatitis C Antibody Nonreactive Nonreactive [facility] Comment:Antibodies to HCV no t detected; does not exclude early acuteHCV infection. Blood Venous blood specimen / Unknown 10/28/2024 10:02 AM EDT 10/28/2024 10:10 AM EDT us Tirso Caceres MD LAB BLOOD ORDERABLES Final Resul t Performing Organization Address [facility] [[email or web address]] Co de Phone Number [facility] [address] [place] [phone] * Hepatitis B surface antigen, EIA (10/28/2024 10:02 AM EDT) Hepatitis B Surface Ag Negative Negative [facility] Blood Venous blood specimen / Unknown 10/28/2024 10:02 AM EDT 10/28/2024 10:10 AM EDT us Tirso Caceres MD LAB BLOOD ORDERABLES Final Resul t Performing Organization Address [facility] de Phone Number [facility] [address] [place] [phone] * Hepatitis B Core Antibody, Total (10/28/2024 10:02 AM EDT) Hepatitis B Core Antibody Nonreactive Nonreactive [facility] Blood Venous blood specimen / Unknown 10/28/2024 10:02 AM EDT 10/28/2024 10:10 AM EDT us Tirso Caceres MD LAB BLOOD ORDERABLES Final Resul t Performing Organization Address [facility] [[email or web address]] Co de Phone Number [facility] [address] [place] [phone] * HIV-1/2 Antigen and Antibodies, Fourth Generation, with Reflexes (10/28/2024 10:02 AM EDT) Only the most recent of2 resultswithin the time period is included. HIV AB/AG Nonreactive Nonreactive [facility] Comment:HIV-1 p24 Ag and/or HIV-1/HIV-2 Ab not detected.A test result that is nonreactive does not exclude thepossibility of exposure to or infection with HIV-1 and/orHIV-2. Nonreactive results in this assay for individualswith prior exposure to HIV-1 and/or HIV-2 may be due toantigen and antibody levels that are below the limit ofdetection of this assay.The [employer] HIV Ag/Ab Combo assay result andsupplemental assay results should be interpreted inconjunction with the patient's clinical presentation,history and other laboratory results. If the results areinconsistent with clinical evidence, additional testing issuggested to confirm the result. Blood Venous blood specimen / Unknown 10/28/2024 10:02 AM EDT 10/28/2024 10:10 AM EDT us Tirso Caceres MD LAB BLOOD ORDERABLES Final Resul t Performing Organization Address [facility] [[email or web address]] Co de Phone Number [facility] [address] [place] [address] [phone] * Hepatitis B Surface Antibody, Qualitative (10/28/2024 10:02 AM EDT) Pathologist [facility] ~Hepatitis B Surface Antibody REACTIVE Nonreactive [facility] Comment:REACTIVE: > 11.99 mI U/mL Blood Venous blood specimen / Unknown 10/28/2024 10:02 AM EDT 10/28/2024 10:10 AM EDT Tirso Caceres MD LAB BLOOD ORDERABLES Final Resul t Performing Organization Address [facility] [[email or web address]] Co de Phone Number [facility] [address] [place] [phone] * (ABNORMAL) Basic Metabolic Panel (10/28/2024 10:02 AM EDT) Only the most recent of2 resultswithin the time period is included. [facility] Sodium 138 135 - 145 mmol/L [facility] Potassium 4.1 3.3 - 5.1 mmol/L [facility] Chloride 104 96 - 108 mmol/L [facility] Carbon Dioxide 28 22 - 29 mmol/L [facility] Anion Gap 10(L) 12 - 20 [facility] Urea Nitrogen (BUN) 12 9 - 16 mg/dL [facility] Creatinine, Serum 0.72 0.5 - 1.4 mg/dL [facility] Estimated Glomerular Filt Rate >60 [facility] Comment:Chronic Kidney Disea se: Estimated GFR < 60 mL/min/[id number] Kidney Disease: Estimated GFR < 15 mL/min/1.73m2 Glucose 81 60 - 115 mg/dL [facility] Calcium 9.2 8.4 - 10.2 mg/dL [facility] 10/28/2024 10:0 2 AM EDT 10/28/2024 10:10 AM EDT us Generic External Data Provider LAB BLOOD ORDERAB LES Final Result Performing Organization Address [facility]/ZIP Co de Phone Number [facility] [address] [place] [phone] * FL guided lumbar puncture LP (10/06/2024 12:04 PM EDT) Anatomical Region Laterality Modality Abdomen Radiographic Meredith ging 10/06/2024 12:0 4 PM EDT Narrative 10/06/2024 1:31 PM EDT ? [facility] ?[address] ?[place] [address] ? Fluoroscopy Report ? Signed ? Patient: Corwin,Beatrice ?MR#: [id number] ?? [id number] ? : 1985 ?Acct:[id number] ? Age/Sex: 39 / F ?ADM Date: 10/06/24 ? Loc: [facility] ?MEDSURG-1 ? Attending Dr: Hector Degroot MD ? Ordering Physician: Shannon Pelaez DO ?? Date of Service: 10/06/24 ?? Procedure(s): FL guided lumbar puncture LP ?? Accession Number(s): [id number] ? cc: Denisse Evangelista; Shannon Pelaez DO [...] Pierre MD ??10/06/2024 01:28 PM EDT RP ? Dictated By: ?Aristeo Pierre MD ? Signed By: ?<Electronically signed by Aristeo Pierre MD in OV> ?10/06/24 1328 ? DD/ 1204 ? TD/TT: 10/06/24 1245 ? Procurement Services Manager: MSM ? Procedure Note Donotuseinterpreter, Image - 10/06/[address] [address] Fluoroscopy Report Signed Patient: Dinora Olivia#: [id number] : 1985Acct:[id number] Age/Sex: 39 / FADM Date: 10/06/24 [facility] [place] [address]: Hector Degroot MD Ordering Physician: Shannon Pelaez DO Date of Service: 10/06/24 Procedure(s): FL guided lumbar puncture LP Accession Number(s): [id number] cc: Denisse Evangelista; Shannon Pelaez DO EXAMINATION: [...] Aristeo Pierre MD 10/06/2024 01:28 PM EDT RP Dictated By: Aristeo Pierre MD Signed By: <Electronically signed by Aristeo Pierre MD in OV> 10/06/24 1328 DD/ 1204 TD/TT: 10/06/24 1245 Procurement Services Manager: [facility] External Provider IMG FLU OROSCOPY PROCEDURES Final Result * (ABNORMAL) Prothrombin Time-INR (10/06/2024 9:14 AM EDT) Prothrombin Time 12.8(H) 10.9 - 12.4 SEC [facility] INTERNATIONAL NORM RATIO 1.1 0.9 - 1.1 [facility] Comment:INTERNATIONAL NORMAL IZED RATIO (INR) [...] 9:14 AM EDT 10/06/2024 9:15 AM EDT Generic External Data Provider LAB BLOOD ORDERAB LES Final Result [facility] [address] [place] [phone] * (ABNORMAL) CBC auto differential (10/06/2024 8:49 AM EDT) Only the most recent of3 resultswithin the time period is included. White Blood Count 10.9(H) 4.8 - 10.8 X10*3/uL [facility] Red Blood Count 4.34 4.20 - 5.50 X10*6/uL [facility] Hemoglobin 12.6 12.0 - 16.0 g/dl [facility] Hematocrit 36.7(L) 37.0 - 47.0 % [facility] Mean Corpuscular Volume 84.6 80.0 - 98.0 fL [facility] Mean Corpuscular Hemoglobin 29.0 27.0 - 33.0 pg [facility] Mean Corpuscular HGB Conc 34.3 31.0 - 35.0 g/dl [facility] Red Cell Distribution Width 13.3 11.0 - 16.0 % [facility] Platelet Count 435(H) 160 - 400 X10*3/uL [facility] Mean Platelet Volume 8.8(L) 9.4 - 12.3 fL [facility] Neutrophils Percent Auto 65.3 45 - 73 % [facility] Imm Gran Pct Auto 0.4 0.0 - 0.4 % [facility] Lymphocytes Percent Auto 28.2 20 - 40 % [facility] Monocytes Percent Auto 4.0 2 - 11 % [facility] Eosinophils Percent Auto 1.8 0 - 4 % [facility] Basophils Percent Auto 0.3 0 - 2 % [facility] NRBC Pct Auto 0.0 0.0 - 0.2 /100WBC [facility] Neutrophils Absolute Auto 7.1 2.0 - 8.3 x10*3/uL [facility] Imm Gran Abs Auto 0.04(H) 0.00 - 0.03 X10*3/uL [facility] Lymphocytes Absolute Auto 3.1 1.2 - 4.9 X10*3/uL [facility] Monocytes Absolute Auto 0.4 0.1 - 1.2 X10*3/uL [facility] Eosinophils Absolute Auto 0.2 0.0 - 0.4 X10*3/uL [facility] Basophils Absolute Auto 0.0 0.0 - 0.2 X10*3/uL [facility] NRBC Abs Auto 0.000 0.0 - 0.012 X10*3/uL [facility] 10/06/2024 8:49 AM EDT 10/06/2024 8:52 AM EDT us Generic External Data Provider LAB BLOOD ORDERAB LES Final Result Performing Organization Address City/[facility]/ZIP Co de Phone Number [facility] [address] [place] [phone] * hCG, Total, Quantitative (10/06/2024 8:49 AM EDT) Only the most recent of2 resultswithin the time period is included. Pathologist [facility] HCG Quantitative <2 mIU/mL [facility] Comment:Weeks post LMP Appro ximate hCG(Last Menstrual Period) Range (mIU/ml)3 - 4 weeks 9 - 1304 - 5 weeks 75 - 2,6005 - 6 weeks 850 - 20,8006 - 7 weeks 4000 - 100,2007 - 12 weeks 11,500 - 289,69179 - 16 weeks 18,300 - 137,04374 - 29 weeks (2nd trimester) 1,400 - 53,28674 - 41 weeks (3rd trimester) 940 - [...] ORDERAB LES Final Result Performing Organization Address City/[facility]/ZIP Co de Phone Number [facility] [address] [place] [phone] * (ABNORMAL) Comprehensive Metabolic Panel (10/06/2024 8:49 AM EDT) Only the most recent of2 resultswithin the time period is included. Sodium 137 135 - 145 mmol/L [facility] Potassium 3.7 3.3 - 5.1 mmol/L [facility] Chloride 104 96 - 108 mmol/L [facility] Carbon Dioxide 28 22 - 29 mmol/L [facility] Anion Gap 9(L) 12 - 20 [facility] Urea Nitrogen (BUN) 10 9 - 16 mg/dL [facility] Creatinine, Serum 0.72 0.5 - 1.4 mg/dL [facility] Creatinine Clr Calc Pharmacy 136.7 [facility] Comment:Provided height and weight: 154.94 cm,134.7 kg.eGFR (calculated from the MDRD study equation) and eCrCl(calculated from the Cockcroft-Gault equation) are based ondifferent parameters and may not yield comparable results.If eCrCl result is absurd, please check patient'sheight/weight. Estimated Glomerular Filt Rate >60 [facility] Comment:Chronic Kidney Disea se: Estimated GFR < 60 mL/min/1.75r9Vyslbh Kidney Disease: Estimated GFR < 15 mL/min/1.73m2 Glucose 124(H) 60 - 115 mg/dL [facility] Calcium 9.1 8.4 - 10.2 mg/dL [facility] Bilirubin, Total 0.4 0.0 - 1.0 mg/dL [facility] Aspartate Amino Transferase 14 5 - 31 U/L [facility] Alanine Aminotransferase 17 0 - 31 U/L [facility] Total Protein 7.4 6.5 - 8.0 g/dL [facility] Albumin Level 3.5 3.5 - 5.0 g/dL [facility] Alkaline Phosphatase 66 39 - 117 U/L [facility] 10/06/2024 8:49 AM EDT 10/06/2024 8:52 AM EDT us Generic External Data Provider LAB BLOOD ORDERAB LES Final Result [facility] [address] [place] [address] [phone] * (ABNORMAL) Confirmatory Syphilis Profile (10/01/2024 11:15 PM EDT) [facility] Rapid Plasma Reagin, Quant Reactive 1:2047 Nonreactive [facility] Treponema pallidum Antibody, Particle Agglutination Reactive(A) Nonreactive [facility] Comment:These results must b e reported by the ordering clinician orclinical facility to the [facility] required by state law.Testing performed at: [address] [address] 10/01/2024 11:1 5 PM EDT 10/02/2024 4:06 AM EDT Generic External Data Provider LAB BLOOD ORDERAB LES Final Result Performing Organization Address [facility]/ZIP Co de Phone Number [facility] [address] [place] [phone] * (ABNORMAL) Syphilis Screen (10/01/2024 11:15 PM EDT) [facility] Syphilis Screen Reactive( A) Nonreactive [facility] Comment:Reactive specimens a re sent to the [facility] Labfor confirmatory tests. 10/01/2024 11:1 5 PM EDT 10/01/2024 11:22 PM EDT Generic External Data Provider LAB BLOOD ORDERAB LES Final Result Performing Organization Address City/[facility]/ZIP Co de Phone Number [facility] [address] [place] [phone] * Hepatitis Panel, General (10/01/2024 11:15 PM EDT) [facility] Hepatitis A IgM Nonreactive Nonreactive [facility] Comment:IgM antibodies to SINGER V not detected; does not exclude earlyacute or recovered HAV infection. ~Hepatitis B Surface Antibody REACTIVE Nonreactive [facility] Comment:REACTIVE: > 11.99 mI U/mL Hepatitis B Core Antibody Nonreactive Nonreactive [facility] Hepatitis C Antibody Nonreactive Nonreactive [facility] Comment:Antibodies to HCV no t detected; does not exclude early acuteHCV infection. Hepatitis B Surface Ag Negative Negative [facility] 10/01/2024 11:1 5 PM EDT 10/01/2024 11:22 PM EDT us Generic External Data Provider LAB BLOOD ORDERAB LES Final Result [facility] [address] [place] [address] [phone] * Chlamydia/N. Gonorrhoeae RNA, TMA, Urogenitial (10/01/2024 11:15 PM EDT) CT PCR NOT DETECTED Not Detect. [facility] Comment:A not detected test result [...] psychologicalconsequences. NG PCR NOT DETECTED Not Detect. [facility] Comment:A not detected test result [...] 5 PM EDT 10/01/2024 11:22 PM EDT [facility] - 10/02/2024 6:03 AM EDT Urine Generic External Data Provider LAB MICROBIOLOGY - GENERAL ORDERABLES Final Result Performing Organization Address [facility] [[email or web address]] Co de Phone Number [facility] [address] [place] [phone] * Magnesium (10/01/2024 7:27 PM EDT) [facility] Magnesium 1.9 1.6 - 2.6 mg/dL [facility] 10/01/2024 7:27 PM EDT 10/01/2024 7:37 PM EDT [facility] - 10/01/2024 11:29 PM EDT dehydrated, no good flow Generic External Data Provider LAB BLOOD ORDERAB LES Final Result Performing Organization Address [facility] de Phone Number [facility] [address] [place] [phone] * Lyme Disease Ab with Reflex to Blot (IgG, IgM) (09/29/2024 11:54 AM EDT) [facility] Lyme Antibody Screen <0.90 index [facility] Comment:Index Interpretation ----- < 0.90 [...] when erythemamigrans is apparent.THIS TEST WAS PERFORMED AT:[facility] [address] [phone] SHEPHERD MD Lyme Blot TNP [facility] 09/29/2024 11:5 4 AM EDT 09/29/2024 1:50 PM EDT Tirso Caceres MD LAB BLOOD ORDERABLES Final Resul t Performing Organization Address [facility] de Phone Number [facility] [address] [place] [phone] * (ABNORMAL) Parvovirus B19 Antibodies (IgG,IgM) (09/29/2024 11:54 AM EDT) Parvovirus B19 Antibody (IgG) 2.22(A) [facility] Comment:Reference Range<0.9 Negative0.9-1.1 Equivocal>1.1 PositiveIgG persists for years and provides life-long immunity.To diagnose current infection, consider GwkwbwetmbS02 DNA, PCR. Parvovirus B19 Antibody (IgM) <0.9 [facility] Comment:Reference Range<0.9 Negative0.9-1.1 Equivocal>1.1 PositiveResults [...] consider parvovirus B19 DNA,PCR.THIS TEST WAS PERFORMED AT:[facility] [address] [phone] SHEPHERD MD 09/29/2024 11:5 4 AM EDT 09/29/2024 1:50 PM EDT us Tirso Caceres MD LAB BLOOD ORDERABLES Final Resul t Performing Organization Address [facility] [[email or web address]] Co de Phone Number [facility] [address] [place] [address] [phone] * (ABNORMAL) RPR (Monitor) with Reflex to??Titer (09/29/2024 11:54 AM EDT) RPR (Monitor) w/Refl Titer REACTIVE( A) NON-REACT [facility] Comment:The RPR is a non-chapo ponemal-specific test; therefore,a treponemal- specific confirmatory test should beperformed unless prior syphilis infection has beendocumented for this patient.THIS TEST WAS PERFORMED AT:[facility] [address] [phone] SHEPHERD MD Rapid Plasma Reagin Ab Titer 1:256(A) [facility] Comment:THIS TEST WAS PERFOR MED AT:[facility] [address] [phone] SHEPHERD MD Blood Venous blood specimen / Unknown 09/29/2024 11:54 AM EDT 09/29/2024 1:50 PM EDT us Tirso Caceres MD LAB BLOOD ORDERABLES Final Resul t Performing Organization Address [facility] de Phone Number [facility] [address] [place] [phone] * Rheumatoid Factor (09/29/2024 11:54 AM EDT) Rheumatoid Factor <13.0 <15.0 IU/mL [facility] Blood Venous blood specimen / Unknown 09/29/2024 11:54 AM EDT 09/29/2024 1:50 PM EDT us Tirso Caceres MD LAB BLOOD ORDERABLES Final Resul t Performing Organization Address [facility] [[email or web address]] Co de Phone Number [facility] [address] [place] [phone] * (ABNORMAL) BRIE Screen,IFA, with Reflex to Titer and Pattern (09/29/2024 11:54 AM EDT) Anti Nuclear Antibody Screen POSITIVE (A) NEGATIVE [facility] Comment:BRIE IFA is a first l ine screen for detecting thepresence of up to approximately 150 autoantibodies invarious autoimmune diseases. A positive BRIE IFA resultis suggestive of autoimmune disease and reflexes totiter and pattern. Further laboratory testing may beconsidered if clinically indicated.For additional information, please refer tohttp://education.ScraperWiki/faq/HXQ258(This link is being provided for informational/educational purposes only.) BRIE Titer 1:80(A) titer [facility] Comment:A low level BRIE tite r may be present in pre-clinicalautoimmune diseases and normal individuals. Reference Range <1:40 Negative 1:40-1:80 Low Antibody Level >1:80 Elevated Antibody Level BRIE Pattern (A) [facility] Comment:Mitotic, Spindle Fib ers Abnormal Flag: AThe spindle fibers between the poles are stained inmitotic cells, associated with cone-shaped decorationof the mitotic poles. The pattern is rare in Sjogren'ssyndrome, systemic lupus erythematosus (SLE), andother connective tissue diseases.AC-25: Spindle FibersInternational Consensus on BRIE Patterns(https://doi.org/10.1515/hajr-0629-1319)THIS TEST WAS PERFORMED AT:[facility] [place] [phone] SHEPHERD MD BRIE TITER 2 (REF LAB) [facility] BRIE Pattern 2 [facility] BRIE TITER 3 [facility] BRIE PATTERN 3 [facility] Blood Venous blood specimen / Unknown 09/29/2024 11:54 AM EDT 09/29/2024 1:50 PM EDT us Tirso Caceres MD LAB BLOOD ORDERABLES Final Resul t [facility] [address] [place] [phone] [phone] * POCT HGB A1C (02/18/2024 9:50 AM EDT) Hemoglobin A1C 5.8 4.0 - 6.0 % QC Media Lot # [id number] Lot# Expiration Date ,480,051 Blood 02/18/2024 9:50 AM EDT Denisse Evangelista BUSINESS CONTROLLER POINT OF CARE TEST ENTER/EDIT O RDERABLES Final Result * (ABNORMAL) Lipid Panel, Standard (11/12/2023 10:55 AM EDT) Triglycerides 104 <150 mg/dL [facility] Comment:Desirable Triglyceri de: less than 150 mg/dLBorderline High Triglyceride 150-199 mg/dLHigh Triglyceride: 200-499 mg/dLVery High Triglyceride: greater than or equal to 5OO mg/dL Cholesterol 157 <200 mg/dL [facility] Comment:Desirable Cholestero l: less than 200 mg/dLBorderline High Cholesterol: 200-239 mg/dLHigh Cholesterol: greater than 239 mg/dL LDL Cholesterol Calculated 100(H) <100 mg/dL [facility] Comment:Desirable LDL: less than 100 mg/dLNear Optimal/Above Optimal LDL: 110- 129 mg/dLBorderline High LDL: 130-159 mg/dLHigh LDL: 160-189 mg/dLVery High LDL: greater than or equal to 190 mg/dL HDL Cholesterol 37(L) >40 mg/dL [facility] Comment:Desirable HDL: great er than 40 mg/dL Note: This HDL assay may give artificially low results in patients with liver disease. Blood Venous blood specimen / Unknown 11/12/2023 10:55 AM EDT 11/13/2023 2:40 PM EDT us Denisse Evangelista BUSINESS CONTROLLER LAB BLOOD ORDERABLES Final Resu lt [facility] [address] [place] [phone] [phone] * (ABNORMAL) Image-Guided Pap with Age-Based Screening??with CT/NG,??Trichomonas (05/23/2023 11:22 AMEDT) Trichomonas (NAAT) DETECTED(A) NOT DETECTED [facility] Comment:The analytical perfo rmance characteristics of thisassay have been determined by [employer]. Themodifications have not been cleared or approved bythe FDA. This assay has been validated pursuant to theIA regulations and is used for clinical purposes.For additional information, please refer tohttp://[employer].Teads/faq/Trichomonastma(This link is being provided for information/educational purposes only.)THIS TEST WAS PERFORMED AT:[facility] [place] [phone] SHEPHERD MD CTNG Ref Lab NOT DETECTED NOT DETECTED [facility] NG Ref Lab NOT DETECTED NOT DETECTED [facility] Pap Vial 05/23/2023 11:2 2 AM EDT 05/26/2023 11:00 AM EST Leslie Horan PIPE COVERER LAB CYTOLOGY ORDERABLES Final Result [facility] [address] [place] [phone] * HPV mRNA E6/E7 w/Reflex to HPV Genotypes 16, 18/45 (05/23/2023 11:22 AM EDT) HPV nRNA E6/E7 Not Detected Not Detected [facility] Comment:Methodology: Transcr iption-Mediated AmplificationThis assay detects E6/E7 viral messenger RNA (mRNA) from 14high-risk HPV types (16,18,31,33,35,39,45,51,52,56,58,59,66,68).Cervical sources are required for HPV testing.If a vaginal source from a patient who has had atotal hysterectomy with removal of cervix wassubmitted, please contact the testing laboratoryfor alternative testing options.For additional information, please refer tohttp://education.Teads/faq/LRF436q5(This link if provided for information/educational purposes only.)THIS TEST WAS PERFORMED AT:[facility] [place] [phone] SHEPHERD MD HPV mRNA E6/E7 [facility] HPV 16 RNA [facility] HPV 18/45 RNA [facility] 05/23/2023 11:2 2 AM EDT 05/26/2023 11:00 AM EST Leslie Horan PIPE COVERER LAB CYTOLOGY ORDERABLES Final Result [facility] [address] [place] [address] [phone] from Last 3 Months or Most Recently Relevant to Health Maintenance [place] [address] [place] [address] STANDARD Care Teams Hook Puller Relationship Specialty Start Date End Date Denisse Evangelista NP [address] [place] [phone] PCP - General Family Medicine [facility]
--- OUTSIDE RECORDS SUMMARY | 2024-11-17 09:15 | XMS_ITS | Encounter Summary ---
Author Organization [employer] Address [address] [place] [address] [address] [place] [address] Care Team Providers Care Teacher Adventure Education Name Role Phone Denisse Evangelista NP Primary Care Provider [phone] Reason for Visit * Reason Onset Date Comments Call Back Request 11/05/2024 INSURANCE Called pt regard ing insurance. Suggested pt to come to insurance enrollment today . Pt stated she doesn't have a ride today wont be able to come. Pt was okay to r/s appointment nurses will give pt a call to r/s appt . Encounter Details Date Type Department Care Team (Late st Contact Info) Description 11/05/2024 Telephone [facility] [address] [place] [address] Denisse Evangelista NP [address] [place] [address] Call Back Request; INSURANCE (Called pt regarding insurance. Suggested pt to come to insurance enrollment today . Pt stated she doesn't have a ride today wont be able to come. Pt was okay to r/s appointment nurses will give pt a call to r/s appt . ) Social History Tobacco Use Types Packs/Day Years [...] Telephone Encounter - Barbara Brunson RN - 11/15/2024 9:46 AM EDT Images from the original note were not included. TC placed to pt to schedule nurse visit for penicillin G injection per below PCP message. No answer, LVM to call office back and ask to speak to the blue team nurses. MARYLIN Mueller RN Caller: Unspecified (1 week ago) I have placed order for patient to receive Pen G injection 2.4 mil units (1.4 mill U in each gluteal muscle) please call and schedule RN visit to administer. Thanks * Telephone Encounter - Spring Harvey - 11/09/2024 9:47 AM EDT Called pt regarding insurance. Suggested pt to come to insurance enrollment today . Pt stated she doesn't have a ride today wont be able to come. Pt was okay to r/s appointment nurses will give pt a call to r/s appt . * Telephone Encounter - Barbara Brunson RN - 11/05/2024 3:14 PM EDT TC placed to Barbara LEARY regarding penicillin G injection. VNA states that [facility] advised them that the PCP is to prescribed the penicillin G. TC placed to [facility]. Staff states that the provider note states they will reach out the PCP in regards to prescribing the penicillin G as they do not do the penicillin G injection there. Rn Prior Authorization asked if provider will be reaching out to PCP. Staff states they have spoken to the pt and the pt's VNA regarding thisand staff states they sent a message to the provider regarding this. TC placed to [place] [facility] to inform of [facility] message and that a message will be sent to PCP regarding this. Barbara with [facility] verbalized understanding and denies questions at this time. Message forwarded to PCP to review and advise. * Telephone Encounter - Junaid Singh - 11/05/2024 2:47 PM EDT Tc from Barbara with the [facility] requesting a call back to discuss getting pt the Injection for Penicillin. Contact Barbara at [phone] documented in this encounter Plan of Treatment Upcoming Encounters Date Type Department Care Team (Late st Contact Info) Description 11/29/2024 9:30 AM EDT Office Visit [facility] [address] [place] [address] Denisse Evangelista NP [address] [place] [address] 01/26/2025 10:45 AM EDT Office Visit [facility] [address] [place] [address] Denisse Evangelista NP [address] [place] [address] documented as of this encounter Visit Diagnoses Not on filedocumented in this encounter Additional Health Concerns Assessment Noted Time PHQ-9 Depression Total Score: 8 02/18/20 24 10:12 AM EDT documented as of this encounter Care Teams Teacher Adventure Education Relationship Specialty Start Date End Date Denisse Evangelista NP [address] [place] [address] PCP - General Family Medicine 07/10/23 [facility] 10/13/24 documented as of this encounter
--- NOTE | 2024-11-17 09:28 | AM.OFFVISNUR ---
Vital Signs 11/17/24 09:47 BP 115/58 L Blood Pressure Location Lt radial Position Sitting Intake Visit Reasons: Penicilan injection Allergies latex Allergy (Unknown, Verified 11/03/24 14:36) Unknown furosemide [From Lasix] Allergy (Verified 11/03/24 14:36) Rash lactose Allergy (Verified 11/03/24 14:36) Gastrointestinal Upset Nursing Note Beatrice presents today for Penicillin G benzathine 2.4mmu IM injection ordered by Dr. Jade. Beatrice is alert and oriented with appropriate affect. Injection allowed to come to room temperature given in right outer upper quadrant of gluteal muscle. Patient tolerated injection well. Educated on signs and symptoms of infection related to injection site; voiced understanding and will follow up with the office if any negative signs or symptoms/concerns arise. Coding
[2024-11-17 09:47] VITALS: BP 115/58
== END 2024-11-17 09:35 | disposition home or self-care (01) ==
LOC: HO.HCC 08:51
PROVIDERS: PCP Nurse Practitioner
DX: A52.3 Neurosyphilis, unspecified (principal)

== ENCOUNTER → 2024-11-17 08:51 | Outpatient (BNVA) | payer MEDICAID, SELFPAY | PROVIDERS: PCP Nurse Practitioner | DX: A52.3 Neurosyphilis, unspecified (principal) | CPT/HCPCS: 96372; J0561 ==

== ENCOUNTER 2024-12-17 15:02 | Outpatient (REF) | payer MEDICAID, SELFPAY ==
--- OUTSIDE RECORDS SUMMARY | 2024-12-17 15:05 | XMS_ITS | Encounter Summary ---
Author Organization [employer] Address [address] [place] [address] [place] [address] Care Team Providers Care Underground Truck Operator Name Role Phone Denisse Evangelista NP Primary Care Provider [phone] Reason for Visit * Reason Onset Date Comments Call Back Request 10/28/2024 Encounter Details Date Type Department Care Team ([facility] Contact Info) Description 10/28/2024 Telephone [facility] [address] [place] [address] Denisse Evangelista NP [address] [place] [address] Call Back Request Social History Tobacco Use [...] 11/01/2024 11:19 AM EDT Pt discharged from [facility] 10/12/24 Dx: neurosyphilis/otosyphilis. Call returned to pt [...] to keep him updated. Contact pt at [phone] documented in this encounter Plan of Treatment Upcoming Encounters Date Type Department Care Team (Late st Contact Info) Description 01/26/2025 10:45 AM EDT Office Visit [facility] [address] [place] [address] Denisse Evangelista NP [address] [place] [address] 05/02/2025 1:30 PM EDT Office Visit [facility] [address] [place] [address] Jaspal, Geetha, OD [address] [place] [address] documented as of this encounter Visit Diagnoses Not on filedocumented in this encounter Additional Health Concerns Assessment Noted Time PHQ-9 Depression Total Score: 8 02/18/20 24 10:12 AM EDT documented as of this encounter Care Teams Underground Truck Operator Relationship Specialty Start Date End Date Denisse Evangelista NP [address] [place] [address] PCP - General Family Medicine 07/10/23 [facility] 10/13/24 documented as of this encounter
[2024-12-17 17:40] LABS: Anion Gap 8 (12-20); Blood Urea Nitrogen 12 mg/dL (9-16); Calcium 9.5 mg/dL (8.4-10.2); Carbon Dioxide 29 mmol/L (22-29); Chloride 103 mmol/L (96-108); Estimated Glomerular Filt Rate > 60; Glucose Random 83 mg/dL (60-115); Potassium 3.7 mmol/L (3.3-5.1); Sodium 136 mmol/L (135-145)
== END 2024-12-17 15:03 | disposition home or self-care (01) ==
LOC: HO.HHCL 15:02
DX: R07.2 Precordial pain (principal)
CPT/HCPCS: 36415; 80048

== ENCOUNTER 2025-01-26 12:01 | Outpatient (REF) | payer MEDICAID, SELFPAY ==
--- OUTSIDE RECORDS SUMMARY | 2025-01-26 13:09 | XMS_ITS | Encounter Summary ---
Author Organization [employer] Address [address] [place] [address] [place] [address] Care Team Providers Care Blue Leather Setter Name Role Phone Denisse Evangelista NP Primary Care Provider [phone] Reason for Visit * Reason Onset Date Comments Call Back Request 10/28/2024 Encounter Details Date Type Department Care Team ([facility] Contact Info) Description 10/28/2024 Telephone [facility] [address] [place] [address] Denisse Evangelista NP [address] [place] [address] Call Back Request Social History Tobacco Use [...] with others, in a hotel, in a alf, living outside on the street, on a [...] 11/01/2024 11:19 AM EDT Pt discharged from [facility] 10/12/24 Dx: neurosyphilis/otosyphilis. Call returned [...] to keep him updated. Contact pt at [phone] documented in this encounter Plan of Treatment Upcoming Encounters Date Type Department Care Team (Late st Contact Info) Description 03/09/2025 9:30 AM EDT Office Visit [facility] [address] [place] [address] Denisse Evangelista NP [address] [place] [address] 05/02/2025 1:30 PM EDT Office Visit [facility] [address] [place] [address] Jaspal, Geetha, OD [address] [place] [address] documented as of this encounter Visit Diagnoses Not on filedocumented in this encounter Additional Health Concerns Assessment Noted Time PHQ-9 Depression Total Score: 8 02/18/20 24 10:12 AM EDT documented as of this encounter Care Teams Blue Leather Setter Relationship Specialty Start Date End Date Denisse Evangelista NP [address] [place] [address] PCP - General Family Medicine 07/10/23 [facility] 10/13/24 documented as of this encounter
--- OUTSIDE RECORDS SUMMARY | 2025-01-26 13:09 | XMS_ITS | Clinical Summary ---
Author Organization [facility] Address [address] [place] [address] Phone Care Team Providers Care Supervisor Alteration Workroom Name Role Phone Unavailable Primary Care Provider [...] 08/14/2024 Depression Screening 02/17/2025 02/18/2024 Influenza Vaccine (#1) 2025 3, 06/07/2021 Hypertension/CHF/CAD Annual BMP Blood Test 08/13/2025 [...] 5 Years) and At-Risk Patients (6 to 49 Years) Aged Out No longer eligible b ased on patient's age to complete this topic RSV Immunization Patients Under 20 months Aged Out No longer eligible b ased on patient's age to complete this topic Varicella Vaccines Aged Out No longer eligible based on patient's age to complete this topic
[2025-01-26 16:52] LABS: Anion Gap 12 (12-20); Blood Urea Nitrogen 14 mg/dL (9-16); Calcium 9.7 mg/dL (8.4-10.2); Carbon Dioxide 28 mmol/L (22-29); Chloride 100 mmol/L (96-108); Cholesterol 178 mg/dL (<200); Estimated Glomerular Filt Rate > 60; HDL Cholesterol 39 mg/dL (>40); Potassium 3.9 mmol/L (3.3-5.1); Sodium 136 mmol/L (135-145); Triglycerides 128 mg/dL (<150)
[2025-01-26 17:12] LABS: Microalbum/Creatinine Ratio Ur 6.6 ug/mg cr (<30)
[2025-01-27 10:19] LABS: CT PCR Urine NOT DETECTED (Not Detect.); NG PCR Urine NOT DETECTED (Not Detect.)
[2025-01-28 13:54] LABS: Rapid Plasma Reagin Ab Titer 1:32
== END 2025-01-26 12:02 | disposition home or self-care (01) ==
LOC: HO.HHCL 12:01
PROVIDERS: Emergency Medicine; PCP Nurse Practitioner; Visit Provider Nurse Practitioner
DX: I10 Essential (primary) hypertension (principal); A52.3 Neurosyphilis, unspecified
CPT/HCPCS: 36415; 80048; 80061; 82043; 82570; 86592; 86593; 87491; 87591

== ENCOUNTER 2025-01-27 08:31 | Outpatient (REF) | payer MEDICAID, SELFPAY ==
--- OUTSIDE RECORDS SUMMARY | 2025-01-27 08:41 | XMS_ITS | Encounter Summary ---
Author Organization [email or web address] Address [address] [place] [address] [place] [address] Care Team Providers Care Rd Scientist Name Role Phone Denisse Evangelista NP Primary Care Provider [phone] Reason for Visit * Reason Onset Date Comments Call Back Request 10/28/2024 Encounter Details Date Type Department Care Team ([facility] Contact Info) Description 10/28/2024 Telephone [facility] [address] [place] [address] Denisse Evangelista NP [address] [place] [address] Call Back Request Social History Tobacco Use [...] 11/01/2024 11:19 AM EDT Pt discharged from [facility] 10/12/24 Dx: neurosyphilis/otosyphilis. Call returned to pt [...] to keep him updated. Contact pt at [phone] documented in this encounter Plan of Treatment Upcoming Encounters Date Type Department Care Team (Late st Contact Info) Description 03/09/2025 9:30 AM EDT Office Visit [facility] [address] [place] [address] Denisse Evangelista NP [address] [place] [address] 05/02/2025 1:30 PM EDT Office Visit [facility] [address] [place] [address] Jaspal, Geetha, OD [address] [place] [address] documented as of this encounter Visit Diagnoses Not on filedocumented in this encounter Additional Health Concerns Assessment Noted Time PHQ-9 Depression Total Score: 8 02/18/20 24 10:12 AM EDT documented as of this encounter Care Teams Rd Scientist Relationship Specialty Start Date End Date Denisse Evangelista NP [address] [place] [address] PCP - General Family Medicine 07/10/23 [facility] 10/13/24 documented as of this encounter
--- OUTSIDE RECORDS SUMMARY | 2025-01-27 08:41 | XMS_ITS | Clinical Summary ---
Author Organization [facility] Address [address] [place] [address] Phone Care Team Providers Care Tile Power Shear Operator Name Role Phone Unavailable Primary Care [...]
== END 2025-01-27 08:32 | disposition home or self-care (01) ==
LOC: HO.LAB 08:31
PROVIDERS: PCP Nurse Practitioner; Visit Provider Internal Medicine
DX: Z13.89 Encounter for screening for other disorder (principal)

== ENCOUNTER 2025-02-16 16:07 | Outpatient (AMB) | payer MEDICAID, SELFPAY ==
--- OUTSIDE RECORDS SUMMARY | 2025-02-16 16:33 | XMS_ITS | Clinical Summary ---
Author Organization [facility] Address [address] [place] [address] Phone Care Team Providers Care Nurse Advisor Name Role Phone Unavailable Primary Care Provider [...] 2006 COVID-19 Vaccine (2023-2 5 season) 2024 Depression Screening 07/21/2024 HIV Screening 08/14/2024 Hepatitis C Screening 08/14/2024 Social Influencers of Health Screening 08/14/2024 Influenza Vaccine (#1) 2025 3, 06/07/2021 Hypertension/CHF/CAD [...]
--- OUTSIDE RECORDS SUMMARY | 2025-02-16 16:33 | XMS_ITS | Encounter Summary ---
Author Organization [employer] Address [address] [place] [address] [place] [address] Care Team Providers Care Sales Contract Administrator Name Role Phone Denisse Evangelista NP Primary Care Provider [phone] Reason for Visit * Reason Onset Date Comments Call Back Request 10/28/2024 Encounter Details Date Type Department Care Team ([facility] Contact Info) Description 10/28/2024 Telephone [facility] [address] [place] [address] Denisse Evangelista NP [address] [place] [address] Call Back Request Social History Tobacco Use [...] 11/01/2024 11:19 AM EDT Pt [facility] [place] [facility] [place]/12/24 Dx: neurosyphilis/otosyphilis. Call returned to pt [...] to keep him updated. Contact pt at [phone] documented in this encounter Plan of Treatment Upcoming Encounters Date Type Department Care Team (Late st Contact Info) Description 03/09/2025 9:30 AM EDT Office Visit [facility] [address] [place] [address] Denisse Evangelista NP [address] [place] [address] 05/02/2025 1:30 PM EDT Office Visit [facility] [address] [place] [address] Jaspal, Geetha, OD [address] [place] [address] documented as of this encounter Visit Diagnoses Not on filedocumented in this encounter Additional Health Concerns Assessment Noted Time PHQ-9 Depression Total Score: 8 02/18/20 24 10:12 AM EDT documented as of this encounter Care Teams Sales Contract Administrator Relationship Specialty Start Date End Date Denisse Evangelista NP [address] [place] [address] PCP - General Family Medicine 07/10/23 [facility] 10/13/24 documented as of this encounter
--- NOTE | 2025-02-16 16:55 | MHC.OFFVIS ---
Intake Visit Reasons: lab follow up heidi ordoñez Allergies latex Allergy (Unknown, Verified 11/03/24 14:36) Unknown furosemide (From Lasix) Allergy (Verified 11/03/24 14:36) Rash lactose Allergy (Verified 11/03/24 14:36) Gastrointestinal Upset HPI HPI lab follow up heidi ordoñez: Details: She is doing well. She has hearing completely back and vision good. PFS Medical History Hx of migraines Hx of Surgical History Hx of cholecystectomy Family History Mother Diabetes Asthma COPD (chronic obstructive pulmonary disease) Arthritis Back problem Sleep apnea Father Hypertension Diabetes Brother No problems noted. Brother Sleep apnea Brother No problems noted. Sister No problems noted. Sister No problems noted. Son No problems noted. Social History Household Members: Family Housing: Apartment Do you presently have visiting nurse or other home services: No Alcohol intake: current Alcohol intake frequency: does not drink Alcohol type: wine Patient Tobacco Use Status: Current everyday Tobacco user Tobacco use type: Cigarette Cigarettes Per Day: 3 Second Hand Smoke Exposure: No service: No Review of Systems Const All systems reviewed & are unremarkable except as noted in HPI and below Assessment & Plan Assessment & Plan (1) Neurosyphilis in adult: Comment: She is doing well Code(s): A52.3 - Neurosyphilis, unspecified Category: Medical Plan: Titer is down from 1:256 to 1:32 This is more than four fold Check in three months RPR,virtual visit. Coding Level of Care Code Tele Est Pt Level 3 (45019) Diagnoses Neurosyphilis in adult A52.3
== END 2025-02-16 16:08 | disposition home or self-care (01) ==
LOC: HO.HID 16:07
PROVIDERS: PCP Nurse Practitioner; Visit Provider Internal Medicine
DX: A52.3 Neurosyphilis, unspecified (principal)
CPT/HCPCS: 99213

== ENCOUNTER → 2025-02-16 16:07 | Outpatient (BNVA) | payer MEDICAID, SELFPAY | PROVIDERS: PCP Nurse Practitioner; Visit Provider Internal Medicine | DX: Z71.2 Person consulting for explanation of examination or test findings (principal); A52.3 Neurosyphilis, unspecified | CPT/HCPCS: 99212 ==

== ENCOUNTER 2025-05-06 10:39 | Outpatient (REF) | payer MEDICAID, SELFPAY ==
--- OUTSIDE RECORDS SUMMARY | 2025-05-06 13:00 | XMS_ITS | Data Portability ---
Author Organization [place] - [facility], Allergy Address [address] [address] [place] [address] Care Team Providers Care Chef Broiler Or Fry Name Role Phone KINJAL CLEVELAND Primary Care Provider Assessment Encounter Date Assessment Date Assessment LastModified by Organization Details LastModified Time 08/30/2024 08/30/2024 38-year-old female with a history of tubes as an presents today for evaluation of hearing loss. She did have some temporary improvement with antibiotics and steroids. On exam today there is serous effusion bilaterally. Her MRI showed faint enhancement in the IAC bilaterally and mastoid effusions. Interestingly, her test today showed a sensorineural hearing loss. However, given the effusion, I would recommend trial of tube placement and repeat audiometric testing. She is aware that she may require hearing aids. I recommend continuing fluticasone in the interim. Given MRI findings, would consider repeat in about 6 months. [email or web address] Not available 09/01/2024 10:20:36 10/22/2024 10/22/2024 Exam appears improved and her hearing is subjectively improved. She just finished her course of IV antibiotics for syphilis. Given recent improvement, will give a little more time before proceeding with tube. I am concerned about the TM healing. [email or web address] Not available 10/27/2024 08:57:52 Plan of Treatment Reminders Order Date Submit Date Provider Last Modified By Organization Details Last Modified Time Details Appointments None record ed. Lab None record ed. Referral None record ed. Procedures None record ed. Surgeries None record ed. Imaging None record ed. Medication Orders None record ed. Patient TargetsNo targets recorded. Patient InstructionsNo instructions recorded. Reason for Referral None Reported. Results Created Date Observation Date Name Description Value Unit Range Abnormal Flag Note LastModifiedBy Organization Detail LastModifiedTime 08/30/19 25 audio gram No observ ation record ed. BARCODE Not Available 2024 18:19:20 Result Notes None recorded. Problems Name Problem SNOMED Code Status Onset Date Resolution Date Notes Provider Name and Address Organization Details Recorded Time Sensorineural hearing loss of bilateral ears 596170683 Active 2024 Kendra gallardo [place] [facility] 13:32:35 Syphilis 57594636 Active 2024 SUZAN MART MD [address] [place] [address], [phone] [place] [address] - [facility] 08:56:45 Problem Notes None recorded. Procedures Surgical History Date Name Laterality Status Provider Name and Address Organization Details Recorded Time 08/30/2024 Comp Audio with Tymps - 89619 & 12861 completed Kendra Parker MA [facility] 08/30/2024 13:31:39 Imaging Results None recorded. Procedure Notes None recorded. Medical Equipment None Reported. Allergies Allergen ID Allergen Name Allergen Category Reaction Reaction Severity Criticality Documentation Date Start Date Code Code System Note Provider Name and Address Organization Details Recorded Time 172200 Lasix medicatio n rash Not available low 08/30/2024 79863 1 RxNorm Janet Milton gallardo [place] [facility] 13:46:55 095893 latex environme nt,medica tion rash Not available low 08/30/2024 23454 91 RxNorm Janet Motyka RAYA gallardo [facility] 13:47:09 Medications Name Sig Start Date Stop Date Status Note LastModified by Organization Details LastModified Time cetirizine 10 mg tablet TAKE 1 TABLET (10 MG) BY MOUTH ONCE PER DAY. NEEDED active Not Available Not Available No t Available azithromycin 250 mg tablet TAKE 1 TABLET BY MOUTH DAILY FOR 4 DAYS active Not Available Not Available N ot Available benzonatate 200 mg capsule TAKE 1 CAPSULE BY MOUTH THREE TIMES A DAY FOR 7 DAYS active Not Available Not Available N ot Available sumatriptan 25 mg tablet TAKE 1 TABLET BY MOUTH ONCE IF NEEDED FOR MIGRAINE REPEAT IN 2 HOURS IF NO RELIEF. MAX 2 DOSES/24HRS active Not Available Not Available Not Available lisinopril 20 mg tablet TAKE 1 TABLET BY MOUTH EVERY DAY active Not Available Not Available No t Available prednisone 20 mg tablet TAKE 3 TABLETS (60 MG) BY MOUTH ONCE PER DAY FOR 10 DAYS. active Not Available Not Available No t Available chlorthalido ne 25 mg tablet TAKE 1 TABLET BY MOUTH EVERY DAY active Not Available Not Available No t Available lisinopril 10 mg tablet TAKE 1 TABLET BY MOUTH EVERY DAY IN THE MORNING active Not Available Not Available No t Available cefuroxime axetil 500 mg tablet TAKE 1 TABLET BY MOUTH TWICE A DAY FOR 1 WEEK active Not Available Not Available No t Available albuterol sulfate HFA 90 mcg/actuatio n aerosol inhaler TAKE 1 PUFF BY MOUTH 4 TIMES A DAY NEEDED COUGH FOR 10 DAYS active Not Available Not Available No t Available fluticasone propionate 50 mcg/actuatio n nasal spray,suspen delores TAKE 2 SPRAYS NASALLY DAILY FOR 1 DAY OR DIRECTED INTO EACH NOSTRIL active Not Available Not Available No t Available Ozempic 1 mg/dose (4 mg/3 mL) subcutaneous pen injector INJECT 1 MG UNDER THE SKIN 1 (ONE) TIME PER WEEK. active Not Available Not Available No t Available Paxlovid 300 mg (150 mg x 2)-100 mg tablets in a dose pack TAKE PER PACKAGE INSTRUCTION S active Not Available Not Available No t Available Ozempic 0.25 mg or 0.5 mg (2 mg/3 mL) subcutaneous pen injector INJECT 0.25 MG SUBCUTANEOU SLY WEEKLY active Not Available Not Available N ot Available Vitals Date Recorded Body height Body mass index (BMI) Body weight Provider Name and Address Organization Details Last Updated DateTime 08/30/2024 154.94 cm 56.7 kg/m2 361864.71 g Janet Rose [place] - [facility] 08/30/2024 13:46:25 Date Recorded Body height Body mass index (BMI) Body weight Provider Name and Address Organization Details Last Updated DateTime 10/22/2024 154.94 cm 56.7 kg/m2 440271.71 g Naty Jackson [facility] 10/22/2024 12:11:36 Social History None recorded. Functional Status Question Answer Note LastModified by Organizat ion Details LastModified Time Do you use any illicit or recreational drugs? No Information not available 08/30/2024 Do you or have you ever used any other forms of tobacco or nicotine? Yes Information not available 08/30/2024 What is your level of alcohol consumption? None Information not available 08/30/2024 Mental Status None recorded. Family History Nothing Reported. Medical History Condition Response Allergies/Hayfever N Heart Problems N Anxiety Y Tonsil Infections N Emphysema N Migraines Y Thyroid Problems N Glaucoma N Depression N COPD N Developmental Delay N Nasal or Sinus Problems N Anemia N Immune System Disorder N Anesthesia Complications N Heart Attack ([place]) N Other Skin Condition N Diabetes N Rhinitis N Bleeding Disorder N Food Allergy N Arthritis N Hearing Loss N Hyperlipidemia N Cancer N Stroke N Dementia N Nasal polyps N Asthma N Sleep Disorder N GERD/Reflux N High Cholesterol N Liver Disease N Headaches Y Fibromyalgia N Hypertension N Speech Delay N Kidney Disease N Gynecological HistoryNo gynecological history recorded. Obstetrics History GPAL:G 0 P 0 0 0 0 Past Encounters Encounter ID Performer Location Encounter Start Date Encounter Closed Date Diagnosis/Indication Diagnosis SNOMED-CT Code Diagnosis ICD10 Code Diagnosis IMO Codes Diagnosis Note [id number] SUZAN MART MD [facility] [address] [address] 08/30/2024 12:46:57 08/30/2024 14:25:59 Sensorineural hearing loss of bilateral ears 319143405 H90.3 Audiologic al evaluation results:Ri ght ear:Modera te sloping to severe sensorineu ral hearing loss with excellent word recognitio n.Left ear:Modera te sloping to severe sensorineu ral hearing loss with excellent word recognitio n. Tympanomet ry:Right Ear:Type CLeft Ear:Type B [id number] SUZAN MART MD [facility] [address] [address] 10/22/2024 11:13:32 10/22/2024 13:19:34 Syphilis 22303286 A53.9 Sensorineu ral hearing loss of bilateral ears 386016841 H90.3 Health Concerns Section Related Observation LastModified by Organization Detai ls LastModified Time None Recorded Concern Status LastModified by Organization Details LastModified Time None Recorded Advance Directives Directive None Recorded Payers Insurance Date Sequence Insurance Name Policy Number Policy Samson Covered Member ID Samson Member ID Guarantor Name 10/22/2024 1 [facility] [id number] Beatrice Corwin [id number] Beatrice L Corwin 10/25/2024 1 [place] : [facility] Beatrice L Corwin [id number] Beatrice L Corwin 03/08/2025 1 [facility] PLAN (MEDICAID HMO) [place] Beatrice L Corwin [id number] Beatrice L Corwin 10/25/2024 1 [facility] PLAN (MEDICAID HMO) [place] Beatrice L Corwin [id number] Beatrice L Corwin Notes Date Note Type Note Provider Name and Address Organization Details Recorded Time 08/30/2024 text/html 38 yo F presents for hearing lossFirst noted symptoms in May, got sickHas had episodes in the past, where has had blockage which has improvedNo vertigoSome tinnitus bilaterally Was put on abx and steroids at the end of May for double ear infection and pneumonia Finished another course or prednisone in July, temporarily helped. History of ear tubes Hears some noises unless really lowLeft ear feels congestedRight sided feels like with pressure Sometimes can be itchy She had an MRI on August 13 showing faint areas of contrast enhancement affecting the 8th nerves in the cochlea raising suspicious for vestibular neuritis and there is also extensive bilateral mastoid fluid. There are also retention cysts in the bilateral maxillary sinuses and minimal mucosal thickening in the ethmoid air cells and left posterior sphenoid sinus. SUZAN MART MD [address] [place] [address], [place], [address], [place] - [facility] 09/01/2024 10:21:08 10/22/2024 text/html ROS as noted in the HPI 39 yo F diagnosed with syphilis, broke out with another rash, progressed to the face from the stomach just finished 14 days of PCN admitted to hospital, needs 1 more injection seeing ID 11/03, feels she is hearing a little better SUZAN MART MD [address] [place] [address], [place], [address], [place] [facility] 10/27/2024 08:58:02 OBGyn Episode No OBEpisode recorded.
[2025-05-06 14:16] LABS: Anion Gap 12 (12-20); Blood Urea Nitrogen 13 mg/dL (9-16); Calcium 9.4 mg/dL (8.4-10.2); Carbon Dioxide 29 mmol/L (22-29); Chloride 100 mmol/L (96-108); Estimated Glomerular Filt Rate > 60; Potassium 3.6 mmol/L (3.3-5.1); Sodium 137 mmol/L (135-145)
[2025-05-10 01:59] LABS: Rapid Plasma Reagin Ab Titer 1:16
== END 2025-05-06 10:40 | disposition home or self-care (01) ==
LOC: HO.HHCL 10:39
PROVIDERS: PCP Nurse Practitioner; Referring Provider Internal Medicine; Visit Provider Nurse Practitioner
DX: R73.03 Prediabetes (principal); A52.3 Neurosyphilis, unspecified; I10 Essential (primary) hypertension
CPT/HCPCS: 36415; 80048; 83036; 86592; 86593

== ENCOUNTER 2025-05-23 15:24 | Outpatient (AMB) | payer MEDICAID, SELFPAY ==
--- NOTE | 2025-05-23 15:43 | A.OFFVIS_ITS ---
Vital Signs 05/23/25 15:44 Height 5 ft 1 in Weight 313 lb BMI 59.1 Pulse 80 Pulse Source Pulse Oximeter Pulse Oximetry (%) 98 Oxygen Delivery Method Room Air Intake Visit Reasons: 3 month labs follow up heidi Mari Allergies latex Allergy (Unknown, Verified 05/23/25 15:47) Unknown furosemide (From Lasix) Allergy (Verified 05/23/25 15:47) Rash lactose Allergy (Verified 05/23/25 15:47) Gastrointestinal Upset HPI HPI 3 month labs follow up heidi Mari: Details: History of Present Illness The patient is a 39-year-old female presenting with neurosyphilis. Initially, she had a documented titer of 1:256. Over time, the titer reduced to 1:32 as recorded in January, and is currently 1:16. She generally feels well, expressing no vision issues and has no rash present; however, she reports a sensation of aural fullness, seemingly linked to a recent cold. The patient is presently sexually inactive and not in contact with any previous partners. Review of Systems - Ears, Nose, Throat: Reports sensation of fullness in ears; no vision concerns reported. - Dermatologic: Denies rash. - General: Reports feeling generally well. Physical Exam - Vital Signs- Stable - Ears- Presence of clear fluid - Lungs- Clear - Cardiovascular- Regular rate and rhythm - Abdomen- Soft, non-tender - Extremities- Non-tender - Neurological- Non-focal - Skin- Clear Results - Labs: Titer decreased from 1:256 to 1:32 in January, now 1:16 Plan Patient was informed and verbally consented to the use of an ambient scribe for clinic note documentation during this visit. 1. Neurosyphilis, unspecified A52.3 The patient's neurosyphilis shows improvement with a decreasing titer. Aiming for a further reduction to a level of 1:8 or better. Flonase is recommended for ear fullness caused by cold symptoms. Follow-up is planned in three months to monitor titer levels. Discussion Notes During the visit, I discussed the current status of the patient's neurosyphilis, noting the decrease in titer levels as a positive response to treatment. I explained the importance of continued monitoring and evaluation to ensure the titer reaches an optimal level of 1:8 or lower. For the reported aural fullness, I suggested the use of Flonase as it is likely related to the patient's recent cold. Follow-up was planned in three months to reassess the titer level and clinical status. Medical Decision Making The primary concern for this visit was the ongoing management and monitoring of the patient's neurosyphilis. The decreasing titer levels indicate a favorable response to prior treatments. The goal is further reduction of the titer to 1:8 or lower. I considered the overall stability in her condition and the absence of visual disturbances or rash significant. Given the fullness in her ears, I recom mended Flonase, likely addressing any Eustachian tube dysfunction secondary to a cold. The patient is scheduled for a follow-up in three months to monitor the neurosyphilis progression. Patient Instructions - Use Flonase as directed for ear fullness. - Return for a follow-up in three months to monitor titer levels. - Report any new symptoms, especially changes in vision or skin rash. [facility] Medical History Hx of migraines Hx of Surgical History Hx of cholecystectomy Family History Mother Diabetes Asthma COPD (chronic obstructive pulmonary disease) Arthritis Back problem Sleep apnea Father Hypertension Diabetes Brother No problems noted. Brother Sleep apnea Brother No problems noted. Sister No problems noted. Sister No problems noted. Son No problems noted. Social History Household Members: Family Housing: Apartment Do you presently have visiting nurse or other home services: No Alcohol intake: current Alcohol intake frequency: does not drink Alcohol type: wine Patient Tobacco Use Status: Current everyday Tobacco user Tobacco use type: Cigarette Cigarettes Per Day: 3 Second Hand Smoke Exposure: No service: No Physical Exam Vital Signs: Last Vital Signs Pulse 80 05/23/25 15:44 Pulse Ox 98 05/23/25 15:44 Oxygen Delivery Method Room Air 05/23/25 15:44 BMI result Body Mass Index 59.1 Assessment & Plan Assessment & Plan (1) Neurosyphilis in adult: Comment: She is doing well Code(s): A52.3 - Neurosyphilis, unspecified Category: Medical Plan: as above Orders: Orders RPR Monitor reflex titer 3 Months A52.3 - Neurosyphilis, unspecified Coding Level of Care Code Est Pt Level 3 (31490) Diagnoses Neurosyphilis in adult A52.3
[2025-05-23 15:44] VITALS: PULSE 80; O2SAT 98; BMI 59.1
--- OUTSIDE RECORDS SUMMARY | 2025-05-23 16:38 | XMS_ITS | Encounter Summary ---
Author Organization [employer] Address [address] [place] [address] [place] [address] Care Team Providers Care Learning Operations Specialist Name Role Phone Denisse Evangelista NP Primary Care Provider [phone] Reason for Visit * Reason Onset Date Comments Call Back Request 10/28/2024 Encounter Details Date Type Department Care Team ([facility] Contact Info) Description 10/28/2024 Telephone [facility] [address] [place] [address] Denisse Evangelista NP [address] [place] [address] Call Back Request Social History Tobacco Use [...] 11:19 AM EDT Pt discharged from [facility] 10/12/24 Dx: neurosyphilis/otosyphilis. Call returned to pt [...] to keep him updated. Contact pt at [phone] documented in this encounter Plan of Treatment Upcoming Encounters Date Type Department Care Team (Late st Contact Info) Description 07/13/2025 2:45 PM EST Office Visit [facility] [address] [place] [address] Denisse Evangelista NP [address] [place] [address] documented as of this encounter Visit Diagnoses Not on filedocumented in this encounter Additional Health Concerns Assessment Noted Time PHQ-9 Depression Total Score: 8 02/18/20 24 10:12 AM EDT documented as of this encounter Care Teams Learning Operations Specialist Relationship Specialty Start Date End Date Denisse Evangelista NP [address] [place] [address] PCP - General Family Medicine 07/10/23 Ata LEEA 10/13/24 documented as of this encounter
--- OUTSIDE RECORDS SUMMARY | 2025-05-23 16:39 | XMS_ITS | Encounter Summary ---
Author Organization [employer] Address [address] [place] [address] 7 [place] [address] Care Team Providers Care Manager Payment Name Role Phone Denisse Evangelista NP Primary Care Provider [phone] Encounter Details Date Type Department Care Team ([facility] st Contact Info) Description 11/10/2024 Orders Only [facility] [address] [place] [address] Denisse Evangelista NP [address] [place] [address] Social History Tobacco Use Types Packs/Day Years [...] with others, in a hotel, in a nursing home, living outside on the street, on [...] Description 07/13/2025 2:45 PM EST Office Visit [facility] [address] [place] [address] Denisse Evangelista NP [address] [place] [address] documented as of this encounter Visit Diagnoses Not on filedocumented in this encounter Additional Health Concerns Assessment Noted Time PHQ-9 Depression Total Score: 8 02/18/20 10:12 AM EDT documented as of this encounter Care Teams Manager Payment Relationship Specialty Start Date End Date Denisse Evangelista NP [address] [place] [address] PCP - General Family Medicine [facility] documented as of this encounter
--- OUTSIDE RECORDS SUMMARY | 2025-05-23 16:39 | XMS_ITS | Encounter Summary ---
Author Organization [employer] Address [address] [place] [address] 7 [place] [address] Care Team Providers Care Auditor Tax Name Role Phone Denisse Evangelista NP Primary Care Provider [phone] Encounter Details Date Type Department Care Team ([facility] Contact Info) Description 05/19/2025 Results Follow-Up [facility] [address] [place] [address] Denisse Evangelista NP [address] [place] [address] Hemoglobin A1c Social History Tobacco Use Types Packs/Day Years [...] Answer Date Recorded Patient Health Questionnaire-9 Score 11 01/28/2025 Patient Health Questionnaire-9 Score 11 01/28/2025 Last PHQ-9: Questionnaire Data Not on file 0 01/28/2025 Housing Stability Answer Date Recorded What is your housing situation today? I have mavis white 12/17/[address] you li ve. Do you have problems with any of the following? None of the above 12/17/2024 Food Insecurity Answer Date Recorded Within the past 12 months, y ou worried that your food would run out before you got money to buy more: Sometimes True 2024 Within the past 12 months,th e food you bought just didn't last and you didn't have enough money to get more: Sometimes True 12/17/2024 Transportation Answer Date Recorded In the past 12 months, has l ack of transportation kept you from medical appts, meetings, work or from getting things needed for daily living? Yes, it has kept me from medical appointments or getting medications.;Yes, it has kept me from non-medical meetings, work, or getting things that I need 12/17/2024 Utilities Answer Date Recorded In the past 12 months, has t he electric, gas, oil or water company threatened to shut off services in your home? No 12/17/2024 Depression Answer Date Recorded Patient Health Questionnaire-2 Score 4 01/28/2025 Internet Access Answer Date Recorded Internet Access [...] Description 07/13/2025 2:45 PM EST Office Visit [facility] [address] [place] [address] Denisse Evangelista NP [address] [place] [address] documented as of this encounter Visit Diagnoses Not on filedocumented in this encounter Additional Health Concerns Assessment Noted Time PHQ-9 Depression Total Score: 11 025 2:19 PM EDT documented as of this encounter Care Teams Auditor Tax Relationship Specialty Start Date End Date Denisse Evangelista NP [address] [place] [address] PCP - General Family Medicine 07[facility]23 [facility] documented as of this encounter
--- OUTSIDE RECORDS SUMMARY | 2025-05-23 16:39 | XMS_ITS | Encounter Summary ---
Author Organization [employer] Address [address] [place] [address] [place] [address] Care Team Providers Care Hand Stripper Name Role Phone Sherice Bryant Primary Care Provider Lori vailable Denisse Evangelista NP Primary Care Provider [phone] Elisabeth Richardson MD Primary Care Provider [phone] Denisse Evangelista NP Primary Care Provider [phone] Reason for Visit * Reason Onset Date Comments Results 01/02/2023 Encounter Details Date Type Department Care Team (Late st Contact Info) Description 01/02/2023 Telephone [facility] [address] [place] [address] hSerice Bryant FNP Results Social History Tobacco Use Types Packs/Day [...] for medication. * Telephone Encounter - Dory Erick - 01/02/2023 1:11 PM EDT Tc from [...] Description 07/13/2025 2:45 PM EST Office Visit [facility] [address] [place] [address] Denisse Evangelista NP [address] [place] [address] documented as of this encounter Visit Diagnoses Not on filedocumented in this encounter Care Teams Hand Stripper Relationship Specialty Start Date End Date Sherice Bryant FNP PCP - General Family Medicine 06/11/22 04/23/23 Denisse Evangelista NP [address] [place] [address] PCP - General Family Medicine 04/24/23 06/22/23 Elisabeth Richardson MD [address] [place] [address] PCP - General Internal Medicine 06/23/23 07/09/23 Denisse Evangelista NP [address] [place] [address] PCP - General Family Medicine 07/10/23 Ata LEARY 10/13/24 documented as of this encounter
--- OUTSIDE RECORDS SUMMARY | 2025-05-23 16:39 | XMS_ITS | Encounter Summary ---
Author Organization [employer] Address [address] [place] [address] 7 [place] [address] Care Team Providers Care Gun Stocker Name Role Phone Denisse Evangelista NP Primary Care Provider [phone] Encounter Details Date Type Department Care Team ([facility] st Contact Info) Description 11/12/2024 Orders Only [facility] [address] [place], [place] [phone] Denisse Evangelista NP [address] [place] [address] Neurosyphilis in adult (Primary Dx) Social History [...] Description 07/13/2025 2:45 PM EST Office Visit [facility] [address] [place] [address] Denisse Evangelista NP [address] [place] [address] documented as of this encounter Visit Diagnoses Diagnosis Neurosyphilis in adult- Primary documented in this encounter Additional Health Concerns Assessment Noted Time PHQ-9 Depression Total Score: 8 02/18/20 10:12 AM EDT documented as of this encounter Care Teams Gun Stocker Relationship Specialty Start Date End Date Denisse Evangelista NP [address] [place] [address] PCP - General Family Medicine 07[facility]10[facility]23 [facility] documented as of this encounter
--- OUTSIDE RECORDS SUMMARY | 2025-05-23 16:39 | XMS_ITS | Data Portability ---
Author Organization [place] - [facility], Allergy Address [address] [address] [facility] [place] [address] Care Team Providers Care Field Service Coordinator Name Role Phone KINJAL CLEVELAND Primary Care Provider [phone] Assessment Encounter Date Assessment Date Assessment LastModified [...] Time Sensorineural hearing loss of bilateral ears [id number] Active 2024 Kendra gallardo [place] [facility] 13:32:35 Syphilis 71952335 Active 2024 SUZAN MART MD [address] [place] [address], [phone] [place] [address] - [facility] 08:56:45 Problem Notes None recorded. Procedures Surgical History Date Name Laterality Status Provider Name and Address Organization Details Recorded Time 08/30/2024 Comp Audio with Tymps - 75119 & 48531 completed Kendra Parker [place] [facility] 08/30/2024 13:31:39 Imaging Results None recorded. Procedure Notes None recorded. Medical Equipment None Reported. Allergies Allergen ID Allergen Name Allergen Category Reaction Reaction Severity Criticality Documentation Date Start Date Code Code System Note Provider Name and Address Organization Details Recorded Time 005124 Lasix medicatio n rash Not available low 08/30/2024 66071 1 RxNorm Janet Milton gallardo [place] [facility] 13:46:55 245455 latex environme nt,medica tion rash Not available low 08/30/2024 01560 91 RxNorm Janet Motyka RAYA gallardo [facility] 13:47:09 Medications Name Sig Start Date [...] Updated DateTime 08/30/2024 154.94 cm 56.7 kg/m2 925781.71 g Janet Rose [place] - [facility] 08/30/2024 13:46:25 Date Recorded Body height Body mass index (BMI) Body weight Provider Name and Address Organization Details Last Updated DateTime 10/22/2024 154.94 cm 56.7 kg/m2 402426.71 g Naty Jackson [facility] 10/22/2024 12:11:36 Social History None recorded. [...] Disorder N Anesthesia Complications N Heart Attack (MS) N Other Skin Condition N Diabetes N [...] ICD10 Code Diagnosis IMO Codes Diagnosis Note [id number] SUZAN MART MD [facility] [address] [address] 08/30/2024 12:46:57 08/30/2024 14:25:59 Sensorineural hearing loss of bilateral ears 496283752 H90.3 Audiologic al evaluation results:Ri ght ear:Modera te sloping to severe sensorineu ral hearing loss with excellent word recognitio n.Left ear:Modera te sloping to severe sensorineu ral hearing loss with excellent word recognitio n. Tympanomet ry:Right Ear:Type CLeft Ear:Type B [id number] SUZAN MART MD [facility] [address] [address] 10/22/2024 11:13:32 10/22/2024 13:19:34 Syphilis 24377784 A53.9 Sensorineu ral hearing loss of bilateral ears 516331149 H90.3 Health Concerns Section Related Observation LastModified by Organization Detai ls LastModified Time None Recorded Concern Status LastModified by Organization Details LastModified Time None Recorded Advance Directives Directive None Recorded Payers Insurance Date Sequence Insurance Name Policy Number Policy Samson Covered Member ID Samson Member ID Guarantor Name 10/22/2024 1 [facility] [id number] Beatrice Corwin [id number] Beatrice L Corwin 10/25/2024 1 [place] [facility] Beatrice L Corwin [id number] Beatrice L Corwin 03/08/2025 1 [facility] PL[facility] (MEDICAID HMO) [place] Beatrice L Corwin [id number] Beatrice L Corwin 10/25/2024 1 [facility] PLAN (MEDICAID HMO) [place] Beatrice L Corwin [id number] Beatrice L Corwin Notes Date Note Type [...] left posterior sphenoid sinus. SUZAN MART MD [address] [place] [address], [place], [address], [place] - [facility] 09/01/2024 10:21:08 10/22/2024 text/html ROS as noted in the HPI 39 yo F diagnosed with syphilis, broke out with another rash, progressed to the face from the stomach just finished 14 days of PCN admitted to hospital, needs 1 more injection seeing ID 11/03, feels she is hearing a little better SUZAN MART MD [address] [place] [address], [place], [address], [place] - [facility] 10/27/2024 08:58:02 OBGyn Episode No OBEpisode recorded.
--- OUTSIDE RECORDS SUMMARY | 2025-05-23 16:39 | XMS_ITS | Encounter Summary ---
Author Organization [employer] Address [address] [place] [address] [address] [place] [address] Care Team Providers Care Manager Federal Name Role Phone Denisse Evangelista NP Primary Care Provider [phone] Elisabeth Richardson MD Primary Care Provider [phone] Denisse Evangelista NP Primary Care Provider [phone] Reason for Visit * Reason Comments Med Refill Encounter Details Date Type Department Care Team (Late st Contact Info) Description 06/10/2023 Refill [facility] [address] [place] [address] Elisabeth Richardson MD [address] [place] [address] STI (sexually transmitted infection) Social History Tobacco [...] Description 07/13/2025 2:45 PM EST Office Visit [facility] [address] [place] [address] Denisse Evangelista NP [address] [place] [address] documented as of this encounter Visit Diagnoses Diagnosis STI (sexually transmitted infection) Unspecified venereal disease documented in this encounter Additional Health Concerns Assessment Noted Time PHQ-9 Depression Total Score: 0 04/30/20 10:11 AM EDT documented as of this encounter Care Teams Manager Federal Relationship Specialty Start Date End Date Denisse Evangelista NP [address] [place] [address] PCP - General Family Medicine 04/24/23 06/22/23 Elisabeth Richardson MD [address] [place] [address] PCP - General Internal Medicine 06/23/23 07/09/23 Denisse Evangelista NP [address] [place] [address] PCP - General Family Medicine 07/10/23 Ata LEARY 10/13/24 documented as of this encounter
--- OUTSIDE RECORDS SUMMARY | 2025-05-23 16:39 | XMS_ITS | Clinical Summary ---
Author Organization [employer] Address [address] [place] [address] [address] [place] [address] Care Team Providers Care Security Analyst Name Role Phone Denisse Evangelista NP Primary Care Provider [phone] Allergies Active Allergy Reactions Criticality Noted Date Comments Furosemide Rash Low 02/05/2023 Latex 10/18/2022 Itching/skin irritation Medications * This document contains information received from the source organization and may not represent a complete record from that organization. fluticasone (Flonase) 50 MCG/ACT nasal sprayIndication s:Viral URI Use 1 spray each nostril daily. Shake gently. Before first use, prime pump. After use, clean tip and replace cap. 16 g 03/18/20 24 Active cetirizine (ZyrTEC) 10 MG tablet Take 1 tablet (10 mg) by mouth if needed each day (itching). 30 tablet 1 09/30/19 25 Active EPINEPHrine (Epipen) 0.3 MG/0.3ML injection syringe Inject 0.3 mL (0.3 mg) as directed 1 (one) time if needed for anaphylaxis. Inject into upper leg. Call 911 after use. 2 each 09/30/19 25 2025 Active lisinopril 20 MG tabletIndicatio ns:Essential hypertension TAKE 1 TABLET BY MOUTH EVERY DAY 90 tablet 1 11/16/19 25 Active nicotine (Nicoderm, Step 3) 7 MG/24HR patchIndication s:Tobacco dependence Apply 1 patch, as directed, every 24 hours. May remove at bedtime if needed & replace the next morning. Rotate application site. 14 patch 2 03/09/20 Active chlorthalidone (Hygroton) 25 MG tabletIndicatio ns:Essential hypertension Take 1 tablet (25 mg) by mouth Once per day. 90 tablet 1 05/06/20 Active nicotine polacrilex (Commit) 2 MG lozengeIndicati ons:Tobacco dependence Dissolve 1 lozenge (2 mg) in the mouth every 2 (two) hours if needed for smoking cessation. 100 lozenge 2 05/06/20 25 2024 Active nystatin (Mycostatin) 602003 UNIT/GM powderIndicatio ns:Dermatitis associated with moisture Apply to affected area 3 times daily 60 g 1 05/19/20 25 2025 Active Tirzepatide (Mounjaro) 2.5 MG/0.5ML solution auto-injectorIn dications:Morbi d obesity (CMS/HCC) (HCC),Prediabet es Inject 2.5 mg under the skin 1 (one) time per week for 28 days. 2 mL 05/19/20 25 2024 Active nicotine polacrilex (Commit) 2 MG lozengeIndicati ons:Tobacco dependence Dissolve 1 lozenge (2 mg) in the mouth every 2 (two) hours if needed for smoking cessation. 100 lozenge 2 09/30/19 25 2024 Discontinued(R eorder (will not trigger notification to Pharmacy)) chlorthalidone (Hygroton) 25 MG tabletIndicatio ns:Essential hypertension TAKE 1 TABLET BY MOUTH EVERY DAY 90 tablet 1 11/16/19 25 2024 Discontinued(R eorder (will not trigger notification to Pharmacy)) Active Problems Problem Noted Date Diagnosed Date Anxiety disorder, unspecified 01/26/2025 Syphilis 10/01/2024 Assessment & Plan (03/25/2025 12:01 PM EDT): -reports return of hearing following treatment Assessment & Plan (12/23/2024 11:12 AM EDT): -Has completed treatment and appears to be recovering well -Repeat titer ordered for monitoring - Negative neurological exam today Nonintractable headache 05/19/2024 Assessment & Plan (05/19/2024 [...] based on PE findings. -ED precautions advised Iron deficiency anemia 04/30/2023 Assessment & Plan (04/30/2023 12:49 PM EDT): Cont iron supplementation, will recheck levels and re-evaluate. F/u in 1 month Primary central sleep apnea 02/12/2023 Overview (02/12/2023): [...] PT F/u 1 month or sooner PRN Numbness and tingling in both hands 12/04/2022 [...] 1 month or sooner PRN Prediabetes 10/17/2022 Assessment & Plan (05/19/2025 10:28 PM EDT): -continued dietary and lifestyle modifications encouraged -consider initiation of metformin pending lab result Orders: Hemoglobin A1c; Future Tirzepatide (Mounjaro) 2.5 MG/0.5ML solution auto-injector; Inject 2.5 mg under the skin 1 (one) time per week for 28 days. Assessment & Plan (03/25/2025 11:59 AM EDT): -self discontinued metformin -dietary and lifestyle interventions discussed Assessment & Plan (05/19/2024 10:27 AM EDT): [...] undergo surgery -is open to engaging with rf manager for assistance. Referral placed -follow-up 3 months [...] 04/30 -BP goal <130/80 Assessment & Plan (05/19/2025 10:28 PM EDT): -stable -continue lisinopril 20 mg every day and chlorthalidone 25 mg -eye exam completed 05/02/25 Orders: chlorthalidone (Hygroton) 25 MG tablet; Take 1 tablet (25 mg) by mouth Once per day. Assessment & Plan (03/25/2025 11:58 AM EDT): -Hypertension stable and needs to quit smoking. -Current treatment plan is effective, no change in therapy. -Repeat labs ordered prior to next appointment. -Reviewed diet, exercise and weight control. -Very strongly urged to quit smoking to reduce cardiovascular risk.. Assessment & Plan (03/09/2025 2:16 PM EDT): Hypertension stable. -Current treatment plan is effective, no change in therapy. -Continue lisinopril 20 mg and chlorthalidone 25 mg daily -Repeat labs ordered prior to next appointment. -Reviewed diet, exercise and weight control. -Very strongly urged to quit smoking to reduce cardiovascular risk. Assessment & Plan (09/11/2024 10:45 AM EST): [...] required -Continue with lifestyle interventions Morbid obesity (CMS/HCC) 10/17/2022 Assessment & Plan (05/19/2025 10:28 PM EDT): - Patient is candidate for Zepbound, however, prescription pending approval. - Will try submiting for [employer] for approval as patient is also prediabetic and this appears to be preferred GLP by insurance -No contraindications identified: , hx of pancreatitis, hx of medullary thyroid cancer. No known retinopathy. -Discussed side effects with patient: side effects of GLP1: nausea, vomiting, diarrhea & risk of pancreatitis. -discussed mechanism of action with patient which include eating small portions and not eating through sensation of fullness. -Advised to keep medication refrigerated, but do not freeze -Recommended to decrease soda and sugary beverage consumption. -Recommended at least 20 g per meal of protein to assist with satiety. -Recommended at least 150 min/week of moderate intensity exercise. - Encouraged to continue lifestyle and dietary changes -follow-up 2 months Orders: Tirzepatide (Mounjaro) 2.5 MG/0.5ML solution auto-injector; Inject 2.5 mg under the skin 1 (one) time per week for 28 days. Assessment & Plan (03/25/2025 12:00 PM EDT): -will check status of Zepbound injections -continued lifestyle modifications encouraged Assessment & Plan (03/09/2025 2:22 PM EDT): -patient has not been able to receive Zepbound for weight management -was previously on Ozempic with minimal effects. Unable to use phentermine secondary to diagnosis of hypertension -will re-order Zepbound and complete PA as required by insurances -reviewed side effects of GLP1 including eating small portions and not eating through sensation of fullness. No personal or family history of thyroid cancer or pancreatitis. No known retinopathy. Advised to keep medication refrigerated, but do not freeze -continued lifestyle and dietary changes encouraged -starting measurements -- weight 309 lbs -- neck circumference: 19 in --abdominal circumference: 58.5 in at umbilicus Assessment & Plan (12/23/2024 11:15 AM EDT): -Patient has been on Ozempic with inconsistencies in use therefore yielding no significant weight loss -Patient may achieve greater evidence of weight loss with use of Zepbound. She is informed of this and is willing to give it a try. Will start at low dose and titrate monthly pending patient tolerance -No contraindications identified: , hx of pancreatitis, hx of medullary thyroid cancer. No known retinopathy. - Reviewed side effects with patient: side effects of GLP1: nausea, vomiting, diarrhea & risk of pancreatitis. -discussed mechanism of action with patient which include eating small portions and not eating through sensation of fullness. -Advised to keep medication refrigerated, but do not freeze -Recommended to decrease soda and sugary beverage consumption. -Recommended at least 20 g per meal of protein to assist with satiety. -Recommended at least 150 min/week of moderate intensity exercise. Assessment & Plan (05/19/2024 10:30 AM EDT): -continues of semaglutide weekly injections for weight management. Will increase dose to 1 mg with next refill -continue life style modifications, consuming low fat foods -encouraged to keep her upcoming appointment with rf manager -follow-up 3 months Assessment & Plan (11/13/2023 [...] Problem Noted Date Diagnosed Date Resolved Date Dizzinesses 08/12/2024 12/23/2024 Assessment & Plan (09/11/2024 10:48 AM EST): [...] and is also likely -unable to complete Verner hallpike maneuver safely in clinic today. Exam [...] Sudden hearing loss of both ears 07/28/2024 12/23/2024 Assessment & Plan (08/12/2024 11:50 AM EST): [...] ENT at f/up if needed. ED precautions Rash 11/12/2023 12/23/2024 Assessment & Plan (11/13/2023 1:31 PM EDT): -advised to continue with current skin moisturizer -obtain photos when rash errupts to assist in achieving an accurate diagnosis Low iron 02/13/2023 12/23/2024 Overview (02/13/2023): Iron saturation slightly low, 13, on 10/18/22 H/H WNL Tx Ferrous Gluconate 324 mg every other day Assessment & Plan (02/13/2023 11:25 PM EDT): Refill ferrous gluc Take every other day + OJ F/u 3 months or sooner PRN MASON (obstructive sleep apnea) 12/04/2022 02/12/2023 Assessment & Plan (01/21/2023 8:30 PM EDT): Received from [facility] Using nightly F/u PRN Encounter for Papanicolaou s mear for cervical cancer screening 12/04/2022 12/23/2024 Overview (02/13/2023): Routine Health Maintenance: STI labs [...] -F/U to be determined by pap results Migraine without aura, not refractory 10/17/2022 05/19/2024 Strep pharyngitis 07/29/2022 10/17/2022 Viral URI 07/25/2022 10/17/2022 Encounters * This document contains information received from the source organization and may not represent a complete record from that organization. Date Type Department Care Team Description 05/19/2025 Results Follow-Up [facility] [address] [place] [address] Denisse Evangelista NP Hemoglobin A1c 05/06/2025 9:30 AM EDT Office Visit [facility] [address] [place] [address] Denisse Evangelista NP Morbid obesity (CMS/HCC) (HCC) (Primary Dx); Prediabetes; Essential hypertension; Tobacco dependence; Encounter for immunization; Dermatitis associated with moisture 05/06/2025 Orders Only GENERIC EXTERNAL DATA DEPARTMENT Provider, Generic External Data 05/06/2025 Travel 05/05/2025 Telephone [facility] [address] [place] [address] Denisse Evangelista NP CHARTPREP 05/02/2025 1:30 PM EDT Office Visit [facility] [address] [place] [address] Jaspal, Geetha, OD Optic nerve asymmetry, left (Primary Dx); Dry eye syndrome of both eyes; Myopia of both eyes 05/02/2025 Travel 03/29/2025 Travel 03/18/2025 Telephone [facility] [address] [place] [address] Denisse Evangelista NP Prior Authorization 03/09/2025 9:30 AM EDT Office Visit [facility] [address] [place] [address] Denisse Evangelista NP Essential hypertension (Primary Dx); Tobacco dependence; Morbid obesity (CMS/HCC) 03/09/2025 Travel 03/08/2025 Telephone [facility] [address] [place] [address] Grayson Aguilera MA CHARTPREP 03/02/2025 Travel from Last 3 Months Immunizations Immunization Administration Dates Next Due Influenza Injectable Quadriv alant Preservative Free IIV4 MDCK 06/07/2021 Influenza injectable quadrivalent preservative f ree 04/30/2023 Influenza, seasonal, injectable, preservative fr ee 05/06/2025 Tdap 08/22/2021 Family History Medical History Relation Name Comments Arthritis Father Hypertension Father Kidney cancer Father's Brother Colon cancer Maternal Great-Grandmother Asthma Mother Diabetes Mother Glaucoma Mother Lung cancer Mother Colon cancer Mother's Brother Breast cancer Other Relation Name Status Comments Father Father's Brother Maternal Great-Grandmother Alive Mother Mother's Brother Other [...] Sign Reading Time Taken Comments Blood Pressure 130/86 05/06/2025 9:45 AM EDT Pulse 76 05/06/2025 9:45 AM EDT Temperature 36.4 C (97.6 F) 05/06/2025 9:45 AM EDT Respiratory Rate 19 05/06/2025 9:45 AM EDT Oxygen Saturation 98% 05/06/2025 9:45 AM EDT Inhaled Oxygen Concentration - - Weight 140 kg (308 lb 6.4 oz) 05/06/2025 9:45 AM EDT Height 154.9 cm (5' 1 ) 05/06/2025 9:45 AM EDT Body Mass Index 58.27 05/06/2025 9:45 AM EDT Plan of Treatment Upcoming Encounters Date Type Department Care Team (Late st Contact Info) Description 07/13/2025 2:45 PM EST Office Visit [facility] [address] [place] [address] Denisse Evangelista NP [address] [place] [address] Health Maintenance Due Date Last Done Comments Family Planning (PISQ) 2000 HPV Vaccines (1 - 3-dose series) 2000 Pneumococcal Vaccine: Pediatrics (0 to 5 Years) and At-Risk Patients (6 to 49) Years (1 of 2 - PCV) 2004 COVID-19 Vaccine (3 - season) 2025 06/07/2021, 11/20/2020 Depression Monitoring 07/31/2025 01/28/2025, 025 Alcohol/Substance Use Screening 12/17/2025 12/17/2024 SDOH Screening 12/17/2025 12/17/2024 Disability Screening 03/02/2026 03/02/2025 Diabetes: Hemoglobin A1C 05/06/2026 025, 12/17/2024, 02/18/2024, Additional history exists Tobacco Screening 05/19/2026 05/19/2025 Cervical Cancer Screening 05/23/2028 HPV/Cotest 05/23/2028 05/23/2023 Pap Smear 05/23/2028 05/23/2023, 05/23/2023 Lipid Panel 01/26/2030 01/26/2025, 10/20, 12/09/2022, Additional history exists DTaP/Tdap/Td Vaccines (2 - Td or Tdap) 08/22/2031 08/22/2021 Zoster Vaccines (1 of 2) 2035 RSV Patients and Patients Aged 60 years or older (1 - 1-dose 75+ series) 2060 HIV Screening Completed 10/28/2024, 09/18, 02/18/2023, Additional history exists Hepatitis C Screening Completed 10/28/2024 , 10/01/2024, 02/18/2023, Additional history exists Influenza Vaccine Completed 05/06/2025, , 06/07/2021 HIB Vaccines Aged Out No longer eligi ble based on patient's age to complete this topic Hepatitis A Vaccines Aged Out No long er eligible based on patient's age to complete this topic Hepatitis B Vaccines Discontinued IPV Vaccines Aged Out No longer eligi ble based on patient's age to complete this topic Meningococcal B Vaccine Aged Out No l onger eligible based on patient's age to complete this topic Meningococcal Vaccine Aged Out No juan r icndy eligible based on patient's age to complete this topic RSV under 20 months Aged Out No longe r eligible based on patient's age to complete this topic Rotavirus Vaccines Aged Out No longer eligible based on patient's age to complete this topic Procedures Procedure Name Priority Date/Time Associated Diagnosis Comments RPR (MONITOR) W/REFL TITER Routine 05/06/2025 11:05 AM EDT HEMOGLOBIN A1C Routine 05/06/2025 11:05 AM EDT Prediabetes BASIC METABOLIC PANEL Routine 05/06/2025 11:05 AM EDT Essential hypertension LIPID PANEL, STANDARD Routine 01/26/2025 12:08 PM EDT Essential hypertension HEPATITIS C AB W/REFL TO HCV RNA, QN, PCR Routine 10/28/2024 10:02 AM EDT Syphilis HIV 1/2 ANTIGEN/ANTIBODY, FOURTH GENERATION W/RFL Routine 10/28/2024 10:02 AM EDT Syphilis HPV MRNA E6/E7 REFLEX TO HPV 16, 18/45 Routine 05/23/2023 11:22 AM EDT Bilateral leg edema IMAGE-GUIDED PAP W/AGE BASED SCR,W/CT/NG/TRICH Routine 05/23/2023 11:22 AM EDT Encounter for Papanicolaou smear for cervical cancer screening from Last 3 Months or Most Recently Relevant to Health Maintenance Results * (ABNORMAL) RPR (Monitor) with Reflex to??Titer (05/06/2025 11:05 AM EDT) RPR (Monitor) w/Refl Titer REACTIVE( A) NON-REACT [facility] Comment:The RPR is a non-chapo ponemal-specific test; therefore,a treponemal- specific confirmatory test should beperformed unless prior syphilis infection has beendocumented for this patient.THIS TEST WAS PERFORMED AT:[email or web address] [phone] SHEPHERD MD Rapid Plasma Reagin Ab Titer 1:16(A) [facility] Comment:THIS TEST WAS PERFOR MED AT:[email or web address] [phone] SHEPHERD MD 05/06/2025 11:0 5 AM EDT 05/06/2025 1:04 PM EDT us Generic External Data Provider LAB BLOOD ORDERAB LES Final Result Performing Organization Address [facility]/ZIP Co de Phone Number [facility] [address] [place] [phone] * (ABNORMAL) Hemoglobin A1c (05/06/2025 11:05 AM EDT) Hemoglobin A1c 6.1(H) <6.0 % [facility] Comment:Hemoglobin A1C Refer ence Range Adults: 4.8 - 6.0 % Non diabetic: < 6.0 % Goal: < 7.0 %Additional Action Suggested: > 8.0 %Note: Hemoglobin A1c results are invalid for patients with abnormal amounts of HbF. Blood transfusions may impact the HbA1c concentration in the patient sample. Estimated Average Glucose 128 mg/dL [facility] Comment:eAG = Estimated ave rage glucose which is %A1C expressed asaverage glucose, using the formula of the G7I-[id number] Glucose study (ADAG), Diabetes Care, Vol.31,#8,Feb. 2007 Blood Venous blood specimen / Unknown 05/06/2025 11:05 AM EDT 05/06/2025 12:58 PM EDT Denisse Evangelista NP LAB BLOOD ORDERABLES Final Resu lt Performing Organization Address City/[facility]/ZIP Co de Phone Number [facility] [address] [place] [address] [phone] * Basic Metabolic Panel (05/06/2025 11:05 AM EDT) Pathologist [facility] Sodium 137 135 - 145 mmol/L [facility] Potassium 3.6 3.3 - 5.1 mmol/L [facility] Chloride 100 96 - 108 mmol/L [facility] Carbon Dioxide 29 22 - 29 mmol/L [facility] Anion Gap 12 12 - 20 [facility] Urea Nitrogen (BUN) 13 9 - 16 mg/dL [facility] Creatinine, Serum 0.68 0.5 - 1.4 mg/dL [facility] Estimated Glomerular Filt Rate >60 [facility] Comment:Chronic Kidney Disea se: Estimated GFR < 60 mL/min/1.10l2Grwxiy Kidney Disease: Estimated GFR < 15 mL/min/1.73m2 Glucose 85 60 - 115 mg/dL [facility] Calcium 9.4 8.4 - 10.2 mg/dL [facility] Blood Venous blood specimen / Unknown 05/06/2025 11:05 AM EDT 05/06/2025 1:04 PM EDT Denisse Eavngelista CYBER SECURITY INSTRUCTOR LAB BLOOD ORDERABLES Final Resu lt [facility] [address] [place] [phone] [phone] * (ABNORMAL) Lipid Panel, Standard (01/26/2025 12:08 PM EDT) Triglycerides 128 <150 mg/dL [facility] Comment:Desirable Triglyceri de: less than 150 mg/dLBorderline High Triglyceride 150-199 mg/dLHigh Triglyceride: 200-499 mg/dLVery High Triglyceride: greater than or equal to 5OO mg/dL Cholesterol 178 <200 mg/dL [facility] Comment:Desirable Cholestero l: less than 200 mg/dLBorderline High Cholesterol: 200-239 mg/dLHigh Cholesterol: greater than 239 mg/dL LDL Cholesterol Calculated 114(H) <100 mg/dL [facility] Comment:Desirable LDL: less than 100 mg/dLNear Optimal/Above Optimal LDL: 110- 129 mg/dLBorderline High LDL: 130-159 mg/dLHigh LDL: 160-189 mg/dLVery High LDL: greater than or equal to 190 mg/dL HDL Cholesterol 39(L) >40 mg/dL [facility] Comment:Desirable HDL: great er than 40 mg/dL Note: This HDL assay may give artificially low results in patients with liver disease. Blood Venous blood specimen / Unknown 01/26/2025 12:08 PM EDT 01/26/2025 4:25 PM EDT Denisse Evangelista NP LAB BLOOD ORDERABLES Final Resu lt Performing Organization Address [facility]/[place] Co de Phone Number [facility] [address] [place] [phone] * Hepatitis C Antibody with Reflex to HCV, RNA, Quantitative, Real-Time PCR (10/28/2024 10:02 AM EDT) Hepatitis C Antibody Nonreactive Nonreactive [facility] Comment:Antibodies to HCV no t detected; does not exclude early acuteHCV infection. Blood Venous blood specimen / Unknown 10/28/2024 10:02 AM EDT 10/28/2024 10:10 AM EDT Tirso Caceres MD LAB BLOOD ORDERABLES Final Resul t Performing Organization Address [facility] Co de Phone Number [facility] [address] [place] [address] [phone] * HIV-1/2 Antigen and Antibodies, Fourth Generation, with Reflexes (10/28/2024 10:02 AM EDT) HIV AB/AG Nonreactive Nonreactive [facility] Comment:HIV-1 p24 Ag and/or HIV-1/HIV-2 Ab not detected.A test result that is nonreactive does not exclude thepossibility of exposure to or infection with HIV-1 and/orHIV-2. Nonreactive results in this assay for individualswith prior exposure to HIV-1 and/or HIV-2 may be due toantigen and antibody levels that are below the limit ofdetection of this assay.The [employer] HIV Ag/Ab Combo assay result andsupplemental assay results should be interpreted inconjunction with the patient's clinical presentation,history and other laboratory results. If the results areinconsistent with clinical evidence, additional testing issuggested to confirm the result. Blood Venous blood specimen / Unknown 10/28/2024 10:02 AM EDT 10/28/2024 10:10 AM EDT Tirso Caceres MD LAB BLOOD ORDERABLES Final Resul t [facility] [address] [place] [phone] * (ABNORMAL) Image-Guided Pap with Age-Based Screening??with CT/NG,??Trichomonas (05/23/2023 11:22 AMEDT) Trichomonas (NAAT) DETECTED(A) NOT DETECTED [facility] Comment:The analytical perfo rmance characteristics of thisassay have been determined by [employer]. Themodifications have not been cleared or approved bythe FDA. This assay has been validated pursuant to theIA regulations and is used for clinical purposes.For additional information, please refer tohttp://education.[employer]/faq/Trichomonastma(This link is being provided for information/educational purposes only.)THIS TEST WAS PERFORMED AT:[email or web address] [phone] SHEPHERD MD CTNG Ref Lab NOT DETECTED NOT DETECTED [facility] NG Ref Lab NOT DETECTED NOT DETECTED [facility] Pap Vial 05/23/2023 11:2 2 AM EDT 05/26/2023 11:00 AM EST us [facility] CYTOLOGY ORDERABLES Final Result Performing Organization Address [facility]/ZIP Co de Phone Number [facility] [address] [place] [phone] * HPV mRNA E6/E7 w/Reflex to HPV Genotypes 16, 18/45 (05/23/2023 11:22 AM EDT) HPV nRNA E6/E7 Not Detected Not Detected [facility] Comment:Methodology: Transcr iption-Mediated AmplificationThis assay detects E6/E7 viral messenger RNA (mRNA) from 14high-risk HPV types (16,18,31,33,35,39,45,51,52,56,58,59,66,68).Cervical sources are required for HPV testing.If a vaginal source from a patient who has had atotal hysterectomy with removal of cervix wassubmitted, please contact the testing laboratoryfor alternative testing options.For additional information, please refer tohttp://education.[employer]/faq/HOZ067f5(This link if provided for information/educational purposes only.)THIS TEST WAS PERFORMED AT:[employer] [place] [phone] SHEPHERD MD HPV mRNA E6/E7 [facility] HPV 16 RNA [facility] HPV 18/45 RNA [facility] 05/23/2023 11:2 2 AM EDT 05/26/2023 11:00 AM EST Leslie Horan [facility] CYTOLOGY ORDERABLES Final Result Performing Organization Address City[facility]/ZIP Co de Phone Number [facility] [address] [place] [phone] [phone] from Last 3 Months or Most Recently Relevant to Health Maintenance Insurance [employer] Care Teams Security Analyst Relationship Specialty Start Date End Date Denisse Evangelista NP [address] [place] [phone] PCP - General Family Medicine 07/10/23 Ata A 10/13/24
--- OUTSIDE RECORDS SUMMARY | 2025-05-23 16:39 | XMS_ITS | Encounter Summary ---
Author Organization [employer] Address [address] [place] [address] [place] [address] Care Team Providers Care Help Desk Agent Name Role Phone Denisse Evangelista NP Primary Care Provider Reason for Visit * Reason Onset Date Comments Med Refill 12/22/2024 Encounter Details Date Type Department Care Team ([facility] st Contact Info) Description 12/22/2024 Refill [facility] [address] [place] [address] Denisse Evangelista NP [address] [place] [address] Morbid obesity (CMS/HCC) Social History Tobacco Use Types Packs/Day Years [...] Answer Date Recorded Patient Health Questionnaire-9 Score 10 12/17/2024 Patient Health Questionnaire-9 Score 10 12/17/2024 Last PHQ-9: Questionnaire Data Not on file 0 12/17/2024 Housing Stability Answer Date Recorded What is [...] Date Recorded Patient Health Questionnaire-2 Score 2 12/17/2024 Internet Access Answer Date Recorded Internet Access [...] encounter Miscellaneous Notes * Telephone Encounter - Denisse Evangelista NP - 12/23/2024 11:24 AM EDT Alternative medication prescribed documented in this encounter Plan of Treatment Upcoming Encounters Date Type Department Care Team (Late st Contact Info) Description 07/13/2025 2:45 PM EST Office Visit [facility] [address] [place] [address] Denisse Evangelista NP [address] [place] [address] documented as of this encounter Visit Diagnoses Diagnosis Morbid obesity (CMS/HCC) (HCC) Morbid obesity documented in this encounter Additional Health Concerns Assessment Noted Time PHQ-9 Depression Total Score: 10 025 3:21 PM EDT documented as of this encounter Care Teams Help Desk Agent Relationship Specialty Start Date End Date Denisse Evangelista NP [address] [place] [id number] PCP - General Family Medicine 07/10/23 Ata LEARY 10/13/24 documented as of this encounter
== END 2025-05-23 16:16 | disposition home or self-care (01) ==
LOC: HO.HID 15:24
PROVIDERS: PCP Nurse Practitioner; Visit Provider Internal Medicine
DX: A52.3 Neurosyphilis, unspecified (principal)
CPT/HCPCS: 99213

== ENCOUNTER → 2025-05-23 15:24 | Outpatient (BNVA) | payer MEDICAID, SELFPAY | PROVIDERS: PCP Nurse Practitioner; Visit Provider Internal Medicine | DX: A52.3 Neurosyphilis, unspecified (principal) | CPT/HCPCS: 99212 ==